=== PATIENT | male | born 1940 | race Caucasian/White ===

== ENCOUNTER 2021-02-06 22:02 | Inpatient (IN) | payer MEDICARE ==
[2021-02-06 23:27] LABS: ABG Base Excess -5.3 mmol/L; ABG HCO3 21 mmol/L (21-25); ABG Oxygen Saturation 99.9 % (94-97); ABG PCO2 42 mmHg (35-45); ABG PO2 240 mmHg (83-108); ABG TCO2 22 mmol/L (19-24); Allen Test Performed? Yes
[2021-02-06 23:38] LABS: Anisocytosis Moderate; HCT 35.2 % (39.0-53.0); HGB 10.3 gm/dL (13.0-17.5); Hypochromasia Marked; MCH 25.1 pg (25.0-35.0); MCHC 29.4 g/dL (31.0-37.0); MCV 85.5 fL (80.0-100.0); Mean Platelet Volume 11.7; Microcytosis Slight; Platelet Count 363 k/uL (150-450); Poikilocytosis Slight; RBC 4.12 m/uL (4.30-5.90); RDW 22.3 % (11.5-15.5); WBC 8.8 k/uL (3.8-10.6)
[2021-02-06 23:39] LABS: Calcium 8.2 mg/dL (8.4-10.2); Potassium 4.1 mmol/L (3.5-5.1); Total Bilirubin 1.5 mg/dL (0.2-1.3); Total Protein 6.3 g/dL (6.3-8.2)
--- NOTE | 2021-02-07 00:41 | ED ---
SOB HPI - General Chief Complaint: Shortness of Breath Stated Complaint: Shortness of breath Time Seen by Provider: 02/06/21 22:05 Source: EMS Mode of arrival: EMS - History of Present Illness Initial Comments: Patient is an 80-year-old male with past medical history of bowel obstruction and ileostomy placement in 2012 who presented to [facility] with nausea, vomiting and abdominal pain. He had not had any output from his ostomy in 24 hours. He was evaluated at [facility] and found to have a bowel obstruction. He subsequently additionally had respiratory failure which was attributed to either aspiration versus congestive heart failure. The patient was on the BiPAP candidate due to his persistent nausea and vomiting and therefore he was intubated at their facility. He was given 80 mg of Lasix and transferred to our facility for higher level of care. Patient arrives on the vent with stable vital signs. No family is at bedside. - Related Data Home Medications Medication Instructions Recorded Confirmed Apixaban [Eliquis] 5 mg PO BID 02/06/21 02/06/21 Atorvastatin Calcium [Lipitor] 40 mg PO DAILY 02/06/21 02/06/21 Carvedilol [Coreg] 12.5 mg PO BID 02/06/21 02/06/21 Ferrous Sulfate [Feosol] 325 mg PO MOWEFR 02/06/21 02/06/21 Lansoprazole [Prevacid] 30 mg PO DAILY 02/06/21 02/06/21 Loratadine [Claritin] 10 mg PO DAILY PRN 02/06/21 02/06/21 Multivitamins, Thera [Multivitamin 1 tab PO DAILY 02/06/21 02/06/21 (formulary)] Sodium Bicarbonate Tab 650 mg PO QID@05,11,17,23 02/06/21 02/06/21 Tamsulosin HCl [Flomax] 0.4 mg PO DAILY 02/06/21 02/06/21 amLODIPine [Norvasc] 10 mg PO DAILY 02/06/21 02/06/21 hydroCHLOROthiazide [Hydrodiuril] 25 mg PO DAILY 02/06/21 02/06/21 Allergies Allergy/AdvReac Type Severity Reaction Status Date / Time lisinopril AdvReac Unknown Verified 02/06/21 22:41 Review of Systems ROS Statement: Those systems with pertinent positive or pertinent negative responses have been documented in the HPI. ROS Other: All systems not noted in ROS Statement are negative. Past Medical History Past Medical History: No Reported History Additional Past Medical History / Comment(s): hiatal hernia. hyperkalemia. hypertension. maculuar degernation. TIA. Past Surgical History: Appendectomy, Tonsillectomy Additional Past Surgical History / Comment(s): iliostomy Smoking Status: Never smoker Past Alcohol Use History: Daily Past Drug Use History: None Reported Course Vital Signs 02/06/21 02/06/21 02/06/21 22:23 22:30 23:08 Temperature 97.8 F Pulse Rate 63 63 63 Respiratory 18 18 18 Rate Blood Pressure 134/79 111/68 122/73 O2 Sat by Pulse 98 98 99 Oximetry - Reevaluation(s) Reevaluation #1: 02/07/21 00:[address] Diaz - add antibiotics Medical Decision Making - Medical Decision Making Upon arrival patient is placed in a trauma 1. I did review the patient's transfer packet. Blood gas showed a pH of 7.25, CO2 44, O2 77. White blood cell count was 11. Hemoglobin 10. Platelets 423. Lactic acid 0.8. Troponin was negative. UA was positive for greater than 100 white blood cells. Sodium 141, potassium 4.7, chloride 112, creatinine 2 which is near the patient's baseline. Chest x-ray demonstrated enteric tube with tip projecting in the left upper quadrant of the abdomen, presumably the stomach. Left-sided single lead cardiac pacemaker. Endotracheal tube terminates 7 cm above the annalisa. Bilateral pleural effusions and atelectasis. No pneumonia or pneumothorax. Aspiration not excluded. CT the abdomen and pelvis demonstrates dilated small and large bowel loops, concerning for bowel obstruction. Right lower quadrant ostomy with parastomal hernia which may be the site of transition point. Bilateral pleural effusions and anasarca, suggestive of fluid overload. Air within the urinary bladder. She did call and speak with Dr. Diaz. Requesting the patient be placed on antibiotics. Patient will be admitted to the ICU. Currently awaiting a callback from Dr. Montoya. Spoke with Claudia from [facility] who will admit the patient. - Lab Data Result diagrams: 02/06/21 23:04 02/06/21 23:04 Lab Results 02/06/21 02/06/21 02/06/21 Range/Units 23:04 23:04 23:04 WBC 8.8 (3.8-10.6) k/uL RBC 4.12 L (4.30-5.90) m/uL Hgb 10.3 L (13.0-17.5) gm/dL Hct 35.2 L (39.0-53.0) % MCV 85.5 (80.0-100.0) fL MCH 25.1 (25.0-35.0) pg MCHC 29.4 L (31.0-37.0) g/dL RDW 22.3 H (11.5-15.5) % Plt Count 363 (150-450) k/uL MPV 11.7 Hypochromasia Marked Poikilocytosis Slight Anisocytosis Moderate Microcytosis Slight Sample Site ABG pH (7.35-7.45) ABG pCO2 (35-45) mmHg ABG pO2 (83-108) mmHg ABG HCO3 (21-25) mmol/L ABG Total CO2 (19-24) mmol/L ABG O2 Saturation (94-97) % ABG Base Excess mmol/L Jin Test FiO2 % Sodium 140 (137-145) mmol/L Potassium 4.1 (3.5-5.1) mmol/L Chloride 111 H (98-107) mmol/L Carbon Dioxide 19 L (22-30) mmol/L Anion Gap 10 mmol/L BUN 58 H (9-20) mg/dL Creatinine 1.94 H (0.66-1.25) mg/dL Est GFR (CKD-EPI)AfAm 36 (>60 ml/min/1.73 sqM) Est GFR (CKD-EPI)NonAf 31 (>60 ml/min/1.73 sqM) Glucose 124 H (74-99) mg/dL Plasma Lactic Acid Saji 0.7 (0.7-2.0) mmol/L Calcium 8.2 L (8.4-10.2) mg/dL Total Bilirubin 1.5 H (0.2-1.3) mg/dL AST 45 (17-59) U/L ALT 13 (4-49) U/L Alkaline Phosphatase 353 H (38-126) U/L Total Protein 6.3 (6.3-8.2) g/dL Albumin 3.0 L (3.5-5.0) g/dL 02/06/21 Range/Units 23:25 WBC (3.8-10.6) k/uL RBC (4.30-5.90) m/uL Hgb (13.0-17.5) gm/dL Hct (39.0-53.0) % MCV (80.0-100.0) fL MCH (25.0-35.0) pg MCHC (31.0-37.0) g/dL RDW (11.5-15.5) % Plt Count (150-450) k/uL MPV Hypochromasia Poikilocytosis Anisocytosis Microcytosis Sample Site Right Radial ABG pH 7.30 L (7.35-7.45) ABG pCO2 42 (35-45) mmHg ABG pO2 240 H (83-108) mmHg ABG HCO3 21 (21-25) mmol/L ABG Total CO2 22 (19-24) mmol/L ABG O2 Saturation 99.9 H (94-97) % ABG Base Excess -5.3 mmol/L Jin Test Yes FiO2 100 % Sodium (137-145) mmol/L Potassium (3.5-5.1) mmol/L Chloride (98-107) mmol/L Carbon Dioxide (22-30) mmol/L Anion Gap mmol/L BUN (9-20) mg/dL Creatinine (0.66-1.25) mg/dL Est GFR (CKD-EPI)AfAm (>60 ml/min/1.73 sqM) Est GFR (CKD-EPI)NonAf (>60 ml/min/1.73 sqM) Glucose (74-99) mg/dL Plasma Lactic Acid Saji (0.7-2.0) mmol/L Calcium (8.4-10.2) mg/dL Total Bilirubin (0.2-1.3) mg/dL AST (17-59) U/L ALT (4-49) U/L Alkaline Phosphatase (38-126) U/L Total Protein (6.3-8.2) g/dL Albumin (3.5-5.0) g/dL Disposition Clinical Impression: Ventilator dependence, Hypoxia, Congestive heart failure, Bowel obstruction Disposition: ADMITTED IP TO THIS HOSP Condition: Serious Is patient prescribed a controlled substance at d/c from ED?: No Referrals: Bubba Tejada MD [Primary Care Provider] - 1-2 days Decision to Admit Reason: Admit from EC Decision Date: 02/07/21 Decision Time: 01:20
[2021-02-07 01:04] LABS: Band Neutrophils % 14 %; Eosinophils # (M) 0.18 k/uL (0-0.7); Monocytes # (M) 0.44 k/uL (0-1.0); Neutrophils % (M) 79 %; Nucleated Red Blood Cells 0 /100 WBC (0-0); Total Cells Counted 100
[2021-02-07 01:05] LABS: Anisocytosis (M) Present; Ovalocytes Present; Poikilocytosis (M) Present; Polychromasia Present; RBC Fragments Present
[2021-02-07] MEDS ORDERED: NALOXONE 0.4 MG/ML 1 ML VIAL IV PRN (01:21)
[2021-02-07] MEDS: SODIUM CHLORIDE 0.9% 1,000 ML IV SCH ×2 (01:40→14:30)
[2021-02-07] MEDS ORDERED: MIDAZOLAM 1 MG/ML 5 ML VIAL IV STA (01:46)
--- NOTE | 2021-02-07 02:20 | XR ---
EXAMINATION TYPE: XR chest 1V confirm line [facility] DATE OF EXAM: 02/07/2021 COMPARISON: Yesterday HISTORY: Short of breath TECHNIQUE: Single view FINDINGS: Endotracheal tube is 5 cm from the annalisa. There is nasogastric tube has the tip over the l ateral aspect of the gastric fundus. No change. There is bilateral lower lobe pulmonary airspace infiltrates and worse on the right side. There is mi ld pulmonary congestion. There is left axillary pacemaker. IMPRESSION: Tubing in good position. Pulmonary infiltrates unchanged and there is probably also conge stive heart failure.
[2021-02-07 02:44] LABS: Glucose,Whole Blood 106 mg/dL (75-99)
[2021-02-07 05:10] LABS: Anisocytosis Moderate; HCT 33.5 % (39.0-53.0); HGB 9.9 gm/dL (13.0-17.5); Hypochromasia Marked; MCH 25.3 pg (25.0-35.0); MCHC 29.7 g/dL (31.0-37.0); MCV 85.2 fL (80.0-100.0); Mean Platelet Volume 11.4; Microcytosis Slight; Platelet Count 371 k/uL (150-450); Poikilocytosis Slight; RBC 3.93 m/uL (4.30-5.90); RDW 22.4 % (11.5-15.5); WBC 6.1 k/uL (3.8-10.6)
[2021-02-07 05:19] LABS: Calcium 8.1 mg/dL (8.4-10.2); Magnesium 1.4 mg/dL (1.6-2.3)
[2021-02-07 05:36] LABS: Band Neutrophils % 24 %; Eosinophils # (M) 0.06 k/uL (0-0.7); Lymphocytes # (M) 0.12 k/uL (1.0-4.8); Monocytes # (M) 0.55 k/uL (0-1.0); Neutrophils % (M) 64 %; Nucleated Red Blood Cells 0 /100 WBC (0-0); Total Cells Counted 200
[2021-02-07 05:37] LABS: Anisocytosis (M) Present; Poikilocytosis (M) Present; Polychromasia Present
[2021-02-07 05:38] LABS: Ovalocytes Present
[2021-02-07 05:52] LABS: ABG Base Excess -4.2 mmol/L; ABG HCO3 22 mmol/L (21-25); ABG Oxygen Saturation 96.7 % (94-97); ABG PCO2 42 mmHg (35-45); ABG PH 7.32 (7.35-7.45); ABG PO2 86 mmHg (83-108); ABG TCO2 23 mmol/L (19-24); Allen Test Performed? Yes
[2021-02-07] MEDS ORDERED: Magnesium Replacement Protocol 1 EACH MISC MISCELLANE PRN (06:09)
[2021-02-07] MEDS: MAGNESIUM SULFATE-D5W PMX 1 GM in DEXTROSE/WATER 1 100ML.BAG IVPB SCH ×3 (06:30→13:37)
[2021-02-07] MEDS ORDERED: IPRATROPIUM-ALBUTEROL 3 ML NEB INHALATION PRN (08:46)
[2021-02-07] MEDS ORDERED: SODIUM CHLORIDE 0.9% 1,000 ML IV ONE (08:49)
[2021-02-07] MEDS ORDERED: CISATRACURIUM 2 MG/ML 5 ML VIAL IV ONE (09:01)
[2021-02-07] MEDS ORDERED: PIPERACILLIN-TAZOBACTAM 3.375 GM in SODIUM CHLORIDE 0.9% 100 ML IVPB ONE (09:15)
--- NOTE | 2021-02-07 09:47 | XR ---
EXAMINATION TYPE: XR chest 1V portable DATE OF EXAM: 02/07/2021 COMPARISON: Chest x-ray 02/07/2021 and earlier time HISTORY: Intubated, abnormal chest x-ray, status post central venous catheter placement TECHNIQUE: Single frontal view of the chest is obtained. FINDINGS: There is been interval placement of a left jugular central venous catheter, distal tip is in the right atrium. There is no evident pneumothorax or other significant interval change. Endotrach eal tube and NG tube are in proper positions. Bibasilar density, prominent central vascularity is aga in noted. Pacemaker is present and is unchanged. Cardiac mediastinal silhouette is unchanged. IMPRESSION: No evident complication status post central venous catheter placement.
--- NOTE | 2021-02-07 09:50 | PCN ---
PROCEDURE NOTE PULMONARY/CRITICAL CARE PROCEDURE NOTE: LEFT INTERNAL JUGULAR TRIPLE-LUMEN CATHETER PLACEMENT: OPERATORS: 1. Dr. Montoya. 2. Dr. Velazquez. PREOPERATIVE DIAGNOSIS: Administration of fluids and pressors. POSTOPERATIVE DIAGNOSIS: Administration of fluids and pressors. PROCEDURE DESCRIPTION: A time-out was completed verifying correct patient, procedure, site, positioning, and implant(s) or special equipment if applicable. There was informed consent. The patient was placed in a dependent position appropriate for triple-lumen catheter placement based on the vein to be cannulated. The patient's left neck was prepped and draped in sterile fashion. 1% Lidocaine was used to anesthetize the surrounding skin area. A triple-lumen 9F Cordis catheter was introduced into the left internal jugular vein using Seldinger technique. The catheter was threaded smoothly over the guidewire and good blood return from all three ports was obtained. Each lumen of the catheter was evacuated of air and flushed with sterile saline. The catheter was then sutured in place to the skin and a sterile dressing applied. Perfusion to the extremity distal to the point of catheter insertion was checked and found to be adequate. There was no immediate complication. The chest x-ray was done and showed the catheter in the junction of the right atrium superior vena cava. The patient tolerated the procedure well. The procedures administration of fluids and pressors. MMODL / IJN: [id number] /
--- NOTE | 2021-02-07 09:56 | PCN ---
PROCEDURE NOTE PULMONARY/CRITICAL CARE PROCEDURE NOTE: RIGHT RADIAL ARTERIAL LINE PLACEMENT: PREOPERATIVE DIAGNOSIS: Frequent blood draws and blood gas monitoring. POSTOPERATIVE DIAGNOSIS: Frequent blood draws and blood gas monitoring. OPERATORS: 1. Dr. Montoya. 2. Dr. Velazquez. PROCEDURE DESCRIPTION: A time-out was completed verifying correct patient, procedure, site, positioning, and implant(s) or special equipment if applicable. Jin's test was performed to ensure adequate perfusion. The patient's right wrist was prepped and draped in sterile fashion. 1% Lidocaine was used to anesthetize the area. An 18G Arrow arterial line was introduced into the right radial artery. The catheter was threaded over the guidewire and the needle was removed with appropriate pulsatile blood return. Blood loss was minimal. The catheter was then sutured in place to the skin and a sterile dressing applied by the nurse. Perfusion to the extremity distal to the point of catheter insertion was checked and found to be adequate. There was good blood return and waveform. The patient tolerated the procedure well and there were no immediate complications. MMODL / IJN: [id number] /
[2021-02-07] MEDS: PANTOPRAZOLE 40 MG/10 ML VIAL IV SCH (10:02)
[2021-02-07] MEDS: HEPARIN SODIUM,PORCINE/PF 5,000 UNIT/0.5 ML SYRINGE SQ SCH ×3 (10:02→23:38)
[2021-02-07] MEDS: CHLORHEXIDINE GLUCONATE 15 ML CUP MUCOUS MEM SCH ×2 (10:03→20:13)
[2021-02-07] MEDS: NOREPINEPHRINE 8 MG in SODIUM CHLORIDE 0.9% 250 ML IV SCH (10:15)
--- NOTE | 2021-02-07 10:27 | P.CNPUL ---
History of Present Illness Consult date: 02/07/21 Requesting physician: Alyse Sosa Reason for consult: hypoxemia, abnormal CXR/CT (Ventilator, critical care management) Chief complaint: Nausea, vomiting, abdominal pain History of present illness: This is an 80-year-old gentleman with a history of hypertension, BPH, gastroesophageal reflux disease, macular degeneration, sick sinus syndrome status post permanent pacemaker implantation, anticoagulated with Eliquis, hyperlipidemia. He also has a history of previous bowel obstruction and subs equent ileostomy placed in 2012. He presented to [facility] yesterday with complaints of nausea vomiting abdominal pain and no output from his ileostomy for 24 hours. He was thought to have a bowel obstruction. The patient additionally had some respiratory failure suspect secondary to aspi ration while vomiting. He was unable to tolerate BiPAP and subsequently intubated at [facility] and transferred here early this morning for further evaluation and treatment. Chest x-ray revealed pulmonary infiltrates and possible pulmonary vascular congestion. Endotracheal tube in good position. White count 6.1. Hemoglobin 9.9. Platelets 371. Sodium 140. Potassium 4.0. Creatinine 1.94. BUN 57. The patient is seen in consultation in the ICU. Currently sedated on propofol at 45 mcg/kg/m. 0.9 normal saline at 75 ML's per hour. He is on assist control mode at a rate of 18, tidal volume 450, FiO2 50% and a PEEP of 5. Morning blood gases reveal a P O2 of 86, pCO2 42, pH 7.32 on 60% FiO2. Sputum culture pending. The patient's ostomy appears to be functioning. There is significant amount of loose stool. Review of Systems ROS unobtainable: due to endotracheal tube Past Medical History Past Medical History: No Reported History, Hypertension Additional Past Medical History / Comment(s): hiatal hernia. hyperkalemia. maculuar degernation. TIA. 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 Pacemaker placed 08/15/2020 by Eleuterio Babcock ([phone]) Past Anesthesia/Blood Transfusion Reactions: No Reported Reaction Type of Cardiac Device: Permanent Pacemaker Device Placement Date:: 08/15/20 Past Psychological History: No Psychological Hx Reported Smoking Status: Former smoker Past Alcohol Use History: Rare Past Drug Use History: None Reported - Past Family History Daughter(s) Family Medical History: Diabetes Mellitus, Hypertension Additional Family Medical History / Comment(s): macular degeneration Medications and Allergies Home Medications Medication Instructions Recorded Confirmed Type Apixaban [Eliquis] 5 mg PO BID 02/06/21 02/06/21 History Atorvastatin Calcium [Lipitor] 40 mg PO DAILY 02/06/21 02/06/21 History Carvedilol [Coreg] 12.5 mg PO BID 02/06/21 02/06/21 History Ferrous Sulfate [Feosol] 325 mg PO MOWEFR 02/06/21 02/06/21 History Lansoprazole [Prevacid] 30 mg PO DAILY 02/06/21 02/06/21 History Loratadine [Claritin] 10 mg PO DAILY PRN 02/06/21 02/06/21 History Multivitamins, Thera [Multivitamin 1 tab PO DAILY 02/06/21 02/06/21 History (formulary)] Sodium Bicarbonate Tab 650 mg PO QID@05,11,17,23 02/06/21 02/06/21 History Tamsulosin HCl [Flomax] 0.4 mg PO DAILY 02/06/21 02/06/21 History amLODIPine [Norvasc] 10 mg PO DAILY 02/06/21 02/06/21 History hydroCHLOROthiazide [Hydrodiuril] 25 mg PO DAILY 02/06/21 02/06/21 History Allergies Allergy/AdvReac Type Severity Reaction Status Date / Time lisinopril AdvReac Unknown Verified 02/06/21 22:41 Physical Exam Vitals: Vital Signs Temp Pulse Resp BP Pulse Ox 02/07/21 07:00 66 19 93/55 95 02/07/21 06:00 65 18 100/66 95 02/07/21 05:00 94.2 F L 60 18 100/64 97 02/07/21 04:00 60 18 99/65 96 02/07/21 03:00 62 18 106/65 96 02/07/21 02:38 63 15 02/07/21 02:00 64 16 106/64 96 02/07/21 00:30 97.8 F 63 18 114/68 96 02/07/21 00:00 63 18 121/74 96 02/06/21 23:30 72 18 123/74 96 02/06/21 23:08 63 18 122/73 99 02/06/21 22:30 63 18 111/68 98 02/06/21 22:23 97.8 F 63 18 134/79 98 02/06/21 22:20 14 Intake and Output 02/06/21 02/07/21 02/07/21 22:59 06:59 14:59 Intake Total 400.000 99.767 Output Total 1460 60 Balance -1060.000 39.767 Intake: IV 300 75 Sodium Chloride 0.9% 1, 300 75 000 ml @ 75 mls/hr IV . [id number] ADRIA Rx#:[id number] Intake, IV Titration 100.000 24.767 Amount propofoL 1,000 mg In 100.000 24.767 Empty Bag 1 bag @ Titrate IV .Q0M [facility]RIA Rx#: [id number] Output: Urine 1310 60 Stool 150 Other: Voiding Method Indwelling Catheter Weight 85.457 kg 86.9 kg GENERAL EXAM: Intubated, sedated, frail 80-year-old gentleman, appears comfortable in no apparent distress. HEAD: Normocephalic. EYES: Sluggish reaction of pupils, equal size. NOSE: Clear with pink turbinates. THROAT: Oral endotracheal and gastric tube secured in place. No erythema or exudates. NECK: No masses, no JVD. CHEST: No chest wall deformity. LUNGS: Equal air entry with few scattered rhonchi bilaterally. CVS: S1 and S2 normal with no audible murmur, regular rhythm. ABDOMEN: Ostomy in place. Functioning. Loose stool. No hepatosplenomegaly, normal bowel sounds, no guarding or rigidity. SPINE: No scoliosis or deformity SKIN: No rashes CENTRAL NERVOUS SYSTEM: Sedated. Tone is normal in all 4 extremities. EXTREMITIES: There is no peripheral edema. No clubbing, no cyanosis. Redness of the bilateral lower extremities. Dry skin. Peripheral pulses are intact. Results - Laboratory Findings CBC and BMP: 02/07/21 04:24 02/07/21 04:24 ABG ABG pH 7.32 (7.35-7.45) L 02/07/21 05:48 ABG pCO2 42 mmHg (35-45) 02/07/21 05:48 ABG pO2 86 mmHg (83-108) 02/07/21 05:48 ABG O2 Saturation 96.7 % (94-97) 02/07/21 05:48 Abnormal lab findings: Abnormal Labs 02/06/21 02/06/21 02/06/21 23:04 23:04 23:25 RBC 4.12 L Hgb 10.3 L Hct 35.2 L MCHC 29.4 L RDW 22.3 H Neutrophils # (Manual) 8.10 H Lymphocytes # (Manual) ABG pH 7.30 L ABG pO2 240 H ABG O2 Saturation 99.9 H Chloride 111 H Carbon Dioxide 19 L BUN 58 H Creatinine 1.94 H Glucose 124 H POC Glucose (mg/dL) Calcium 8.2 L Magnesium Total Bilirubin 1.5 H Alkaline Phosphatase 353 H Albumin 3.0 L 02/07/21 02/07/21 02/07/21 02:42 04:24 04:24 RBC 3.93 L Hgb 9.9 L Hct 33.5 L MCHC 29.7 L RDW 22.4 H Neutrophils # (Manual) Lymphocytes # (Manual) 0.12 L ABG pH ABG pO2 ABG O2 Saturation Chloride 111 H Carbon Dioxide 20 L BUN 57 H Creatinine 1.94 H Glucose POC Glucose (mg/dL) 106 H Calcium 8.1 L Magnesium 1.4 L Total Bilirubin Alkaline Phosphatase Albumin 02/07/21 05:48 RBC Hgb Hct MCHC RDW Neutrophils # (Manual) Lymphocytes # (Manual) ABG pH 7.32 L ABG pO2 ABG O2 Saturation Chloride Carbon Dioxide BUN Creatinine Glucose POC Glucose (mg/dL) Calcium Magnesium Total Bilirubin Alkaline Phosphatase Albumin - Diagnostic Findings Chest x-ray: image reviewed Assessment and Plan Assessment: 1 Acute hypoxemic respiratory failure secondary to suspected aspiration and/or fluid volume overload 2 Nausea, vomiting, secondary to no output in the ostomy 24 hours. 3 History of bowel obstruction status post ostomy placement in 2012 4 Acute renal failure possibly related to dehydration, nausea and vomiting 5 Anemia 6 History of suspected atrial fibrillation. Status post permanent pacemaker implantation. Anticoagulated with Eliquis. 7 Hypertension history of. Currently hypotensive 8 Hyperlipidemia 9 BPH 10 Gastroesophageal Reflux Disease Plan: The patient was seen and evaluated by Dr. Montoya Chest x-ray, ABGs and labs reviewed Add Zosyn, DuoNeb inhalations ProBNP, pro-calcitonin pending Echocardiogram pending Additional 1 L of fluid given May require norepinephrine Left IJ catheter placed Right radial arterial line placed Dietary consult for tube feeding recommendations Daily interruption of sedation Follow-up chest x-ray, ABGs and labs in the a.m. We will continue to follow and make further recommendations based on his clinical status I, the cosigning physician, performed a history & physical examination of the patient. Lungs sounds bilateral scattered rhonchi. Maintaining good O2 saturations in the 90s on 50% FiO2 via the mechanical ventilator. I discussed the assessment and plan of care with my nurse practitioner, Amber Velazquez. I attest to the above consultation as dictated by her. Time with Patient: Greater than 30
--- NOTE | 2021-02-07 10:33 | P.HPIM ---
History of Present Illness Patient is 80-year-old male admitted after intubation and transfer from [facility] further treatment of acute respiratory failure which was believed to be secondary to either aspiration pneumonia congestive heart failure. Patient doesn't have any JVD doesn't have any crackles on exam, chest x-ray showed bibasal infiltrates. Patient actually presented to [facility] as he was not having any stool in his colostomy bag and patient was noted to have bowel obstruction, subsequently went into respiratory failure. Patient was only has a central line in the arterial line. Patient is on assist-control ventilation with the set up respiratory rate of 18, PEEP of 5 FiO2 50% patient is breathing over the ventilator. Patient's colostomy bag is not in the right pushing leading to no output once his corrected patient was having good output from there. Patient is presently hypotensive receiving 2 L of bolus of IV fluid and patient is also on Zosyn. Patient is presently not on any pressor support. I do not have any previous labs are echocardiogram available at this time. Patient does appear to have history of atrial fibrillation presently sinus rhythm was on Eliquis at home. REVIEW OF SYSTEMS: patient is intubated PHYSICAL EXAMINATION: GENERAL: Patient is presently intubated sedated on propofol, patient has an orogastric tube HEENT: Pupils are round and equally reacting to light. EOMI. No scleral icterus. No conjunctival pallor. Normocephalic, atraumatic. No pharyngeal erythema. No thyromegaly. CARDIOVASCULAR: S1 and S2 present. No murmurs, rubs, or gallops. PULMONARY: Chest is clear to auscultation, no wheezing or crackles. ABDOMEN: Soft, nontender, nondistended, normoactive bowel sounds. No palpable organomegaly. MUSCULOSKELETAL: No joint swelling or deformity. EXTREMITIES: No cyanosis, clubbing, or pedal edema. NEUROLOGICAL: Limited due to sedation. SKIN: No rashes. Assessment and plan acute hypoxic respiratory failure: 2 possible etiologies being aspiration for which patient is on Zosyn, patient doesn't have a jury possibly of heart failure exacerbation is low echocardiogram and we obtain BMP will be obtained. Patient will be continued on ventilatory support wean off as tolerated -Hypotension: I cannot rule out sepsis and septic shock can be hypovolemic too. Patient will be continued with IV boluses for normal saline if patient doesn't respond after 2 L patient probably will be started on norepinephrine at that time -Atrial fibrillation presently rate controlled sinus rhythm decision regarding resuming his anti-coagulation depending on his course -Elevated creatinine renal failure unsure whether it's acute or chronic possible difficulty with renal failure secondary to acute tubular necrosis from hypotension -Bowel obstruction resolved at this time -Hypertension: Presently hypotensive -benign prostatic hypertrophy -Gastroesophageal reflux disease -Hyperlipidemia DVT prophylaxis: On subcutaneous heparin probably will be resumed on Eliquis Past Medical History Past Medical History: No Reported History, Hypertension Additional Past Medical History / Comment(s): hiatal hernia. hyperkalemia. maculuar degernation. TIA. 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 Pacemaker placed 08/15/2020 by Eleuterio Babcock ([phone]) Past Anesthesia/Blood Transfusion Reactions: No Reported Reaction Type of Cardiac Device: Permanent Pacemaker Device Placement Date:: 08/15/20 Past Psychological History: No Psychological Hx Reported Smoking Status: Former smoker Past Alcohol Use History: Rare Past Drug Use History: None Reported - Past Family History Daughter(s) Family Medical History: Diabetes Mellitus, Hypertension Additional Family Medical History / Comment(s): macular degeneration Medications and Allergies Home Medications Medication Instructions Recorded Confirmed Type Apixaban [Eliquis] 5 mg PO BID 02/06/21 02/06/21 History Atorvastatin Calcium [Lipitor] 40 mg PO DAILY 02/06/21 02/06/21 History Carvedilol [Coreg] 12.5 mg PO BID 02/06/21 02/06/21 History Ferrous Sulfate [Feosol] 325 mg PO MOWEFR 02/06/21 02/06/21 History Lansoprazole [Prevacid] 30 mg PO DAILY 02/06/21 02/06/21 History Loratadine [Claritin] 10 mg PO DAILY PRN 02/06/21 02/06/21 History Multivitamins, Thera [Multivitamin 1 tab PO DAILY 02/06/21 02/06/21 History (formulary)] Sodium Bicarbonate Tab 650 mg PO QID@05,11,17,23 02/06/21 02/06/21 History Tamsulosin HCl [Flomax] 0.4 mg PO DAILY 02/06/21 02/06/21 History amLODIPine [Norvasc] 10 mg PO DAILY 02/06/21 02/06/21 History hydroCHLOROthiazide [Hydrodiuril] 25 mg PO DAILY 02/06/21 02/06/21 History Allergies Allergy/AdvReac Type Severity Reaction Status Date / Time lisinopril AdvReac Unknown Verified 02/06/21 22:41 Physical Exam Vitals: Vital Signs Temp Pulse Resp BP Pulse Ox 02/07/21 07:00 66 19 93/55 95 02/07/21 06:00 65 18 100/66 95 02/07/21 05:00 94.2 F L 60 18 100/64 97 02/07/21 04:00 60 18 99/65 96 02/07/21 03:00 62 18 106/65 96 02/07/21 02:38 63 15 02/07/21 02:00 64 16 106/64 96 02/07/21 00:30 97.8 F 63 18 114/68 96 02/07/21 00:00 63 18 121/74 96 02/06/21 23:30 72 18 123/74 96 02/06/21 23:08 63 18 122/73 99 02/06/21 22:30 63 18 111/68 98 02/06/21 22:23 97.8 F 63 18 134/79 98 02/06/21 22:20 14 Intake and Output 02/06/21 02/07/21 02/07/21 22:59 06:59 14:59 Intake Total 400.000 99.767 Output Total 1460 60 Balance -1060.000 39.767 Intake: IV 300 75 Sodium Chloride 0.9% 1, 300 75 000 ml @ 75 mls/hr IV . [id number] ADRIA Rx#:[id number] Intake, IV Titration 100.000 24.767 Amount propofoL 1,000 mg In 100.000 24.767 Empty Bag 1 bag @ Titrate IV .Q0M ADRIA Rx#: [id number] Output: Urine 1310 60 Stool 150 Other: Voiding Method Indwelling Catheter Weight 85.457 kg 86.9 kg Results CBC & Chem 7: 02/07/21 04:24 02/07/21 04:24 Labs: Abnormal Lab Results - Last 24 Hours (Table) 02/06/21 02/06/21 02/06/21 Range/Units 23:04 23:04 23:25 RBC 4.12 L (4.30-5.90) m/uL Hgb 10.3 L (13.0-17.5) gm/dL Hct 35.2 L (39.0-53.0) % MCHC 29.4 L (31.0-37.0) g/dL RDW 22.3 H (11.5-15.5) % Neutrophils # (Manual) 8.10 H (1.3-7.7) k/uL Lymphocytes # (Manual) (1.0-4.8) k/uL ABG pH 7.30 L (7.35-7.45) ABG pO2 240 H (83-108) mmHg ABG O2 Saturation 99.9 H (94-97) % Chloride 111 H (98-107) mmol/L Carbon Dioxide 19 L (22-30) mmol/L BUN 58 H (9-20) mg/dL Creatinine 1.94 H (0.66-1.25) mg/dL Glucose 124 H (74-99) mg/dL POC Glucose (mg/dL) (75-99) mg/dL Calcium 8.2 L (8.4-10.2) mg/dL Magnesium (1.6-2.3) mg/dL Total Bilirubin 1.5 H (0.2-1.3) mg/dL Alkaline Phosphatase 353 H (38-126) U/L Albumin 3.0 L (3.5-5.0) g/dL 02/07/21 02/07/21 02/07/21 Range/Units 02:42 04:24 04:24 RBC 3.93 L (4.30-5.90) m/uL Hgb 9.9 L (13.0-17.5) gm/dL Hct 33.5 L (39.0-53.0) % MCHC 29.7 L (31.0-37.0) g/dL RDW 22.4 H (11.5-15.5) % Neutrophils # (Manual) (1.3-7.7) k/uL Lymphocytes # (Manual) 0.12 L (1.0-4.8) k/uL ABG pH (7.35-7.45) ABG pO2 (83-108) mmHg ABG O2 Saturation (94-97) % Chloride 111 H (98-107) mmol/L Carbon Dioxide 20 L (22-30) mmol/L BUN 57 H (9-20) mg/dL Creatinine 1.94 H (0.66-1.25) mg/dL Glucose (74-99) mg/dL POC Glucose (mg/dL) 106 H (75-99) mg/dL Calcium 8.1 L (8.4-10.2) mg/dL Magnesium 1.4 L (1.6-2.3) mg/dL Total Bilirubin (0.2-1.3) mg/dL Alkaline Phosphatase (38-126) U/L Albumin (3.5-5.0) g/dL 02/07/21 Range/Units 05:48 RBC (4.30-5.90) m/uL Hgb (13.0-17.5) gm/dL Hct (39.0-53.0) % MCHC (31.0-37.0) g/dL RDW (11.5-15.5) % Neutrophils # (Manual) (1.3-7.7) k/uL Lymphocytes # (Manual) (1.0-4.8) k/uL ABG pH 7.32 L (7.35-7.45) ABG pO2 (83-108) mmHg ABG O2 Saturation (94-97) % Chloride (98-107) mmol/L Carbon Dioxide (22-30) mmol/L BUN (9-20) mg/dL Creatinine (0.66-1.25) mg/dL Glucose (74-99) mg/dL POC Glucose (mg/dL) (75-99) mg/dL Calcium (8.4-10.2) mg/dL Magnesium (1.6-2.3) mg/dL Total Bilirubin (0.2-1.3) mg/dL Alkaline Phosphatase (38-126) U/L Albumin (3.5-5.0) g/dL Microbiology - Last 24 Hours (Table) 02/06/21 23:04 Sputum Culture - Preliminary Sputum Thrombosis Risk Factor Assmnt - Choose All That Apply Each Factor Represents 1 point: Heart failure (<1month), Medical pt on bed rest, Swollen legs (current) Each Risk Factor Represents 3 Points: Age 75 years or older Thrombosis Risk Factor Assessment Total Risk Factor Score: 6 Thrombosis Risk Factor Assessment Level: High Risk
[2021-02-07] MEDS: IPRATROPIUM-ALBUTEROL 3 ML NEB INHALATION SCH ×3 (11:34→20:23)
[2021-02-07 11:40] LABS: Glucose,Whole Blood 83 mg/dL (75-99)
[2021-02-07 14:09] LABS: Appearance,Urine Turbid (Clear); Bacteria,Urine Many /hpf; Bilirubin,Urine Negative (Negative); Blood,Urine Small (Negative); Color,Urine Yellow; Glucose,Urine (UA) Negative (Negative); Ketones,Urine Negative (Negative); Leukocyte Esterase,Urine Large (Negative); Nitrite,Urine Negative (Negative); PH, Urine 5.5 (5.0-8.0); Protein,Urine 2+ (Negative); RBC,Urine 26 /hpf (0-5); Specific Gravity,Urine 1.019 (1.001-1.035); Urobilinogen,Urine <2.0 mg/dL (<2.0); WBC,Urine >182 /hpf (0-5)
--- NOTE | 2021-02-07 15:31 | P.GSCN ---
History of Present Illness Consult date: 02/07/21 History of present illness: CHIEF COMPLAINT: Abdominal pain HISTORY OF PRESENT ILLNESS: This is a 80-year-old male with a past medical history of bowel obstruction and ileostomy placement in 2012. He presented to our last hospital with abdominal pain and nausea and vomiting. Also his ostomy had no output for 24 hours. Patient also had respiratory failure which was thought to be a possible aspiration versus CHF. Initially was placed on BiPAP and then required to be intubated. Patient was transferred to [facility] for higher level of care. Patient remains on mechanical ventilation. He is hypotensive and required to be started on Levophed. His ileostomy is now functioning. Abdomen is soft. He does have OG tube in place. He had 650 ML output through his ostomy bag and 300 ML output through the NG tube. He is on antibiotics for possible aspiration pneumonia. Surgical consult was placed for bowel obstruction. Patient had a computed tomography scan of the abdomen and pelvis at [place] that showed dilated small and large bowel loops concerning for bowel obstruction. Right lower quadrant ostomy with parastomal hernia which may be the site of transition point. Bilateral pleural effusions and anasarca suggestive of fluid overload. Patient seen and examined with Dr. azar PAST MEDICAL HISTORY: Bowel obstruction with ileostomy, hypertension, hiatal hernia, TIA, toxic megacolon, C. diff, atrial fibrillation anticoagulated with Eliquis, GERD PAST SURGICAL HISTORY: Appendectomy, pacemaker MEDICATIONS: See list. ALLERGIES: See list. SOCIAL HISTORY: No illicit drug use. REVIEW OF SYSTEMS: Patient is intubated and sedated and unable to obtain review of systems PHYSICAL EXAM: VITAL SIGNS: Reviewed GENERAL: Well-developed in no acute distress. HEENT: No sclera icterus. Extraocular movements grossly intact. Moist buccal mucosa. Head is atraumatic, normocephalic. No nasal drainage. ABDOMEN: Soft. Distended. Liquidy stool in ostomy bag with evidence of parastomal hernia located in right lower quadrant. OG tube in place NEUROLOGIC: Intubated and sedated LABORATORY DATA: WBC 6.1 hemoglobin 9.9 platelets 371 Sodium 140 potassium 4.0 BUN 57 creatinine 1.94 Magnesium 1.4 Elevated BNP albumin 3.0 Urine culture Positive UTI IMAGING: ASSESSMENT: 1. Abdominal pain with nausea and vomiting 2. 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 Bowel obstruction now resolved. 3. Acute hypoxic respiratory failure and suspected aspiration pneumonia and fluid overload PLAN: -No surgical intervention planned -Patient would be high risk candidate for any surgical intervention -Continue to monitor output from OG tube and ileostomy -Recommend to hold off on tube feedings for now -Magnesium being replaced -Continue ICU management -Continue supportive care Thank you for this consultation Physician [employer]or Services Team Leader note has been reviewed by physician. Signing provider agrees with the documented findings, assessment, and plan of care. Past Medical History Past Medical History: No Reported History, Hypertension Additional Past Medical History / Comment(s): hiatal hernia. hyperkalemia. maculuar degernation. TIA. 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 Pacemaker placed 08/15/2020 by Eleuterio Babcock ([phone]) Past Anesthesia/Blood Transfusion Reactions: No Reported Reaction Type of Cardiac Device: Permanent Pacemaker Device Placement Date:: 08/15/20 Past Psychological History: No Psychological Hx Reported Smoking Status: Former smoker Past Alcohol Use History: Rare Past Drug Use History: None Reported - Past Family History Daughter(s) Family Medical History: Diabetes Mellitus, Hypertension Additional Family Medical History / Comment(s): macular degeneration Medications and Allergies Home Medications Medication Instructions Recorded Confirmed Type Apixaban [Eliquis] 5 mg PO BID 02/06/21 02/06/21 History Atorvastatin Calcium [Lipitor] 40 mg PO DAILY 02/06/21 02/06/21 History Carvedilol [Coreg] 12.5 mg PO BID 02/06/21 02/06/21 History Ferrous Sulfate [Feosol] 325 mg PO MOWEFR 02/06/21 02/06/21 History Lansoprazole [Prevacid] 30 mg PO DAILY 02/06/21 02/06/21 History Loratadine [Claritin] 10 mg PO DAILY PRN 02/06/21 02/06/21 History Multivitamins, Thera [Multivitamin 1 tab PO DAILY 02/06/21 02/06/21 History (formulary)] Sodium Bicarbonate Tab 650 mg PO QID@05,11,17,23 02/06/21 02/06/21 History Tamsulosin HCl [Flomax] 0.4 mg PO DAILY 02/06/21 02/06/21 History amLODIPine [Norvasc] 10 mg PO DAILY 02/06/21 02/06/21 History hydroCHLOROthiazide [Hydrodiuril] 25 mg PO DAILY 02/06/21 02/06/21 History Allergies Allergy/AdvReac Type Severity Reaction Status Date / Time lisinopril AdvReac Unknown Verified 02/06/21 22:41 Surgical - Exam Vital Signs Resp 14 02/06/21 22:20 Results - Labs 02/07/21 04:24 02/07/21 04:24 Abnormal Lab Results - Last 24 Hours (Table) 02/06/21 02/06/21 02/06/21 Range/Units 23:04 23:04 23:25 RBC 4.12 L (4.30-5.90) m/uL Hgb 10.3 L (13.0-17.5) gm/dL Hct 35.2 L (39.0-53.0) % MCHC 29.4 L (31.0-37.0) g/dL RDW 22.3 H (11.5-15.5) % Neutrophils # (Manual) 8.10 H (1.3-7.7) k/uL Lymphocytes # (Manual) (1.0-4.8) k/uL ABG pH 7.30 L (7.35-7.45) ABG pO2 240 H (83-108) mmHg ABG O2 Saturation 99.9 H (94-97) % Chloride 111 H (98-107) mmol/L Carbon Dioxide 19 L (22-30) mmol/L BUN 58 H (9-20) mg/dL Creatinine 1.94 H (0.66-1.25) mg/dL Glucose 124 H (74-99) mg/dL POC Glucose (mg/dL) (75-99) mg/dL Calcium 8.2 L (8.4-10.2) mg/dL Magnesium (1.6-2.3) mg/dL Total Bilirubin 1.5 H (0.2-1.3) mg/dL Alkaline Phosphatase 353 H (38-126) U/L Albumin 3.0 L (3.5-5.0) g/dL Urine Protein (Negative) Urine Blood (Negative) Ur Leukocyte Esterase (Negative) Urine RBC (0-5) /hpf Urine WBC (0-5) /hpf Urine WBC Clumps (None) /hpf Urine Bacteria (None) /hpf 02/07/21 02/07/21 02/07/21 Range/Units 02:42 04:24 04:24 RBC 3.93 L (4.30-5.90) m/uL Hgb 9.9 L (13.0-17.5) gm/dL Hct 33.5 L (39.0-53.0) % MCHC 29.7 L (31.0-37.0) g/dL RDW 22.4 H (11.5-15.5) % Neutrophils # (Manual) (1.3-7.7) k/uL Lymphocytes # (Manual) 0.12 L (1.0-4.8) k/uL ABG pH (7.35-7.45) ABG pO2 (83-108) mmHg ABG O2 Saturation (94-97) % Chloride 111 H (98-107) mmol/L Carbon Dioxide 20 L (22-30) mmol/L BUN 57 H (9-20) mg/dL Creatinine 1.94 H (0.66-1.25) mg/dL Glucose (74-99) mg/dL POC Glucose (mg/dL) 106 H (75-99) mg/dL Calcium 8.1 L (8.4-10.2) mg/dL Magnesium 1.4 L (1.6-2.3) mg/dL Total Bilirubin (0.2-1.3) mg/dL Alkaline Phosphatase (38-126) U/L Albumin (3.5-5.0) g/dL Urine Protein (Negative) Urine Blood (Negative) Ur Leukocyte Esterase (Negative) Urine RBC (0-5) /hpf Urine WBC (0-5) /hpf Urine WBC Clumps (None) /hpf Urine Bacteria (None) /hpf 02/07/21 02/07/21 Range/Units 05:48 13:22 RBC (4.30-5.90) m/uL Hgb (13.0-17.5) gm/dL Hct (39.0-53.0) % MCHC (31.0-37.0) g/dL RDW (11.5-15.5) % Neutrophils # (Manual) (1.3-7.7) k/uL Lymphocytes # (Manual) (1.0-4.8) k/uL ABG pH 7.32 L (7.35-7.45) ABG pO2 (83-108) mmHg ABG O2 Saturation (94-97) % Chloride (98-107) mmol/L Carbon Dioxide (22-30) mmol/L BUN (9-20) mg/dL Creatinine (0.66-1.25) mg/dL Glucose (74-99) mg/dL POC Glucose (mg/dL) (75-99) mg/dL Calcium (8.4-10.2) mg/dL Magnesium (1.6-2.3) mg/dL Total Bilirubin (0.2-1.3) mg/dL Alkaline Phosphatase (38-126) U/L Albumin (3.5-5.0) g/dL Urine Protein 2+ H (Negative) Urine Blood Small H (Negative) Ur Leukocyte Esterase Large H (Negative) Urine RBC 26 H (0-5) /hpf Urine WBC >182 H (0-5) /hpf Urine WBC Clumps Many H (None) /hpf Urine Bacteria Many H (None) /hpf Microbiology - Last 24 Hours (Table) 02/06/21 23:04 Sputum Culture - Preliminary Sputum Diabetes panel 02/06/21 02/07/21 Range/Units 23:04 04:24 Sodium 140 140 (137-145) mmol/L Potassium 4.1 4.0 (3.5-5.1) mmol/L Chloride 111 H 111 H (98-107) mmol/L Carbon Dioxide 19 L 20 L (22-30) mmol/L BUN 58 H 57 H (9-20) mg/dL Creatinine 1.94 H 1.94 H (0.66-1.25) mg/dL Glucose 124 H 98 (74-99) mg/dL Calcium 8.2 L 8.1 L (8.4-10.2) mg/dL AST 45 (17-59) U/L ALT 13 (4-49) U/L Alkaline Phosphatase 353 H (38-126) U/L Total Protein 6.3 (6.3-8.2) g/dL Albumin 3.0 L (3.5-5.0) g/dL Calcium panel 02/06/21 02/07/21 Range/Units 23:04 04:24 Calcium 8.2 L 8.1 L (8.4-10.2) mg/dL Albumin 3.0 L (3.5-5.0) g/dL Pituitary panel 02/06/21 02/07/21 Range/Units 23:04 04:24 Sodium 140 140 (137-145) mmol/L Potassium 4.1 4.0 (3.5-5.1) mmol/L Chloride 111 H 111 H (98-107) mmol/L Carbon Dioxide 19 L 20 L (22-30) mmol/L BUN 58 H 57 H (9-20) mg/dL Creatinine 1.94 H 1.94 H (0.66-1.25) mg/dL Glucose 124 H 98 (74-99) mg/dL Calcium 8.2 L 8.1 L (8.4-10.2) mg/dL Adrenal panel 02/06/21 02/07/21 Range/Units 23:04 04:24 Sodium 140 140 (137-145) mmol/L Potassium 4.1 4.0 (3.5-5.1) mmol/L Chloride 111 H 111 H (98-107) mmol/L Carbon Dioxide 19 L 20 L (22-30) mmol/L BUN 58 H 57 H (9-20) mg/dL Creatinine 1.94 H 1.94 H (0.66-1.25) mg/dL Glucose 124 H 98 (74-99) mg/dL Calcium 8.2 L 8.1 L (8.4-10.2) mg/dL Total Bilirubin 1.5 H (0.2-1.3) mg/dL AST 45 (17-59) U/L ALT 13 (4-49) U/L Alkaline Phosphatase 353 H (38-126) U/L Total Protein 6.3 (6.3-8.2) g/dL Albumin 3.0 L (3.5-5.0) g/dL
[2021-02-07] MEDS: PIPERACILLIN-TAZOBACTAM 3.375 GM in SODIUM CHLORIDE 0.9% 100 ML IVPB SCH ×2 (16:55→23:38)
[2021-02-07 18:12] LABS: Glucose,Whole Blood 88 mg/dL (75-99)
[2021-02-08 00:08] LABS: Glucose,Whole Blood 85 mg/dL (75-99)
[2021-02-08] MEDS: IPRATROPIUM-ALBUTEROL 3 ML NEB INHALATION SCH ×6 (00:24→19:25)
[2021-02-08] MEDS: NOREPINEPHRINE 8 MG in SODIUM CHLORIDE 0.9% 250 ML IV SCH (03:39)
[2021-02-08] MEDS: SODIUM CHLORIDE 0.9% 1,000 ML IV SCH ×3 (04:19→23:35)
[2021-02-08 04:55] LABS: Anisocytosis Moderate; HCT 35.2 % (39.0-53.0); HGB 10.2 gm/dL (13.0-17.5); Hypochromasia Marked; MCHC 28.8 g/dL (31.0-37.0); MCV 86.7 fL (80.0-100.0); Mean Platelet Volume 10.9; Microcytosis Slight; Platelet Count 520 k/uL (150-450); Poikilocytosis Slight; RBC 4.06 m/uL (4.30-5.90); WBC 8.7 k/uL (3.8-10.6)
[2021-02-08 05:03] LABS: Potassium 4.8 mmol/L (3.5-5.1)
[2021-02-08 05:25] LABS: Band Neutrophils % 29 %; Eosinophils # (M) 0.26 k/uL (0-0.7); Lymphocytes # (M) 0.44 k/uL (1.0-4.8); Monocytes # (M) 0.61 k/uL (0-1.0); Myelocytes # (M) 0.09 k/uL (0); Myelocytes % 1 %; Neutrophils % (M) 55 %; Nucleated Red Blood Cells 0 /100 WBC (0-0); Total Cells Counted 200
[2021-02-08 05:26] LABS: Anisocytosis (M) Present; Ovalocytes Present; Poikilocytosis (M) Present; Polychromasia Present
[2021-02-08 05:27] LABS: Spherocytes Present
--- NOTE | 2021-02-08 08:26 | XR ---
EXAMINATION TYPE: XR chest 1V portable DATE OF EXAM: 02/08/2021 COMPARISON: Chest x-ray 02/07/2021 HISTORY: Intubated TECHNIQUE: Single frontal view of the chest is obtained. FINDINGS: Endotracheal tube, NG tube, left central venous catheter are overlying stable positions. G enerator is present in the left pectoral region, there is a lead in the right ventricle. There are ov erlying leads, artifacts. No evident pneumothorax. Patient is rotated. Bibasilar density persists, th ere is interval improved visualization of the right hemidiaphragm. Cardiac mediastinal silhouette is likely stable accounting for differences in technique, the aorta is dense. IMPRESSION: There may be some slight interval improvement in aeration. Correlate for congestive hear t failure and associated effusions, pneumonia not excluded.
[2021-02-08 08:46] LABS: ABG Base Excess -8.8 mmol/L; ABG HCO3 18 mmol/L (21-25); ABG Oxygen Saturation 97.1 % (94-97); ABG PCO2 36 mmHg (35-45); ABG PO2 88 mmHg (83-108); ABG TCO2 19 mmol/L (19-24)
[2021-02-08 08:47] LABS: Allen Test Performed? no
[2021-02-08] MEDS: PANTOPRAZOLE 40 MG/10 ML VIAL IV SCH (08:57)
[2021-02-08] MEDS: HEPARIN SODIUM,PORCINE/PF 5,000 UNIT/0.5 ML SYRINGE SQ SCH (08:57)
[2021-02-08] MEDS: CHLORHEXIDINE GLUCONATE 15 ML CUP MUCOUS MEM SCH ×2 (08:57→21:13)
[2021-02-08] MEDS: PIPERACILLIN-TAZOBACTAM 3.375 GM in SODIUM CHLORIDE 0.9% 100 ML IVPB SCH ×3 (08:57→23:31)
--- NOTE | 2021-02-08 10:05 | ECHOF ---
Referral Reason:CHF MEASUREMENTS -------- HEIGHT: 180.3 cm WEIGHT: 86.6 kg BP: 93/55 RVIDd: 4.8 cm (< 3.3) IVSd: 1.5 cm (0.6 - 1.1) LVIDd: 3.9 cm (3.9 - 5.3) LVPWd: 1.5 cm (0.6 - 1.1) IVSs: 2.0 cm LVIDs: 2.8 cm LVPWs: 1.7 cm LA Diam: 4.2 cm (2.7 - 3.8) Ao Diam: 3.8 cm (2.0 - 3.7) AV Cusp: 2.5 cm (1.5 - 2.6) MV EXCURSION: 18.807 mm (> 18.000) MV EF SLOPE: 78 mm/s (70 - 150) EPSS: 0.6 cm RAP: 15.00 mmHg RVSP: 45.26 mmHg FINDINGS -------- Paced rhythm. This was a technically adequate study. The left ventricular size is normal. There is moderate concentric left ventricular hypertrophy. O verall left ventricular systolic function is normal with, an EF between 55 - 60 %. The right ventricle is severely enlarged. The left atrium is mildly dilated. The right atrium is normal in size. Interatrial and interventricular septum intact. There is mild aortic valve sclerosis. Mild mitral annular calcification present. Moderate tricuspid regurgitation present. There is mild to moderate pulmonary hypertension. The r ight ventricular systolic pressure, as measured by Doppler, is 45.26mmHg. The pulmonic valve was not well visualized. The aortic root is dilated measuring 3.8cm. The inferior vena cava is dilated with no significant inspiratory collapse which is consistent estima kay right atrial pressure of >15 mmHg. There is no pericardial effusion. CONCLUSIONS -------- 1. The left ventricular size is normal. 2. There is moderate concentric left ventricular hypertrophy. 3. Overall left ventricular systolic function is normal with, an EF between 55 - 60 %. 4. The right ventricle is severely enlarged. 5. The left atrium is mildly dilated. 6. There is mild aortic valve sclerosis. 7. Mild mitral annular calcification present. 8. Moderate tricuspid regurgitation present. 9. There is mild to moderate pulmonary hypertension. 10. The right ventricular systolic pressure, as measured by Doppler, is 45.26mmHg. 11. The aortic root is dilated measuring 3.8cm. 12. The inferior vena cava is dilated with no significant inspiratory collapse which is consistent es timated right atrial pressure of >15 mmHg. 13. There is no pericardial effusion. PLASTIC MAKER: Angy Rowley RDCS
--- NOTE | 2021-02-08 10:47 | P.PN ---
Subjective Progress Note Date: 02/08/21 Principal diagnosis: Acute respiratory failure, nausea vomiting, aspiration This is an 80-year-old gentleman with a history of hypertension, BPH, gastroesophageal reflux disease, macular degeneration, sick sinus syndrome status post permanent pacemaker implantation, anticoagulated with Eliquis, hyperlipidemia. He also has a history of previous bowel obstruction and subsequent ileostomy placed in 2012. He presented to [facility] yesterday with complaints of nausea vomiting abdominal pain and no output from his ileostomy for 24 hours. He was thought to have a bowel obstruction. The patient additionally had some respiratory failure suspect secondary to aspiration while vomiting. He was unable to tolerate BiPAP and subsequently intubated at [facility] and transferred here early this morning for further evaluation and treatment. Chest x-ray revealed pulmonary infiltrates and possible pulmonary vascular congestion. Endotracheal tube in good position. White count 6.1. Hemoglobin 9.9. Platelets 371. Sodium 140. Potassium 4.0. Creatinine 1.94. BUN 57. The patient is seen in consultation in the ICU. Currently sedated on propofol at 45 mcg/kg/m. 0.9 normal saline at 75 ML's per hour. He is on assist control mode at a rate of 18, tidal volume 450, FiO2 50% and a PEEP of 5. Morning blood gases reveal a P O2 of 86, pCO2 42, pH 7.32 on 60% FiO2. Sputum culture pending. The patient's ostomy appears to be functioning. There is significant amount of loose stool. The patient is seen today 02/08/2021 in follow-up in the intensive care unit. He remains intubated and on mechanical ventilator currently says control mode with respiratory rate of 18, tidal volume 450, FiO2 50% and a PEEP of 5. Morning blood gases revealed a pO2 of 88, pCO2 36, pH 7.3. He is currently receiving a sedation holiday to prevent is on hold. He is requiring norepinephrine at 3 mcg/kg/m. He has 0.9 normal saline at 75 ML's per hour. He remains on Zosyn. His x-ray shows slight improvement in the aeration of the bibasilar densities. Sputum culture pending. Urine culture pending. White count 8.7. Hemoglobin 10.2. Sodium 141. Potassium 4.8. Creatinine 2.39. Ostomy is functioning. No evidence of bowel obstruction. No surgical interventions planned. Echocardiogram reveals preserved left ventricle systolic function with ejection fraction 55-60%. Some mild to moderate pulmonary hypertension. RVSP 45 mmHg. ProBNP 16,300. Pro-calcitonin 0.45. Objective - Vital Signs Vital signs: Vital Signs Temp 97 F L 02/08/21 08:15 Pulse 66 02/08/21 10:00 Resp 12 02/08/21 10:00 BP 103/58 02/08/21 09:15 Pulse Ox 93 L 02/08/21 10:00 Intake & Output 02/07/21 02/08/21 02/08/21 18:59 06:59 18:59 Intake Total 3284.080 1469.700 544.107 Output Total 1438 584 630 Balance 1846.080 885.700 -85.893 Weight 86.9 kg 90 kg Intake: IV 3000 1025 410 Magnesium Sulfate-D5w Pmx 300 1 gm In Dextrose/Water 1 100ml.bag @ 100 mls/hr IVPB Q1H [facility] Rx#: [id number] Piperacillin-Tazobactam 3 175 125 100 .375 gm In Sodium Chloride 0.9% 100 ml @ 25 mls/hr IVPB Q8HR [facility] Rx# :[id number] Sodium Chloride 0.9% 1, 525 900 310 000 ml @ 75 mls/hr IV . [id number] [facility] Rx#:[id number] Sodium Chloride 0.9% 1, 2000 000 ml @ 999 mls/hr IV . Q1H1M [facility] Rx#:[id number] Intake, IV Titration 284.080 444.700 134.107 Amount Norepinephrine 8 mg In 84.080 173.920 86.317 Sodium Chloride 0.9% 250 ml @ 0.05 MCG/KG/MIN 8. 408 mls/hr IV .Q24H [facility] Rx#:[id number] propofoL 1,000 mg In 200.000 270.78 47.79 Empty Bag 1 bag @ Titrate IV .Q0M [facility] Rx#: [id number] Output: Gastric Drainage 300 200 Urine 388 384 230 Stool 750 200 200 Other: Voiding Method Indwelling Catheter Indwelling Catheter Indwelling Catheter # Bowel Movements 1 ABP, PAP, CO, CI - Last Documented Arterial Blood Pressure 105/39 - Exam GENERAL EXAM: Intubated, sedated, frail 80-year-old gentleman, appears comfortable in no apparent distress. HEAD: Normocephalic. EYES: Sluggish reaction of pupils, equal size. NOSE: Clear with pink turbinates. THROAT: Oral endotracheal and gastric tube secured in place. No erythema or exudates. NECK: No masses, no JVD. CHEST: No chest wall deformity. LUNGS: Equal air entry with few scattered rhonchi bilaterally. CVS: S1 and S2 normal with no audible murmur, regular rhythm. ABDOMEN: Ostomy in place. Functioning. Loose stool. No hepatosplenomegaly, normal bowel sounds, no guarding or rigidity. SPINE: No scoliosis or deformity SKIN: No rashes CENTRAL NERVOUS SYSTEM: Sedated. Tone is normal in all 4 extremities. EXTREMITIES: There is no peripheral edema. No clubbing, no cyanosis. Redness of the bilateral lower extremities. Dry skin. Peripheral pulses are intact. - Labs CBC & Chem 7: 02/08/21 04:09 02/08/21 04:09 Labs: Abnormal Lab Results - Last 24 Hours (Table) 02/07/21 02/07/21 02/08/21 Range/Units 10:28 13:22 04:09 RBC 4.06 L (4.30-5.90) m/uL Hgb 10.2 L (13.0-17.5) gm/dL Hct 35.2 L (39.0-53.0) % MCHC 28.8 L (31.0-37.0) g/dL RDW 22.0 H (11.5-15.5) % Plt Count 520 H (150-450) k/uL Lymphocytes # (Manual) 0.44 L (1.0-4.8) k/uL Myelocytes # (Manual) 0.09 H (0) k/uL ABG pH (7.35-7.45) ABG HCO3 (21-25) mmol/L ABG O2 Saturation (94-97) % Chloride (98-107) mmol/L Carbon Dioxide (22-30) mmol/L BUN (9-20) mg/dL Creatinine (0.66-1.25) mg/dL Calcium (8.4-10.2) mg/dL Procalcitonin 0.45 H (0.02-0.09) ng/mL Urine Protein 2+ H (Negative) Urine Blood Small H (Negative) Ur Leukocyte Esterase Large H (Negative) Urine RBC 26 H (0-5) /hpf Urine WBC >182 H (0-5) /hpf Urine WBC Clumps Many H (None) /hpf Urine Bacteria Many H (None) /hpf 02/08/21 02/08/21 Range/Units 04:09 08:44 RBC (4.30-5.90) m/uL Hgb (13.0-17.5) gm/dL Hct (39.0-53.0) % MCHC (31.0-37.0) g/dL RDW (11.5-15.5) % Plt Count (150-450) k/uL Lymphocytes # (Manual) (1.0-4.8) k/uL Myelocytes # (Manual) (0) k/uL ABG pH 7.30 L (7.35-7.45) ABG HCO3 18 L (21-25) mmol/L ABG O2 Saturation 97.1 H (94-97) % Chloride 113 H (98-107) mmol/L Carbon Dioxide 18 L (22-30) mmol/L BUN 57 H (9-20) mg/dL Creatinine 2.39 H (0.66-1.25) mg/dL Calcium 8.0 L (8.4-10.2) mg/dL Procalcitonin (0.02-0.09) ng/mL Urine Protein (Negative) Urine Blood (Negative) Ur Leukocyte Esterase (Negative) Urine RBC (0-5) /hpf Urine WBC (0-5) /hpf Urine WBC Clumps (None) /hpf Urine Bacteria (None) /hpf Microbiology - Last 24 Hours (Table) 02/06/21 23:04 Gram Stain - Preliminary Sputum Sputum Culture - Preliminary 02/07/21 13:22 Urine Culture - Preliminary Urine,Clean Catch Assessment and Plan Assessment: 1 Acute hypoxemic respiratory failure secondary to suspected aspiration and/or fluid volume overload, possible diastolic congestive heart failure. Preserved left ventricular systolic function. Intubated at [facility] 02/06/2021 prior to transfer here on 02/08/2020. Extubated 10/08/2020. Currently on 5 L nasal cannula. Remains on Zosyn. Pro calcitonin 0.45. ProBNP 16,300. 2 Nausea, vomiting, secondary to no output in the ostomy 24 hours. No plans for surgical intervention. Ostomy functioning. 3 History of bowel obstruction status post ostomy placement in 2013 4 Acute renal failure possibly related to dehydration, nausea and vomiting. Creatinine 2.39. 5 Anemia 6 History of suspected atrial fibrillation. Status post permanent pacemaker implantation. Anticoagulated with Eliquis. 7 Hypertension history of. Currently hypotensive 8 Hyperlipidemia 9 BPH 10 Gastroesophageal Reflux Disease Plan: The patient was seen and evaluated by Dr. Montoya Chest x-ray, ABGs and labs reviewed Continue Zosyn, DuoNeb inhalations Titrate down the norepinephrine Daily interruption of sedation and weaning parameters today The patient was successfully extubated O2 saturation 93% on 5 L nasal cannula We will continue to follow and make further recommendations based on his clinical status Critical care time 36 minutes. I, the cosigning physician, performed a history & physical examination of the patient. Lungs sounds bilateral scattered rhonchi. Maintaining good O2 saturations in the 90s on 5 L nasal cannula. I discussed the assessment and judy n of care with my nurse practitioner, Amber Velazquez. I attest to the above note as dictated by her.
--- NOTE | 2021-02-08 11:39 | CDI ---
Documentation Clarification Form Date: 02/08/2021 11:24:19 AM From: Annabella Fowler RN, CCDS Admit Date: 02/07/2021 01:21:00 AM Patient Name: Samson De Jesus Visit Number: [id number] ATTENTION: The Clinical Documentation Specialists (CDI) and [facility] Coding Staff appreciate your assistance in clarifying documentation. Please respond to the clarification below the line at the bottom and electronically sign. The CDI & [facility] Coding staff will review the response and follow-up if needed. Please note: Queries are made part of the Legal Health Record. If you have any questions, please contact the author of this message via ITS. Dr. Angelina Schmitz Your patient has the documented diagnosis of unspecified Diastolic CHF 02/08 Pulmonary Progress Note Additional information regarding the acuity of Diastolic CHF is requested. History/Risk Factors: HTN, hyperkalemia Clinical Indicators: 02/07 H&P: "acute hypoxic respiratory failure: 2 possible etiologies being aspiration for which patient is on Zosyn, patient doesn't have a jury possibly of heart failure exacerbation is low echocardiogram and we obtain BMP will be obtained." 02/08 Cardiology Progress Note: "Acute hypoxemic respiratory failure secondary to suspected aspiration and/or fluid volume overload, possible diastolic congestive heart failure. Preserved left ventricular systolic function." 02/060 Admission VS/Pulse OX: Temp 97.8, HR 63, RR18, B/P 134/79, Spo2 98% MV 02/07 BNP: 16,300 02/07 Echocardiogram Results: EF 55-60%, moderate concentric LVH, moderate pulmonary HTN. 02/08 Chest X Ray: "There may be some slight interval improvement in aeration. Correlate for congestive heart failure and associated effusions, pneumonia not excluded." Treatment: Levophed Gtt titrate for B/P 0.9% NS @ 75 cc/hr. 02/07 0849 1L 0.9% NS IVF Bolus Hydrodiuril 25 mg Po QD, Coreg 12.5 mg Po BID, Norvasc 10 mg Po QD @ home In your professional opinion, can you please clarify the [acuity and type] of CHF if known? [ ] Acute Diastolic Heart Failure (preserved EF) [ ] Chronic Diastolic Heart Failure (preserved EF) [ ] Acute on Chronic Diastolic Heart Failure (preserved EF) [ ] Other, please specify [ ] Unable to determine (Template Last Revised: May 2020) No heart failure MTDD
--- NOTE | 2021-02-08 11:49 | CDI ---
Documentation Clarification Form Date: 02/08/2021 11:40:32 AM From: Annabella Fowler RN, CCDS Admit Date: 02/07/2021 01:21:00 AM Patient Name: Samson De Jesus Visit Number: [id number] ATTENTION: The Clinical Documentation Specialists (CDI) and [facility] Coding Staff appreciate your assistance in clarifying documentation. Please respond to the clarification below the line at the bottom and electronically sign. The CDI & [facility] Coding staff will review the response and follow-up if needed. Please note: Queries are made part of the Legal Health Record. If you have any questions, please contact the author of this message via ITS. Dr. Angelina Schmitz Atrial Fibrillation is [id number] H&P and Consultation Notes. Additional clarification regarding the type of atrial fibrillation is requested. History/Risk Factors: HTN, Hyperkalemia Clinical Indicators: 02/07 H&P: "Patient does appear to have history of atrial fibrillation presently sinus rhythm was on Eliquis at home. Assessment and plan : -Atrial fibrillation presently rate controlled sinus rhythm decision regarding resuming his anti-coagulation depending on his course -Elevated creatinine renal failure unsure whether it's acute or chronic possible difficulty with renal failure secondary to acute tubular necrosis from hypotension." 02/08 Pulmonary progress Note: "History of suspected atrial fibrillation." Telemetry: SR, occasionally Paced Treatment: No current rate control meds ordered Home Meds: Eliquis 5 mg Po BID, Coreg 12.5 mg Po BID, Consults: No Cardiology consult ordered Please clarify the type of atrial fibrillation, if known: [ ] Chronic [ ] Permanent [ ] Paroxysmal [ ] Persistent [ ] Other, please specify [ x ] Unable to determine (Template Last Revised: August 2020) MTDD
--- NOTE | 2021-02-08 12:03 | CDI ---
Documentation Clarification Form Date: 02/08/2021 11:50:10 AM From: Annabella Fowler RN, CCDS Admit Date: 02/07/2021 01:21:00 AM Patient Name: Samson De Jesus Visit Number: [id number] ATTENTION: The Clinical Documentation Specialists (CDI) and [facility] Coding Staff appreciate your assistance in clarifying documentation. Please respond to the clarification below the line at the bottom and electronically sign. The CDI & [facility] Coding staff will review the response and follow-up if needed. Please note: Queries are made part of the Legal Health Record. If you have any questions, please contact the author of this message via ITS. Dr. Angelina Schmitz "Suspected aspiration" is documented 01/07 H&P, Consultations, and Subsequent Progress Notes. Additional clarification regarding the clinical significance of this s/sx currently being treated with IV Zosyn, in a previously ventilated patient, is requested. History/Risk Factors: HTN, Colostomy in place s/p bowel resection, atrial fib, present as a [facility] from [facility] intubated on Mechanical ventilation, sepsis with septic shock this admission Clinical Indicators: 02/08 Pulmonary progress Note: "Acute hypoxemic respiratory failure secondary to suspected aspiration and/or fluid volume overload, possible diastolic congestive heart failure. Preserved left ventricular systolic function. I intubated at [facility] 02/06/2021 prior to transfer here on 02/08/2020.Extubated 10/08/2020.Currently on 5 L nasal cannula. Remains on Zosyn. Pro calcitonin 0.45.ProBNP 16,300. WBC/Left shift: 02/08 CXR:"There may be some slight interval improvement in aeration. Correlate for congestive heart failure and associated effusions, pneumonia not excluded." 02/08 Pulmonary Lung/Breathing assessment: "LUNGS: Equal air entry with few scattered rhonchi bilaterally." Treatment: Antibiotics: 02/07 Zosyn 3.375GM IVPB Q 8hrs O2 Breathing Tx: DuoNeb Q 4hrs OTC and q 2 hrs. PRN SOB 02/07 1L 0.9% NS IVF Bolus followed by 75 cc/hr. Please clarify the clinical significance of the aspiration in a pt that is mechanically ventilated and receiving IV ABx, if known: [ x ] Aspiration Pneumonia, Due to food or vomitus [ ] Bacterial Pneumonia, specify causal organism (if known) [ ] Gram Negative Bacterial Pneumonia [ ] Ventilator Associated Pneumonia [ ] Other, please specify [ ] Unable to determine (Template Last Revised: June 2020) MTDD
[2021-02-08 12:04] LABS: Glucose,Whole Blood 76 mg/dL (75-99)
--- NOTE | 2021-02-08 14:36 | P.PN ---
Subjective Progress Note Date: 02/08/21 CHIEF COMPLAINT: Abdominal pain HISTORY OF PRESENT ILLNESS: Patient is currently in the ICU. He was extubated this morning. Surgical service is following in regards to his small bowel obstruction and reduced parastomal hernia. Patient's ostomy is functioning. He denies any abdominal pain. He is afebrile. Blood pressure has improved. They're weaning down the norepinephrine. WBC is 8.2 creatinine 2.39 Chest x-ray there may be some interval improvement in aeration. Correlate for congestive heart failure and associated fusions, pneumonia not excluded. Patient seen and examined with Dr. azar PHYSICAL EXAM: VITAL SIGNS: Reviewed. GENERAL: Well-developed in no acute distress. HEENT: No sclera icterus. Extraocular movements grossly intact. Moist buccal mucosa. Head is atraumatic, normocephalic. ABDOMEN: Soft. Nondistended. Nontender. Ileostomy functioning NEUROLOGIC: Patient is awake. ASSESSMENT: 1. Abdominal pain with nausea and vomiting 2. 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 Bowel obstruction now resolved. 3. Acute hypoxic respiratory failure and suspected aspiration pneumonia and fluid overload PLAN: -Continue ICU management -Continue supportive care -No surgical intervention planned -Patient would be a high risk candidate for any surgical intervention -Start patient on clear liquid diet Physician Crystal Syrup Maker note has been reviewed by physician. Signing provider agrees with the documented findings, assessment, and plan of care. Objective - Vital Signs Vital signs: Vital Signs Temp 97.1 F L 02/08/21 12:00 Pulse 64 02/08/21 14:00 Resp 12 02/08/21 14:00 BP 105/60 02/08/21 14:00 Pulse Ox 95 02/08/21 14:00 Intake & Output 02/07/21 02/08/21 02/08/21 18:59 06:59 18:59 Intake Total 3284.080 1469.700 845.369 Output Total 1438 584 657 Balance 1846.080 885.700 188.369 Weight 86.9 kg 90 kg Intake: IV 3000 1025 710 Magnesium Sulfate-D5w Pmx 300 1 gm In Dextrose/Water 1 100ml.bag @ 100 mls/hr IVPB Q1H [facility] Rx#: [id number] Piperacillin-Tazobactam 3 175 125 100 .375 gm In Sodium Chloride 0.9% 100 ml @ 25 mls/hr IVPB Q8HR [facility] Rx# :[id number] Sodium Chloride 0.9% 1, 525 900 610 000 ml @ 75 mls/hr IV . [id number] [facility] Rx#:[id number] Sodium Chloride 0.9% 1, 2000 000 ml @ 999 mls/hr IV . Q1H1M [facility] Rx#:[id number] Intake, IV Titration 284.080 444.700 135.369 Amount Norepinephrine 8 mg In 84.080 173.920 87.579 Sodium Chloride 0.9% 250 ml @ 0.05 MCG/KG/MIN 8. 408 mls/hr IV .Q24H [facility] Rx#:[id number] propofoL 1,000 mg In 200.000 270.78 47.79 Empty Bag 1 bag @ Titrate IV .Q0M [facility] Rx#: [id number] Output: Gastric Drainage 300 200 Urine 388 384 457 Stool 750 200 Other: Voiding Method Indwelling Catheter Indwelling Catheter Indwelling Catheter # Bowel Movements 1 ABP, PAP, CO, CI - Last Documented Arterial Blood Pressure 113/43 - Labs CBC & Chem 7: 02/08/21 04:09 02/08/21 04:09 Labs: Abnormal Lab Results - Last 24 Hours (Table) 02/07/21 02/08/21 02/08/21 Range/Units 10:28 04:09 04:09 RBC 4.06 L (4.30-5.90) m/uL Hgb 10.2 L (13.0-17.5) gm/dL Hct 35.2 L (39.0-53.0) % MCHC 28.8 L (31.0-37.0) g/dL RDW 22.0 H (11.5-15.5) % Plt Count 520 H (150-450) k/uL Lymphocytes # (Manual) 0.44 L (1.0-4.8) k/uL Myelocytes # (Manual) 0.09 H (0) k/uL ABG pH (7.35-7.45) ABG HCO3 (21-25) mmol/L ABG O2 Saturation (94-97) % Chloride 113 H (98-107) mmol/L Carbon Dioxide 18 L (22-30) mmol/L BUN 57 H (9-20) mg/dL Creatinine 2.39 H (0.66-1.25) mg/dL Calcium 8.0 L (8.4-10.2) mg/dL Procalcitonin 0.45 H (0.02-0.09) ng/mL 02/08/21 Range/Units 08:44 RBC (4.30-5.90) m/uL Hgb (13.0-17.5) gm/dL Hct (39.0-53.0) % MCHC (31.0-37.0) g/dL RDW (11.5-15.5) % Plt Count (150-450) k/uL Lymphocytes # (Manual) (1.0-4.8) k/uL Myelocytes # (Manual) (0) k/uL ABG pH 7.30 L (7.35-7.45) ABG HCO3 18 L (21-25) mmol/L ABG O2 Saturation 97.1 H (94-97) % Chloride (98-107) mmol/L Carbon Dioxide (22-30) mmol/L BUN (9-20) mg/dL Creatinine (0.66-1.25) mg/dL Calcium (8.4-10.2) mg/dL Procalcitonin (0.02-0.09) ng/mL Microbiology - Last 24 Hours (Table) 02/07/21 10:28 Blood Culture - Preliminary Blood No Growth after 24 hours 02/06/21 23:04 Gram Stain - Preliminary Sputum Sputum Culture - Preliminary 02/07/21 13:22 Urine Culture - Preliminary Urine,Clean Catch
[2021-02-08] MEDS ORDERED: LORATADINE 10 MG TAB PO PRN (15:46)
--- NOTE | 2021-02-08 16:44 | P.PN ---
Subjective Patient is 80-year-old male admitted after intubation and transfer from [facility] further treatment of acute respiratory failure which was believed to be secondary to either aspiration pneumonia congestive heart failure. Patient doesn't have any JVD doesn't have any crackles on exam, chest x-ray showed bibasal infiltrates. Patient actually presented to [facility] as he was not having any stool in his colostomy bag and patient was noted to have bowel obstruction, subsequently went into respiratory failure. Patient was only has a central line in the arterial line. Patient is on assist-control ventilation with the set up respiratory rate of 18, PEEP of 5 FiO2 50% patient is breathing over the ventilator. Patient's colostomy bag is not in the right pushing leading to no output once his corrected patient was having good output from there. Patient is presently hypotensive receiving 2 L of bolus of IV fluid and patient is also on Zosyn. Patient is presently not on any pressor support. I do not have any previous labs are echocardiogram available at this time. Patient does appear to have history of atrial fibrillation presently sinus rhythm was on Eliquis at home. 02/08/2021 Patient is exquisitely today patient is having a lot of thick secretions this is secondary to aspiration pneumonia possibly of CHF is low, patient's proBNP is highly elevated because of which I cannot completely rule out diastolic dysfunc tion patient does have bilateral pedal edema. Patient was on levo fed until clear morning patient was in hypovolemic shock. Patient will continue to IV fluids eventually we probably will need to give him Lasix. PHYSICAL EXAMINATION: GENERAL: Extubated HEENT: Pupils are round and equally reacting to light. EOMI. No scleral icterus. No conjunctival pallor. Normocephalic, atraumatic. No pharyngeal erythema. No thyromegaly. CARDIOVASCULAR: S1 and S2 present. No murmurs, rubs, or gallops. PULMONARY: Rhonchi predominantly in the left lower lung oswald. ABDOMEN: Soft, nontender, nondistended, normoactive bowel sounds. No palpable organomegaly. MUSCULOSKELETAL: No joint swelling or deformity. EXTREMITIES: No cyanosis, clubbing, extensive bilateral pitting pedal edema NEUROLOGICAL: Limited due to sedation. SKIN: No rashes. Assessment and plan acute hypoxic respiratory failure: Secondary to aspiration pneumonia from vomiting patient does have competent of chronic diastolic dysfunction with acute exacerbation patient does have extensive bilateral pedal edema which can be secondary to some right-sided heart failure -Septic shock: Improving at this time -Possible congestive heart failure chronic diastolic dysfunction with acute exacerbation, patient is still on IV fluids these will be discontinued once his blood pressure stabilizes patient is off levo for today -Atrial fibrillation presently rate controlled sinus rhythm patient was resumed on anticoagulation -Elevated creatinine renal failure unsure whether it's acute or chronic possible difficulty with renal failure secondary to acute tubular necrosis from hypotension, his serum creatinine is bit worse compared to yesterday patient does have metabolic acidosis from renal dysfunction -Bowel obstruction resolved at this time -Hypertension: Presently hypotensive -benign prostatic hypertrophy -Gastroesophageal reflux disease -Hyperlipidemia DVT prophylaxis: On Eliquis because of renal dysfunctional cut down the dose Objective - Vital Signs Vital signs: Vital Signs Temp 97.1 F L 02/08/21 16:00 Pulse 64 02/08/21 16:00 Resp 10 L 02/08/21 16:00 BP 110/61 02/08/21 15:00 Pulse Ox 95 02/08/21 16:00 Intake & Output 02/07/21 02/08/21 02/08/21 18:59 06:59 18:59 Intake Total 3284.080 1469.700 995.369 Output Total 1438 584 747 Balance 1846.080 885.700 248.369 Weight 86.9 kg 90 kg Intake: IV 3000 1025 860 Magnesium Sulfate-D5w Pmx 300 1 gm In Dextrose/Water 1 100ml.bag @ 100 mls/hr IVPB Q1H [facility] Rx#: [id number] Piperacillin-Tazobactam 3 175 125 100 .375 gm In Sodium Chloride 0.9% 100 ml @ 25 mls/hr IVPB Q8HR [facility] Rx# :[id number] Sodium Chloride 0.9% 1, 525 900 760 000 ml @ 75 mls/hr IV . [id number] [facility] Rx#:[id number] Sodium Chloride 0.9% 1, 2000 000 ml @ 999 mls/hr IV . Q1H1M [facility] Rx#:[id number] Intake, IV Titration 284.080 444.700 135.369 Amount Norepinephrine 8 mg In 84.080 173.920 87.579 Sodium Chloride 0.9% 250 ml @ 0.05 MCG/KG/MIN 8. 408 mls/hr IV .Q24H [facility] Rx#:[id number] propofoL 1,000 mg In 200.000 270.78 47.79 Empty Bag 1 bag @ Titrate IV .Q0M [facility] Rx#: [id number] Output: Gastric Drainage 300 200 Urine 388 384 547 Stool 750 200 Other: Voiding Method Indwelling Catheter Indwelling Catheter Indwelling Catheter # Bowel Movements 1 ABP, PAP, CO, CI - Last Documented Arterial Blood Pressure 105/35 - Labs CBC & Chem 7: 02/08/21 04:09 02/08/21 04:09 Labs: Abnormal Lab Results - Last 24 Hours (Table) 02/08/21 02/08/21 02/08/21 Range/Units 04:09 04:09 08:44 RBC 4.06 L (4.30-5.90) m/uL Hgb 10.2 L (13.0-17.5) gm/dL Hct 35.2 L (39.0-53.0) % MCHC 28.8 L (31.0-37.0) g/dL RDW 22.0 H (11.5-15.5) % Plt Count 520 H (150-450) k/uL Lymphocytes # (Manual) 0.44 L (1.0-4.8) k/uL Myelocytes # (Manual) 0.09 H (0) k/uL ABG pH 7.30 L (7.35-7.45) ABG HCO3 18 L (21-25) mmol/L ABG O2 Saturation 97.1 H (94-97) % Chloride 113 H (98-107) mmol/L Carbon Dioxide 18 L (22-30) mmol/L BUN 57 H (9-20) mg/dL Creatinine 2.39 H (0.66-1.25) mg/dL Calcium 8.0 L (8.4-10.2) mg/dL Microbiology - Last 24 Hours (Table) 02/07/21 10:28 Blood Culture - Preliminary Blood No Growth after 24 hours 02/06/21 23:04 Gram Stain - Preliminary Sputum Sputum Culture - Preliminary 02/07/21 13:22 Urine Culture - Preliminary Urine,Clean Catch
[2021-02-08] MEDS: carvediloL 12.5 MG TAB PO SCH (17:03)
[2021-02-08 18:11] LABS: Glucose,Whole Blood 71 mg/dL (75-99)
[2021-02-08] MEDS ORDERED: APIXABAN 5 MG TAB PO SCH (21:00)
[2021-02-08] MEDS: APIXABAN 2.5 MG TABLET PO SCH (21:13)
[2021-02-08 21:21] LABS: Glucose,Whole Blood 70 mg/dL (75-99)
[2021-02-09] MEDS: IPRATROPIUM-ALBUTEROL 3 ML NEB INHALATION SCH ×6 (00:56→21:18)
[2021-02-09 04:33] LABS: Anisocytosis Moderate; HCT 33.1 % (39.0-53.0); HGB 9.6 gm/dL (13.0-17.5); Hypochromasia Marked; MCHC 28.8 g/dL (31.0-37.0); MCV 86.7 fL (80.0-100.0); Mean Platelet Volume 11.2; Microcytosis Slight; Platelet Count 466 k/uL (150-450); Poikilocytosis Slight; RBC 3.82 m/uL (4.30-5.90); RDW 22.1 % (11.5-15.5); WBC 7.5 k/uL (3.8-10.6)
[2021-02-09 04:44] LABS: Calcium 8.3 mg/dL (8.4-10.2); Potassium 4.4 mmol/L (3.5-5.1)
[2021-02-09 05:07] LABS: Band Neutrophils % 7 %; Eosinophils # (M) 0.08 k/uL (0-0.7); Monocytes # (M) 0.23 k/uL (0-1.0); Neutrophils % (M) 81 %; Nucleated Red Blood Cells 0 /100 WBC (0-0); Polychromasia Present; Total Cells Counted 100
[2021-02-09 05:53] LABS: Glucose,Whole Blood 89 mg/dL (75-99)
--- NOTE | 2021-02-09 07:59 | XR ---
EXAMINATION TYPE: XR chest 1V portable DATE OF EXAM: 02/09/2021 COMPARISON: 02/08/2021 HISTORY: Shortness of breath FINDINGS: There are bilateral pleural effusions with cardiomegaly and bibasilar infiltrate. There is a diffuse interstitial pattern. Cardiac device noted. No sizable pneumothorax. Atherosclerotic change aorta. E T and NG tube have been removed. Central line stable. IMPRESSION: 1. Stable pleural-parenchymal changes correlate for CHF versus diffuse pneumonia.
[2021-02-09] MEDS: SODIUM CHLORIDE 0.9% 1,000 ML IV SCH (08:01)
[2021-02-09] MEDS: PIPERACILLIN-TAZOBACTAM 3.375 GM in SODIUM CHLORIDE 0.9% 100 ML IVPB SCH ×2 (08:01→17:36)
[2021-02-09] MEDS: PANTOPRAZOLE 40 MG/10 ML VIAL IV SCH (08:01)
[2021-02-09] MEDS: carvediloL 12.5 MG TAB PO SCH ×2 (08:02→17:36)
[2021-02-09] MEDS: MULTIVITAMINS, THERA 1 EACH TAB PO SCH (08:02)
[2021-02-09] MEDS: APIXABAN 2.5 MG TABLET PO SCH ×2 (08:02→19:42)
[2021-02-09] MEDS: TAMSULOSIN 0.4 MG CAP.ER.24H PO SCH (08:02)
[2021-02-09] MEDS: ATORVASTATIN 40 MG TAB PO SCH (08:02)
[2021-02-09] MEDS: CHLORHEXIDINE GLUCONATE 15 ML CUP MUCOUS MEM SCH (08:15)
[2021-02-09] MEDS ORDERED: FUROSEMIDE 10 MG/ML 4 ML VIAL IV STA (09:39)
[2021-02-09] MEDS: amLODIPine 10 MG TAB PO SCH (09:43)
--- NOTE | 2021-02-09 10:42 | P.PN ---
Subjective Progress Note Date: 02/09/21 Principal diagnosis: Acute respiratory failure, nausea vomiting, aspiration This is an 80-year-old gentleman with a history of hypertension, BPH, gastroesophageal reflux disease, macular degeneration, sick sinus syndrome status post permanent pacemaker implantation, anticoagulated with Eliquis, hyperlipidemia. He also has a history of previous bowel obstruction and subsequent ileostomy placed in 2012. He presented to [facility] yesterday with complaints of nausea vomiting abdominal pain and no output from his ileostomy for 24 hours. He was thought to have a bowel obstruction. The patient additionally had some respiratory failure suspect secondary to aspiration while vomiting. He was unable to tolerate BiPAP and subsequently intubated at [facility] and transferred here early this morning for further evaluation and treatment. Chest x-ray revealed pulmonary infiltrates and possible pulmonary vascular congestion. Endotracheal tube in good position. White count 6.1. Hemoglobin 9.9. Platelets 371. Sodium 140. Potassium 4.0. Creatinine 1.94. BUN 57. The patient is seen in consultation in the ICU. Currently sedated on propofol at 45 mcg/kg/m. 0.9 normal saline at 75 ML's per hour. He is on assist control mode at a rate of 18, tidal volume 450, FiO2 50% and a PEEP of 5. Morning blood gases reveal a P O2 of 86, pCO2 42, pH 7.32 on 60% FiO2. Sputum culture pending. The patient's ostomy appears to be functioning. There is significant amount of loose stool. The patient is seen today 02/08/2021 in follow-up in the intensive care unit. He remains intubated and on mechanical ventilator currently says control mode with respiratory rate of 18, tidal volume 450, FiO2 50% and a PEEP of 5. Morning blood gases revealed a pO2 of 88, pCO2 36, pH 7.3. He is currently receiving a sedation holiday to prevent is on hold. He is requiring norepinephrine at 3 mcg/kg/m. He has 0.9 normal saline at 75 ML's per hour. He remains on Zosyn. His x-ray shows slight improvement in the aeration of the bibasilar densities. Sputum culture pending. Urine culture pending. White count 8.7. Hemoglobin 10.2. Sodium 141. Potassium 4.8. Creatinine 2.39. Ostomy is functioning. No evidence of bowel obstruction. No surgical interventions planned. Echocardiogram reveals preserved left ventricle systolic function with ejection fraction 55-60%. Some mild to moderate pulmonary hypertension. RVSP 45 mmHg. ProBNP 16,300. Pro-calcitonin 0.45. Patient is seen today 02/09/2021 in follow-up in the intensive care unit. He was successfully extubated yesterday 02/08/2021. He is currently on 4 L high flow nasal cannula to maintain O2 saturations in the 90s. He is still having some loose nonproductive cough. He has a weak cough. Unable to produce any sputum. His voice is hoarse. His x-ray shows stable pleural parenchymal changes and some fluid volume overload. Urine culture positive for gram- negative bacilli. Blood culture revealing no growth. Sputum culture pending. White count 7.5. Hemoglobin 9.6. Sodium 134. Potassium 4.4. Creatinine 2.62. He remains on DuoNeb inhalations, antibiotics in the form of Zosyn, anti coagulated with Eliquis. Objective - Vital Signs Vital signs: Vital Signs Temp 97.8 F 02/09/21 08:00 Pulse 64 02/09/21 09:00 Resp 10 L 02/09/21 09:00 BP 114/60 02/09/21 09:00 Pulse Ox 93 L 02/09/21 09:00 Intake & Output 02/08/21 02/09/21 02/09/21 18:59 06:59 18:59 Intake Total 6939.457 5770 225 Output Total 1062 880 480 Balance 183.369 230 -255 Weight 92.5 kg Intake: IV 1110 1000 225 Piperacillin-Tazobactam 3 200 100 75 .375 gm In Sodium Chloride 0.9% 100 ml @ 25 mls/hr IVPB Q8HR [facility] Rx# :[id number] Sodium Chloride 0.9% 1, 910 900 150 000 ml @ 75 mls/hr IV . [id number] [facility] Rx#:[id number] Intake, IV Titration 135.369 Amount Norepinephrine 8 mg In 87.579 Sodium Chloride 0.9% 250 ml @ 0.05 MCG/KG/MIN 8. 408 mls/hr IV .Q24H [facility] Rx#:[id number] propofoL 1,000 mg In 47.79 Empty Bag 1 bag @ Titrate IV .Q0M [facility] Rx#: [id number] Oral 110 Output: Gastric Drainage 200 Urine 637 580 180 Stool 225 300 300 Other: Voiding Method Indwelling Catheter Indwelling Catheter Indwelling Catheter ABP, PAP, CO, CI - Last Documented Arterial Blood Pressure 120/49 - Exam GENERAL EXAM: Awake, alert frail 80-year-old gentleman, on 4 L nasal cannula, appears comfortable in no apparent distress. HEAD: Normocephalic. EYES: Normal reaction of pupils, equal size. NOSE: Clear with pink turbinates. THROAT: No erythema or exudates. NECK: No masses, no JVD. CHEST: No chest wall deformity. LUNGS: Equal air entry with few scattered rhonchi bilaterally. CVS: S1 and S2 normal with no audible murmur, regular rhythm. ABDOMEN: Ostomy in place. Functioning. No hepatosplenomegaly, normal bowel sounds, no guarding or rigidity. SPINE: No scoliosis or deformity SKIN: No rashes CENTRAL NERVOUS SYSTEM: No noted focal deficits. Tone is normal in all 4 extremities. EXTREMITIES: There is no peripheral edema. No clubbing, no cyanosis. Redness of the bilateral lower extremities. Dry skin. Peripheral pulses are intact. - Labs CBC & Chem 7: 02/09/21 04:20 02/09/21 04:20 Labs: Abnormal Lab Results - Last 24 Hours (Table) 02/08/21 02/08/21 02/09/21 Range/Units 18:10 21:20 04:20 RBC 3.82 L (4.30-5.90) m/uL Hgb 9.6 L (13.0-17.5) gm/dL Hct 33.1 L (39.0-53.0) % MCHC 28.8 L (31.0-37.0) g/dL RDW 22.1 H (11.5-15.5) % Plt Count 466 H (150-450) k/uL Lymphocytes # (Manual) 0.60 L (1.0-4.8) k/uL Chloride (98-107) mmol/L Carbon Dioxide (22-30) mmol/L BUN (9-20) mg/dL Creatinine (0.66-1.25) mg/dL POC Glucose (mg/dL) 71 L 70 L (75-99) mg/dL Calcium (8.4-10.2) mg/dL 02/09/21 Range/Units 04:20 RBC (4.30-5.90) m/uL Hgb (13.0-17.5) gm/dL Hct (39.0-53.0) % MCHC (31.0-37.0) g/dL RDW (11.5-15.5) % Plt Count (150-450) k/uL Lymphocytes # (Manual) (1.0-4.8) k/uL Chloride 116 H (98-107) mmol/L Carbon Dioxide 16 L (22-30) mmol/L BUN 58 H (9-20) mg/dL Creatinine 2.62 H (0.66-1.25) mg/dL POC Glucose (mg/dL) (75-99) mg/dL Calcium 8.3 L (8.4-10.2) mg/dL Microbiology - Last 24 Hours (Table) 02/07/21 13:22 Urine Culture - Preliminary Urine,Clean Catch Gram Neg Bacilli 02/07/21 10:28 Blood Culture - Preliminary Blood No Growth after 24 hours 02/06/21 23:04 Gram Stain - Preliminary Sputum Sputum Culture - Preliminary Assessment and Plan Assessment: 1 Acute hypoxemic respiratory failure secondary to suspected aspiration and/or fluid volume overload, possible diastolic congestive heart failure. Preserved left ventricular systolic function. Intubated at [facility] 02/06/2021 prior to transfer here on 02/08/2020. Extubated 02/08/2021. Currently on 4 L nasal cannula. Remains on Zosyn. Pro calcitonin 0.45. ProBNP 16,300. Chest x-ray continues to show evidence of fluid volume overload. Given IV diuretics today. 2 Nausea, vomiting, secondary to no output in the ostomy 24 hours. No plans for surgical intervention. Ostomy functioning. 3 History of bowel obstruction status post ostomy placement in 2012 4 Acute renal failure possibly related to dehydration, nausea and vomiting. Creatinine 2.62. 5 Anemia, current hemoglobin 9.6 6 History of suspected atrial fibrillation. Status post permanent pacemaker implantation. Anticoagulated with Eliquis. 7 Hypertension history of. Currently hypotensive 8 Hyperlipidemia 9 BPH 10 Gastroesophageal Reflux Disease Plan: The patient was seen and evaluated by Dr. Montoya Chest x-ray and labs reviewed Give Lasix 40 mg IVP 1 Continue Zosyn, DuoNeb inhalations Off the norepinephrine We'll obtain a swallow evaluation per speech therapy Aspiration precautions Follow-up chest x-ray and labs in a.m. We will continue to follow and make further recommendations based on his clinical status I, the cosigning physician, performed a history & physical examination of the patient. Lungs sounds bilateral scattered rhonchi. Maintaining good O2 saturations in the 90s on 4 L nasal cannula. I discussed the assessment and plan of care with my nurse practitioner, Amber Velazquez. I attest to the above note as dictated by her.
--- NOTE | 2021-02-09 10:53 | P.PN ---
<Marybel Webber - Last Filed: 02/09/21 10:48> Subjective Progress Note Date: 02/09/21 CHIEF COMPLAINT: Abdominal pain HISTORY OF PRESENT ILLNESS: Patient is currently in the ICU. He was extubated yesterday. He is currently on 4 L satting at 94%. He is sitting up in bed and able to answer questions appropriately. He denies any abdominal pain. His ostomy is functioning. Denies any nausea or vomiting. Vitals are stable. Afebrile. There are concerns that he is aspirating. He will be evaluated by speech therapy today. WBC 7.5 hemoglobin 9.6 platelets [address] Gramajo is covering for Dr. azar PHYSICAL EXAM: VITAL SIGNS: Reviewed. GENERAL: Well-developed in no acute distress. HEENT: No sclera icterus. Extraocular movements grossly intact. Moist buccal mucosa. Head is atraumatic, normocephalic. ABDOMEN: Soft. Nondistended. Nontender. Ileostomy functioning NEUROLOGIC: Patient is awake. ASSESSMENT: 1. Abdominal pain with nausea and vomiting 2. 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 Bowel obstruction now resolved. 3. Acute hypoxic respiratory failure and suspected aspiration pneumonia and fluid overload PLAN: -Continue ICU management -Continue supportive care -No surgical intervention planned -Patient would be a high risk candidate for any surgical intervention -Diet per speech therapy recommendations Physician Tech Brazer Tester note has been reviewed by physician. Signing provider agrees with the documented findings, assessment, and plan of care. Objective - Vital Signs Vital signs: Vital Signs Temp 97.8 F 02/09/21 08:00 Pulse 64 02/09/21 10:00 Resp 8 L 02/09/21 10:00 BP 116/62 02/09/21 10:00 Pulse Ox 93 L 02/09/21 10:00 Intake & Output 02/08/21 02/09/21 02/09/21 18:59 06:59 18:59 Intake Total 8824.070 8715 375 Output Total 1062 880 680 Balance 183.369 230 -305 Weight 92.5 kg Intake: IV 1110 1000 375 Piperacillin-Tazobactam 3 200 100 75 .375 gm In Sodium Chloride 0.9% 100 ml @ 25 mls/hr IVPB Q8HR [facility] Rx# :[id number] Sodium Chloride 0.9% 1, 910 900 300 000 ml @ 75 mls/hr IV . [id number] [facility] Rx#:[id number] Intake, IV Titration 135.369 Amount Norepinephrine 8 mg In 87.579 Sodium Chloride 0.9% 250 ml @ 0.05 MCG/KG/MIN 8. 408 mls/hr IV .Q24H [facility] Rx#:[id number] propofoL 1,000 mg In 47.79 Empty Bag 1 bag @ Titrate IV .Q0M [facility] Rx#: [id number] Oral 110 Output: Gastric Drainage 200 Urine 637 580 380 Stool 225 300 300 Other: Voiding Method Indwelling Catheter Indwelling Catheter Indwelling Catheter ABP, PAP, CO, CI - Last Documented Arterial Blood Pressure 131/59 - Labs CBC & Chem 7: 02/09/21 04:20 02/09/21 04:20 Labs: Abnormal Lab Results - Last 24 Hours (Table) 02/08/21 02/08/21 02/09/21 Range/Units 18:10 21:20 04:20 RBC 3.82 L (4.30-5.90) m/uL Hgb 9.6 L (13.0-17.5) gm/dL Hct 33.1 L (39.0-53.0) % MCHC 28.8 L (31.0-37.0) g/dL RDW 22.1 H (11.5-15.5) % Plt Count 466 H (150-450) k/uL Lymphocytes # (Manual) 0.60 L (1.0-4.8) k/uL Chloride (98-107) mmol/L Carbon Dioxide (22-30) mmol/L BUN (9-20) mg/dL Creatinine (0.66-1.25) mg/dL POC Glucose (mg/dL) 71 L 70 L (75-99) mg/dL Calcium (8.4-10.2) mg/dL 02/09/21 Range/Units 04:20 RBC (4.30-5.90) m/uL Hgb (13.0-17.5) gm/dL Hct (39.0-53.0) % MCHC (31.0-37.0) g/dL RDW (11.5-15.5) % Plt Count (150-450) k/uL Lymphocytes # (Manual) (1.0-4.8) k/uL Chloride 116 H (98-107) mmol/L Carbon Dioxide 16 L (22-30) mmol/L BUN 58 H (9-20) mg/dL Creatinine 2.62 H (0.66-1.25) mg/dL POC Glucose (mg/dL) (75-99) mg/dL Calcium 8.3 L (8.4-10.2) mg/dL Microbiology - Last 24 Hours (Table) 02/07/21 13:22 Urine Culture - Preliminary Urine,Clean Catch Gram Neg Bacilli 02/07/21 10:28 Blood Culture - Preliminary Blood No Growth after 24 hours 02/06/21 23:04 Gram Stain - Preliminary Sputum Sputum Culture - Preliminary <Marcial Gramajo - Last Filed: 02/09/21 17:43> Subjective As above. Patient doing well. Denies abdominal pain. Patient is nothing by mouth because of difficulty swallowing. Unclear if patient and family are interested in PEG tube placement if aspiration issues persist. We will sign off at this point. Please reconsult if abdominal complaints recur or PEG tube is requested. Objective - Vital Signs Vital signs: Vital Signs Temp 97.8 F 02/09/21 08:00 Pulse 64 02/09/21 17:00 Resp 17 02/09/21 17:00 BP 111/60 02/09/21 17:00 Pulse Ox 93 L 02/09/21 17:00 Intake & Output 02/08/21 02/09/21 02/09/21 18:59 06:59 18:59 Intake Total 3847.073 5457 455 Output Total 7883 155 2959 Balance 183.369 230 -1450 Weight 92.5 kg 92.5 kg Intake: IV 1110 1000 455 Piperacillin-Tazobactam 3 200 100 75 .375 gm In Sodium Chloride 0.9% 100 ml @ 25 mls/hr IVPB Q8HR [facility] Rx# :[id number] Sodium Chloride 0.9% 1, 910 900 380 000 ml @ 75 mls/hr IV . [id number] [facility] Rx#:[id number] Intake, IV Titration 135.369 Amount Norepinephrine 8 mg In 87.579 Sodium Chloride 0.9% 250 ml @ 0.05 MCG/KG/MIN 8. 408 mls/hr IV .Q24H [facility] Rx#:[id number] propofoL 1,000 mg In 47.79 Empty Bag 1 bag @ Titrate IV .Q0M [facility] Rx#: [id number] Oral 110 Output: Gastric Drainage 200 Urine 751 657 9823 Stool 225 300 600 Other: Voiding Method Indwelling Catheter Indwelling Catheter Indwelling Catheter ABP, PAP, CO, CI - Last Documented Arterial Blood Pressure 122/46 - Labs CBC & Chem 7: 02/09/21 04:20 02/09/21 04:20 Labs: Abnormal Lab Results - Last 24 Hours (Table) 02/08/21 02/08/21 02/09/21 Range/Units 18:10 21:20 04:20 RBC 3.82 L (4.30-5.90) m/uL Hgb 9.6 L (13.0-17.5) gm/dL Hct 33.1 L (39.0-53.0) % MCHC 28.8 L (31.0-37.0) g/dL RDW 22.1 H (11.5-15.5) % Plt Count 466 H (150-450) k/uL Lymphocytes # (Manual) 0.60 L (1.0-4.8) k/uL Chloride (98-107) mmol/L Carbon Dioxide (22-30) mmol/L BUN (9-20) mg/dL Creatinine (0.66-1.25) mg/dL POC Glucose (mg/dL) 71 L 70 L (75-99) mg/dL Calcium (8.4-10.2) mg/dL 02/09/21 Range/Units 04:20 RBC (4.30-5.90) m/uL Hgb (13.0-17.5) gm/dL Hct (39.0-53.0) % MCHC (31.0-37.0) g/dL RDW (11.5-15.5) % Plt Count (150-450) k/uL Lymphocytes # (Manual) (1.0-4.8) k/uL Chloride 116 H (98-107) mmol/L Carbon Dioxide 16 L (22-30) mmol/L BUN 58 H (9-20) mg/dL Creatinine 2.62 H (0.66-1.25) mg/dL POC Glucose (mg/dL) (75-99) mg/dL Calcium 8.3 L (8.4-10.2) mg/dL Microbiology - Last 24 Hours (Table) 02/06/21 23:04 Gram Stain - Final Sputum Sputum Culture - Final 02/07/21 10:28 Blood Culture - Preliminary Blood No Growth after 48 hours 02/07/21 13:22 Urine Culture - Preliminary Urine,Clean Catch Gram Neg Bacilli
[2021-02-09 12:09] LABS: Glucose,Whole Blood 78 mg/dL (75-99)
--- NOTE | 2021-02-09 14:31 | P.PN ---
Subjective Patient is 80-year-old male admitted after intubation and transfer from [facility] further treatment of acute respiratory failure which was believed to be secondary to either aspiration pneumonia congestive heart failure. Patient doesn't have any JVD doesn't have any crackles on exam, chest x-ray showed bibasal infiltrates. Patient actually presented to [facility] as he was not having any stool in his colostomy bag and patient was noted to have bowel obstruction, subsequently went into respiratory failure. Patient was only has a central line in the arterial line. Patient is on assist-control ventilation with the set up respiratory rate of 18, PEEP of 5 FiO2 50% patient is breathing over the ventilator. Patient's colostomy bag is not in the right pushing leading to no output once his corrected patient was having good output from there. Patient is presently hypotensive receiving 2 L of bolus of IV fluid and patient is also on Zosyn. Patient is presently not on any pressor support. I do not have any previous labs are echocardiogram available at this time. Patient does appear to have history of atrial fibrillation presently sinus rhythm was on Eliquis at home. 02/08/2021 Patient is exquisitely today patient is having a lot of thick secretions this is secondary to aspiration pneumonia possibly of CHF is low, patient's proBNP is highly elevated because of which I cannot completely rule out diastolic dysfunc tion patient does have bilateral pedal edema. Patient was on levo fed until clear morning patient was in hypovolemic shock. Patient will continue to IV fluids eventually we probably will need to give him Lasix. 02/09/2029 Patient is has extensive bilateral diffuse rhonchi. The patient does have extensive bilateral pedal edema which improved now after patient received Lasix IV fluids were discontinued. Patient blood pressure is better today patient is able to tolerate Coreg and heart rate is better controlled now. Although patient looks really sick and his overall prognosis is guarded PHYSICAL EXAMINATION: GENERAL: Extubated HEENT: Pupils are round and equally reacting to light. EOMI. No scleral icterus. No conjunctival pallor. Normocephalic, atraumatic. No pharyngeal erythema. No thyromegaly. CARDIOVASCULAR: S1 and S2 present. No murmurs, rubs, or gallops. PULMONARY: Rhonchi predominantly in the left lower lung oswald. ABDOMEN: Soft, nontender, nondistended, normoactive bowel sounds. No palpable organomegaly. MUSCULOSKELETAL: No joint swelling or deformity. EXTREMITIES: No cyanosis, clubbing, extensive bilateral pitting pedal edema NEUROLOGICAL: Limited due to sedation. SKIN: No rashes. Assessment and plan acute hypoxic respiratory failure: Secondary to aspiration pneumonia from vomiting patient does have competent of chronic diastolic dysfunction with acute exacerbation patient does have extensive bilateral pedal edema which can be secondary to some right-sided heart failure. Patient received 1 dose of Lasix with improvement in bilateral pedal edema may need more Lasix for now will start IV fluids -Septic shock: Approved now -Possible congestive heart failure chronic diastolic dysfunction with acute exacerbation, a fluids were discontinued if patient can tolerate 1 more dose of Lasix patient will be given Lasix tomorrow. -Atrial fibrillation presently rate controlled sinus rhythm patient was resumed on anticoagulation. Presently rate controlled and able to tolerate beta abdi at this time -Elevated creatinine renal failure unsure whether it's acute or chronic possible difficulty with renal failure secondary to acute tubular necrosis from hypotension, his serum creatinine is bit worse compared to yesterday patient does have metabolic acidosis from renal dysfunction -Bowel obstruction resolved at this time -Hypertension: Presently hypotensive -benign prostatic hypertrophy -Gastroesophageal reflux disease -Hyperlipidemia DVT prophylaxis: On Eliquis because of renal dysfunctional cut down the dose Objective - Vital Signs Vital signs: Vital Signs Temp 97.8 F 02/09/21 08:00 Pulse 63 02/09/21 14:00 Resp 10 L 02/09/21 14:00 BP 115/63 02/09/21 14:00 Pulse Ox 92 L 02/09/21 14:00 Intake & Output 02/08/21 02/09/21 02/09/21 18:59 06:59 18:59 Intake Total 8499.164 1029 395 Output Total 8210 465 4805 Balance 183.369 230 -910 Weight 92.5 kg 92.5 kg Intake: IV 1110 1000 395 Piperacillin-Tazobactam 3 200 100 75 .375 gm In Sodium Chloride 0.9% 100 ml @ 25 mls/hr IVPB Q8HR [facility] Rx# :[id number] Sodium Chloride 0.9% 1, 910 900 320 000 ml @ 75 mls/hr IV . [id number] [facility] Rx#:[id number] Intake, IV Titration 135.369 Amount Norepinephrine 8 mg In 87.579 Sodium Chloride 0.9% 250 ml @ 0.05 MCG/KG/MIN 8. 408 mls/hr IV .Q24H [facility] Rx#:[id number] propofoL 1,000 mg In 47.79 Empty Bag 1 bag @ Titrate IV .Q0M [facility] Rx#: [id number] Oral 110 Output: Gastric Drainage 200 Urine 637 580 855 Stool 225 300 450 Other: Voiding Method Indwelling Catheter Indwelling Catheter Indwelling Catheter ABP, PAP, CO, CI - Last Documented Arterial Blood Pressure 111/45 - Labs CBC & Chem 7: 02/09/21 04:20 02/09/21 04:20 Labs: Abnormal Lab Results - Last 24 Hours (Table) 02/08/21 02/08/21 02/09/21 Range/Units 18:10 21:20 04:20 RBC 3.82 L (4.30-5.90) m/uL Hgb 9.6 L (13.0-17.5) gm/dL Hct 33.1 L (39.0-53.0) % MCHC 28.8 L (31.0-37.0) g/dL RDW 22.1 H (11.5-15.5) % Plt Count 466 H (150-450) k/uL Lymphocytes # (Manual) 0.60 L (1.0-4.8) k/uL Chloride (98-107) mmol/L Carbon Dioxide (22-30) mmol/L BUN (9-20) mg/dL Creatinine (0.66-1.25) mg/dL POC Glucose (mg/dL) 71 L 70 L (75-99) mg/dL Calcium (8.4-10.2) mg/dL 02/09/21 Range/Units 04:20 RBC (4.30-5.90) m/uL Hgb (13.0-17.5) gm/dL Hct (39.0-53.0) % MCHC (31.0-37.0) g/dL RDW (11.5-15.5) % Plt Count (150-450) k/uL Lymphocytes # (Manual) (1.0-4.8) k/uL Chloride 116 H (98-107) mmol/L Carbon Dioxide 16 L (22-30) mmol/L BUN 58 H (9-20) mg/dL Creatinine 2.62 H (0.66-1.25) mg/dL POC Glucose (mg/dL) (75-99) mg/dL Calcium 8.3 L (8.4-10.2) mg/dL Microbiology - Last 24 Hours (Table) 02/06/21 23:04 Gram Stain - Final Sputum Sputum Culture - Final 02/07/21 10:28 Blood Culture - Preliminary Blood No Growth after 48 hours 02/07/21 13:22 Urine Culture - Preliminary Urine,Clean Catch Gram Neg Bacilli
[2021-02-09] MEDS: SODIUM CHLORIDE 0.9% 500 ML 500 ML IV SCH (17:45)
[2021-02-09 17:49] LABS: Glucose,Whole Blood 80 mg/dL (75-99)
[2021-02-10] MEDS: PIPERACILLIN-TAZOBACTAM 3.375 GM in SODIUM CHLORIDE 0.9% 100 ML IVPB SCH ×2 (00:08→08:50)
[2021-02-10 00:12] LABS: Glucose,Whole Blood 78 mg/dL (75-99)
[2021-02-10] MEDS: IPRATROPIUM-ALBUTEROL 3 ML NEB INHALATION SCH ×6 (00:52→19:53)
[2021-02-10 04:46] LABS: Anisocytosis Moderate; HCT 34.8 % (39.0-53.0); Hypochromasia Marked; MCHC 28.7 g/dL (31.0-37.0); Mean Platelet Volume 10.8; Microcytosis Slight; Platelet Count 535 k/uL (150-450); Poikilocytosis Slight; RDW 22.2 % (11.5-15.5); WBC 11.5 k/uL (3.8-10.6)
[2021-02-10 05:08] LABS: Calcium 8.8 mg/dL (8.4-10.2); Potassium 4.3 mmol/L (3.5-5.1)
[2021-02-10 06:02] LABS: Band Neutrophils % 6 %; Eosinophils # (M) 0.35 k/uL (0-0.7); Lymphocytes # (M) 0.81 k/uL (1.0-4.8); Neutrophils % (M) 84 %; Nucleated Red Blood Cells 0 /100 WBC (0-0); Polychromasia Present; Total Cells Counted 100
[2021-02-10] MEDS: carvediloL 12.5 MG TAB PO SCH ×2 (07:02→17:48)
--- NOTE | 2021-02-10 08:18 | XR ---
EXAMINATION TYPE: XR chest 1V portable DATE OF EXAM: 02/10/2021 COMPARISON: Chest x-ray 02/09/2021 HISTORY: Abnormal chest x-ray TECHNIQUE: Single frontal view of the chest is obtained. FINDINGS: Bilateral airspace disease persists. Heart size is stable. No evident pneumothorax. Hemidi aphragms are obscured. Aorta is dense. Generator is present in the left pectoral region, lead in the right ventricle. There is a left jugular central venous catheter with the distal tip in the right atr ium. IMPRESSION: Correlate for congestive heart failure, pneumonia not excluded. There may be associated effusions.
[2021-02-10] MEDS: PANTOPRAZOLE 40 MG/10 ML VIAL IV SCH (08:50)
[2021-02-10] MEDS: MULTIVITAMINS, THERA 1 EACH TAB PO SCH (09:38)
[2021-02-10] MEDS: APIXABAN 2.5 MG TABLET PO SCH ×2 (09:38→20:15)
[2021-02-10] MEDS: amLODIPine 10 MG TAB PO SCH (09:38)
[2021-02-10] MEDS: ATORVASTATIN 40 MG TAB PO SCH (09:38)
[2021-02-10] MEDS: TAMSULOSIN 0.4 MG CAP.ER.24H PO SCH (09:38)
[2021-02-10] MEDS ORDERED: DEXTROSE 5% IN WATER 1,000 ML IV ONE (10:05)
--- NOTE | 2021-02-10 10:15 | P.PN ---
Subjective Patient is 80-year-old male admitted after intubation and transfer from [facility] further treatment of acute respiratory failure which was believed to be secondary to either aspiration pneumonia congestive heart failure. Patient doesn't have any JVD doesn't have any crackles on exam, chest x-ray showed bibasal infiltrates. Patient actually presented to [facility] as he was not having any stool in his colostomy bag and patient was noted to have bowel obstruction, subsequently went into respiratory failure. Patient was only has a central line in the arterial line. Patient is on assist-control ventilation with the set up respiratory rate of 18, PEEP of 5 FiO2 50% patient is breathing over the ventilator. Patient's colostomy bag is not in the right pushing leading to no output once his corrected patient was having good output from there. Patient is presently hypotensive receiving 2 L of bolus of IV fluid and patient is also on Zosyn. Patient is presently not on any pressor support. I do not have any previous labs are echocardiogram available at this time. Patient does appear to have history of atrial fibrillation presently sinus rhythm was on Eliquis at home. 02/08/2021 Patient is exquisitely today patient is having a lot of thick secretions this is secondary to aspiration pneumonia possibly of CHF is low, patient's proBNP is highly elevated because of which I cannot completely rule out diastolic dysfunc tion patient does have bilateral pedal edema. Patient was on levo fed until clear morning patient was in hypovolemic shock. Patient will continue to IV fluids eventually we probably will need to give him Lasix. 02/09/2029 Patient is has extensive bilateral diffuse rhonchi. The patient does have extensive bilateral pedal edema which improved now after patient received Lasix IV fluids were discontinued. Patient blood pressure is better today patient is able to tolerate Coreg and heart rate is better controlled now. Although patient looks really sick and his overall prognosis is guarded 02/10/2021 Patient the is alert and arousable dry mucous membranes patient was started on D 5 water patient is hyponatremic at this time. Patient has ESBL in the urine patient has Klebsiella which has extended spectrum beta-lactamase, infectious disease will be consulted. Considering his worsening leukocytosis patient probably has UTI because of which patient will be started on ertapenem. She and is nothing by mouth as he is aspirating. Constitutional: Denied any fatigue denied any fever. Cardio vascular: denied any chest pain, palpitations Gastrointestinal denied any nausea vomiting Pulmonary: Denied any shortness of breath cough Neurologic denied any new focal deficits All inpatient medications were reviewed and appropriate changes in these medications as dictated in the interval history and assessment and plan. PHYSICAL EXAMINATION: GENERAL: Extubated HEENT: Pupils are round and equally reacting to light. EOMI. No scleral icterus. No conjunctival pallor. Normocephalic, atraumatic. No pharyngeal erythema. No thyromegaly. CARDIOVASCULAR: S1 and S2 present. No murmurs, rubs, or gallops. PULMONARY: Rhonchi predominantly in the left lower lung oswald. ABDOMEN: Soft, nontender, nondistended, normoactive bowel sounds. No palpable organomegaly. MUSCULOSKELETAL: No joint swelling or deformity. EXTREMITIES: No cyanosis, clubbing, extensive bilateral pitting pedal edema NEUROLOGICAL: Limited due to sedation. SKIN: No rashes. Assessment and plan acute hypoxic respiratory failure: Secondary to aspiration pneumonia from vomiting patient does have competent of chronic diastolic dysfunction with acute exacerbation patient does have extensive bilateral pedal edema which can be secondary to some right-sided heart failure. -Hypovolemic hyponatremia patient will be started on D5. Patient was receiving NG tube feedings and a couple days ago because of which are not started on TPN yet -Dysphagia: Speech therapy evaluation pending -Septic shock: Approved now -Possible congestive heart failure chronic diastolic dysfunction which improved and patient is presently 1 depleted -Atrial fibrillation presently rate controlled sinus rhythm patient was resumed on anticoagulation. Presently rate controlled and able to tolerate beta abdi at this time -Elevated creatinine renal failure unsure whether it's acute or chronic possible difficulty with renal failure secondary to acute tubular necrosis from hypotension, his serum creatinine is bit worse compared to yesterday patient does have metabolic acidosis from renal dysfunction -Bowel obstruction resolved at this time -Hypertension: -benign prostatic hypertrophy -Gastroesophageal reflux disease -Hyperlipidemia Overall prognosis is extremely poor DVT prophylaxis: On Eliquis because of renal dysfunctional cut down the dose Objective - Vital Signs Vital signs: Vital Signs Temp 97.5 F L 02/10/21 08:00 Pulse 65 02/10/21 09:00 Resp 16 02/10/21 09:00 BP 119/78 02/10/21 09:00 Pulse Ox 92 L 02/10/21 09:00 Intake & Output 02/09/21 02/10/21 02/10/21 18:59 06:59 18:59 Intake Total 675 240 160 Output Total 2004 1230 370 Balance -6330 -990 -210 Weight 92.5 kg 92.2 kg Intake: IV 675 240 160 Piperacillin-Tazobactam 3 275 100 .375 gm In Sodium Chloride 0.9% 100 ml @ 25 mls/hr IVPB Q8HR [facility] Rx# :[id number] Sodium Chloride 0.9% 1, 380 000 ml @ 75 mls/hr IV . [id number] [facility] Rx#:[id number] Sodium Chloride 0.9% 500 20 240 60 ml 500 ml @ 20 mls/hr IV .Q24H [facility] Rx#:[id number] Output: Urine 1405 1230 220 Stool 600 150 Other: Voiding Method Indwelling Catheter Indwelling Catheter Indwelling Catheter ABP, PAP, CO, CI - Last Documented Arterial Blood Pressure 126/52 - Labs CBC & Chem 7: 02/10/21 04:39 02/10/21 04:37 Labs: Abnormal Lab Results - Last 24 Hours (Table) 02/10/21 02/10/21 Range/Units 04:37 04:39 WBC 11.5 H (3.8-10.6) k/uL RBC 4.00 L (4.30-5.90) m/uL Hgb 10.0 L (13.0-17.5) gm/dL Hct 34.8 L (39.0-53.0) % MCHC 28.7 L (31.0-37.0) g/dL RDW 22.2 H (11.5-15.5) % Plt Count 535 H (150-450) k/uL Neutrophils # (Manual) 10.30 H (1.3-7.7) k/uL Lymphocytes # (Manual) 0.81 L (1.0-4.8) k/uL Sodium 147 H (137-145) mmol/L Chloride 118 H (98-107) mmol/L Carbon Dioxide 16 L (22-30) mmol/L BUN 60 H (9-20) mg/dL Creatinine 2.74 H (0.66-1.25) mg/dL Microbiology - Last 24 Hours (Table) 02/07/21 13:22 Urine Culture - Final Urine,Clean Catch Klebsiella pneumoniae Klebsiella pneumoniae#2 02/06/21 23:04 Gram Stain - Final Sputum Sputum Culture - Final 02/07/21 10:28 Blood Culture - Preliminary Blood No Growth after 48 hours
[2021-02-10] MEDS: ERTAPENEM 0.5 GM in SODIUM CHLORIDE 0.9% 50 ML IVPB SCH (10:39)
--- NOTE | 2021-02-10 10:58 | P.PN ---
Subjective Progress Note Date: 02/10/21 Principal diagnosis: Acute respiratory failure, nausea vomiting, aspiration This is an 80-year-old gentleman with a history of hypertension, BPH, gastroesophageal reflux disease, macular degeneration, sick sinus syndrome status post permanent pacemaker implantation, anticoagulated with Eliquis, hyperlipidemia. He also has a history of previous bowel obstruction and subsequent ileostomy placed in 2012. He presented to [facility] yesterday with complaints of nausea vomiting abdominal pain and no output from his ileostomy for 24 hours. He was thought to have a bowel obstruction. The patient additionally had some respiratory failure suspect secondary to aspiration while vomiting. He was unable to tolerate BiPAP and subsequently intubated at [facility] and transferred here early this morning for further evaluation and treatment. Chest x-ray revealed pulmonary infiltrates and possible pulmonary vascular congestion. Endotracheal tube in good position. White count 6.1. Hemoglobin 9.9. Platelets 371. Sodium 140. Potassium 4.0. Creatinine 1.94. BUN 57. The patient is seen in consultation in the ICU. Currently sedated on propofol at 45 mcg/kg/m. 0.9 normal saline at 75 ML's per hour. He is on assist control mode at a rate of 18, tidal volume 450, FiO2 50% and a PEEP of 5. Morning blood gases reveal a P O2 of 86, pCO2 42, pH 7.32 on 60% FiO2. Sputum culture pending. The patient's ostomy appears to be functioning. There is significant amount of loose stool. The patient is seen today 02/08/2021 in follow-up in the intensive care unit. He remains intubated and on mechanical ventilator currently says control mode with respiratory rate of 18, tidal volume 450, FiO2 50% and a PEEP of 5. Morning blood gases revealed a pO2 of 88, pCO2 36, pH 7.3. He is currently receiving a sedation holiday to prevent is on hold. He is requiring norepinephrine at 3 mcg/kg/m. He has 0.9 normal saline at 75 ML's per hour. He remains on Zosyn. His x-ray shows slight improvement in the aeration of the bibasilar densities. Sputum culture pending. Urine culture pending. White count 8.7. Hemoglobin 10.2. Sodium 141. Potassium 4.8. Creatinine 2.39. Ostomy is functioning. No evidence of bowel obstruction. No surgical interventions planned. Echocardiogram reveals preserved left ventricle systolic function with ejection fraction 55-60%. Some mild to moderate pulmonary hypertension. RVSP 45 mmHg. ProBNP 16,300. Pro-calcitonin 0.45. Patient is seen today 02/09/2021 in follow-up in the intensive care unit. He was successfully extubated yesterday 02/08/2021. He is currently on 4 L high flow nasal cannula to maintain O2 saturations in the 90s. He is still having some loose nonproductive cough. He has a weak cough. Unable to produce any sputum. His voice is hoarse. His x-ray shows stable pleural parenchymal changes and some fluid volume overload. Urine culture positive for gram- negative bacilli. Blood culture revealing no growth. Sputum culture pending. White count 7.5. Hemoglobin 9.6. Sodium 134. Potassium 4.4. Creatinine 2.62. He remains on DuoNeb inhalations, antibiotics in the form of Zosyn, anti coagulated with Eliquis. The patient is seen today 02/10/2021 in follow-up in the intensive care unit. He is currently sitting up in bed. More awake and alert. Continues with a loose nonproductive cough. Better cough effort. He is on 4 L/m per nasal cannula. Chest x-ray revealing bilateral airspace disease. Correlate for CHF versus pneumonia. Urine culture positive for Klebsiella pneumoniae. Blood culture revealed no growth. Sputum cultures revealed no growth. White count 11.5. Hemoglobin 10.0. Sodium 147. Potassium 4.3. Creatinine 2.74. 0.9 normal saline at 20 mL's per hour. He's been initiated on ertapenem, remains on bronchodilators. Anticoagulated with Eliquis. Follow-up swallow evaluation pending. Objective - Vital Signs Vital signs: Vital Signs Temp 97.5 F L 02/10/21 08:00 Pulse 65 02/10/21 10:00 Resp 16 02/10/21 10:00 BP 119/66 02/10/21 10:00 Pulse Ox 89 L 02/10/21 10:00 Intake & Output 02/09/21 02/10/21 02/10/21 18:59 06:59 18:59 Intake Total 675 240 160 Output Total 2004 3280 370 Balance -1330 -990 -210 Weight 92.5 kg 92.2 kg Intake: IV 675 240 160 Piperacillin-Tazobactam 3 275 100 .375 gm In Sodium Chloride 0.9% 100 ml @ 25 mls/hr IVPB Q8HR [facility] Rx# :[id number] Sodium Chloride 0.9% 1, 380 000 ml @ 75 mls/hr IV . [id number] [facility] Rx#:[id number] Sodium Chloride 0.9% 500 20 240 60 ml 500 ml @ 20 mls/hr IV .Q24H [facility] Rx#:[id number] Output: Urine 1405 1230 220 Stool 600 150 Other: Voiding Method Indwelling Catheter Indwelling Catheter Indwelling Catheter ABP, PAP, CO, CI - Last Documented Arterial Blood Pressure 129/44 - Exam GENERAL EXAM: Awake, alert frail 80-year-old gentleman, on 4 L nasal cannula, appears comfortable in no apparent distress. HEAD: Normocephalic. EYES: Normal reaction of pupils, equal size. NOSE: Clear with pink turbinates. THROAT: No erythema or exudates. NECK: No masses, no JVD. CHEST: No chest wall deformity. LUNGS: Equal air entry with few scattered rhonchi bilaterally. CVS: S1 and S2 normal with no audible murmur, regular rhythm. ABDOMEN: Ostomy in place. Functioning. No hepatosplenomegaly, normal bowel sounds, no guarding or rigidity. SPINE: No scoliosis or deformity SKIN: No rashes CENTRAL NERVOUS SYSTEM: No noted focal deficits. Tone is normal in all 4 extremities. EXTREMITIES: There is no peripheral edema. No clubbing, no cyanosis. Redness of the bilateral lower extremities. Dry skin. Peripheral pulses are intact. - Labs CBC & Chem 7: 02/10/21 04:39 02/10/21 04:37 Labs: Abnormal Lab Results - Last 24 Hours (Table) 02/10/21 02/10/21 Range/Units 04:37 04:39 WBC 11.5 H (3.8-10.6) k/uL RBC 4.00 L (4.30-5.90) m/uL Hgb 10.0 L (13.0-17.5) gm/dL Hct 34.8 L (39.0-53.0) % MCHC 28.7 L (31.0-37.0) g/dL RDW 22.2 H (11.5-15.5) % Plt Count 535 H (150-450) k/uL Neutrophils # (Manual) 10.30 H (1.3-7.7) k/uL Lymphocytes # (Manual) 0.81 L (1.0-4.8) k/uL Sodium 147 H (137-145) mmol/L Chloride 118 H (98-107) mmol/L Carbon Dioxide 16 L (22-30) mmol/L BUN 60 H (9-20) mg/dL Creatinine 2.74 H (0.66-1.25) mg/dL Microbiology - Last 24 Hours (Table) 02/07/21 13:22 Urine Culture - Final Urine,Clean Catch Klebsiella pneumoniae Klebsiella pneumoniae#2 02/06/21 23:04 Gram Stain - Final Sputum Sputum Culture - Final 02/07/21 10:28 Blood Culture - Preliminary Blood No Growth after 48 hours Assessment and Plan Assessment: 1 Acute hypoxemic respiratory failure secondary to suspected aspiration and/or fluid volume overload, possible diastolic congestive heart failure. Preserved left ventricular systolic function. Intubated at [facility] 02/06/2021 prior to transfer here on 02/08/2020. Extubated 02/08/2021. Currently on 4 L nasal cannula. Pro calcitonin 0.45. ProBNP 16,300. Chest x-ray continues to show evidence of fluid volume overload. 2 Nausea, vomiting, secondary to no output in the ostomy 24 hours. No plans for surgical intervention. Ostomy functioning. 3 History of bowel obstruction status post ostomy placement in 2012 4 Acute renal failure possibly related to dehydration, nausea and vomiting. Creatinine 2.74. 5 Anemia, current hemoglobin 10.0 6 History of suspected atrial fibrillation. Status post permanent pacemaker implantation. Anticoagulated with Eliquis. 7 Hypertension history of. Currently hypotensive 8 Hyperlipidemia 9 BPH 10 Gastroesophageal Reflux Disease 11 Urinary tract infection secondary to Klebsiella pneumoniae Plan: The patient was seen and evaluated by Dr. Montoya Chest x-ray and labs reviewed Antibiotics changed from Zosyn to ertapenem We'll obtain a follow-up swallow evaluation per speech therapy Aspiration precautions Discontinue arterial line Stable for transfer out of the ICU today We will continue to follow and make further recommendations based on his clinical status I, the cosigning physician, performed a history & physical examination of the patient. Lungs sounds bilateral scattered rhonchi. Maintaining good O2 saturations in the 90s on 4 L nasal cannula. I discussed the assessment and plan of care with my nurse practitioner, Amber Velazquez. I attest to the above note as dictated by her.
[2021-02-10 11:59] LABS: Glucose,Whole Blood 75 mg/dL (75-99)
[2021-02-10] MEDS: SODIUM CHLORIDE 0.9% 500 ML 500 ML IV SCH (15:01)
--- NOTE | 2021-02-10 15:24 | FL ---
EXAMINATION TYPE: FL barium swallow w video DATE OF EXAM: 02/10/2021 COMPARISON: NONE HISTORY: Dysphagia abnormal bedside exam TECHNIQUE: Fluoroscopy. FINDINGS: Fluoroscopic guidance was provided for the procedure performed in conjunction with the [facility] pathology department. Please see complete report forthcoming from the Speech Pathology departmen t. Various consistencies from thin liquid to solids were administered. Fluoroscopy time 2 minutes 26 seconds. Number of images: 0. No aspiration or penetration was evident. There is free spill from the oropharynx into the hypopharyn x. Small amount of pooling was observed in the vallecula. Is made of a small Zenker's diverticulum evident during swallowing. IMPRESSION: 1. Free spill from the oropharynx and hypopharynx without aspiration or penetration. 2. Zenker's diverticulum. 3. Small residuals within the vallecula
[2021-02-10 17:31] LABS: Glucose,Whole Blood 93 mg/dL (75-99)
[2021-02-10 23:50] LABS: Glucose,Whole Blood 137 mg/dL (75-99)
[2021-02-11] MEDS ORDERED: diphenhydrAMINE 50 MG/ML 1 ML VIAL IVP STA (00:20)
[2021-02-11 00:23] LABS: Glucose,Whole Blood 141 mg/dL (75-99)
[2021-02-11 05:55] LABS: Glucose,Whole Blood 131 mg/dL (75-99)
[2021-02-11] MEDS: IPRATROPIUM-ALBUTEROL 3 ML NEB INHALATION SCH ×4 (07:22→20:36)
[2021-02-11] MEDS: MULTIVITAMINS, THERA 1 EACH TAB PO SCH (08:24)
[2021-02-11] MEDS: amLODIPine 10 MG TAB PO SCH (08:24)
[2021-02-11] MEDS: carvediloL 12.5 MG TAB PO SCH ×2 (08:24→17:32)
[2021-02-11] MEDS: APIXABAN 2.5 MG TABLET PO SCH ×2 (08:24→20:55)
[2021-02-11] MEDS: PANTOPRAZOLE 40 MG/10 ML VIAL IV SCH (08:24)
[2021-02-11] MEDS: TAMSULOSIN 0.4 MG CAP.ER.24H PO SCH (08:24)
[2021-02-11] MEDS: ATORVASTATIN 40 MG TAB PO SCH (08:24)
[2021-02-11] MEDS: ERTAPENEM 0.5 GM in SODIUM CHLORIDE 0.9% 50 ML IVPB SCH (08:24)
[2021-02-11 09:17] LABS: HCT 34.4 % (39.6-50.0); HGB 9.6 g/dL (13.0-17.0); MCH 23.5 pg (27.0-32.0); MCHC 27.9 g/dL (32.0-37.0); MCV 84.3 fL (80.0-97.0); Mean Platelet Volume 11.1 fL (9.5-12.2); Platelet Count 660 X 10*3/uL (140-440); RBC 4.08 X 10*6/uL (4.40-5.60); RDW 25.8 % (11.5-14.5); WBC 13.12 X 10*3/uL (4.50-10.00)
[2021-02-11 10:10] LABS: African American GFR (CKD) 23.3 (60.0-200.0); Anion Gap 16.1 mmol/L (4.00-12.00); BUN/Creat Ratio 21.36 Ratio (12.00-20.00); Blood Urea Nitrogen 59.8 mg/dL (9.0-27.0); Calcium 8.6 mg/dL (8.7-10.3); Carbon Dioxide 15.9 mmol/L (21.6-31.8); Non-African American GFR(CKD) 20.1 (60.0-200.0); Potassium 4.5 mmol/L (3.5-5.5)
--- NOTE | 2021-02-11 11:58 | P.CONS ---
History of Present Illness - Reason for Consult Consult date: 02/10/21 ESBL UTI Requesting physician: Angelina Schmitz - Chief Complaint abd distension x few days - History of Present Illness History of present illness : Patient is 80-year-old male presented to hospital 3 days ago for evaluation of nausea vomiting and abdominal pain the patient initially presented to the hospital was a small light this patient did have medical history bowel obstruction recovery in ostomy patient did have a work-up done at [facility], [place] was noticed to have a bowel obstruction and respiratory failure with concern for possible aspiration patient was subsequently transferred to this facility for further work-up on presentation to this facility patient was afebrile and no fever has been recorded subsequently patient did have a normal white count however white count is slightly up today at 11.5 patient did have elevated BUN and creatinine he did have positive UA with urine culture been finalized with ESBL patient was started on Invanz inf ectious was consulted for further management patient did have history of urinary outflow obstruction anasarca present self only at night urinary the patient did okay per family has been sick and has been abdominal distention which apparently has improved since admission to the hospital had no further vomiting and did have a output in his ileostomy bag, denies having any chest pain or shortness of the have occasional cough Review of system: CONSTITUTIONAL: Positive for weakness denies fever. EYES: No complaint. ENT: No complaint. RESPIRATORY: No complaint. CARDIOVASCULAR: No complaint. GENITOURINARY as per history of present illness. GASTROINTESTINAL: As per history of present illness MUSCULOSKELETAL: No complaint. INTEGUMENTARY: No complaint. PSYCHOLOGIC: No complaint. ENDOCRINE: No complaint. NEUROLOGIC: No complaint. Past medical history : Reviewed, documented below Past surgical history : Reviewed, documented below Social history: Reviewed, documented below Medications: Reviewed, as documented below EXAMINATION: Vital sigans= Reviewed and documented below GENERAL DESCRIPTION: Elderly male lying in bed, no distress. No tachypnea or accessory muscle of respiration use. HEENT: Shows Pallor , no scleral icterus. Oral mucous membrane is dry. NECK: Trachea central, no thyromegaly. LUNGS: Unlabored breathing. Decreased breath sound at the base. No wheeze or crackle. HEART: S1, S2, regular rate and rhythm. ABDOMEN: Soft, no tenderness , guarding or rigidity EXTREMITIES: No edema of feet. SKIN: No rash, no masses palpable. NEUROLOGICAL: The patient is awake, alert, oriented x3, mood and affect normal. LABS AND RADIOLOGY: Reviewed results see below Assessment : Patient is 80-year-old male presented to hospital with abdominal distention diagnosed with a possible ileus this patient who do have a positive UA did have a history of urinary outflow obstruction requiring self- catheterization likely symptomatic urinary tract infection with urine has been colonized with ESBL Klebsiella Plan: 1-repeat urine culture 2-continue with the Invanz 500 mg daily while waiting for repeat urine to be finalized 3-gentle IV fluid We will follow on clinical condition and cultures to further adjust medication if needed Thank you for this consultation we will follow the patient along with you Past Medical History Past Medical History: No Reported History, Hypertension Additional Past Medical History / Comment(s): hiatal hernia. hyperkalemia. maculuar degernation. TIA. 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 Pacemaker placed 08/15/2020 by Eleuterio Babcock ([phone]) Past Anesthesia/Blood Transfusion Reactions: No Reported Reaction Type of Cardiac Device: Permanent Pacemaker Device Placement Date:: 08/15/20 Past Psychological History: No Psychological Hx Reported Smoking Status: Former smoker Past Alcohol Use History: Rare Past Drug Use History: None Reported - Past Family History Daughter(s) Family Medical History: Diabetes Mellitus, Hypertension Additional Family Medical History / Comment(s): macular degeneration Medications and Allergies Home Medications Medication Instructions Recorded Confirmed Type Apixaban [Eliquis] 5 mg PO BID 02/06/21 02/06/21 History Atorvastatin Calcium [Lipitor] 40 mg PO DAILY 02/06/21 02/06/21 History Carvedilol [Coreg] 12.5 mg PO BID 02/06/21 02/06/21 History Ferrous Sulfate [Feosol] 325 mg PO MOWEFR 02/06/21 02/06/21 History Lansoprazole [Prevacid] 30 mg PO DAILY 02/06/21 02/06/21 History Loratadine [Claritin] 10 mg PO DAILY PRN 02/06/21 02/06/21 History Multivitamins, Thera [Multivitamin 1 tab PO DAILY 02/06/21 02/06/21 History (formulary)] Sodium Bicarbonate Tab 650 mg PO QID@05,11,,02/06/21 02/06/21 History Tamsulosin HCl [Flomax] 0.4 mg PO DAILY 02/06/21 02/06/21 History amLODIPine [Norvasc] 10 mg PO DAILY 02/06/21 02/06/21 History hydroCHLOROthiazide [Hydrodiuril] 25 mg PO DAILY 02/06/21 02/06/21 History Allergies Allergy/AdvReac Type Severity Reaction Status Date / Time lisinopril AdvReac Unknown Verified 02/06/21 22:41 Physical Exam Vitals: Vital Signs Temp Pulse Resp BP Pulse Ox 02/10/21 14:00 64 9 L 02/10/21 12:00 66 120/66 02/10/21 11:34 65 16 02/10/21 11:00 65 18 115/65 93 L 02/10/21 10:00 65 16 119/66 89 L 02/10/21 09:00 65 16 119/78 92 L 02/10/21 08:00 97.5 F L 65 20 117/64 97 02/10/21 07:52 68 10 L 02/10/21 07:42 65 10 L 94 L 02/10/21 07:00 65 16 114/74 95 02/10/21 06:00 66 14 118/68 94 L 02/10/21 05:00 63 7 L 123/62 92 L 02/10/21 04:00 97.7 F 65 8 L 102/62 92 L 02/10/21 03:00 65 11 L 113/57 91 L 02/10/21 02:00 65 10 L 127/67 91 L 02/10/21 01:03 65 02/10/21 01:00 65 9 L 114/62 97 02/10/21 00:53 65 02/10/21 00:00 98.4 F 65 18 116/60 93 L 02/09/21 23:01 65 7 L 93 L 02/09/21 23:00 65 9 L 116/61 93 L 02/09/21 22:00 65 12 112/63 92 L 02/09/21 21:31 65 02/09/21 21:20 65 02/09/21 21:00 65 8 L 116/60 93 L 02/09/21 20:00 98.1 F 65 13 112/58 93 L 02/09/21 19:00 64 12 108/66 92 L 02/09/21 18:00 65 14 116/57 92 L 02/09/21 17:00 64 17 111/60 93 L 02/09/21 16:45 68 02/09/21 16:34 64 02/09/21 16:00 64 16 109/61 94 L 02/09/21 15:00 64 12 109/62 Intake and Output 02/09/21 02/10/21 02/10/21 22:59 06:59 14:59 Intake Total 260 160 360 Output Total 1050 880 870 Balance -790 720 -510 Intake: IV 260 160 160 Piperacillin-Tazobactam 3 100 100 .375 gm In Sodium Chloride 0.9% 100 ml @ 25 mls/hr IVPB Q8HR [facility] Rx# :[id number] Sodium Chloride 0.9% 1, 60 000 ml @ 75 mls/hr IV . [id number] [facility] Rx#:[id number] Sodium Chloride 0.9% 500 100 160 60 ml 500 ml @ 20 mls/hr IV .Q24H [facility] Rx#:[id number] Intake, IV Titration 200 Amount Dextrose 5% in Water 1, 200 000 ml @ 50 mls/hr IV . Q20H [facility] Rx#:[id number] Output: Urine 900 880 720 Stool 150 150 Other: Voiding Method Indwelling Catheter Indwelling Catheter Indwelling Catheter Weight 92.2 kg ABP, PAP, CO, CI - Last 8 Hours Arterial Blood Pressure 129/44 Arterial Blood Pressure 126/52 Arterial Blood Pressure 131/45 Arterial Blood Pressure 130/46 Results CBC & Chem 7: 02/11/21 03:25 02/11/21 03:25 Labs: Abnormal Lab Results - Last 24 Hours (Table) 02/10/21 02/10/21 Range/Units 04:37 04:39 WBC 11.5 H (3.8-10.6) k/uL RBC 4.00 L (4.30-5.90) m/uL Hgb 10.0 L (13.0-17.5) gm/dL Hct 34.8 L (39.0-53.0) % MCHC 28.7 L (31.0-37.0) g/dL RDW 22.2 H (11.5-15.5) % Plt Count 535 H (150-450) k/uL Neutrophils # (Manual) 10.30 H (1.3-7.7) k/uL Lymphocytes # (Manual) 0.81 L (1.0-4.8) k/uL Sodium 147 H (137-145) mmol/L Chloride 118 H (98-107) mmol/L Carbon Dioxide 16 L (22-30) mmol/L BUN 60 H (9-20) mg/dL Creatinine 2.74 H (0.66-1.25) mg/dL Microbiology - Last 24 Hours (Table) 02/07/21 10:28 Blood Culture - Preliminary Blood No Growth after 72 hours 02/07/21 13:22 Urine Culture - Final Urine,Clean Catch Klebsiella pneumoniae Klebsiella pneumoniae#2 02/06/21 23:04 Gram Stain - Final Sputum Sputum Culture - Final
[2021-02-11 12:00] LABS: Glucose,Whole Blood 123 mg/dL (75-99)
--- NOTE | 2021-02-11 13:51 | P.PN ---
Subjective Progress Note Date: 02/11/21 Principal diagnosis: Acute respiratory failure, nausea vomiting, aspiration This is an 80-year-old gentleman with a history of hypertension, BPH, gastroesophageal reflux disease, macular degeneration, sick sinus syndrome status post permanent pacemaker implantation, anticoagulated with Eliquis, hyperlipidemia. He also has a history of previous bowel obstruction and subsequent ileostomy placed in 2012. He presented to [facility] yesterday with complaints of nausea vomiting abdominal pain and no output from his ileostomy for 24 hours. He was thought to have a bowel obstruction. The patient additionally had some respiratory failure suspect secondary to aspiration while vomiting. He was unable to tolerate BiPAP and subsequently intubated at [facility] and transferred here early this morning for further evaluation and treatment. Chest x-ray revealed pulmonary infiltrates and possible pulmonary vascular congestion. Endotracheal tube in good position. White count 6.1. Hemoglobin 9.9. Platelets 371. Sodium 140. Potassium 4.0. Creatinine 1.94. BUN 57. The patient is seen in consultation in the ICU. Currently sedated on propofol at 45 mcg/kg/m. 0.9 normal saline at 75 ML's per hour. He is on assist control mode at a rate of 18, tidal volume 450, FiO2 50% and a PEEP of 5. Morning blood gases reveal a P O2 of 86, pCO2 42, pH 7.32 on 60% FiO2. Sputum culture pending. The patient's ostomy appears to be functioning. There is significant amount of loose stool. The patient is seen today 02/08/2021 in follow-up in the intensive care unit. He remains intubated and on mechanical ventilator currently says control mode with respiratory rate of 18, tidal volume 450, FiO2 50% and a PEEP of 5. Morning blood gases revealed a pO2 of 88, pCO2 36, pH 7.3. He is currently receiving a sedation holiday to prevent is on hold. He is requiring norepinephrine at 3 mcg/kg/m. He has 0.9 normal saline at 75 ML's per hour. He remains on Zosyn. His x-ray shows slight improvement in the aeration of the bibasilar densities. Sputum culture pending. Urine culture pending. White count 8.7. Hemoglobin 10.2. Sodium 141. Potassium 4.8. Creatinine 2.39. Ostomy is functioning. No evidence of bowel obstruction. No surgical interventions planned. Echocardiogram reveals preserved left ventricle systolic function with ejection fraction 55-60%. Some mild to moderate pulmonary hypertension. RVSP 45 mmHg. ProBNP 16,300. Pro-calcitonin 0.45. Patient is seen today 02/09/2021 in follow-up in the intensive care unit. He was successfully extubated yesterday 02/08/2021. He is currently on 4 L high flow nasal cannula to maintain O2 saturations in the 90s. He is still having some loose nonproductive cough. He has a weak cough. Unable to produce any sputum. His voice is hoarse. His x-ray shows stable pleural parenchymal changes and some fluid volume overload. Urine culture positive for gram- negative bacilli. Blood culture revealing no growth. Sputum culture pending. White count 7.5. Hemoglobin 9.6. Sodium 134. Potassium 4.4. Creatinine 2.62. He remains on DuoNeb inhalations, antibiotics in the form of Zosyn, anti coagulated with Eliquis. The patient is seen today 02/10/2021 in follow-up in the intensive care unit. He is currently sitting up in bed. More awake and alert. Continues with a loose nonproductive cough. Better cough effort. He is on 4 L/m per nasal cannula. Chest x-ray revealing bilateral airspace disease. Correlate for CHF versus pneumonia. Urine culture positive for Klebsiella pneumoniae. Blood culture revealed no growth. Sputum cultures revealed no growth. White count 11.5. Hemoglobin 10.0. Sodium 147. Potassium 4.3. Creatinine 2.74. 0.9 normal saline at 20 mL's per hour. He's been initiated on ertapenem, remains on bronchodilators. Anticoagulated with Eliquis. Follow-up swallow evaluation pending. The patient is seen today 02/11/2021 in follow-up on the regular medical floor. He is currently sitting up in bed. Awake and alert in no acute distress. He has a loose nonproductive cough. He did undergo swallow evaluation yesterday. He was recommended pured diet with nectar liquids. No overt signs or symptoms of aspiration/penetration. Barium swallow revealed free spill from the oropharynx and hypopharynx without aspiration or penetration. 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 Small residuals within the vallecula. He is maintaining O2 saturations in the 90s on 4 L/m per nasal cannula. Afebrile. Hemodynamically stable. Urine culture was positive for Klebsiella pneumoniae. White count 13.1. Hemoglobin 9.6. Sodium 150. Potassium 4.5. Creatinine 2.8. Glucose 164. He does have 0.9 normal sign KVO. P remains on ertapenem, bronchodilators, anticoagulated with Eliquis. Objective - Vital Signs Vital signs: Vital Signs Temp 98.1 F 02/11/21 09:41 Pulse 64 02/11/21 10:54 Resp 17 02/11/21 09:41 BP 130/70 02/11/21 09:41 Pulse Ox 94 L 02/11/21 09:41 Intake & Output 02/10/21 02/11/21 02/11/21 18:59 06:59 18:59 Intake Total 600 Output Total 970 750 Balance -370 -750 Weight 92.2 kg 83.5 kg Intake: IV 160 Piperacillin-Tazobactam 3 100 .375 gm In Sodium Chloride 0.9% 100 ml @ 25 mls/hr IVPB Q8HR [facility] Rx# :[id number] Sodium Chloride 0.9% 500 60 ml 500 ml @ 20 mls/hr IV .Q24H [facility] Rx#:[id number] Intake, IV Titration 200 Amount Dextrose 5% in Water 1, 200 000 ml @ 50 mls/hr IV . Q20H [facility] Rx#:[id number] Oral 240 Output: Urine 820 750 Stool 150 Other: Voiding Method Indwelling Catheter Indwelling Catheter Indwelling Catheter ABP, PAP, CO, CI - Last Documented Arterial Blood Pressure 129/44 - Exam GENERAL EXAM: Awake, alert frail 80-year-old gentleman, on 4 L nasal cannula, appears comfortable in no apparent distress. HEAD: Normocephalic. EYES: Normal reaction of pupils, equal size. NOSE: Clear with pink turbinates. THROAT: No erythema or exudates. NECK: No masses, no JVD. CHEST: No chest wall deformity. LUNGS: Equal air entry with few scattered rhonchi bilaterally. CVS: S1 and S2 normal with no audible murmur, regular rhythm. ABDOMEN: Ostomy in place. Functioning. No hepatosplenomegaly, normal bowel sounds, no guarding or rigidity. SPINE: No scoliosis or deformity SKIN: No rashes CENTRAL NERVOUS SYSTEM: No noted focal deficits. Tone is normal in all 4 extremities. EXTREMITIES: There is no peripheral edema. No clubbing, no cyanosis. Redness of the bilateral lower extremities. Dry skin. Peripheral pulses are intact. - Labs CBC & Chem 7: 02/11/21 03:25 02/11/21 03:25 Labs: Abnormal Lab Results - Last 24 Hours (Table) 02/10/21 02/11/21 02/11/21 Range/Units 23:47 00:18 03:25 WBC 13.12 H (4.50-10.00) X 10*3/uL RBC 4.08 L (4.40-5.60) X 10*6/uL Hgb 9.6 L (13.0-17.0) g/dL Hct 34.4 L (39.6-50.0) % MCH 23.5 L (27.0-32.0) pg MCHC 27.9 L (32.0-37.0) g/dL RDW 25.8 H (11.5-14.5) % Plt Count 660 H (140-440) X 10*3/uL Absolute Nucleated RBC 0.11 H (0.00-0.00) X 10*3/uL NRBC/100 WBC Diff 0.8 H (0.0-0.0) /100 WBCS Sodium (135-145) mmol/L Chloride (96-109) mmol/L Carbon Dioxide (21.6-31.8) mmol/L Anion Gap (4.00-12.00) mmol/L BUN (9.0-27.0) mg/dL Creatinine (0.6-1.5) mg/dL Est GFR (CKD-EPI)AfAm (60.0-200.0) Est GFR (CKD-EPI)NonAf (60.0-200.0) BUN/Creatinine Ratio (12.00-20.00) Ratio Glucose (70-110) mg/dL POC Glucose (mg/dL) 137 H 141 H (75-99) mg/dL Calcium (8.7-10.3) mg/dL 02/11/21 02/11/21 02/11/21 Range/Units 03:25 05:54 11:58 WBC (4.50-10.00) X 10*3/uL RBC (4.40-5.60) X 10*6/uL Hgb (13.0-17.0) g/dL Hct (39.6-50.0) % MCH (27.0-32.0) pg MCHC (32.0-37.0) g/dL RDW (11.5-14.5) % Plt Count (140-440) X 10*3/uL Absolute Nucleated RBC (0.00-0.00) X 10*3/uL NRBC/100 WBC Diff (0.0-0.0) /100 WBCS Sodium 150 H (135-145) mmol/L Chloride 118 H (96-109) mmol/L Carbon Dioxide 15.9 L (21.6-31.8) mmol/L Anion Gap 16.10 H (4.00-12.00) mmol/L BUN 59.8 H (9.0-27.0) mg/dL Creatinine 2.8 H (0.6-1.5) mg/dL Est GFR (CKD-EPI)AfAm 23.3 L (60.0-200.0) Est GFR (CKD-EPI)NonAf 20.1 L (60.0-200.0) BUN/Creatinine Ratio 21.36 H (12.00-20.00) Ratio Glucose 164 H (70-110) mg/dL POC Glucose (mg/dL) 131 H 123 H (75-99) mg/dL Calcium 8.6 L (8.7-10.3) mg/dL Microbiology - Last 24 Hours (Table) 02/07/21 10:28 Blood Culture - Preliminary Blood No Growth after 96 hours Assessment and Plan Assessment: 1 Acute hypoxemic respiratory failure secondary to suspected aspiration and/or fluid volume overload, possible diastolic congestive heart failure. Preserved left ventricular systolic function. Intubated at [facility] 02/06/2021 prior to transfer here on 02/08/2020. Extubated 02/08/2021. Currently on 4 L nasal cannula. 2 Nausea, vomiting, secondary to no output in the ostomy 24 hours. No plans for surgical intervention. Ostomy functioning. 3 History of bowel obstruction status post ostomy placement in 2012 4 Acute renal failure possibly related to dehydration, nausea and vomiting. Creatinine 2.8. 5 Anemia, current hemoglobin 9.6 6 History of suspected atrial fibrillation. Status post permanent pacemaker implantation. Anticoagulated with Eliquis. 7 Hypertension, history of. 8 Hyperlipidemia 9 BPH 10 Gastroesophageal Reflux Disease 11 Urinary tract infection secondary to Klebsiella pneumoniae 12 Hypernatremia currently 150 Plan: The patient was seen and evaluated by Dr. Montoya Labs reviewed DC 0.9 normal saline, add D5W at 75 ML's per hour Remains on ertapenem No aspiration noted on swallow evaluation/barium swallow We will add flutter valve Titrate the FiO2 as tolerated Increase his activity as tolerated Anticoagulated with Eliquis We will continue to follow I, the cosigning physician, performed a history & physical examination of the patient. Lungs sounds bilateral scattered rhonchi. Maintaining good O2 saturations in the 90s on 4 L nasal cannula. I discussed the assessment and plan of care with my nurse practitioner, Amber Velazquez. I attest to the above note as dictated by her.
[2021-02-11] MEDS: DEXTROSE 5% IN WATER 1,000 ML IV SCH (16:19)
--- NOTE | 2021-02-11 16:41 | PN ---
PROGRESS NOTE DATE OF SERVICE: 02/11/2021 REASON FOR FOLLOWUP: ESBL E coli urinary tract infection. INTERVAL HISTORY: Patient is afebrile. The patient is breathing comfortably. He did have a cough, not bringing up any sputum. No abdominal pain. No vomiting or diarrhea has been reported. PHYSICAL EXAMINATION: Blood pressure 112/67, pulse 69, temperature 98.2. He is 94% on 3 L nasal cannula. General description is an elderly male lying in bed in no distress. Respiratory system: Unlabored breathing. Occasional wheeze. Heart S1, S2. Regular rate and rhythm. Abdomen soft, no tenderness. LABS: Hemoglobin 9.2, white count 13.12, creatinine is 2.8. DIAGNOSTIC IMPRESSION AND PLAN: Patient with ESBL Klebsiella urinary tract infection, covered with Invanz to continue along with supportive care and monitor clinical course closely. Family at the bedside. Questions were answered. MMODL / IJN: [id number] /
--- NOTE | 2021-02-11 18:45 | P.PN ---
Subjective Progress Note Date: 02/11/21 Principal diagnosis: Acute hypoxic respiratory failure secondary to aspiration pneumonia, diastolic congestive heart failure Mr. De Jesus is an 80-year-old male with a significant past medical history of hypertension, TIA, macular degeneration, toxic megacolon, status post ileostomy in place, pacemaker in place [facility] of acute respiratory failure secondary to aspiration pneumonia and diastolic congestive heart failure exacerbation. On 02/11/2021 - patient is seen and examined at the bedside. Patient's and daughter at the bedside. Patient is a very poor historian so most of the information is gathered and daughter. Patient still continues to have coarse cough, unable to cough up his secretions. Patient appears alert, following simple commands and his urine culture is positive for Klebsiella. On reviewing the patient's vitals T-max of 98.2, heart rate 69, respiratory 20, blood pressure 112/67 saturating at 94% on 3 L of oxygen. In reviewing patient's labs hemoglobin of 9.6, white count 13.1, platelets 660. Sodium 150, potassium 4.5, chloride 118, BUN 59, creatinine 2.8. Patient's medications have been reviewed Patient's medications have been reviewed Active Medications Albuterol/Ipratropium (Ipratropium-Albuterol 3 Ml Neb) 3 ml INHALATION RT-Q2H PRN PRN Reason: Shortness Of Breath Or Wheezing Albuterol/Ipratropium (Ipratropium-Albuterol 3 Ml Neb) 3 ml INHALATION RT-QID [facility] Last Admin: 02/11/21 16:00 Dose: 3 ml Documented by: Amlodipine Besylate (Amlodipine 10 Mg Tab) 10 mg PO DAILY [facility] Last Admin: 02/11/21 08:24 Dose: 10 mg Documented by: Apixaban (Apixaban 2.5 Mg Tablet) 2.5 mg PO BID [facility]; Protocol Last Admin: 02/11/21 08:24 Dose: 2.5 mg Documented by: Atorvastatin Calcium (Atorvastatin 40 Mg Tab) 40 mg PO DAILY [facility] Last Admin: 02/11/21 08:24 Dose: 40 mg Documented by: Carvedilol (Carvedilol 12.5 Mg Tab) 12.5 mg PO BID-W/MEALS [facility] Last Admin: 02/11/21 17:32 Dose: 12.5 mg Documented by: Ertapenem 0.5 gm/ Sodium (Chloride) 50 mls @ 100 mls/hr IVPB DAILY [facility]; Protocol Last Admin: 02/11/21 08:24 Dose: 100 mls/hr Documented by: Dextrose/Water (Dextrose 5%-Water Iv Soln) 1,000 mls @ 75 mls/hr IV .[id number] [facility] Last Admin: 02/11/21 16:19 Dose: 75 mls/hr Documented by: Loratadine (Loratadine 10 Mg Tab) 10 mg PO DAILY PRN PRN Reason: Allergy Symptoms Miscellaneous Information (Magnesium Replacement Protocol 1 Each Misc) 1 each MISCELLANE DAILY PRN; Protocol PRN Reason: Per Protocol Multivitamins (Multivitamins, Thera 1 Each Tab) 1 each PO DAILY [facility] Last Admin: 02/11/21 08:24 Dose: 1 each Documented by: Naloxone HCl (Naloxone 0.4 Mg/Ml 1 Ml Vial) 0.2 mg IV Q2M PRN PRN Reason: Opioid Reversal Pantoprazole Sodium (Pantoprazole 40 Mg/10 Ml Vial) 40 mg IV DAILY [facility] Last Admin: 02/11/21 08:24 Dose: 40 mg Documented by: Tamsulosin HCl (Tamsulosin 0.4 Mg Cap.Er.24h) 0.4 mg PO DAILY [facility] Last Admin: 02/11/21 08:24 Dose: 0.4 mg Documented by: Objective - Vital Signs Vital signs: Vital Signs Temp 98.2 F 02/11/21 14:30 Pulse 69 02/11/21 14:30 Resp 17 02/11/21 14:30 BP 112/67 02/11/21 14:30 Pulse Ox 94 L 02/11/21 14:30 Intake & Output 02/10/21 02/11/21 02/11/21 18:59 06:59 18:59 Intake Total 600 Output Total 970 750 Balance -370 -750 Weight 92.2 kg 83.5 kg Intake: IV 160 Piperacillin-Tazobactam 3 100 .375 gm In Sodium Chloride 0.9% 100 ml @ 25 mls/hr IVPB Q8HR [facility] Rx# :[id number] Sodium Chloride 0.9% 500 60 ml 500 ml @ 20 mls/hr IV .Q24H [facility] Rx#:[id number] Intake, IV Titration 200 Amount Dextrose 5% in Water 1, 200 000 ml @ 50 mls/hr IV . Q20H [facility] Rx#:[id number] Oral 240 Output: Urine 820 750 Stool 150 Other: Voiding Method Indwelling Catheter Indwelling Catheter Indwelling Catheter ABP, PAP, CO, CI - Last Documented Arterial Blood Pressure 129/44 - Exam PHYSICAL EXAMINATION: GENERAL: Chronically ill-appearing HEENT: Pupils are round and equally reacting to light. EOMI. No scleral icterus. Mild pallor pallor. Mucous membranes look dry. CARDIOVASCULAR: S1 and S2 present. No murmurs, rubs, or gallops. PULMONARY: Rhonchi predominantly in the left lower lung oswald. ABDOMEN: Soft, nontender, nondistended, normoactive bowel sounds. No palpable organomegaly. MUSCULOSKELETAL: No joint swelling or deformity. EXTREMITIES: No cyanosis, clubbing, no edema. NEUROLOGICAL: Awake, alert, follows simple commands SKIN: No rashes. - Labs CBC & Chem 7: 02/11/21 03:25 02/11/21 03:25 Labs: Abnormal Lab Results - Last 24 Hours (Table) 02/10/21 02/11/21 02/11/21 Range/Units 23:47 00:18 03:25 WBC 13.12 H (4.50-10.00) X 10*3/uL RBC 4.08 L (4.40-5.60) X 10*6/uL Hgb 9.6 L (13.0-17.0) g/dL Hct 34.4 L (39.6-50.0) % MCH 23.5 L (27.0-32.0) pg MCHC 27.9 L (32.0-37.0) g/dL RDW 25.8 H (11.5-14.5) % Plt Count 660 H (140-440) X 10*3/uL Absolute Nucleated RBC 0.11 H (0.00-0.00) X 10*3/uL NRBC/100 WBC Diff 0.8 H (0.0-0.0) /100 WBCS Sodium (135-145) mmol/L Chloride (96-109) mmol/L Carbon Dioxide (21.6-31.8) mmol/L Anion Gap (4.00-12.00) mmol/L BUN (9.0-27.0) mg/dL Creatinine (0.6-1.5) mg/dL Est GFR (CKD-EPI)AfAm (60.0-200.0) Est GFR (CKD-EPI)NonAf (60.0-200.0) BUN/Creatinine Ratio (12.00-20.00) Ratio Glucose (70-110) mg/dL POC Glucose (mg/dL) 137 H 141 H (75-99) mg/dL Calcium (8.7-10.3) mg/dL 02/11/21 02/11/21 02/11/21 Range/Units 03:25 05:54 11:58 WBC (4.50-10.00) X 10*3/uL RBC (4.40-5.60) X 10*6/uL Hgb (13.0-17.0) g/dL Hct (39.6-50.0) % MCH (27.0-32.0) pg MCHC (32.0-37.0) g/dL RDW (11.5-14.5) % Plt Count (140-440) X 10*3/uL Absolute Nucleated RBC (0.00-0.00) X 10*3/uL NRBC/100 WBC Diff (0.0-0.0) /100 WBCS Sodium 150 H (135-145) mmol/L Chloride 118 H (96-109) mmol/L Carbon Dioxide 15.9 L (21.6-31.8) mmol/L Anion Gap 16.10 H (4.00-12.00) mmol/L BUN 59.8 H (9.0-27.0) mg/dL Creatinine 2.8 H (0.6-1.5) mg/dL Est GFR (CKD-EPI)AfAm 23.3 L (60.0-200.0) Est GFR (CKD-EPI)NonAf 20.1 L (60.0-200.0) BUN/Creatinine Ratio 21.36 H (12.00-20.00) Ratio Glucose 164 H (70-110) mg/dL POC Glucose (mg/dL) 131 H 123 H (75-99) mg/dL Calcium 8.6 L (8.7-10.3) mg/dL Microbiology - Last 24 Hours (Table) 02/07/21 10:28 Blood Culture - Preliminary Blood No Growth after 96 hours Assessment and Plan Assessment: ASSESSMENT Acute hypoxic respiratory failure: Secondary to aspiration pneumonia from vomiting and chronic diastolic dysfunction with acute exacerbation -Hypovolemic hyponatremia - Patient was receiving NG tube feedings and a couple days ago because of which are not started on TPN yet -Dysphagia: Speech therapy evaluation pending -Septic shock-secondary to Klebsiella UTI - ESBL- currently on Invanz, ID on board -Possible congestive heart failure chronic diastolic dysfunction which improved and patient is presently volume depleted -Atrial fibrillation presently rate controlled sinus rhythm patient was resumed on anticoagulation. Presently rate controlled and able to tolerate beta abdi at this time -Elevated creatinine renal failure unsure whether it's acute or chronic possible difficulty with renal failure secondary to acute tubular necrosis from hypotension, his serum creatinine is bit worse compared to yesterday patient does have metabolic acidosis from renal dysfunction -Bowel obstruction resolved at this time -Hypertension: -benign prostatic hypertrophy -Gastroesophageal reflux disease -Hyperlipidemia DVT prophylaxis: On Eliquis because of renal dysfunctional cut down the dose PLAN: Patient has hypernatremia, and worsening kidney injury probably secondary to Lasix. We will hold off on diuretics, change IV fluids to D5 at 75 mL per hour. Nephrology will be consulted. Multiple consultants on board and following the patient closely including pulmonary, cardiology, surgery, ID. Patient's condition and his treatment was discussed in detail with the patient's and daughter at bedside. Discussed the CODE STATUS, patient wishes were to be a DO NOT RESUSCITATE.
[2021-02-12 00:44] LABS: Glucose,Whole Blood 126 mg/dL (75-99)
[2021-02-12] MEDS: DEXTROSE 5% IN WATER 1,000 ML IV SCH ×2 (05:08→15:08)
[2021-02-12 06:37] LABS: Glucose,Whole Blood 104 mg/dL (75-99)
[2021-02-12] MEDS: TAMSULOSIN 0.4 MG CAP.ER.24H PO SCH (07:52)
[2021-02-12] MEDS: ERTAPENEM 0.5 GM in SODIUM CHLORIDE 0.9% 50 ML IVPB SCH (07:52)
[2021-02-12] MEDS: APIXABAN 2.5 MG TABLET PO SCH ×2 (07:52→21:28)
[2021-02-12] MEDS: carvediloL 12.5 MG TAB PO SCH ×2 (07:53→17:49)
[2021-02-12] MEDS: PANTOPRAZOLE 40 MG/10 ML VIAL IV SCH (07:53)
[2021-02-12] MEDS: ATORVASTATIN 40 MG TAB PO SCH (07:53)
[2021-02-12] MEDS: amLODIPine 10 MG TAB PO SCH (07:53)
[2021-02-12] MEDS: MULTIVITAMINS, THERA 1 EACH TAB PO SCH (07:53)
[2021-02-12] MEDS: IPRATROPIUM-ALBUTEROL 3 ML NEB INHALATION SCH ×4 (08:07→20:23)
--- NOTE | 2021-02-12 10:55 | US ---
EXAMINATION TYPE: US kidneys/renal and bladder DATE OF EXAM: 02/12/2021 COMPARISON: NONE CLINICAL HISTORY: RF. Exam done portable EXAM MEASUREMENTS: Right Kidney: 10.9 x 5.2 x 5.1 cm Left Kidney: 10.7 x 5.2 x 4.5 cm Extremely difficult and limited study due to exam done with patient sitting up in chair Right Kidney: No hydronephrosis or masses seen Left Kidney: No hydronephrosis or masses seen Bladder: not distended, lee catheter Fluid seen in RUQ IMPRESSION: Limited exam demonstrates no obvious hydronephrosis or nephrolithiasis. Small amount of fluid is seen in the right upper quadrant incidentally.
[2021-02-12 11:39] LABS: Glucose,Whole Blood 102 mg/dL (75-99)
--- NOTE | 2021-02-12 11:58 | CONS ---
CONSULTATION REASON FOR CONSULTATION: Renal failure. HISTORY OF PRESENT ILLNESS: Patient is an 80-year-old male who was initially admitted to the hospital on 02/07/2021 with respiratory distress. He was actually transferred from [facility], where he was intubated. There was concern for aspiration pneumonia and CHF. Patient has an ileostomy which was done for bowel obstruction and bowel resection in 2012. Patient's serum creatinine was 1.9 on 02/06 and it has progressively increased to 2.8 today. We do not have any prior labs available for comparison. Currently patient has an indwelling Simpson catheter. Blood pressure has not been significantly low. Systolic blood pressure has been 130 to 140 mmHg. Sodium is noted to be increasing from 144 to 150. Lasix is now on hold. I do not see a recent chest x-ray, but chest x-ray on 02/10/2021 showed evidence of CHF. Serum sodium was 140 on initial admission. Now it is 150, based on labs from 02/11/2021. Overall, patient denies any significant chest pains. He is currently trying to stand up with physical therapy. Oral intake is fair. PAST MEDICAL HISTORY: Significant for history of bowel obstruction with bowel resection and ileostomy, toxic megacolon, macular degeneration, hypertension, hiatal hernia, history of TIA, history of C difficile colitis. PAST SURGICAL HISTORY: Appendectomy, pacemaker placement, tonsillectomy, ileostomy. SOCIAL HISTORY: Negative for drug abuse or alcohol abuse. Patient is a former smoker. MEDICATIONS: Medications at home prior to admission included Eliquis, Lipitor, Coreg, iron, Prevacid, Claritin, Flomax, Norvasc, hydrochlorothiazide. ALLERGIES: ALLERGIES include LISINOPRIL, reaction not known. REVIEW OF SYSTEMS: As per HPI. Other systems negative. PHYSICAL EXAMINATION: Patient is currently awake comfortable. He is not in any acute distress. Blood pressure 149/73, heart rate 72 per minute. He is afebrile. EXAMINATION OF THE HEART: S1 and S2. EXAMINATION OF LUNGS: Decreased breath sounds at the bases. Abdomen is soft, non-tender. Ileostomy intact. Examination of lower extremities shows no evidence of edema. COLD ROLL OPERATOR EXAM: Grossly intact. LABS: Sodium 150 from 02/11/2021, potassium 4.5. CO2 is 15.9, BUN 59.8, serum creatinine 2.8, calcium 8.6, hemoglobin 9.6. UA shows 2+ protein on 02/07 with significant WBCs, more than 182. Urine culture has Klebsiella pneumoniae. ASSESSMENT: 1. Acute kidney injury associated with recent diuresis, currently nonoliguric and with indwelling Simpson catheter; 24-hour output about 1.3 L. Continue with the Simpson catheter. Patient is currently off of Lasix and maintained on D5W, which we can continue for now. Check labs today and then again in a.m. No significant findings of CHF noted at this point. 2. Congestive heart failure on initial admission, status post diuresis. Volume status has improved. 3. Hypernatremia associated with free water deficit, currently maintained on D5W. Patient is encouraged to increase oral free water intake as well. 4. Metabolic acidosis associated with gastrointestinal fluid loss. If patient remains acidotic, I will add bicarb in the D5W. If the sodium is improved, we can add oral sodium bicarb as well. 5. Acute hypoxic respiratory failure secondary to congestive heart failure on initial admission, currently extubated and doing well. 6. Moderate pulmonary hypertension with elevated right heart pressures and dilated right ventricle. PLAN: Check labs today and add bicarb in D5W or orally, depending on his repeat sodium from today. MMODL / IJN: [id number] /
--- NOTE | 2021-02-12 12:09 | P.GSCN ---
History of Present Illness Consult date: 02/12/21 Reason for Consult: Acute kidney injury, BPH History of present illness: Mr De Jesus is an 80-year-old male presented to hospital with abdominal pain, associated with nausea and vomiting, on presentation he's been having low operative from his ostomy. Since admission his creatinine has been worsening, presentation was 1.9 was recently to 2.8. He does complain of some obstructive symptoms at baseline. Lee catheter was placed on presentation, his postvoid residual upon catheterization is unknown. Does have history of kidney stones, but underwent renal bladder ultrasound that showed no evidence of nephrolithiasis or hydronephrosis. Denies any flank pain or gross hematuria Review of Systems - Constitutional Denies fever, Denies weight loss - Cardiovascular Denies chest pain, Denies shortness of breath - Respiratory Denies cough, Denies 7 - Gastrointestinal Reports abdominal pain - Genitourinary Reports kidney stones, Denies dysuria, Denies flank pain - Integumentary Denies rash, Denies unusual bruising - Neurological Denies headaches, Denies syncope Past Medical History Past Medical History: No Reported History, Hypertension Additional Past Medical History / Comment(s): hiatal hernia. hyperkalemia. maculuar degernation. TIA. 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 Pacemaker placed 08/15/2020 by Eleuterio Babcock ([phone]) Past Anesthesia/Blood Transfusion Reactions: No Reported Reaction Type of Cardiac Device: Permanent Pacemaker Device Placement Date:: 08/15/20 Past Psychological History: No Psychological Hx Reported Smoking Status: Former smoker Past Alcohol Use History: Rare Past Drug Use History: None Reported - Past Family History Daughter(s) Family Medical History: Diabetes Mellitus, Hypertension Additional Family Medical History / Comment(s): macular degeneration Medications and Allergies Home Medications Medication Instructions Recorded Confirmed Type Apixaban [Eliquis] 5 mg PO BID 02/06/21 02/06/21 History Atorvastatin Calcium [Lipitor] 40 mg PO DAILY 02/06/21 02/06/21 History Carvedilol [Coreg] 12.5 mg PO BID 02/06/21 02/06/21 History Ferrous Sulfate [Feosol] 325 mg PO MOWEFR 02/06/21 02/06/21 History Lansoprazole [Prevacid] 30 mg PO DAILY 02/06/21 02/06/21 History Loratadine [Claritin] 10 mg PO DAILY PRN 02/06/21 02/06/21 History Multivitamins, Thera [Multivitamin 1 tab PO DAILY 02/06/21 02/06/21 History (formulary)] Sodium Bicarbonate Tab 650 mg PO QID@05,11,17,23 02/06/21 02/06/21 History Tamsulosin HCl [Flomax] 0.4 mg PO DAILY 02/06/21 02/06/21 History amLODIPine [Norvasc] 10 mg PO DAILY 02/06/21 02/06/21 History hydroCHLOROthiazide [Hydrodiuril] 25 mg PO DAILY 02/06/21 02/06/21 History Allergies Allergy/AdvReac Type Severity Reaction Status Date / Time lisinopril AdvReac Unknown Verified 02/06/21 22:41 Surgical - Exam Vital Signs Resp 14 02/06/21 22:20 - General well developed, well nourished - Eyes PERRL, normal ocular movement - ENT normal nares, normal mucosa - Respiratory normal expansion, normal respiratory effort - Abdomen Abdomen: soft, non tender - Psychiatric oriented to time, oriented to person, oriented to place Results - Labs 02/11/21 03:25 02/11/21 03:25 Abnormal Lab Results - Last 24 Hours (Table) 02/12/21 02/12/21 02/12/21 Range/Units 00:42 06:35 11:38 POC Glucose (mg/dL) 126 H 104 H 102 H (75-99) mg/dL Microbiology - Last 24 Hours (Table) 02/07/21 10:28 Blood Culture - Preliminary Blood No Growth after 96 hours - Imaging US - abdomen: image reviewed (No hydronephrosis) Assessment and Plan Assessment: 80-year-old male with acute kidney injury, has been having worsening creatinine since admission. Ultrasound showed no hydronephrosis, catheter is in place draining clear urine. No signs of obstructive uropathy as the cause of his acu te kidney injury, given the lack of hydronephrosis on imaging, and the bladder decompression with lee catheter -Recommend continuing the Flomax, can perform a trial of void once acute kidney injury resolves -Consider nephrology consult for his acute kidney injury
[2021-02-12 12:48] LABS: African American GFR (CKD) 25.5 (60.0-200.0); Anion Gap 16.3 mmol/L (4.00-12.00); BUN/Creat Ratio 20.42 Ratio (12.00-20.00); Blood Urea Nitrogen 53.1 mg/dL (9.0-27.0); Calcium 8.8 mg/dL (8.7-10.3); Carbon Dioxide 15.7 mmol/L (21.6-31.8); Potassium 4.8 mmol/L (3.5-5.5)
[2021-02-12 13:25] LABS: Anisocytosis (M) 2+; Eosinophils # (M) 0.53 X 10*3/uL (0.04-0.35); HCT 36.4 % (39.6-50.0); HGB 10.3 g/dL (13.0-17.0); Lymphocytes # (M) 1.19 X 10*3/uL (0.90-5.00); MCH 24.2 pg (27.0-32.0); MCHC 28.3 g/dL (32.0-37.0); MCV 85.4 fL (80.0-97.0); Metamyelocytes % 2 % (0-0); Monocytes # (M) 0.27 X 10*3/uL (0.20-1.00); Myelocytes % 2 % (0-0); Neutrophils # (M) 10.34 X 10*3/uL (2.00-8.90); Neutrophils % (M) 78 %; Platelet Count 544 X 10*3/uL (140-440); RBC 4.26 X 10*6/uL (4.40-5.60); RDW 25.9 % (11.5-14.5); WBC 13.25 X 10*3/uL (4.50-10.00)
--- NOTE | 2021-02-12 15:26 | P.PN ---
Subjective Progress Note Date: 02/12/21 Principal diagnosis: Acute hypoxic respiratory, nausea, vomiting, aspiration pneumonia. On 02/12/2021 patient seen in follow-up on medical surgical floor, he is up in a chair, breathing comfortably, he is currently on 3 L of oxygen. His pulse ox is 94%, his been afebrile, hemodynamically has been stable. Got a nice strong cough, denies worsening dyspnea, he states his breathing is improving, still has some mild wheezes scattered, not bringing up any phlegm. He is tolerating oral intake, he is on dysphagia 1. Diet with nectar thick liquids and he is on aspiration precautions with meals. No acute events overnight, she remains on ertapenem for evidence of ESBL Klebsiella pneumonia in the urine cultures, his sputum and blood cultures have been negative. Urology services have been consulted please refer to the consultation note. [place] the kidneys showed no obvious hydronephrosis or nephrolithiasis, there was a small amount of fluid seen in the right upper quadrant. Patient absolutely reviewed his white blood cell count is stable at 13.25, hemoglobin is 10.3, his sodium remains elevated at 151, patient continues on D5W at a rate of 50 ML per hour, nephrology is following, calcium is 4.8, chloride is 119, CO2 is 15, anion gap is 16, BUN is 53, creatinine is 2.6. he has indwelling catheter in place, he produced 1.3 L in urine output in the last 24 hours. His last chest x-ray was on 02/10/2021 showing bilateral airspace disease, hemidiaphragms were obscured, pneumonia was not completely excluded, and they were associated bilateral pleural effusions. Patient remains on breathing treatments with DuoNeb. Objective - Vital Signs Vital signs: Vital Signs Temp 97.7 F 02/12/21 08:06 Pulse 68 02/12/21 11:53 Resp 18 02/12/21 08:17 BP 149/73 02/12/21 08:06 Pulse Ox 94 L 02/12/21 08:07 Intake & Output 02/11/21 02/12/21 02/12/21 19:59 06:59 18:59 Intake Total Output Total Balance Weight Intake: Oral Output: Urine Stool Other: Voiding Method Indwelling Catheter # Bowel Movements ABP, PAP, CO, CI - Last Documented Arterial Blood Pressure 129/44 - Exam GENERAL EXAM: Alert, very pleasant, 80-year-old white male, sitting up in a recliner on 3 L of oxygen pulse ox of 94%, comfortable in no apparent distress. HEAD: Normocephalic/atraumatic. EYES: Normal reaction of pupils, equal size. Conjunctiva pink, sclera white. NOSE: Clear with pink turbinates. THROAT: No erythema or exudates. NECK: No masses, no JVD, no thyroid enlargement, no adenopathy. CHEST: No chest wall deformity. Symmetrical expansion. Left upper chest subclavian triple lumen central line catheter in place LUNGS: Equal air entry with mild wheezing, diffuse rhonchi, patient does have a strong effective cough, however is a high risk for aspiration based on his speech therapy evaluation CVS: Regular rate and rhythm, normal S1 and S2, no gallops, no murmurs, no rubs ABDOMEN: Soft, nontender. No hepatosplenomegaly, normal bowel sounds, no guarding or rigidity. EXTREMITIES: No clubbing, no edema, no cyanosis, 2+ pulses and upper and lower extremities. MUSCULOSKELETAL: Muscle strength and tone normal. SPINE: No scoliosis or deformity SKIN: No rashes CENTRAL NERVOUS SYSTEM: Alert and oriented -3. No focal deficits, tone is normal in all 4 extremities. PSYCHIATRIC: Alert and oriented -3. Appropriate affect. Intact judgment and insight. - Labs CBC & Chem 7: 02/12/21 07:48 02/12/21 07:48 Labs: Abnormal Lab Results - Last 24 Hours (Table) 02/12/21 02/12/21 02/12/21 Range/Units 00:42 06:35 07:48 WBC (4.50-10.00) X 10*3/uL RBC (4.40-5.60) X 10*6/uL Hgb (13.0-17.0) g/dL Hct (39.6-50.0) % MCH (27.0-32.0) pg MCHC (32.0-37.0) g/dL RDW (11.5-14.5) % Plt Count (140-440) X 10*3/uL Plt Count Comment Absolute Nucleated RBC (0.00-0.00) X 10*3/uL Metamyelocytes % (0-0) % Myelocytes % (0-0) % Neutrophils # (Manual) (2.00-8.90) X 10*3/uL Eosinophils # (Manual) (0.04-0.35) X 10*3/uL Basophils # (Manual) (0.00-0.10) X 10*3/uL NRBC/100 WBC Diff (0.0-0.0) /100 WBCS Sodium 151 H (135-145) mmol/L Chloride 119 H (96-109) mmol/L Carbon Dioxide 15.7 L (21.6-31.8) mmol/L Anion Gap 16.30 H (4.00-12.00) mmol/L BUN 53.1 H (9.0-27.0) mg/dL Creatinine 2.6 H (0.6-1.5) mg/dL Est GFR (CKD-EPI)AfAm 25.5 L (60.0-200.0) Est GFR (CKD-EPI)NonAf 22.0 L (60.0-200.0) BUN/Creatinine Ratio 20.42 H (12.00-20.00) Ratio POC Glucose (mg/dL) 126 H 104 H (75-99) mg/dL 02/12/21 02/12/21 Range/Units 07:48 11:38 WBC 13.25 H (4.50-10.00) X 10*3/uL RBC 4.26 L (4.40-5.60) X 10*6/uL Hgb 10.3 L (13.0-17.0) g/dL Hct 36.4 L (39.6-50.0) % MCH 24.2 L (27.0-32.0) pg MCHC 28.3 L (32.0-37.0) g/dL RDW 25.9 H (11.5-14.5) % Plt Count 544 H (140-440) X 10*3/uL Plt Count Comment INCREASED A Absolute Nucleated RBC 0.08 H (0.00-0.00) X 10*3/uL Metamyelocytes % 2 H (0-0) % Myelocytes % 2 H (0-0) % Neutrophils # (Manual) 10.34 H (2.00-8.90) X 10*3/uL Eosinophils # (Manual) 0.53 H (0.04-0.35) X 10*3/uL Basophils # (Manual) 0.40 H (0.00-0.10) X 10*3/uL NRBC/100 WBC Diff 0.6 H (0.0-0.0) /100 WBCS Sodium (135-145) mmol/L Chloride (96-109) mmol/L Carbon Dioxide (21.6-31.8) mmol/L Anion Gap (4.00-12.00) mmol/L BUN (9.0-27.0) mg/dL Creatinine (0.6-1.5) mg/dL Est GFR (CKD-EPI)AfAm (60.0-200.0) Est GFR (CKD-EPI)NonAf (60.0-200.0) BUN/Creatinine Ratio (12.00-20.00) Ratio POC Glucose (mg/dL) 102 H (75-99) mg/dL Microbiology - Last 24 Hours (Table) 02/07/21 10:28 Blood Culture - Preliminary Blood No Growth after 120 hours Assessment and Plan Plan: Assessment: #1. Acute hypoxic respiratory failure secondary to suspected aspiration pneumonia, and acute exacerbation of diastolic CHF. Patient required intubation and placement on mechanical ventilator at [facility] on 02/06/2021, was successfully weaned and extubated on 02/08/2021. #2. Nausea, vomiting, the possibility of ileus or bowel obstruction, surgery is on the case, currently ostomy is functioning, no surgical intervention was recommended #3. ESBL Klebsiella pneumonia urinary tract infection, currently on ertapenem #4. Hypernatremia, related to free water deficit, dehydration, patient is currently on D5W at a rate of 75 ML per hour #5. History of bowel obstruction status post ostomy in 2012 #6. Acute kidney injury related to ATN, severe dehydration #7. Anion gap metabolic acidosis related to sepsis, pneumonia #8. Anemia possibly chronic #9. Permanent pacemaker implantation, likely for history of atrial fibrillatio n, patient is on Eliquis #10. History of hypertension #11. Hyperlipidemia #12. BPH #13. GERD/reflux Plan: Continue D5W at a rate of 75 ML per hour Encouraged oral intake of free water Continue antibiotics Continue breathing treatments Maintain aspiration precautions Nephrology has been consulted for worsening renal failure Follow-up labs tomorrow We'll continue to follow I performed a history & physical examination of the patient and discussed their management with my nurse practitioner, Nevin Ruth. I reviewed the nurse practitioner's note and agree with the documented findings and plan of care. Lung sounds are positive for diffuse wheezes throughout the lung oswald. The findings and the impression was discussed with the patient. I attest to the documentation by the nurse practitioner. Time with Patient: Less than 30
--- NOTE | 2021-02-12 16:33 | P.PN ---
Subjective Progress Note Date: 02/12/21 Principal diagnosis: Acute hypoxic respiratory failure secondary to aspiration pneumonia, diastolic congestive heart failure Mr. De Jesus is an 80-year-old male with a significant past medical history of hypertension, TIA, macular degeneration, toxic megacolon, status post ileostomy in place, pacemaker in place transferred from [facility] for treatment of acute respiratory failure secondary to aspiration pneumonia and diastolic congestive heart failure exacerbation. On 02/11/2021 - patient is seen and examined at the bedside. Patient's and daughter at the bedside. Patient is a very poor historian so most of the information is gathered and daughter. Patient still continues to have coarse cough, unable to cough up his secretions. Patient appears alert, following simple commands and his urine culture is positive for Klebsiella. On reviewing the patient's vitals T-max of 98.2, heart rate 69, respiratory 20, blood pressure 112/67 saturating at 94% on 3 L of oxygen. In reviewing patient's labs hemoglobin of 9.6, white count 13.1, platelets 660. Sodium 150, potassium 4.5, chloride 118, BUN 59, creatinine 2.8. Patient's medications have been reviewed On 02/12/2021 - patient is seen and examined at the bedside. He is sitting up in a chair by the bedside with his family members in the room. Patient is much more alert and awake than yesterday. Patient denies having any difficulty in breathing. She denies having any chest pain or palpitations. No abdominal pain nausea vomiting or diarrhea. Reviewing the patient's vitals temperature 97.7, heart rate 69, respiratory rate 16, blood pressure 149 seconds and the surgery 95% on 3 L of oxygen. On reviewing the patient's labs white count of 13.2, hemoglobin 10.3, platelets 544. Sodium 131 combination 4.8, chloride 119, bicarb 15, BUN 53, creatinine 2.6. Patient's medications have been reviewed Active Medications Albuterol/Ipratropium (Ipratropium-Albuterol 3 Ml Neb) 3 ml INHALATION RT-Q2H PRN PRN Reason: Shortness Of Breath Or Wheezing Albuterol/Ipratropium (Ipratropium-Albuterol 3 Ml Neb) 3 ml INHALATION RT-QID [facility] Last Admin: 02/12/21 14:45 Dose: Not Given Documented by: Amlodipine Besylate (Amlodipine 10 Mg Tab) 10 mg PO DAILY [facility] Last Admin: 02/12/21 07:53 Dose: 10 mg Documented by: Apixaban (Apixaban 2.5 Mg Tablet) 2.5 mg PO BID [facility]; Protocol Last Admin: 02/12/21 07:52 Dose: 2.5 mg Documented by: Atorvastatin Calcium (Atorvastatin 40 Mg Tab) 40 mg PO DAILY [facility] Last Admin: 02/12/21 07:53 Dose: 40 mg Documented by: Carvedilol (Carvedilol 12.5 Mg Tab) 12.5 mg PO BID-W/MEALS [facility] Last Admin: 02/12/21 07:53 Dose: 12.5 mg Documented by: Ertapenem 0.5 gm/ Sodium (Chloride) 50 mls @ 100 mls/hr IVPB DAILY [facility]; Protoco l Last Admin: 02/12/21 07:52 Dose: 100 mls/hr Documented by: Dextrose/Water (Dextrose 5%-Water Iv Soln) 1,000 mls @ 75 mls/hr IV .[id number] [facility] Last Admin: 02/12/21 15:08 Dose: Not Given Documented by: Loratadine (Loratadine 10 Mg Tab) 10 mg PO DAILY PRN PRN Reason: Allergy Symptoms Miscellaneous Information (Magnesium Replacement Protocol 1 Each Misc) 1 each MISCELLANE DAILY PRN; Protocol PRN Reason: Per Protocol Multivitamins (Multivitamins, Thera 1 Each Tab) 1 each PO DAILY [facility] Last Admin: 02/12/21 07:53 Dose: 1 each Documented by: Naloxone HCl (Naloxone 0.4 Mg/Ml 1 Ml Vial) 0.2 mg IV Q2M PRN PRN Reason: Opioid Reversal Pantoprazole Sodium (Pantoprazole 40 Mg/10 Ml Vial) 40 mg IV DAILY [facility] Last Admin: 02/12/21 07:53 Dose: 40 mg Documented by: Tamsulosin HCl (Tamsulosin 0.4 Mg Cap.Er.24h) 0.4 mg PO DAILY [facility] Last Admin: 02/12/21 07:52 Dose: 0.4 mg Documented by: Objective - Vital Signs Vital signs: Vital Signs Temp 97.7 F 02/12/21 08:06 Pulse 68 02/12/21 11:53 Resp 18 02/12/21 08:17 BP 149/73 02/12/21 08:06 Pulse Ox 94 L 02/12/21 08:07 Intake & Output 02/11/21 02/12/21 02/12/21 19:59 06:59 18:59 Intake Total Output Total Balance Weight Intake: Oral Output: Urine Stool Other: Voiding Method Indwelling Catheter # Bowel Movements ABP, PAP, CO, CI - Last Documented Arterial Blood Pressure 129/44 - Exam PHYSICAL EXAMINATION: GENERAL: Chronically ill-appearing with temporal wasting HEENT: Pupils are round and equally reacting to light. EOMI. No scleral icterus. Mild pallor pallor. Mucous membranes look dry. CARDIOVASCULAR: S1 and S2 present. No murmurs, rubs, or gallops. PULMONARY: Rhonchi predominantly in the left lower lung oswald. ABDOMEN: Soft, nontender, nondistended, normoactive bowel sounds. No palpable organomegaly. MUSCULOSKELETAL: No joint swelling or deformity. EXTREMITIES: No cyanosis, clubbing, no edema. Right upper extremity positive for pitting edema, swollen and larger than left upper extremity NEUROLOGICAL: Awake, alert, follows simple commands SKIN: No rashes. - Labs CBC & Chem 7: 02/12/21 07:48 02/12/21 07:48 Labs: Abnormal Lab Results - Last 24 Hours (Table) 02/12/21 02/12/21 02/12/21 Range/Units 00:42 06:35 07:48 WBC (4.50-10.00) X 10*3/uL RBC (4.40-5.60) X 10*6/uL Hgb (13.0-17.0) g/dL Hct (39.6-50.0) % MCH (27.0-32.0) pg MCHC (32.0-37.0) g/dL RDW (11.5-14.5) % Plt Count (140-440) X 10*3/uL Plt Count Comment Absolute Nucleated RBC (0.00-0.00) X 10*3/uL Metamyelocytes % (0-0) % Myelocytes % (0-0) % Neutrophils # (Manual) (2.00-8.90) X 10*3/uL Eosinophils # (Manual) (0.04-0.35) X 10*3/uL Basophils # (Manual) (0.00-0.10) X 10*3/uL NRBC/100 WBC Diff (0.0-0.0) /100 WBCS Sodium 151 H (135-145) mmol/L Chloride 119 H (96-109) mmol/L Carbon Dioxide 15.7 L (21.6-31.8) mmol/L Anion Gap 16.30 H (4.00-12.00) mmol/L BUN 53.1 H (9.0-27.0) mg/dL Creatinine 2.6 H (0.6-1.5) mg/dL Est GFR (CKD-EPI)AfAm 25.5 L (60.0-200.0) Est GFR (CKD-EPI)NonAf 22.0 L (60.0-200.0) BUN/Creatinine Ratio 20.42 H (12.00-20.00) Ratio POC Glucose (mg/dL) 126 H 104 H (75-99) mg/dL 02/12/21 02/12/21 Range/Units 07:48 11:38 WBC 13.25 H (4.50-10.00) X 10*3/uL RBC 4.26 L (4.40-5.60) X 10*6/uL Hgb 10.3 L (13.0-17.0) g/dL Hct 36.4 L (39.6-50.0) % MCH 24.2 L (27.0-32.0) pg MCHC 28.3 L (32.0-37.0) g/dL RDW 25.9 H (11.5-14.5) % Plt Count 544 H (140-440) X 10*3/uL Plt Count Comment INCREASED A Absolute Nucleated RBC 0.08 H (0.00-0.00) X 10*3/uL Metamyelocytes % 2 H (0-0) % Myelocytes % 2 H (0-0) % Neutrophils # (Manual) 10.34 H (2.00-8.90) X 10*3/uL Eosinophils # (Manual) 0.53 H (0.04-0.35) X 10*3/uL Basophils # (Manual) 0.40 H (0.00-0.10) X 10*3/uL NRBC/100 WBC Diff 0.6 H (0.0-0.0) /100 WBCS Sodium (135-145) mmol/L Chloride (96-109) mmol/L Carbon Dioxide (21.6-31.8) mmol/L Anion Gap (4.00-12.00) mmol/L BUN (9.0-27.0) mg/dL Creatinine (0.6-1.5) mg/dL Est GFR (CKD-EPI)AfAm (60.0-200.0) Est GFR (CKD-EPI)NonAf (60.0-200.0) BUN/Creatinine Ratio (12.00-20.00) Ratio POC Glucose (mg/dL) 102 H (75-99) mg/dL Microbiology - Last 24 Hours (Table) 02/07/21 10:28 Blood Culture - Preliminary Blood No Growth after 120 hours Assessment and Plan Assessment: ASSESSMENT -Acute hypoxic respiratory failure: Secondary to aspiration pneumonia from vomiting and chronic diastolic dysfunction with acute exacerbation - Hypovolemic hyponatremia -Septic shock-secondary to Klebsiella UTI - ESBL- currently on Invanz, ID on board -Possible congestive heart failure chronic diastolic dysfunction which improved and patient is presently volume depleted -Atrial fibrillation presently rate controlled sinus rhythm patient was resumed on anticoagulation. Presently rate controlled and able to tolerate beta abdi at this time -DEWAYNE due to acute tubular necrosis from hypotension -Bowel obstruction resolved -Hypertension -benign prostatic hypertrophy -Gastroesophageal reflux disease -Hyperlipidemia -Dysphagia: Speech therapy evaluation pending -Severe protein calorie malnutrition DVT prophylaxis: On Eliquis because of renal dysfunctional cut down the dose PLAN: Patient has hypernatremia, and worsening kidney injury probably secondary to Lasix. We will hold off on diuretics, change IV fluids to D5 at 75 mL per hour. Nephrology has been consulted. Patient's left upper extremity more swollen than the right, we'll get a Doppler of the left upper extremity. Patient is already on anticoagulation with Eliquis for A. fib. Multiple consultants on board and following the patient closely including pulmonary, cardiology, surgery, ID. Patient's condition and his treatment was discussed in detail with the patient's and daughter at bedside. Discussed the CODE STATUS, patient wishes were to be a DO NOT RESUSCITATE.
--- NOTE | 2021-02-12 17:55 | US ---
EXAMINATION TYPE: US venous doppler duplex UE LT DATE OF EXAM: 02/12/2021 COMPARISON: NONE CLINICAL HISTORY: swelling. SIDE PERFORMED: Left Line seen in medial subclavian near IJV. Left Arm: Negative for DVT IMPRESSION: No evidence of deep vein thrombosis in the left arm.
[2021-02-12 18:48] LABS: Glucose,Whole Blood 136 mg/dL (75-99)
--- NOTE | 2021-02-12 22:25 | PN ---
PROGRESS NOTE DATE OF SERVICE: 02/12/2021 REASON FOR FOLLOWUP: ESBL Klebsiella urinary tract infection. INTERVAL HISTORY: The patient is afebrile. The patient is currently breathing comfortably. The patient denies having any chest pain. Did have a cough, not bringing up any sputum. No abdominal pain or diarrhea. PHYSICAL EXAMINATION: Blood pressure 142/94 with a pulse of 64, temperature 97.4. He is 95% on 3 L nasal cannula. General description is an elderly male lying in bed in no distress. Respiratory system: Unlabored breathing, coarse breath sounds bilaterally. No wheeze. Heart S1, S2. Regular rate and rhythm. Abdomen soft, no tenderness. Extremities no edema of the feet. LABS: Hemoglobin is 10.3, white count 13.25. Creatinine is 2.6. DIAGNOSTIC IMPRESSION AND PLAN: Patient with ESBL Klebsiella urinary tract infection. Ultrasound negative for any hydronephrosis, nephrolithiasis. Patient is covered with Invanz; to continue for about a week to finish course of therapy. Continue with supportive care. MMODL / IJN: [id number] /
[2021-02-13 01:38] LABS: Glucose,Whole Blood 144 mg/dL (75-99)
[2021-02-13] MEDS: DEXTROSE 5% IN WATER 1,000 ML IV SCH ×2 (06:24→19:54)
[2021-02-13 07:38] LABS: Glucose,Whole Blood 128 mg/dL (75-99)
[2021-02-13] MEDS: PANTOPRAZOLE 40 MG/10 ML VIAL IV SCH (08:02)
[2021-02-13] MEDS: MULTIVITAMINS, THERA 1 EACH TAB PO SCH (08:02)
[2021-02-13] MEDS: ERTAPENEM 0.5 GM in SODIUM CHLORIDE 0.9% 50 ML IVPB SCH (08:02)
[2021-02-13] MEDS: amLODIPine 10 MG TAB PO SCH (08:03)
[2021-02-13] MEDS: carvediloL 12.5 MG TAB PO SCH ×2 (08:03→19:54)
[2021-02-13] MEDS: ATORVASTATIN 40 MG TAB PO SCH (08:03)
[2021-02-13] MEDS: TAMSULOSIN 0.4 MG CAP.ER.24H PO SCH (08:03)
[2021-02-13] MEDS: APIXABAN 2.5 MG TABLET PO SCH ×2 (08:03→19:54)
[2021-02-13] MEDS: IPRATROPIUM-ALBUTEROL 3 ML NEB INHALATION SCH ×4 (09:43→19:31)
[2021-02-13 10:03] LABS: African American GFR (CKD) 29.5 (60.0-200.0); Anion Gap 11.9 mmol/L (4.00-12.00); BUN/Creat Ratio 21.04 Ratio (12.00-20.00); Blood Urea Nitrogen 48.4 mg/dL (9.0-27.0); Calcium 8.8 mg/dL (8.7-10.3); Carbon Dioxide 18.1 mmol/L (21.6-31.8); Non-African American GFR(CKD) 25.5 (60.0-200.0); Potassium 4.5 mmol/L (3.5-5.5)
--- NOTE | 2021-02-13 10:49 | P.PN ---
Subjective Patient is seen in follow-up for acute kidney injury. Renal function is improving. Sodium level is trending down. He is on dysphagia 1 diet. No vomiting or diarrhea. Vital signs are stable. General: The patient appeared well nourished and normally developed. HEENT: Head exam is unremarkable. LUNGS: Breath sounds decreased. HEART: Rate and Rhythm are regular. ABDOMEN: Soft, no distention. EXTREMITITES: No edema. Objective - Vital Signs Vital signs: Vital Signs Temp 97.5 F L 02/13/21 09:45 Pulse 61 02/13/21 09:45 Resp 19 02/13/21 09:45 BP 127/69 02/13/21 09:45 Pulse Ox 94 L 02/13/21 09:45 Intake & Output 02/12/21 02/13/21 02/13/21 18:59 06:59 18:59 Output Total 150 1400 Balance -150 -1400 Weight 87 kg Output: Urine 1200 Stool 150 200 Other: Voiding Method Indwelling Catheter Indwelling Catheter # Bowel Movements 325 ABP, PAP, CO, CI - Last Documented Arterial Blood Pressure 129/44 - Labs CBC & Chem 7: 02/12/21 07:48 02/13/21 05:44 Labs: Abnormal Lab Results - Last 24 Hours (Table) 02/12/21 02/12/21 02/12/21 Range/Units 07:48 07:48 11:38 WBC 13.25 H (4.50-10.00) X 10*3/uL RBC 4.26 L (4.40-5.60) X 10*6/uL Hgb 10.3 L (13.0-17.0) g/dL Hct 36.4 L (39.6-50.0) % MCH 24.2 L (27.0-32.0) pg MCHC 28.3 L (32.0-37.0) g/dL RDW 25.9 H (11.5-14.5) % Plt Count 544 H (140-440) X 10*3/uL Plt Count Comment INCREASED A Absolute Nucleated RBC 0.08 H (0.00-0.00) X 10*3/uL Metamyelocytes % 2 H (0-0) % Myelocytes % 2 H (0-0) % Neutrophils # (Manual) 10.34 H (2.00-8.90) X 10*3/uL Eosinophils # (Manual) 0.53 H (0.04-0.35) X 10*3/uL Basophils # (Manual) 0.40 H (0.00-0.10) X 10*3/uL NRBC/100 WBC Diff 0.6 H (0.0-0.0) /100 WBCS Sodium 151 H (135-145) mmol/L Chloride 119 H (96-109) mmol/L Carbon Dioxide 15.7 L (21.6-31.8) mmol/L Anion Gap 16.30 H (4.00-12.00) mmol/L BUN 53.1 H (9.0-27.0) mg/dL Creatinine 2.6 H (0.6-1.5) mg/dL Est GFR (CKD-EPI)AfAm 25.5 L (60.0-200.0) Est GFR (CKD-EPI)NonAf 22.0 L (60.0-200.0) BUN/Creatinine Ratio 20.42 H (12.00-20.00) Ratio Glucose (70-110) mg/dL POC Glucose (mg/dL) 102 H (75-99) mg/dL 02/12/21 02/13/21 02/13/21 Range/Units 18:46 01:36 05:44 WBC (4.50-10.00) X 10*3/uL RBC (4.40-5.60) X 10*6/uL Hgb (13.0-17.0) g/dL Hct (39.6-50.0) % MCH (27.0-32.0) pg MCHC (32.0-37.0) g/dL RDW (11.5-14.5) % Plt Count (140-440) X 10*3/uL Plt Count Comment Absolute Nucleated RBC (0.00-0.00) X 10*3/uL Metamyelocytes % (0-0) % Myelocytes % (0-0) % Neutrophils # (Manual) (2.00-8.90) X 10*3/uL Eosinophils # (Manual) (0.04-0.35) X 10*3/uL Basophils # (Manual) (0.00-0.10) X 10*3/uL NRBC/100 WBC Diff (0.0-0.0) /100 WBCS Sodium 148 H (135-145) mmol/L Chloride 118 H (96-109) mmol/L Carbon Dioxide 18.1 L (21.6-31.8) mmol/L Anion Gap (4.00-12.00) mmol/L BUN 48.4 H (9.0-27.0) mg/dL Creatinine 2.3 H (0.6-1.5) mg/dL Est GFR (CKD-EPI)AfAm 29.5 L (60.0-200.0) Est GFR (CKD-EPI)NonAf 25.5 L (60.0-200.0) BUN/Creatinine Ratio 21.04 H (12.00-20.00) Ratio Glucose 115 H (70-110) mg/dL POC Glucose (mg/dL) 136 H 144 H (75-99) mg/dL 02/13/21 Range/Units 07:37 WBC (4.50-10.00) X 10*3/uL RBC (4.40-5.60) X 10*6/uL Hgb (13.0-17.0) g/dL Hct (39.6-50.0) % MCH (27.0-32.0) pg MCHC (32.0-37.0) g/dL RDW (11.5-14.5) % Plt Count (140-440) X 10*3/uL Plt Count Comment Absolute Nucleated RBC (0.00-0.00) X 10*3/uL Metamyelocytes % (0-0) % Myelocytes % (0-0) % Neutrophils # (Manual) (2.00-8.90) X 10*3/uL Eosinophils # (Manual) (0.04-0.35) X 10*3/uL Basophils # (Manual) (0.00-0.10) X 10*3/uL NRBC/100 WBC Diff (0.0-0.0) /100 WBCS Sodium (135-145) mmol/L Chloride (96-109) mmol/L Carbon Dioxide (21.6-31.8) mmol/L Anion Gap (4.00-12.00) mmol/L BUN (9.0-27.0) mg/dL Creatinine (0.6-1.5) mg/dL Est GFR (CKD-EPI)AfAm (60.0-200.0) Est GFR (CKD-EPI)NonAf (60.0-200.0) BUN/Creatinine Ratio (12.00-20.00) Ratio Glucose (70-110) mg/dL POC Glucose (mg/dL) 128 H (75-99) mg/dL Microbiology - Last 24 Hours (Table) 02/07/21 10:28 Blood Culture - Preliminary Blood No Growth after 120 hours Assessment and Plan Plan: Assessment: 1. Acute kidney injury mostly prerenal secondary to hypovolemia. Creatinine peaked at 2.8 this admission and is 2.3 today. Unknown baseline renal function. 2. Hypernatremia from lack of oral water intake. Improving with D5W. 3. Klebsiella UTI on antibiotics. 4. At about acidosis secondary to acute kidney injury. Improving. Plan: Maintain D5W. Encouraged oral intake, including free water. Add oral sodium bicarb. Continue to monitor renal function and urine output
[2021-02-13] MEDS: SODIUM BICARBONATE TAB 650 MG TAB PO SCH ×2 (11:30→19:54)
--- NOTE | 2021-02-13 11:58 | P.PN ---
Subjective Progress Note Date: 02/13/21 On 02/13/2021, seeing the patient for a follow-up. The patient is still recove ring from his pneumonia. He also had a component of diastolic heart failure in addition to a UTI with ESBL producing capsula pneumoniae and the patient is currently on IV Invanz. In terms of oxygen status, the patient is on 3 L of oxygen by nasal cannula with a pulse ox of 93-94%. His cough is adequate for now. He is bringing some mucus out. He is on nectar thick liquid diet with aspiration precautions. He is afebrile. He is hemodynamically stable. He is of some swelling in left upper extremity and Doppler came back also negative. His blood work from today shows white cell count of 15.2 with a hemoglobin of 10.3 and a platelet count of 554, sodium level is down to 148 from 151 and serum bicarb is at 18 with a potassium level of 4.5, BUN is down to 48 and the creatinine is down to 2.3. The patient is still receiving IV fluids and currently is on D5 W at the rate of 75 mL an hour. His last chest x-ray showed airspace disease bilaterally with some fasciculation of the hemidiaphragms related to small bilateral pleural effusions. Cannot correlate or exclude the possibility of underlying CHF Objective - Vital Signs Vital signs: Vital Signs Temp 97.5 F L 02/13/21 09:45 Pulse 61 02/13/21 09:45 Resp 19 02/13/21 09:45 BP 127/69 02/13/21 09:45 Pulse Ox 94 L 02/13/21 09:45 Intake & Output 02/12/21 02/13/21 02/13/21 18:59 06:59 18:59 Output Total 150 1400 Balance -150 -1400 Weight 87 kg Output: Urine 1200 Stool 150 200 Other: Voiding Method Indwelling Catheter Indwelling Catheter Indwelling Catheter # Bowel Movements 325 ABP, PAP, CO, CI - Last Documented Arterial Blood Pressure 129/44 - Exam GENERAL EXAM: Alert, very pleasant, 80-year-old white male, sitting up in a recliner on 3 L of oxygen pulse ox of 94%, comfortable in no apparent distress. HEAD: Normocephalic/atraumatic. EYES: Normal reaction of pupils, equal size. Conjunctiva pink, sclera white. NOSE: Clear with pink turbinates. THROAT: No erythema or exudates. NECK: No masses, no JVD, no thyroid enlargement, no adenopathy. CHEST: No chest wall deformity. Symmetrical expansion. Left upper chest subclavian triple lumen central line catheter in place LUNGS: Equal air entry with mild wheezing, diffuse rhonchi, patient does have a strong effective cough, however is a high risk for aspiration based on his speech therapy evaluation CVS: Regular rate and rhythm, normal S1 and S2, no gallops, no murmurs, no rubs ABDOMEN: Soft, nontender. No hepatosplenomegaly, normal bowel sounds, no guarding or rigidity. EXTREMITIES: No clubbing, no edema, no cyanosis, 2+ pulses and upper and lower extremities. MUSCULOSKELETAL: Muscle strength and tone normal. SPINE: No scoliosis or deformity SKIN: No rashes CENTRAL NERVOUS SYSTEM: Alert and oriented -3. No focal deficits, tone is normal in all 4 extremities. PSYCHIATRIC: Alert and oriented -3. Appropriate affect. Intact judgment and insight. - Labs CBC & Chem 7: 02/12/21 07:48 02/13/21 05:44 Labs: Abnormal Lab Results - Last 24 Hours (Table) 02/12/21 02/12/21 02/12/21 Range/Units 07:48 07:48 18:46 WBC 13.25 H (4.50-10.00) X 10*3/uL RBC 4.26 L (4.40-5.60) X 10*6/uL Hgb 10.3 L (13.0-17.0) g/dL Hct 36.4 L (39.6-50.0) % MCH 24.2 L (27.0-32.0) pg MCHC 28.3 L (32.0-37.0) g/dL RDW 25.9 H (11.5-14.5) % Plt Count 544 H (140-440) X 10*3/uL Plt Count Comment INCREASED A Absolute Nucleated RBC 0.08 H (0.00-0.00) X 10*3/uL Metamyelocytes % 2 H (0-0) % Myelocytes % 2 H (0-0) % Neutrophils # (Manual) 10.34 H (2.00-8.90) X 10*3/uL Eosinophils # (Manual) 0.53 H (0.04-0.35) X 10*3/uL Basophils # (Manual) 0.40 H (0.00-0.10) X 10*3/uL NRBC/100 WBC Diff 0.6 H (0.0-0.0) /100 WBCS Sodium 151 H (135-145) mmol/L Chloride 119 H (96-109) mmol/L Carbon Dioxide 15.7 L (21.6-31.8) mmol/L Anion Gap 16.30 H (4.00-12.00) mmol/L BUN 53.1 H (9.0-27.0) mg/dL Creatinine 2.6 H (0.6-1.5) mg/dL Est GFR (CKD-EPI)AfAm 25.5 L (60.0-200.0) Est GFR (CKD-EPI)NonAf 22.0 L (60.0-200.0) BUN/Creatinine Ratio 20.42 H (12.00-20.00) Ratio Glucose (70-110) mg/dL POC Glucose (mg/dL) 136 H (75-99) mg/dL 02/13/21 02/13/21 02/13/21 Range/Units 01:36 05:44 07:37 WBC (4.50-10.00) X 10*3/uL RBC (4.40-5.60) X 10*6/uL Hgb (13.0-17.0) g/dL Hct (39.6-50.0) % MCH (27.0-32.0) pg MCHC (32.0-37.0) g/dL RDW (11.5-14.5) % Plt Count (140-440) X 10*3/uL Plt Count Comment Absolute Nucleated RBC (0.00-0.00) X 10*3/uL Metamyelocytes % (0-0) % Myelocytes % (0-0) % Neutrophils # (Manual) (2.00-8.90) X 10*3/uL Eosinophils # (Manual) (0.04-0.35) X 10*3/uL Basophils # (Manual) (0.00-0.10) X 10*3/uL NRBC/100 WBC Diff (0.0-0.0) /100 WBCS Sodium 148 H (135-145) mmol/L Chloride 118 H (96-109) mmol/L Carbon Dioxide 18.1 L (21.6-31.8) mmol/L Anion Gap (4.00-12.00) mmol/L BUN 48.4 H (9.0-27.0) mg/dL Creatinine 2.3 H (0.6-1.5) mg/dL Est GFR (CKD-EPI)AfAm 29.5 L (60.0-200.0) Est GFR (CKD-EPI)NonAf 25.5 L (60.0-200.0) BUN/Creatinine Ratio 21.04 H (12.00-20.00) Ratio Glucose 115 H (70-110) mg/dL POC Glucose (mg/dL) 144 H 128 H (75-99) mg/dL Microbiology - Last 24 Hours (Table) 02/07/21 10:28 Blood Culture - Preliminary Blood No Growth after 120 hours Assessment and Plan Plan: #1. Acute hypoxic respiratory failure secondary to suspected aspiration pneumonia, and acute exacerbation of diastolic CHF. Patient required intubation and placement on mechanical ventilator at [facility] on 02/06/2021, was successfully weaned and extubated on 02/08/2021. Pulmonary status is stable and the patient remains on 3 L of oxygen by nasal cannula and the patient has been extubated successfully. #2. Nausea, vomiting, the possibility of ileus or bowel obstruction, surgery is on the case, currently ostomy is functioning, no surgical intervention was recommended #3. ESBL Klebsiella pneumonia urinary tract infection, currently on ertapenem #4. Hypernatremia, related to free water deficit, dehydration, patient is currently on D5W at a rate of 75 ML per hour, the sodium level is improving, renal function is also improving #5. History of bowel obstruction status post ostomy in 2012 #6. Acute kidney injury related to ATN, severe dehydration, improving on D5 water #7. Anion gap metabolic acidosis related to sepsis, pneumonia #8. Anemia possibly chronic #9. Permanent pacemaker implantation, likely for history of atrial fibrillation, patient is on Eliquis #10. History of hypertension #11. Hyperlipidemia #12. BPH #13. GERD/reflux Plan: Continue D5W at a rate of 75 cc per hour Encouraged oral intake of free water, aspiration precautions Continue antibiotics Continue breathing treatments Maintain aspiration precautions Nephrology has been consulted for worsening renal failure Follow-up labs tomorrow, repeat chest x-ray in the morning We'll continue to follow
--- NOTE | 2021-02-13 14:08 | PN ---
PROGRESS NOTE DATE OF SERVICE: 02/13/2021 REASON FOR FOLLOWUP: ESBL Klebsiella urinary tract infection. INTERVAL HISTORY: The patient is afebrile. The patient is breathing comfortably. Denies any chest pain or cough. No abdominal pain or diarrhea. PHYSICAL EXAMINATION: Blood pressure 127/69, pulse of 61, temperature 97.5. He is 94% on 3 L nasal cannula. General description is an elderly male up in the bed in no distress. Respiratory system: Unlabored breathing, decreased intensity of breath sounds. No wheeze. Heart S1, S2. Regular rate and rhythm. Abdomen soft, no tenderness. LABS: Creatinine is 2.3. DIAGNOSTIC IMPRESSION AND PLAN: Patient with ESBL Klebsiella urinary tract infection. Patient is covered with Invanz; to continue for about 7 days to finish a course of therapy and close outpatient followup. MMODL / IJN: [id number] /
--- NOTE | 2021-02-14 00:20 | P.PN ---
Subjective Progress Note Date: 02/13/21 Principal diagnosis: Acute hypoxic respiratory failure secondary to aspiration pneumonia, diastolic congestive heart failure Mr. De Jesus is an 80-year-old male with a significant past medical history of hypertension, TIA, macular degeneration, toxic megacolon, status post ileostomy in place, pacemaker in place transferred from [facility] for treatment of acute respiratory failure secondary to aspiration pneumonia and diastolic congestive heart failure exacerbation. On 02/11/2021 - patient is seen and examined at the bedside. Patient's and daughter at the bedside. Patient is a very poor historian so most of the information is gathered and daughter. Patient still continues to have coarse cough, unable to cough up his secretions. Patient appears alert, following simple commands and his urine culture is positive for Klebsiella. On reviewing the patient's vitals T-max of 98.2, heart rate 69, respiratory 20, blood pressure 112/67 saturating at 94% on 3 L of oxygen. In reviewing patient's labs hemoglobin of 9.6, white count 13.1, platelets 660. Sodium 150, potassium 4.5, chloride 118, BUN 59, creatinine 2.8. Patient's medications have been reviewed On 02/12/2021 - patient is seen and examined at the bedside. He is sitting up in a chair by the bedside with his family members in the room. Patient is much more alert and awake than yesterday. Patient denies having any difficulty in breathing. She denies having any chest pain or palpitations. No abdominal pain nausea vomiting or diarrhea. Reviewing the patient's vitals temperature 97.7, heart rate 69, respiratory rate 16, blood pressure 149 seconds and the surgery 95% on 3 L of oxygen. On reviewing the patient's labs white count of 13.2, hemoglobin 10.3, platelets 544. Sodium 131 combination 4.8, chloride 119, bicarb 15, BUN 53, creatinine 2.6. 02/13/2021 -patient is seen and examined at bedside. He is comfortably sitting in a chair by the bedside appears to be no acute distress. Patient states that his difficulty in breathing is improved and lower extremity swelling is getting better. He denies having any chest pain or difficulty in breathing. No abdominal pain nausea vomiting or diarrhea. On reviewing the patient's vitals temperature of 97.9, heart rate 65, respiratory rate 22, blood pressure 124/71 saturating at 91% on 3 L of oxygen. On reviewing the patient's labs sodium 148, potassium 4.5, chloride 118, bicarb 18, BUN 48, creatinine 2.3. Patient's medications have been reviewed Active Medications Albuterol/Ipratropium (Ipratropium-Albuterol 3 Ml Neb) 3 ml INHALATION RT-Q2H PRN PRN Reason: Shortness Of Breath Or Wheezing Albuterol/Ipratropium (Ipratropium-Albuterol 3 Ml Neb) 3 ml INHALATION RT-QID [facility] Last Admin: 02/13/21 19:31 Dose: Not Given Documented by: Amlodipine Besylate (Amlodipine 10 Mg Tab) 10 mg PO DAILY [facility] Last Admin: 02/13/21 08:03 Dose: 10 mg Documented by: Apixaban (Apixaban 2.5 Mg Tablet) 2.5 mg PO BID [facility]; Protocol Last Admin: 02/13/21 19:54 Dose: 2.5 mg Documented by: Atorvastatin Calcium (Atorvastatin 40 Mg Tab) 40 mg PO DAILY [facility] Last Admin: 02/13/21 08:03 Dose: 40 mg Documented by: Carvedilol (Carvedilol 12.5 Mg Tab) 12.5 mg PO BID-W/MEALS [facility] Last Admin: 02/13/21 19:54 Dose: 12.5 mg Documented by: Ertapenem 0.5 gm/ Sodium (Chloride) 50 mls @ 100 mls/hr IVPB DAILY [facility]; Protocol Last Admin: 02/13/21 08:02 Dose: 100 mls/hr Documented by: Dextrose/Water (Dextrose 5%-Water Iv Soln) 1,000 mls @ 75 mls/hr IV .[id number] [facility] Last Admin: 02/13/21 19:54 Dose: 75 mls/hr Documented by: Loratadine (Loratadine 10 Mg Tab) 10 mg PO DAILY PRN PRN Reason: Allergy Symptoms Miscellaneous Information (Magnesium Replacement Protocol 1 Each Misc) 1 each MISCELLANE DAILY PRN; Protocol PRN Reason: Per Protocol Multivitamins (Multivitamins, Thera 1 Each Tab) 1 each PO DAILY [facility] Last Admin: 02/13/21 08:02 Dose: 1 each Documented by: Naloxone HCl (Naloxone 0.4 Mg/Ml 1 Ml Vial) 0.2 mg IV Q2M PRN PRN Reason: Opioid Reversal Pantoprazole Sodium (Pantoprazole 40 Mg/10 Ml Vial) 40 mg IV DAILY [facility] Last Admin: 02/13/21 08:02 Dose: 40 mg Documented by: Sodium Bicarbonate (Sodium Bicarbonate Tab 650 Mg Tab) 650 mg PO BID [facility] Last Admin: 02/13/21 19:54 Dose: 650 mg Documented by: Tamsulosin HCl (Tamsulosin 0.4 Mg Cap.Er.24h) 0.4 mg PO DAILY [facility] Last Admin: 02/13/21 08:03 Dose: 0.4 mg Documented by: Objective - Vital Signs Vital signs: Vital Signs Temp 97.5 F L 02/13/21 09:45 Pulse 74 02/13/21 12:16 Resp 19 02/13/21 09:45 BP 127/69 02/13/21 09:45 Pulse Ox 94 L 02/13/21 09:45 Intake & Output 02/12/21 02/13/21 02/13/21 18:59 06:59 18:59 Output Total 150 1400 Balance -150 -1400 Weight 87 kg 87 kg Output: Urine 1200 Stool 150 200 Other: Voiding Method Indwelling Catheter Indwelling Catheter Indwelling Catheter # Bowel Movements 325 ABP, PAP, CO, CI - Last Documented Arterial Blood Pressure 129/44 - Exam PHYSICAL EXAMINATION: GENERAL: Chronically ill-appearing with temporal wasting HEENT: Pupils are round and equally reacting to light. EOMI. No scleral icterus. Mild pallor pallor. Mucous membranes look dry. CARDIOVASCULAR: S1 and S2 present. No murmurs, rubs, or gallops. PULMONARY: Rhonchi predominantly in the left lower lung oswald. ABDOMEN: Soft, nontender, nondistended, normoactive bowel sounds. No palpable organomegaly. MUSCULOSKELETAL: No joint swelling or deformity. EXTREMITIES: No cyanosis, clubbing, no edema. Right upper extremity positive for pitting edema, swollen and larger than left upper extremity NEUROLOGICAL: Awake, alert, follows simple commands SKIN: No rashes. - Labs CBC & Chem 7: 02/12/21 07:48 02/13/21 05:44 Labs: Abnormal Lab Results - Last 24 Hours (Table) 02/12/21 02/12/21 02/13/21 Range/Units 07:48 18:46 01:36 WBC 13.25 H (4.50-10.00) X 10*3/uL RBC 4.26 L (4.40-5.60) X 10*6/uL Hgb 10.3 L (13.0-17.0) g/dL Hct 36.4 L (39.6-50.0) % MCH 24.2 L (27.0-32.0) pg MCHC 28.3 L (32.0-37.0) g/dL RDW 25.9 H (11.5-14.5) % Plt Count 544 H (140-440) X 10*3/uL Plt Count Comment INCREASED A Absolute Nucleated RBC 0.08 H (0.00-0.00) X 10*3/uL Metamyelocytes % 2 H (0-0) % Myelocytes % 2 H (0-0) % Neutrophils # (Manual) 10.34 H (2.00-8.90) X 10*3/uL Eosinophils # (Manual) 0.53 H (0.04-0.35) X 10*3/uL Basophils # (Manual) 0.40 H (0.00-0.10) X 10*3/uL NRBC/100 WBC Diff 0.6 H (0.0-0.0) /100 WBCS Sodium (135-145) mmol/L Chloride (96-109) mmol/L Carbon Dioxide (21.6-31.8) mmol/L BUN (9.0-27.0) mg/dL Creatinine (0.6-1.5) mg/dL Est GFR (CKD-EPI)AfAm (60.0-200.0) Est GFR (CKD-EPI)NonAf (60.0-200.0) BUN/Creatinine Ratio (12.00-20.00) Ratio Glucose (70-110) mg/dL POC Glucose (mg/dL) 136 H 144 H (75-99) mg/dL 02/13/21 02/13/21 Range/Units 05:44 07:37 WBC (4.50-10.00) X 10*3/uL RBC (4.40-5.60) X 10*6/uL Hgb (13.0-17.0) g/dL Hct (39.6-50.0) % MCH (27.0-32.0) pg MCHC (32.0-37.0) g/dL RDW (11.5-14.5) % Plt Count (140-440) X 10*3/uL Plt Count Comment Absolute Nucleated RBC (0.00-0.00) X 10*3/uL Metamyelocytes % (0-0) % Myelocytes % (0-0) % Neutrophils # (Manual) (2.00-8.90) X 10*3/uL Eosinophils # (Manual) (0.04-0.35) X 10*3/uL Basophils # (Manual) (0.00-0.10) X 10*3/uL NRBC/100 WBC Diff (0.0-0.0) /100 WBCS Sodium 148 H (135-145) mmol/L Chloride 118 H (96-109) mmol/L Carbon Dioxide 18.1 L (21.6-31.8) mmol/L BUN 48.4 H (9.0-27.0) mg/dL Creatinine 2.3 H (0.6-1.5) mg/dL Est GFR (CKD-EPI)AfAm 29.5 L (60.0-200.0) Est GFR (CKD-EPI)NonAf 25.5 L (60.0-200.0) BUN/Creatinine Ratio 21.04 H (12.00-20.00) Ratio Glucose 115 H (70-110) mg/dL POC Glucose (mg/dL) 128 H (75-99) mg/dL Microbiology - Last 24 Hours (Table) 02/07/21 10:28 Blood Culture - Final Blood No Growth after 144 hours Assessment and Plan Assessment: ASSESSMENT -Acute hypoxic respiratory failure: Secondary to aspiration pneumonia from vomiting and chronic diastolic dysfunction with acute exacerbation - Hypovolemic hyponatremia -Septic shock-secondary to Klebsiella UTI - ESBL- currently on Invanz, ID on board -Possible congestive heart failure chronic diastolic dysfunction which improved and patient is presently volume depleted -Atrial fibrillation presently rate controlled sinus rhythm patient was resumed on anticoagulation. Presently rate controlled and able to tolerate beta abdi at this time -DEWAYNE due to acute tubular necrosis from hypotension -Bowel obstruction resolved -Hypertension -benign prostatic hypertrophy -Gastroesophageal reflux disease -Hyperlipidemia -Dysphagia: Speech therapy evaluation pending -Severe protein calorie malnutrition DVT prophylaxis: On Eliquis because of renal dysfunctional cut down the dose PLAN: Patient has hypernatremia, and worsening kidney injury probably secondary to Lasix. We will hold off on diuretics, change IV fluids to D5 at 75 mL per hour. Nephrology on board and added sodium bicarbonate . . Patient's left upper extremity more swollen than the right, Doppler of the left upper extremity- negative for DVT . Patient is already on anticoagulation with Eliqu is for A. fib. Multiple consultants on board and following the patient closely including pulmonary, cardiology, surgery, ID. Patient's condition and his treatment was discussed in detail with the patient's and daughter at bedside. Discussed the CODE STATUS, patient wishes were to be a DO NOT RESUSCITATE.
[2021-02-14] MEDS: MULTIVITAMINS, THERA 1 EACH TAB PO SCH (07:22)
[2021-02-14] MEDS: SODIUM BICARBONATE TAB 650 MG TAB PO SCH ×2 (07:22→20:57)
[2021-02-14] MEDS: TAMSULOSIN 0.4 MG CAP.ER.24H PO SCH (07:22)
[2021-02-14] MEDS: APIXABAN 2.5 MG TABLET PO SCH ×2 (07:22→20:57)
[2021-02-14] MEDS: ATORVASTATIN 40 MG TAB PO SCH (07:22)
[2021-02-14] MEDS: amLODIPine 10 MG TAB PO SCH (07:22)
[2021-02-14] MEDS: carvediloL 12.5 MG TAB PO SCH ×2 (07:22→17:14)
[2021-02-14] MEDS: ERTAPENEM 0.5 GM in SODIUM CHLORIDE 0.9% 50 ML IVPB SCH (07:23)
[2021-02-14] MEDS: PANTOPRAZOLE 40 MG/10 ML VIAL IV SCH (07:24)
[2021-02-14] MEDS ORDERED: FUROSEMIDE 10 MG/ML 4 ML VIAL IV STA (07:38)
[2021-02-14] MEDS: IPRATROPIUM-ALBUTEROL 3 ML NEB INHALATION SCH ×4 (08:07→20:46)
--- NOTE | 2021-02-14 09:12 | XR ---
EXAMINATION TYPE: XR chest 1V portable DATE OF EXAM: 02/14/2021 COMPARISON: Chest x-ray 02/10/2021 HISTORY: Pneumonia, abnormal chest x-ray TECHNIQUE: Single frontal view of the chest is obtained. FINDINGS: Cardiac mediastinal silhouette is stable, there is a generator in left pectoral region, le ads in right ventricle. There is a left jugular central venous catheter, distal tip is at the level o f the cavoatrial junction. Lucency beneath the right hemidiaphragm thought related to bowel. Intersti tial prominence, perihilar vascular indistinctness is noted. There is no evident pneumothorax. Retroc ardiac density is present, the left hemidiaphragm is obscured. There is some improvement in aeration in the upper lobes. IMPRESSION: Improvement in patient's findings status, aeration within the lungs.
--- NOTE | 2021-02-14 09:28 | P.PN ---
Subjective Patient is seen in follow-up for acute kidney injury. Renal function is improving. Sodium level is trending down. Morning labs pending. No vomiting or diarrhea. Vital signs are stable. General: The patient appeared well nourished and normally developed. HEENT: Head exam is unremarkable. LUNGS: Breath sounds decreased. Scattered rhonchi. HEART: Rate and Rhythm are regular. ABDOMEN: Soft, no distention. EXTREMITITES: No edema. Objective - Vital Signs Vital signs: Vital Signs Temp 98.3 F 02/14/21 08:00 Pulse 80 02/14/21 08:19 Resp 22 02/14/21 08:00 BP 110/56 02/14/21 08:00 Pulse Ox 90 L 02/14/21 08:00 Intake & Output 02/13/21 02/14/21 02/14/21 18:59 06:59 18:59 Intake Total 350 Output Total 1800 1025 Balance -1800 -675 Weight 87 kg 85 kg Intake: Oral 350 Output: Urine 1800 1025 Other: Voiding Method Indwelling Catheter Indwelling Catheter # Bowel Movements 0 ABP, PAP, CO, CI - Last Documented Arterial Blood Pressure 129/44 - Labs CBC & Chem 7: 02/12/21 07:48 02/13/21 05:44 Labs: Abnormal Lab Results - Last 24 Hours (Table) 02/13/21 Range/Units 05:44 Sodium 148 H (135-145) mmol/L Chloride 118 H (96-109) mmol/L Carbon Dioxide 18.1 L (21.6-31.8) mmol/L BUN 48.4 H (9.0-27.0) mg/dL Creatinine 2.3 H (0.6-1.5) mg/dL Est GFR (CKD-EPI)AfAm 29.5 L (60.0-200.0) Est GFR (CKD-EPI)NonAf 25.5 L (60.0-200.0) BUN/Creatinine Ratio 21.04 H (12.00-20.00) Ratio Glucose 115 H (70-110) mg/dL Microbiology - Last 24 Hours (Table) 02/07/21 10:28 Blood Culture - Final Blood No Growth after 144 hours Assessment and Plan Plan: Assessment: 1. Acute kidney injury mostly prerenal secondary to hypovolemia. Creatinine peaked at 2.8 this admission and is 2.3 yesterday. Unknown baseline renal funct ion. 2. Hypernatremia from lack of oral water intake. Improving with D5W. 3. Klebsiella UTI on antibiotics. 4. Metabolic acidosis secondary to acute kidney injury. Improving. Maintained on oral bicarb. Plan: Maintain D5W - currently running at 85 mL an hour. Encouraged oral intake, including free water. Continue to monitor renal function and urine output. Follow-up morning labs. Rate of D5W the increased if still hypernatremic. Status post IV Lasix this morning.
[2021-02-14 10:57] LABS: Anion Gap 13.1 mmol/L (4.00-12.00); BUN/Creat Ratio 21.43 Ratio (12.00-20.00); Calcium 8.4 mg/dL (8.7-10.3); Carbon Dioxide 17.9 mmol/L (21.6-31.8); Magnesium 1.9 mg/dL (1.5-2.4); Non-African American GFR(CKD) 28.5 (60.0-200.0); Potassium 4.5 mmol/L (3.5-5.5)
--- NOTE | 2021-02-14 12:13 | P.PN ---
Subjective Progress Note Date: 02/14/21 On 02/13/2021, seeing the patient for a follow-up. The patient is still recover ing from his pneumonia. He also had a component of diastolic heart failure in addition to a UTI with ESBL producing capsula pneumoniae and the patient is currently on IV Invanz. In terms of oxygen status, the patient is on 3 L of oxygen by nasal cannula with a pulse ox of 93-94%. His cough is adequate for now. He is bringing some mucus out. He is on nectar thick liquid diet with aspiration precautions. He is afebrile. He is hemodynamically stable. He is of some swelling in left upper extremity and Doppler came back also negative. His blood work from today shows white cell count of 15.2 with a hemoglobin of 10.3 and a platelet count of 554, sodium level is down to 148 from 151 and serum bicarb is at 18 with a potassium level of 4.5, BUN is down to 48 and the creatinine is down to 2.3. The patient is still receiving IV fluids and currently is on D5 W at the rate of 75 mL an hour. His last chest x-ray showed airspace disease bilaterally with some fasciculation of the hemidiaphragms related to small bilateral pleural effusions. Cannot correlate or exclude the possibility of underlying CHF On 02/14/2021, seeing the patient for a follow-up. The patient is 80. The patient diastolic heart failure, recovering from a pneumonia and has an underlying UTI with Klebsiella pneumoniae and this is a ESBL producing microorganism and the patient is on IV Invanz. The patient was also on D5 water for an underlying hypernatremia and the sodium level today is improved and is down to 147, his serum bicarbonate 18, BUN is at 45.1. the patient remains on D5 water and it is running at 75 mL an hour. The patient otherwise has no specific complaints. The patient is on IV Invanz. The patient is also on long-term and to coagulation with Eliquis. Blood work from today was noted. Chest x-ray showed some limited airspace disease and small effusion the lung bases bilaterally. The patient is noted to have a bowel loop overlapping the right hemidiaphragm. No free with under the diaphragm. There is improvement in aeration of both lungs compared to the earlier chest x-ray. No other significant events overnight. Objective - Vital Signs Vital signs: Vital Signs Temp 98.3 F 11/09/21 08:00 Pulse 70 02/14/21 11:55 Resp 22 02/14/21 08:00 BP 110/56 02/14/21 08:00 Pulse Ox 90 L 02/14/21 08:00 Intake & Output 02/13/21 02/14/21 02/14/21 18:59 06:59 18:59 Intake Total 350 Output Total 1800 1025 Balance -1800 -675 Weight 87 kg 85 kg Intake: Oral 350 Output: Urine 1800 1025 Other: Voiding Method Indwelling Catheter Indwelling Catheter Indwelling Catheter # Bowel Movements 0 ABP, PAP, CO, CI - Last Documented Arterial Blood Pressure 129/44 - Exam GENERAL EXAM: Alert, very pleasant, 80-year-old white male, sitting up in a recliner on 4 L of oxygen pulse ox of 94%, comfortable in no apparent distress. HEAD: Normocephalic/atraumatic. EYES: Normal reaction of pupils, equal size. Conjunctiva pink, sclera white. NOSE: Clear with pink turbinates. THROAT: No erythema or exudates. NECK: No masses, no JVD, no thyroid enlargement, no adenopathy. CHEST: No chest wall deformity. Symmetrical expansion. Left upper chest subclavian triple lumen central line catheter in place LUNGS: Equal air entry with mild wheezing, diffuse rhonchi, patient does have a strong effective cough, however is a high risk for aspiration based on his speech therapy evaluation CVS: Regular rate and rhythm, normal S1 and S2, no gallops, no murmurs, no rubs ABDOMEN: Soft, nontender. No hepatosplenomegaly, normal bowel sounds, no guarding or rigidity. EXTREMITIES: No clubbing, no edema, no cyanosis, 2+ pulses and upper and lower extremities. MUSCULOSKELETAL: Muscle strength and tone normal. SPINE: No scoliosis or deformity SKIN: No rashes CENTRAL NERVOUS SYSTEM: Alert and oriented -3. No focal deficits, tone is normal in all 4 extremities. PSYCHIATRIC: Alert and oriented -3. Appropriate affect. Intact judgment and insight. - Labs CBC & Chem 7: 02/12/21 07:48 02/14/21 05:37 Labs: Abnormal Lab Results - Last 24 Hours (Table) 02/14/21 Range/Units 05:37 Sodium 147 H (135-145) mmol/L Chloride 116 H (96-109) mmol/L Carbon Dioxide 17.9 L (21.6-31.8) mmol/L Anion Gap 13.10 H (4.00-12.00) mmol/L BUN 45.0 H (9.0-27.0) mg/dL Creatinine 2.1 H (0.6-1.5) mg/dL Est GFR (CKD-EPI)AfAm 33.0 L (60.0-200.0) Est GFR (CKD-EPI)NonAf 28.5 L (60.0-200.0) BUN/Creatinine Ratio 21.43 H (12.00-20.00) Ratio Calcium 8.4 L (8.7-10.3) mg/dL Microbiology - Last 24 Hours (Table) 02/07/21 10:28 Blood Culture - Final Blood No Growth after 144 hours Assessment and Plan Plan: #1. Acute hypoxic respiratory failure secondary to suspected aspiration pneumonia, and acute exacerbation of diastolic CHF. Patient required intubation and placement on mechanical ventilator at [facility] on 02/06/2021, was successfully weaned and extubated on 02/08/2021. Pulmonary status is stable and the patient remains on 4 L of oxygen by nasal cannula and the patient has been extubated successfully. #2. Nausea, vomiting, the possibility of ileus or bowel obstruction, surgery is on the case, currently ostomy is functioning, no surgical intervention was recommended #3. ESBL Klebsiella pneumonia urinary tract infection, currently on ertapenem #4. Hypernatremia, related to free water deficit, dehydration, patient is currently on D5W at a rate of 75 ML per hour, the sodium level is improving, renal function is also improving sodium level is down to 147 and the patient continues to be on D5W at the rate of 75 mL an hour #5. History of bowel obstruction status post ostomy in 2012 #6. Acute kidney injury related to ATN, severe dehydration, improving on D5 water at 75 mL an hour and the creatinine continues to improve is down to 2.1 #7. Anion gap metabolic acidosis related to sepsis, pneumonia, serum bicarbonate stable at 18 #8. Anemia possibly chronic #9. Permanent pacemaker implantation, likely for history of atrial fibrillation, patient is on Eliquis #10. History of hypertension #11. Hyperlipidemia #12. BPH #13. GERD/reflux Plan: Continue D5W at a rate of 75 cc per hour Oral bicarbonate replacement Encouraged oral intake of free water, aspiration precautions Chest x-ray was noted Deep breathing and pulmonary toileting Continue antibiotics Continue breathing treatments Maintain aspiration precautions Nephrology has been consulted for worsening renal failure Follow-up labs tomorrow, repeat chest x-ray was noted and is showing improvement in aeration Recommend incentive spirometer
[2021-02-14] MEDS ORDERED: SODIUM BICARB 8.4% 50 ML SYR (1 MEQ/ML) IV STA (13:04)
--- NOTE | 2021-02-14 17:23 | PN ---
PROGRESS NOTE DATE OF SERVICE: 02/14/2021 This 80-year-old gentleman admitted with aspiration pneumonia, CHF and acute hypoxic respiratory failure is being closely monitored at this time. The patient is mildly confused. No chest pain. No palpitations. No fever. The patient had significant crackles, also. Patient has received some Lasix. PHYSICAL EXAMINATION: Pulse is 75, blood pressure is 116/65, respiration 22, temperature 97.4, pulse ox 98% on 4 L. HEENT: Conjunctivae normal. NECK: No jugular venous distention. CARDIOVASCULAR: S1, S2 muffled. RESPIRATION: Breath sounds diminished at the bases. A few scattered rhonchi and crackles. ABDOMEN: Soft. NERVOUS SYSTEM: Diffusely weak. LABS: Sodium 147. The creatinine is 2.1. CURRENT MEDICATIONS: Reviewed. They include DuoNeb, Eliquis, Coreg, ertapenem, multivitamins, Narcan, Protonix. Doses are reviewed. ASSESSMENT: 1. Acute aspiration pneumonia with acute hypoxic respiratory failure, status post mechanical ventilation. 2. Congestive heart failure with acute on chronic diastolic dysfunction. 3. Hypovolemic hyponatremia. 4. Septic shock secondary to Klebsiella urinary tract infection, ESBL. 5. Change in mental status, acute metabolic encephalopathy. 6. Gait dysfunction. 7. Atrial fibrillation, rate controlled. 8. Acute kidney injury secondary to acute tubular necrosis from hypotension. 9. Bowel obstruction, resolved. 10.Hypertension. 11.Benign prostatic hypertrophy. 12.Gastroesophageal reflux disease. 13.Hyperlipidemia. 14.Dysphagia. 15.Severe protein-calorie malnutrition. 16.Hypernatremia. 17.Hypocalcemia, mild. 18.Increased white count. 19.Anemia of chronic disease. 20.Elevated platelets. RECOMMENDATIONS AND DISCUSSION: In this 80-year-old gentleman who presented with multiple complex medical issues, we will monitor the patient closely, continue the current medications, continue with symptomatic treatment. Most recent chest x-ray which was reviewed personally by me showed bilateral lesions suggestive of possible CHF and fluid overload which is slightly better than the previous one. White count remains elevated. Urine culture showed Klebsiella pneumoniae. I would also recommend a chest x-ray to rule out any other acute abnormality as well. Prognosis guarded. Further recommendations to follow. MMODL / IJN: [id number] /
--- NOTE | 2021-02-14 19:10 | CT ---
EXAMINATION TYPE: CT chest wo con DATE OF EXAM: 02/14/2021 COMPARISON: None HISTORY: SOB CT DLP: 405.9 mGycm Automated exposure control for dose reduction was used. Images obtained from the thoracic inlet to the diaphragm without contrast. There is mild to moderate bilateral pleural effusions. There is extensive airspace consolidation and atelectasis at the posterior lung bases. Heart appears enlarged. Thoracic aorta is atheromatous. Ther e are a few bronchial and mediastinal lymph nodes that measure up to 1 cm. There is coronary artery c alcification. The thoracic vertebra appear intact. There is no compression fracture. Sternum is intact. Upper abdom inal soft tissues are intact. IMPRESSION: Pleural effusions with bilateral lower lobe pneumonia and atelectasis. Congestive heart failure also possible.
[2021-02-14] MEDS: DEXTROSE 5% IN WATER 1,000 ML IV SCH (19:30)
--- NOTE | 2021-02-14 23:24 | PN ---
PROGRESS NOTE DATE OF SERVICE: 02/14/2021 REASON FOR FOLLOWUP: ESBL E coli urinary tract infection. INTERVAL HISTORY: The patient is afebrile. The patient is breathing comfortably. The patient denies having any chest pain. He did have a cough, not bringing up any sputum. No abdominal pain or diarrhea. PHYSICAL EXAMINATION: Blood pressure 122/78 with a pulse of 73, temperature 97.6. He is 97% on 4 L nasal cannula. General description is an elderly male lying in bed in no distress. Respiratory system: Unlabored breathing, decreased intensity of breath sounds. No wheeze. Heart S1, S2. Regular rate and rhythm. Abdomen soft, no tenderness. LABS: BUN of 45. Creatinine is 2.1. DIAGNOSTIC IMPRESSION AND PLAN: Patient with ESBL Klebsiella urinary tract infection, currently on Invanz, planning for another week of antibiotic therapy on discharge and close outpatient followup. Continue with supportive care. MMODL / IJN: [id number] /
[2021-02-15 09:17] LABS: African American GFR (CKD) 32.6 (60.0-200.0); Anion Gap 10.9 mmol/L (4.00-12.00); BUN/Creat Ratio 22.17 Ratio (12.00-20.00); Calcium 8.4 mg/dL (8.7-10.3); Magnesium 1.8 mg/dL (1.5-2.4); Non-African American GFR(CKD) 28.1 (60.0-200.0); Potassium 4.7 mmol/L (3.5-5.5)
[2021-02-15] MEDS: IPRATROPIUM-ALBUTEROL 3 ML NEB INHALATION SCH ×4 (09:35→19:20)
[2021-02-15] MEDS: SODIUM BICARBONATE TAB 650 MG TAB PO SCH ×2 (09:38→20:32)
[2021-02-15] MEDS: APIXABAN 2.5 MG TABLET PO SCH ×2 (09:39→20:32)
[2021-02-15] MEDS: MULTIVITAMINS, THERA 1 EACH TAB PO SCH (09:39)
[2021-02-15] MEDS: TAMSULOSIN 0.4 MG CAP.ER.24H PO SCH (09:40)
[2021-02-15] MEDS: ATORVASTATIN 40 MG TAB PO SCH (09:40)
[2021-02-15] MEDS: amLODIPine 10 MG TAB PO SCH (09:41)
[2021-02-15] MEDS: carvediloL 12.5 MG TAB PO SCH ×2 (09:42→16:58)
[2021-02-15] MEDS: PANTOPRAZOLE 40 MG/10 ML VIAL IV SCH (09:42)
[2021-02-15] MEDS ORDERED: DEXTROSE 5% IN WATER 1,000 ML IV ONE (09:50)
[2021-02-15] MEDS ORDERED: FUROSEMIDE 10 MG/ML 4 ML VIAL IV STA (10:02)
--- NOTE | 2021-02-15 10:02 | P.PN ---
Subjective Patient is seen in follow-up for acute kidney injury. Renal function is stable. Sodium level is trending down. No vomiting or diarrhea. On 4 L nasal cannula. Vital signs are stable. General: The patient appeared well nourished and normally developed. HEENT: Head exam is unremarkable. LUNGS: Breath sounds decreased. HEART: Rate and Rhythm are regular. ABDOMEN: Soft, no distention. EXTREMITITES: No edema. Objective - Vital Signs Vital signs: Vital Signs Temp 97.6 F 02/15/21 07:54 Pulse 79 02/15/21 09:43 Resp 17 02/15/21 07:54 BP 121/77 02/15/21 07:54 Pulse Ox 97 02/15/21 09:35 Intake & Output 02/14/21 02/15/21 02/15/21 18:59 06:59 18:59 Output Total 1000 600 Balance -1000 -600 Weight 83 kg Output: Urine 550 450 Stool 450 150 Other: Voiding Method Indwelling Catheter Indwelling Catheter Indwelling Catheter ABP, PAP, CO, CI - Last Documented Arterial Blood Pressure 129/44 - Labs CBC & Chem 7: 02/12/21 07:48 02/15/21 05:42 Labs: Abnormal Lab Results - Last 24 Hours (Table) 02/14/21 02/15/21 Range/Units 05:37 05:42 Sodium 147 H (135-145) mmol/L Chloride 116 H 114 H (96-109) mmol/L Carbon Dioxide 17.9 L 20.0 L (21.6-31.8) mmol/L Anion Gap 13.10 H (4.00-12.00) mmol/L BUN 45.0 H 47.0 H (9.0-27.0) mg/dL Creatinine 2.1 H 2.1 H (0.6-1.5) mg/dL Est GFR (CKD-EPI)AfAm 33.0 L 32.6 L (60.0-200.0) Est GFR (CKD-EPI)NonAf 28.5 L 28.1 L (60.0-200.0) BUN/Creatinine Ratio 21.43 H 22.17 H (12.00-20.00) Ratio Calcium 8.4 L 8.4 L (8.7-10.3) mg/dL Assessment and Plan Plan: Assessment: 1. Acute kidney injury mostly prerenal secondary to hypovolemia. Creatinine peaked at 2.8 this admission and is 2.1 today. Unknown baseline renal function. 2. Hypernatremia from lack of oral water intake. Improving with D5W. 3. Klebsiella UTI on antibiotics. 4. Metabolic acidosis secondary to acute kidney injury. Improving. Maintained on oral bicarb. If. Bilateral pleural effusions. Plan: Maintain D5W - decreased rate to 50 mL an hour. Encouraged oral intake, including free water. Continue to monitor renal function and urine output. Peaked Lasix 40 mg IV once today.
[2021-02-15] MEDS: ERTAPENEM 0.5 GM in SODIUM CHLORIDE 0.9% 50 ML IVPB SCH (10:05)
--- NOTE | 2021-02-15 13:01 | P.PN ---
Subjective Progress Note Date: 02/15/21 On 02/13/2021, seeing the patient for a follow-up. The patient is still recover ing from his pneumonia. He also had a component of diastolic heart failure in addition to a UTI with ESBL producing capsula pneumoniae and the patient is currently on IV Invanz. In terms of oxygen status, the patient is on 3 L of oxygen by nasal cannula with a pulse ox of 93-94%. His cough is adequate for now. He is bringing some mucus out. He is on nectar thick liquid diet with aspiration precautions. He is afebrile. He is hemodynamically stable. He is of some swelling in left upper extremity and Doppler came back also negative. His blood work from today shows white cell count of 15.2 with a hemoglobin of 10.3 and a platelet count of 554, sodium level is down to 148 from 151 and serum bicarb is at 18 with a potassium level of 4.5, BUN is down to 48 and the creatinine is down to 2.3. The patient is still receiving IV fluids and currently is on D5 W at the rate of 75 mL an hour. His last chest x-ray showed airspace disease bilaterally with some fasciculation of the hemidiaphragms related to small bilateral pleural effusions. Cannot correlate or exclude the possibility of underlying CHF On 02/14/2021, seeing the patient for a follow-up. The patient is 80. The patient diastolic heart failure, recovering from a pneumonia and has an underlying UTI with Klebsiella pneumoniae and this is a ESBL producing microorganism and the patient is on IV Invanz. The patient was also on D5 water for an underlying hypernatremia and the sodium level today is improved and is down to 147, his serum bicarbonate 18, BUN is at 45.1. the patient remains on D5 water and it is running at 75 mL an hour. The patient otherwise has no specific complaints. The patient is on IV Invanz. The patient is also on long-term and to coagulation with Eliquis. Blood work from today was noted. Chest x-ray showed some limited airspace disease and small effusion the lung bases bilaterally. The patient is noted to have a bowel loop overlapping the right hemidiaphragm. No free with under the diaphragm. There is improvement in aeration of both lungs compared to the earlier chest x-ray. No other significant events overnight. On 02/15/2021, the patient is being seen for a follow-up. We have been involved in the patient's care because of hypoxic respiratory failure secondary to pneumonia and diastolic failure. The patient meanwhile was also diagnosed having a UTI with Klebsiella pneumoniae, ESBL producing microorganism and the patient remains on IV Invanz. He is currently on D5 water as the patient was having his free water deficit being replaced. His sodium level from yesterday was at 147. BUN was still elevated although it was improving. The patient was on D5 W at the rate of 75 mL an hour. On today's blood work, patient demonstrated improvement in his sodium level which is currently at BUN is at 47 and the sodium level a creatinine level is 2.1 the patient remains on 4 L of oxygen by nasal cannula and his current pulse ox is in order of 97%. No fever. No chills. Hemodynamically stable. The. No symptoms in effusions noted. Repeat. chest was ordered yesterday and this was completed and the patient continues to have some consolidation of the lung bases bilaterally .The patient remains on 40s about 2 by nasal cannula. A repeat swallow evaluation is also in progress. According to my discussion with the pathologist, he does have a lot of molecular residuals. No reported aspiration. Objective - Vital Signs Vital signs: Vital Signs Temp 97.6 F 02/15/21 07:54 Pulse 73 02/15/21 12:02 Resp 17 02/15/21 07:54 BP 121/77 02/15/21 07:54 Pulse Ox 97 02/15/21 09:35 Intake & Output 02/14/21 02/15/21 02/15/21 18:59 06:59 18:59 Output Total 1000 600 Balance -1000 -600 Weight 83 kg Output: Urine 550 450 Stool 450 150 Other: Voiding Method Indwelling Catheter Indwelling Catheter Indwelling Catheter ABP, PAP, CO, CI - Last Documented Arterial Blood Pressure 129/44 - Exam GENERAL EXAM: Alert, very pleasant, 80-year-old white male, sitting up in a recliner on 4 L of oxygen pulse ox of 94%, comfortable in no apparent distress. HEAD: Normocephalic/atraumatic. EYES: Normal reaction of pupils, equal size. Conjunctiva pink, sclera white. NOSE: Clear with pink turbinates. THROAT: No erythema or exudates. NECK: No masses, no JVD, no thyroid enlargement, no adenopathy. CHEST: No chest wall deformity. Symmetrical expansion. Left upper chest subclavian triple lumen central line catheter in place LUNGS: Equal air entry with mild wheezing, diffuse rhonchi, patient does have a strong effective cough, however is a high risk for aspiration based on his speech therapy evaluation CVS: Regular rate and rhythm, normal S1 and S2, no gallops, no murmurs, no rubs ABDOMEN: Soft, nontender. No hepatosplenomegaly, normal bowel sounds, no guarding or rigidity. EXTREMITIES: No clubbing, no edema, no cyanosis, 2+ pulses and upper and lower extremities. MUSCULOSKELETAL: Muscle strength and tone normal. SPINE: No scoliosis or deformity SKIN: No rashes CENTRAL NERVOUS SYSTEM: Alert and oriented -3. No focal deficits, tone is normal in all 4 extremities. PSYCHIATRIC: Alert and oriented -3. Appropriate affect. Intact judgment and insight. - Labs CBC & Chem 7: 02/12/21 07:48 02/15/21 05:42 Labs: Abnormal Lab Results - Last 24 Hours (Table) 02/15/21 Range/Units 05:42 Chloride 114 H (96-109) mmol/L Carbon Dioxide 20.0 L (21.6-31.8) mmol/L BUN 47.0 H (9.0-27.0) mg/dL Creatinine 2.1 H (0.6-1.5) mg/dL Est GFR (CKD-EPI)AfAm 32.6 L (60.0-200.0) Est GFR (CKD-EPI)NonAf 28.1 L (60.0-200.0) BUN/Creatinine Ratio 22.17 H (12.00-20.00) Ratio Calcium 8.4 L (8.7-10.3) mg/dL Assessment and Plan Plan: #1. Acute hypoxic respiratory failure secondary to suspected aspiration pneumonia, and acute exacerbation of diastolic CHF. Patient required intubation and placement on mechanical ventilator at [facility] on 02/06/2021, was successfully weaned and extubated on 02/08/2021. Pulmonary status is stable and the patient remains on 4 L of oxygen by nasal cannula and the patient has been extubated successfully. His evaluation of 02/15/2021, the patient remains on 4 L of oxygen by nasal cannula. No signs of any significant respiratory distress. #2. Nausea, vomiting, the possibility of ileus or bowel obstruction, surgery is on the case, currently ostomy is functioning, no surgical intervention was recommended #3. ESBL Klebsiella pneumonia urinary tract infection, currently on ertapenem #4. Hypernatremia, related to free water deficit, improving and the patient's sodium level is down to 145 as the patient is receiving D5W #5. History of bowel obstruction status post ostomy in 2013 #6. Acute kidney injury related to ATN, severe dehydration, improving on D5 water at 75 mL an hour and the creatinine is 2.1 #7. Anion gap metabolic acidosis related to sepsis, pneumonia, serum bicarbonate stable at 18 my the patient is currently on oral bicarbonate for now. #8. Anemia possibly chronic #9. Permanent pacemaker implantation, likely for history of atrial fibrillation, patient is on Eliquis #10. History of hypertension #11. Hyperlipidemia #12. BPH #13. GERD/reflux Plan: Continue D5W at a rate of 50cc per hour sodium level is improving. Oral bicarbonate replacement either the bicarb levels, monitor the bicarb levels I reviewed the CAT scan of the chest and it shows extensive consolidation of the lung bases more than effusions. As such there is no role for thoracentesis. D eep breathing. Aspiration precautions. Continued IV Invanz for now. Deep breathing and pulmonary toileting Continue antibiotics Continue breathing treatments Maintain aspiration precautions Consider ECF transfer within next few days
--- NOTE | 2021-02-15 14:34 | PN ---
PROGRESS NOTE DATE OF SERVICE: 02/15/2021 REASON FOR FOLLOWUP: ESBL E coli urinary tract infection. INTERVAL HISTORY: The patient is afebrile. The patient is currently breathing comfortably. Did have minimal cough, not bringing up any sputum. No abdominal pain or diarrhea. PHYSICAL EXAMINATION: Blood pressure 118/66 with a pulse of 50, temperature 97.5. He is 94% on 4 L nasal cannula. General description is an elderly male up in the chair in no distress. Respiratory system: Unlabored breathing, decreased intensity of breath sounds. No wheeze. Heart S1, S2. Regular rate and rhythm. Abdomen soft, no tenderness. LABS: Creatinine is 2.1. DIAGNOSTIC IMPRESSION AND PLAN: Patient with ESBL Klebsiella urinary tract infection, for which the patient is currently covered with Invanz. That will be continued for another discharge and continue with supportive care. MMODL / IJN: [id number] /
--- NOTE | 2021-02-15 20:52 | PN ---
PROGRESS NOTE DATE OF SERVICE: 02/15/2021 This 80-year-old gentleman who was admitted with aspiration pneumonia, CHF, acute hypoxic respiratory failure is being closely monitored at this time. The patient also had ESBL Klebsiella. The patient is on broad-spectrum IV antibiotics. The patient also is being followed by multiple consultants. Patient also had renal failure. The patient also had bilateral pneumonia. Chest CT showed pneumonia, and the possibility of fluid overload is also considered. The patient was given Lasix today. Past medical history reviewed. Review of systems could not be taken; the patient is mildly confused. CURRENT MEDICATIONS: Reviewed. They include one-time dose of Lasix, DuoNeb, Eliquis, Lipitor, Coreg, ertapenem, Claritin. Doses and other medications are reviewed. PHYSICAL EXAMINATION: Patient is alert, oriented x2. Pulse 60, blood pressure 118/66, respiration 12, temperature 97.4, pulse ox 94% on room air. HEENT: Conjunctivae normal. NECK: No jugular venous distention. CARDIOVASCULAR: S1, S2 muffled. RESPIRATION: Breath sounds diminished at the bases. A few scattered rhonchi and crackles. ABDOMEN: Soft, nontender. LEGS: No edema. No swelling. NERVOUS SYSTEM: No focal deficit. LABS: WBC 8.4, hemoglobin is 10. Sodium 147, potassium 4.3. ASSESSMENT: 1. Acute bilateral aspiration pneumonia with acute hypoxic respiratory failure, status post mechanical ventilation. 2. Congestive heart failure, acute exacerbation, with acute on chronic diastolic dysfunction. 3. Acute renal failure with acute tubular necrosis and prerenal renal failure. 4. Hypovolemic hyponatremia. 5. Septic shock secondary to Klebsiella urinary tract infection, ESBL. 6. Change in mental status, acute metabolic encephalopathy. 7. Gait dysfunction. 8. Atrial fibrillation, rate controlled. 9. Acute kidney injury secondary to acute tubular necrosis and from hypotension. 10.Bowel obstruction, resolved. 11.Hypertension. 12.Benign prostatic hypertrophy. 13.Gastroesophageal reflux disease. 14.Hyperlipidemia. 15.Dysphagia. 16.Severe protein-calorie malnutrition. 17.Hyponatremia. 18.Hypocalcemia, mild. 19.Increased white count. 20.Anemia of chronic disease. 21.Elevated platelets. 22.NO CODE, NO CPR, NO VENT. RECOMMENDATIONS AND DISCUSSION: I recommend to continue current medications, continue with symptomatic treatment. The patient has significant renal problems and lung issues also. Overall prognosis remains extremely guarded. Patient has slightly increased sodium today. Will repeat the labs tomorrow and continue to monitor. Once again, the prognosis guarded. Further recommendations to follow. MMODL / IJN: [id number] /
[2021-02-16 07:20] LABS: African American GFR (CKD) 35 (>60 ml/min/1.73 sqM); Anion Gap 9 mmol/L; Blood Urea Nitrogen 48 mg/dL (9-20); Calcium 8.5 mg/dL (8.4-10.2); Carbon Dioxide 21 mmol/L (22-30); Chloride 112 mmol/L (98-107); Glucose 89 mg/dL (74-99); Magnesium 1.8 mg/dL (1.6-2.3); Non-African American GFR(CKD) 30 (>60 ml/min/1.73 sqM); Potassium 4.7 mmol/L (3.5-5.1); Sodium 142 mmol/L (137-145)
[2021-02-16] MEDS: ATORVASTATIN 40 MG TAB PO SCH (07:51)
[2021-02-16] MEDS: TAMSULOSIN 0.4 MG CAP.ER.24H PO SCH (07:52)
[2021-02-16] MEDS: carvediloL 12.5 MG TAB PO SCH ×2 (07:52→17:10)
[2021-02-16] MEDS: amLODIPine 10 MG TAB PO SCH (07:52)
[2021-02-16] MEDS: SODIUM BICARBONATE TAB 650 MG TAB PO SCH ×2 (07:52→21:46)
[2021-02-16] MEDS: APIXABAN 2.5 MG TABLET PO SCH ×2 (07:52→21:45)
[2021-02-16] MEDS: MULTIVITAMINS, THERA 1 EACH TAB PO SCH (07:52)
[2021-02-16] MEDS: PANTOPRAZOLE 40 MG/10 ML VIAL IV SCH (07:53)
[2021-02-16] MEDS: ERTAPENEM 0.5 GM in SODIUM CHLORIDE 0.9% 50 ML IVPB SCH (07:53)
[2021-02-16] MEDS: IPRATROPIUM-ALBUTEROL 3 ML NEB INHALATION SCH ×4 (08:03→21:16)
[2021-02-16] MEDS ORDERED: FUROSEMIDE 10 MG/ML 4 ML VIAL IV STA (09:35)
--- NOTE | 2021-02-16 09:36 | P.PN ---
Subjective Patient is seen in follow-up for acute kidney injury. Renal function is stable. Sodium level now normal. No vomiting or diarrhea. On 4 L nasal cannula. No active complaints. Vital signs are stable. General: The patient appeared well nourished and normally developed. HEENT: Head exam is unremarkable. LUNGS: Breath sounds decreased. HEART: Rate and Rhythm are regular. ABDOMEN: Soft, no distention. EXTREMITITES: No edema. Objective - Vital Signs Vital signs: Vital Signs Temp 97.7 F 02/16/21 08:00 Pulse 72 02/16/21 08:13 Resp 18 02/16/21 08:13 BP 146/60 02/16/21 08:00 Pulse Ox 94 L 02/16/21 08:03 Intake & Output 02/15/21 02/16/21 02/16/21 18:59 06:59 18:59 Intake Total 600 Output Total 1000 1500 Balance -1000 -900 Weight 83.5 kg Intake: Intake, IV Titration 600 Amount Dextrose 5% in Water 1, 600 000 ml @ 50 mls/hr IV . Q20H ONE Rx#:[id number] Output: Urine 1000 1100 Stool 400 Other: Voiding Method Indwelling Catheter Indwelling Catheter Indwelling Catheter # Bowel Movements 1 ABP, PAP, CO, CI - Last Documented Arterial Blood Pressure 129/44 - Labs CBC & Chem 7: 02/12/21 07:48 02/16/21 05:51 Labs: Abnormal Lab Results - Last 24 Hours (Table) 02/16/21 Range/Units 05:51 Chloride 112 H (98-107) mmol/L Carbon Dioxide 21 L (22-30) mmol/L BUN 48 H (9-20) mg/dL Creatinine 2.02 H (0.66-1.25) mg/dL Assessment and Plan Plan: Assessment: 1. Acute kidney injury mostly prerenal secondary to hypovolemia. Creatinine peaked at 2.8 this admission and is 2.02 today. Unknown baseline renal function. 2. Hypernatremia from lack of oral water intake. Improving with D5W. 3. Klebsiella UTI on antibiotics. 4. Metabolic acidosis secondary to acute kidney injury. Improving. Maintained on oral bicarb. 5. Bilateral pleural effusions. Plan: Hep-Lock IV fluids. Encouraged oral intake, including free water. Continue to monitor renal function and urine output. Repeat Lasix 40 mg IV once today.
[2021-02-16 11:43] VITALS: BMI 25.7
[2021-02-16 13:22] LABS: Anisocytosis (M) 2+; Basophils # (A) 0.16 X 10*3/uL (0.00-0.10); Basophils % (A) 1.3 %; Eosinophils # (A) 0.47 X 10*3/uL (0.04-0.35); Eosinophils % (A) 3.9 %; HCT 35.1 % (39.6-50.0); Lymphocytes # (A) 1.36 X 10*3/uL (0.90-5.00); Lymphocytes % (A) 11.3 %; MCH 23.9 pg (27.0-32.0); MCHC 28.5 g/dL (32.0-37.0); Monocytes # (A) 0.57 X 10*3/uL (0.20-1.00); Monocytes % (A) 4.7 %; Neutrophils # (A) 9.21 X 10*3/uL (1.80-7.70); Neutrophils % (A) 76.4 %; Platelet Count 448 X 10*3/uL (140-440); RBC 4.18 X 10*6/uL (4.40-5.60); RDW 25.3 % (11.5-14.5); Schistocytes 1+; WBC 12.06 X 10*3/uL (4.50-10.00)
--- NOTE | 2021-02-16 15:03 | P.PN ---
Subjective Progress Note Date: 02/16/21 On 02/13/2021, seeing the patient for a follow-up. The patient is still recover ing from his pneumonia. He also had a component of diastolic heart failure in addition to a UTI with ESBL producing capsula pneumoniae and the patient is currently on IV Invanz. In terms of oxygen status, the patient is on 3 L of oxygen by nasal cannula with a pulse ox of 93-94%. His cough is adequate for now. He is bringing some mucus out. He is on nectar thick liquid diet with aspiration precautions. He is afebrile. He is hemodynamically stable. He is of some swelling in left upper extremity and Doppler came back also negative. His blood work from today shows white cell count of 15.2 with a hemoglobin of 10.3 and a platelet count of 554, sodium level is down to 148 from 151 and serum bicarb is at 18 with a potassium level of 4.5, BUN is down to 48 and the creatinine is down to 2.3. The patient is still receiving IV fluids and currently is on D5 W at the rate of 75 mL an hour. His last chest x-ray showed airspace disease bilaterally with some fasciculation of the hemidiaphragms related to small bilateral pleural effusions. Cannot correlate or exclude the possibility of underlying CHF On 02/14/2021, seeing the patient for a follow-up. The patient is 80. The patient diastolic heart failure, recovering from a pneumonia and has an underlying UTI with Klebsiella pneumoniae and this is a ESBL producing microorganism and the patient is on IV Invanz. The patient was also on D5 water for an underlying hypernatremia and the sodium level today is improved and is down to 147, his serum bicarbonate 18, BUN is at 45.1. the patient remains on D5 water and it is running at 75 mL an hour. The patient otherwise has no specific complaints. The patient is on IV Invanz. The patient is also on long-term and to coagulation with Eliquis. Blood work from today was noted. Chest x-ray showed some limited airspace disease and small effusion the lung bases bilaterally. The patient is noted to have a bowel loop overlapping the right hemidiaphragm. No free with under the diaphragm. There is improvement in aeration of both lungs compared to the earlier chest x-ray. No other significant events overnight. On 02/15/2021, the patient is being seen for a follow-up. We have been involved in the patient's care because of hypoxic respiratory failure secondary to pneumonia and diastolic failure. The patient meanwhile was also diagnosed having a UTI with Klebsiella pneumoniae, ESBL producing microorganism and the patient remains on IV Invanz. He is currently on D5 water as the patient was having his free water deficit being replaced. His sodium level from yesterday was at 147. BUN was still elevated although it was improving. The patient was on D5 W at the rate of 75 mL an hour. On today's blood work, patient demonstrated improvement in his sodium level which is currently at BUN is at 47 and the sodium level a creatinine level is 2.1 the patient remains on 4 L of oxygen by nasal cannula and his current pulse ox is in order of 97%. No fever. No chills. Hemodynamically stable. The. No symptoms in effusions noted. Repeat. chest was ordered yesterday and this was completed and the patient continues to have some consolidation of the lung bases bilaterally .The patient remains on 40s about 2 by nasal cannula. A repeat swallow evaluation is also in progress. According to my discussion with the pathologist, he does have a lot of molecular residuals. No reported aspiration. 02/16/2021 patient is being seen for a follow-up. today, the patient is on 3 L of oxygen by nasal cannula. Doing well. No specific complaints. He remains on IV Invanz regarding ESBL related gram-negative urine checked infection with Klebsiella pneumoniae. No signs of any significant respiratory distress and the patient is currently on 3 L of oxygen by nasal cannula. His condition is stable. No reported aspiration. Family is at bedside. A swallow evaluation has been on this patient yesterday.Blood work from today shows a white blood count of 12 with a hemoglobin of 10 and a platelet count of 448, sodium is down to 142, creatinine is still stable at 2.0, potassium level is 4.7. No other significant events otherwise for now. Patient is being considered for released from the hospital to [facility]. Objective - Vital Signs Vital signs: Vital Signs Temp 97.5 F L 02/16/21 14:00 Pulse 73 02/16/21 14:00 Resp 18 02/16/21 14:00 BP 129/65 02/16/21 14:00 Pulse Ox 93 L 02/16/21 14:00 Intake & Output 02/15/21 02/16/2102/16/21 18:59 06:59 18:59 Intake Total 600 Output Total 1000 1500 Balance -1000 -900 Weight 83.5 kg 83.5 kg Intake: Intake, IV Titration 600 Amount Dextrose 5% in Water 1, 600 000 ml @ 50 mls/hr IV . Q20H ONE Rx#:[id number] Output: Urine 1000 1100 Stool 400 Other: Voiding Method Indwelling Catheter Indwelling Catheter Indwelling Catheter # Bowel Movements 1 ABP, PAP, CO, CI - Last Documented Arterial Blood Pressure 129/44 - Exam GENERAL EXAM: Alert, very pleasant, 80-year-old white male, sitting up in a recliner on 4 L of oxygen pulse ox of 94%, comfortable in no apparent distress. HEAD: Normocephalic/atraumatic. EYES: Normal reaction of pupils, equal size. Conjunctiva pink, sclera white. NOSE: Clear with pink turbinates. THROAT: No erythema or exudates. NECK: No masses, no JVD, no thyroid enlargement, no adenopathy. CHEST: No chest wall deformity. Symmetrical expansion. Left upper chest subclavian triple lumen central line catheter in place LUNGS: Equal air entry with mild wheezing, diffuse rhonchi, patient does have a strong effective cough, however is a high risk for aspiration based on his speec h therapy evaluation CVS: Regular rate and rhythm, normal S1 and S2, no gallops, no murmurs, no rubs ABDOMEN: Soft, nontender. No hepatosplenomegaly, normal bowel sounds, no guarding or rigidity. EXTREMITIES: No clubbing, no edema, no cyanosis, 2+ pulses and upper and lower extremities. MUSCULOSKELETAL: Muscle strength and tone normal. SPINE: No scoliosis or deformity SKIN: No rashes CENTRAL NERVOUS SYSTEM: Alert and oriented -3. No focal deficits, tone is normal in all 4 extremities. PSYCHIATRIC: Alert and oriented -3. Appropriate affect. Intact judgment and insight. - Labs CBC & Chem 7: 02/16/21 05:51 02/16/21 05:51 Labs: Abnormal Lab Results - Last 24 Hours (Table) 02/16/21 02/16/21 Range/Units 05:51 05:51 WBC 12.06 H (4.50-10.00) X 10*3/uL RBC 4.18 L (4.40-5.60) X 10*6/uL Hgb 10.0 L (13.0-17.0) g/dL Hct 35.1 L (39.6-50.0) % MCH 23.9 L (27.0-32.0) pg MCHC 28.5 L (32.0-37.0) g/dL RDW 25.3 H (11.5-14.5) % Plt Count 448 H (140-440) X 10*3/uL Plt Count Comment INCREASED A Absolute Nucleated RBC 0.06 H (0.00-0.00) X 10*3/uL Immature Gran # 0.29 H (0.00-0.04) X 10*3/uL Neutrophils # 9.21 H (1.80-7.70) X 10*3/uL Eosinophils # 0.47 H (0.04-0.35) X 10*3/uL Basophils # 0.16 H (0.00-0.10) X 10*3/uL NRBC/100 WBC Diff 0.5 H (0.0-0.0) /100 WBCS Chloride 112 H (98-107) mmol/L Carbon Dioxide 21 L (22-30) mmol/L BUN 48 H (9-20) mg/dL Creatinine 2.02 H (0.66-1.25) mg/dL Assessment and Plan Plan: #1. Acute hypoxic respiratory failure secondary to suspected aspiration pneumonia, and acute exacerbation of diastolic CHF. Patient required intubation and placement on mechanical ventilator at [facility] on 02/06/2021, was successfully weaned and extubated on 02/08/2021. Pulmonary status is stable and the patient remains on 3 L of oxygen by nasal cannula and the patient has been extubated successfully. His evaluation of 02/15/2021, the patient remains on 4 L of oxygen by nasal cannula. No signs of any significant respiratory distress. Overall, the patient is improving. Nevertheless, he is still going to need aggressive physical therapy and rehabilitation. Sodium level is improved. #2. Nausea, vomiting, the possibility of ileus or bowel obstruction, surgery is on the case, currently ostomy is functioning, no surgical intervention was recommended #3. ESBL Klebsiella pneumonia urinary tract infection, currently on ertapenem #4. Hypernatremia, improved and the sodium level has also normalized #5. History of bowel obstruction status post ostomy in 2013 #6. Acute kidney injury related to ATN, improved with a creatinine stable at 2.0 #7. Anion gap metabolic acidosis related to sepsis, pneumonia, serum bicar bonate stable at 18 my the patient is currently on oral bicarbonate for now. #8. Anemia possibly chronic #9. Permanent pacemaker implantation, likely for history of atrial fibrillation, patient is on Eliquis #10. History of hypertension #11. Hyperlipidemia #12. BPH #13. GERD/reflux Plan: IVF KVO Restarted on Lasix by nephrology A midline was inserted for outpatient IV antibiotic treatment Oral bicarbonate replacement either the bicarb levels, monitor the bicarb levels I reviewed the CAT scan of the chest and it shows extensive consolidation of the lung bases more than effusions. As such there is no role for thoracentesis. Deep breathing. Aspiration precautions. Continued IV Invanz for now. Deep breathing and pulmonary toileting Continue antibiotics Continue breathing treatments Maintain aspiration precautions Consider ECF transfer probably by tomorrow. Currently on 3 L of Oxymizer nasal cannula
--- NOTE | 2021-02-16 15:03 | P.PN ---
Subjective Progress Note Date: 02/16/21 This is an 80-year-old male who was recently admitted with aspiration pneumonia, CHF acute exacerbation, acute hypoxic respiratory failure and being closely monitored. Multiple medical consultations including nephrology and infectious disease following. Patient was also found to have ESBL Klebsiella in the urine and maintained on IV Invanz with infectious disease following. Plan is for midline and to continue with one week of IV antibiotics upon discharge at the [facility]. Nephrology following closely and patient maintained on oral Lasix 40 mg daily and was given a dose of IV Lasix today and kidney functions stable. Patient will need close outpatient follow-up with nephrology upon discharge. Labs: White blood count is 12.06, hemoglobin is 10, platelets are 448, sodium is 142, potassium is 4.7, creatinine is 2.02, BUN is 48, magnesium is 1.8. Review of systems: Constitutional: No reports of fatigue, fever, or chills Cardiovascular: No reports of chest pain or palpitations Respiratory: No reports of worsening shortness of breath, reports continued cough and phlegm GI: No reports of nausea, vomiting, or diarrhea : No reports of dysuria or retention, currently with indwelling Simpson catheter Neurovascular: Reports generalized weakness All medications have been reviewed Active Medications Albuterol/Ipratropium (Ipratropium-Albuterol 3 Ml Neb) 3 ml INHALATION RT-Q2H PRN PRN Reason: Shortness Of Breath Or Wheezing Albuterol/Ipratropium (Ipratropium-Albuterol 3 Ml Neb) 3 ml INHALATION RT-QID [facility] Last Admin: 02/16/21 11:53 Dose: Not Given Documented by: Amlodipine Besylate (Amlodipine 10 Mg Tab) 10 mg PO DAILY [facility] Last Admin: 02/16/21 07:52 Dose: 10 mg Documented by: Apixaban (Apixaban 2.5 Mg Tablet) 2.5 mg PO BID [facility]; Protocol Last Admin: 02/16/21 07:52 Dose: 2.5 mg Documented by: Atorvastatin Calcium (Atorvastatin 40 Mg Tab) 40 mg PO DAILY [facility] Last Admin: 02/16/21 07:51 Dose: 40 mg Documented by: Carvedilol (Carvedilol 12.5 Mg Tab) 12.5 mg PO BID-W/MEALS [facility] Last Admin: 02/16/21 07:52 Dose: 12.5 mg Documented by: Ertapenem 0.5 gm/ Sodium (Chloride) 50 mls @ 100 mls/hr IVPB DAILY [facility]; Protocol Last Admin: 02/16/21 07:53 Dose: 100 mls/hr Documented by: Loratadine (Loratadine 10 Mg Tab) 10 mg PO DAILY PRN PRN Reason: Allergy Symptoms Last Admin: 02/15/21 20:32 Dose: 10 mg Documented by: Miscellaneous Information (Magnesium Replacement Protocol 1 Each Misc) 1 each MISCELLANE DAILY PRN; Protocol PRN Reason: Per Protocol Multivitamins (Multivitamins, Thera 1 Each Tab) 1 each PO DAILY [facility] Last Admin: 02/16/21 07:52 Dose: 1 each Documented by: Naloxone HCl (Naloxone 0.4 Mg/Ml 1 Ml Vial) 0.2 mg IV Q2M PRN PRN Reason: Opioid Reversal Pantoprazole Sodium (Pantoprazole 40 Mg/10 Ml Vial) 40 mg IV DAILY [facility] Last Admin: 02/16/21 07:53 Dose: 40 mg Documented by: Sodium Bicarbonate (Sodium Bicarbonate Tab 650 Mg Tab) 650 mg PO BID [facility] Last Admin: 02/16/21 07:52 Dose: 650 mg Documented by: Tamsulosin HCl (Tamsulosin 0.4 Mg Cap.Er.24h) 0.4 mg PO DAILY [facility] Last Admin: 02/16/21 07:52 Dose: 0.4 mg Documented by: Physical exam: Gen: This is a 80-year-old male awake, alert and oriented 2, well-developed, well-nourished. Temp is 97.7F, pulse is 70, respirations are 20, blood press ure 146/60, oxygen saturation is 97% on 4 L via nasal cannula HEENT: Head is atraumatic, normocephalic. Pupils equal, round. Sclerae is anicteric. NECK: Supple. No JVD. No lymphadenopathy. No thyromegaly. LUNGS: Breath sounds diminished at the bases with some scattered rhonchi and crackles noted throughout. Weak cough on exam. No intercostal retractions. HEART: S1, S2 are muffled ABDOMEN: Soft. Bowel sounds are present. No masses. No tenderness. EXTREMITIES: No pedal edema. No calf tenderness. NEUROLOGICAL: Patient is awake, alert and oriented x2. Diffusely weak Assessment: Acute bilateral aspiration pneumonia with acute hypoxic respiratory failure, status post mechanical ventilation Congestive heart failure, acute exacerbation with acute on chronic diastolic dysfunction Acute renal failure with acute tubular necrosis and prerenal renal failure Hypovolemic hyponatremia Septic shock secondary to Klebsiella urinary tract infection, ESBL Change in mental status, acute metabolic encephalopathy Gait dysfunction Atrial fibrillation, rate controlled Acute kidney injury secondary to acute tubular necrosis from hypotension Bowel obstruction, resolved Hypertension neck slight benign prostatic hypertrophy Gastroesophageal reflux disease Hyperlipidemia Dysphagia Severe protein calorie malnutrition Hyponatremia Hypocalcemia, mild And increased white count Anemia of chronic disease [place] elevated platelets No code, no CPR, no vent Plan: Recommend to continue with current medications, management, and symptomatic treatment. Nephrology following closely and patient was given a dose of IV Lasix and will continue with 40 mg of oral Lasix daily with close outpatient follow-up. Patient continued on 4 L via nasal cannula and denies any worsening shortness of breath. Patient continues with a weak cough with some phlegm production and encourage the patient to continue coughing and deep breathing. Encourage incentive spirometer. Patient continues with indwelling Simpson dmitry ter and maintained on IV antibiotics in the form of Invanz with infectious disease following closely. Will order midline as patient will require IV antibiotic therapy for 1 week in the outpatient setting ECF upon discharge. Social work following as patient plans to go to [facility] once sta bilized and discharged. Patient will need outpatient nephrology follow-up closely upon discharge. Due to multiple complex medical issues, prognosis is guarded. Patient will possibly be discharged to ECF in 24 hours. Objective - Vital Signs Vital signs: Vital Signs Temp 97.7 F 02/16/21 08:00 Pulse 72 02/16/21 08:13 Resp 18 02/16/21 08:13 BP 146/60 02/16/21 08:00 Pulse Ox 94 L 02/16/21 08:03 Intake & Output 02/15/21 02/16/21 02/16/21 18:59 06:59 18:59 Intake Total 600 Output Total 1000 1500 Balance -1000 -900 Weight 83.5 kg Intake: Intake, IV Titration 600 Amount Dextrose 5% in Water 1, 600 000 ml @ 50 mls/hr IV . Q20H ONE Rx#:[id number] Output: Urine 1000 1100 Stool 400 Other: Voiding Method Indwelling Catheter Indwelling Catheter Indwelling Catheter # Bowel Movements 1 ABP, PAP, CO, CI - Last Documented Arterial Blood Pressure 129/44 - Labs CBC & Chem 7: 02/16/21 05:51 02/16/21 05:51 Labs: Abnormal Lab Results - Last 24 Hours (Table) 02/16/21 Range/Units 05:51 Chloride 112 H (98-107) mmol/L Carbon Dioxide 21 L (22-30) mmol/L BUN 48 H (9-20) mg/dL Creatinine 2.02 H (0.66-1.25) mg/dL
--- NOTE | 2021-02-16 22:55 | PN ---
PROGRESS NOTE DATE OF SERVICE: 02/16/2021 REASON FOR FOLLOWUP: ESBL E coli urinary tract infection. INTERVAL HISTORY: The patient is afebrile. The patient is currently breathing comfortably. The patient denies having any chest pain, shortness of breath. Occasional cough. No abdominal pain or diarrhea. PHYSICAL EXAMINATION: Blood pressure 129/65, pulse of 73, temperature 97.5. He is 93% on 3 L nasal cannula. General description is an elderly male up in the bed in no distress. Respiratory system: Unlabored breathing, decreased intensity of breath sounds. No wheeze. Heart S1, S2. Regular rate and rhythm. Abdomen soft, no tenderness. Extremities no edema of the feet. LABS: Hemoglobin is 10, white count 12.06, creatinine 2.02. DIAGNOSTIC IMPRESSION AND PLAN: Patient with ESBL Escherichia coli urinary tract infection. Patient did have overall improvement of his kidney function. Ertapenem dose will be adjusted up to 1 gram. Will discuss with the pharmacy. Plan for week or antibiotic on discharge. Continue with supportive care. MMODL / IJN: [id number] /
[2021-02-17 07:42] LABS: African American GFR (CKD) 36 (>60 ml/min/1.73 sqM); Anion Gap 9 mmol/L; Blood Urea Nitrogen 47 mg/dL (9-20); Calcium 8.8 mg/dL (8.4-10.2); Carbon Dioxide 23 mmol/L (22-30); Chloride 112 mmol/L (98-107); Glucose 87 mg/dL (74-99); Non-African American GFR(CKD) 31 (>60 ml/min/1.73 sqM); Potassium 4.6 mmol/L (3.5-5.1); Sodium 144 mmol/L (137-145)
[2021-02-17] MEDS: ERTAPENEM 0.5 GM in SODIUM CHLORIDE 0.9% 50 ML IVPB SCH (07:43)
[2021-02-17] MEDS: SODIUM BICARBONATE TAB 650 MG TAB PO SCH (07:44)
[2021-02-17] MEDS: MULTIVITAMINS, THERA 1 EACH TAB PO SCH (07:44)
[2021-02-17] MEDS: ATORVASTATIN 40 MG TAB PO SCH (07:44)
[2021-02-17] MEDS: TAMSULOSIN 0.4 MG CAP.ER.24H PO SCH (07:44)
[2021-02-17] MEDS: carvediloL 12.5 MG TAB PO SCH (07:44)
[2021-02-17] MEDS: amLODIPine 10 MG TAB PO SCH (07:44)
[2021-02-17] MEDS: APIXABAN 2.5 MG TABLET PO SCH (07:44)
[2021-02-17] MEDS: PANTOPRAZOLE 40 MG/10 ML VIAL IV SCH (07:44)
[2021-02-17 08:20] VITALS: BP 148/68; RESP 18; TEMP 97.7
[2021-02-17] MEDS: IPRATROPIUM-ALBUTEROL 3 ML NEB INHALATION SCH ×3 (09:01→15:30)
--- NOTE | 2021-02-17 09:52 | P.PN ---
Subjective Patient is seen in follow-up for acute kidney injury. Renal function is stable. Sodium level also fairly stable. No vomiting or diarrhea. On 3L nasal cannula. No active complaints. Vital signs are stable. General: The patient appeared well nourished and normally developed. HEENT: Head exam is unremarkable. LUNGS: Breath sounds decreased. HEART: Rate and Rhythm are regular. ABDOMEN: Soft, no distention. EXTREMITITES: No edema. Objective - Vital Signs Vital signs: Vital Signs Temp 97.7 F 02/17/21 08:00 Pulse 75 02/17/21 09:15 Resp 18 02/17/21 08:00 BP 148/68 02/17/21 08:00 Pulse Ox 94 L 02/17/21 09:02 Intake & Output 02/16/21 02/17/21 02/17/21 18:59 06:59 18:59 Intake Total 540 Output Total 1200 2450 Balance -1200 -1910 Weight 83.5 kg 74.5 kg Intake: Oral 540 Output: Urine 1200 1750 Stool 700 Other: Voiding Method Indwelling Catheter Indwelling Catheter Indwelling Catheter ABP, PAP, CO, CI - Last Documented Arterial Blood Pressure 129/44 - Labs CBC & Chem 7: 02/16/21 05:51 02/17/21 06:48 Labs: Abnormal Lab Results - Last 24 Hours (Table) 02/16/21 02/17/21 Range/Units 05:51 06:48 WBC 12.06 H (4.50-10.00) X 10*3/uL RBC 4.18 L (4.40-5.60) X 10*6/uL Hgb 10.0 L (13.0-17.0) g/dL Hct 35.1 L (39.6-50.0) % MCH 23.9 L (27.0-32.0) pg MCHC 28.5 L (32.0-37.0) g/dL RDW 25.3 H (11.5-14.5) % Plt Count 448 H (140-440) X 10*3/uL Plt Count Comment INCREASED A Absolute Nucleated RBC 0.06 H (0.00-0.00) X 10*3/uL Immature Gran # 0.29 H (0.00-0.04) X 10*3/uL Neutrophils # 9.21 H (1.80-7.70) X 10*3/uL Eosinophils # 0.47 H (0.04-0.35) X 10*3/uL Basophils # 0.16 H (0.00-0.10) X 10*3/uL NRBC/100 WBC Diff 0.5 H (0.0-0.0) /100 WBCS Chloride 112 H (98-107) mmol/L BUN 47 H (9-20) mg/dL Creatinine 1.96 H (0.66-1.25) mg/dL Assessment and Plan Plan: Assessment: 1. Acute kidney injury mostly prerenal secondary to hypovolemia. Creatinine peaked at 2.8 this admission and 1.96 yesterday. Unknown baseline renal function. 2. Hypernatremia from lack of oral water intake. Improved with D5W. 3. Klebsiella UTI on antibiotics. 4. Metabolic acidosis secondary to acute kidney injury. Improving. Maintained on oral bicarb. 5. Bilateral pleural effusions. Plan: Remains off IV fluids. Encouraged oral intake, including free water. Continue to monitor renal function and urine output. Add Lasix 40 mg orally once daily. Repeat BMP and magnesium level 2-3 days postdischarge. Follow up outpatient in 7-10 days
[2021-02-17] MEDS ORDERED: FUROSEMIDE 40 MG TAB PO SCH (10:00)
--- NOTE | 2021-02-17 13:54 | P.DS ---
Providers Date of admission: 02/07/21 01:21 Expected date of discharge: 02/17/21 Attending physician: Alyse Sosa Consults: 02/07/21 01:22 Consult Physician Urgent Consulting Provider: Suraj Montoya Consult Reason/Comments: acute VDRF, chf exacerbation Do you want consulting provider notified?: Yes 02/10/21 10:04 Consult Physician Routine Consulting Provider: Deb Barrientos Consult Reason/Comments: ESBL UTI Do you want consulting provider notified?: Yes 02/11/21 16:21 Consult Physician Routine Consulting Provider: Negro Newell Consult Reason/Comments: renal failure Do you want consulting provider notified?: Yes 02/11/21 18:19 Consult Physician Routine Consulting Provider: Jake Todd Consult Reason/Comments: renal failure Do you want consulting provider notified?: Yes Primary care physician: Bubba Tejada Hospital Course: Final diagnosis Acute bilateral aspiration pneumonia with acute hypoxic respiratory failure, status post mechanical ventilation Congestive heart failure, acute exacerbation with acute on chronic diastolic dysfunction Acute renal failure with acute tubular necrosis and prerenal renal failure Hypovolemic hyponatremia Septic shock secondary to Klebsiella urinary tract infection, ESBL Change in mental status, acute metabolic encephalopathy Gait dysfunction Atrial fibrillation, rate controlled Acute kidney injury secondary to acute tubular necrosis from hypotension Bowel obstruction, resolved Hypertension benign prostatic hypertrophy Gastroesophageal reflux disease Hyperlipidemia Dysphagia Severe protein calorie malnutrition Hyponatremia Hypocalcemia, mild increased white count Anemia of chronic disease elevated platelets No code, no CPR, no vent Discharge disposition Patient is being discharged in a stable condition with guarded prognosis to [facility] for continued PT/OT therapy. Patient will follow-up with Dr. Tejada in the outpatient setting upon discharge. Patient is also to follow-up with nephrology Dr. Todd in the outpatient setting in 1-2 weeks. Patient will continue on IV Invanz for 1 week secondary to UTI and recommend outpatient follow-up with Dr. Barrientos in 1-2 weeks. Total time taken is greater than 35 minutes. Hospital course This is an 80-year-old male who was recently admitted with aspiration pneumonia, CHF acute exacerbation, acute hypoxic respiratory failure and being closely monitored. Multiple medical consultations including nephrology and infectious disease following. Patient was also found to have ESBL Klebsiella in the urine and maintained on IV Invanz with infectious disease following. Plan is for midline and to continue with one week of IV antibiotics upon discharge at the [facility]. Nephrology following closely and patient maintained on oral Lasix 40 mg daily and was given a dose of IV Lasix today and kidney functions stable. Patient will need close outpatient follow-up with nephrology upon discharge. 02/17/2021 Patient is seen and evaluated and follow-up this morning currently sitting up in the chair and has worked with physical therapy. Patient continues with indwelling Simpson catheter for urinary retention and extensive urinary tract infection and will continue and will also be discharged on one week of IV Invanz with close outpatient follow-up with infectious disease Dr. Barrientos. Patient has received a midline for this. Patient will also need outpatient nephrology follow-up in one week and recommend repeat labs in 2-3 days to monitor CBC, BMP, magnesium level. Patient will continue on Lasix 40 mg daily and also was mainta ined on 3-4 L of oxygen via nasal cannula. Patient is currently on dysphagia 1 pureed Diet and will continue with recommendations of aspiration precautions head of the bed elevated 30-45, nectar thickened liquids, free water with ice chips in between meals, and supervision with meals. Currently no reports of chest pain, worsening shortness of breath, or palpitations. Patient is afebrile. No reports of nausea or vomiting and patient is tolerating diet. Patient will be going to [facility] today. Gen: This is a 80-year-old male awake, alert and oriented 2, well-developed, well-nourished. Temp is 97.7F, pulse is 73, respirations are 18, blood pressure 148/68, oxygen saturation is 96% on 3 L via nasal cannula HEENT: Head is atraumatic, normocephalic. Pupils equal, round. Sclerae is anicteric. NECK: Supple. No JVD. No lymphadenopathy. No thyromegaly. LUNGS: Breath sounds diminished at the bases with some scattered rhonchi and crackles noted throughout. Weak cough on exam. No intercostal retractions. HEART: S1, S2 are muffled ABDOMEN: Soft. Bowel sounds are present. No masses. No tenderness. EXTREMITIES: No pedal edema. No calf tenderness. NEUROLOGICAL: Patient is awake, alert and oriented x2. Diffusely weak Please refer to medication reconciliation sheet for a list of medications. Patient Condition at Discharge: Stable Plan - Discharge Summary Discharge Rx Participant: No New Discharge Prescriptions: New Ipratropium-Albuterol Nebulize [Duoneb 0.5 mg-3 mg/3 ml Soln] 3 ml INHALATION RT-QID ml Apixaban [Eliquis] 2.5 mg PO BID tablet Ertapenem [INVanz] 0.5 gm IVPB DAILY 7 Days #7 each Furosemide [Lasix] 40 mg PO DAILY tab Ipratropium-Albuterol Nebulize [Duoneb 0.5 mg-3 mg/3 ml Soln] 3 ml INHALATION RT-Q2H PRN ml PRN Reason: Shortness Of Breath Or Wheezing Continue Sodium Bicarbonate Tab 650 mg PO QID@,,, Tamsulosin HCl [Flomax] 0.4 mg PO DAILY Carvedilol [Coreg] 12.5 mg PO BID Atorvastatin Calcium [Lipitor] 40 mg PO DAILY amLODIPine [Norvasc] 10 mg PO DAILY Multivitamins, Thera [Multivitamin (formulary)] 1 tab PO DAILY Loratadine [Claritin] 10 mg PO DAILY PRN PRN Reason: Allergy Symptoms Lansoprazole [Prevacid] 30 mg PO DAILY Discontinued Ferrous Sulfate [Feosol] 325 mg PO MOWEFR Apixaban [Eliquis] 5 mg PO BID hydroCHLOROthiazide [Hydrodiuril] 25 mg PO DAILY Discharge Medication List Atorvastatin Calcium [Lipitor] 40 mg PO DAILY 02/06/21 [History] Carvedilol [Coreg] 12.5 mg PO BID 02/06/21 [History] Lansoprazole [Prevacid] 30 mg PO DAILY 02/06/21 [History] Loratadine [Claritin] 10 mg PO DAILY PRN 02/06/21 [History] Multivitamins, Thera [Multivitamin (formulary)] 1 tab PO DAILY 02/06/21 [History] Sodium Bicarbonate Tab 650 mg PO QID@,,,02/06/21 [History] Tamsulosin HCl [Flomax] 0.4 mg PO DAILY 02/06/21 [History] amLODIPine [Norvasc] 10 mg PO DAILY 02/06/21 [History] Apixaban [Eliquis] 2.5 mg PO BID tablet 02/17/21 [Rx] Ertapenem [INVanz] 0.5 gm IVPB DAILY 7 Days #7 each 02/17/21 [Rx] Furosemide [Lasix] 40 mg PO DAILY tab 02/17/21 [Rx] Ipratropium-Albuterol Nebulize [Duoneb 0.5 mg-3 mg/3 ml Soln] 3 ml INHALATION RT-Q2H PRN ml 02/17/21 [Rx] Ipratropium-Albuterol Nebulize [Duoneb 0.5 mg-3 mg/3 ml Soln] 3 ml INHALATION RT-QID ml 02/17/21 [Rx] Follow up Appointment(s)/Referral(s): Bubba Tejada MD [Primary Care Provider] - 1-2 days (F) Jake Todd DO [STAFF PHYSICIAN] - 1 Week Ambulatory/Diagnostic Orders: Complete Blood Count w/diff [LAB.AMB] Time Frame: 3 Days, Location: None Selected Activity/Diet/Wound Care/Special Instructions: [facility] [phone] Patient is going to [facility] Activity as tolerated Continue medications as prescribed Continue with IV antibiotic therapy for 1 week Follow-up with Floyd in the outpatient setting Follow-up with nephrology outpatient Continue indwelling Simpson catheter for retention Repeat labs of CBC, BMP, magnesium in 2-3 days Follow-up with primary care provider on discharge Recommend to continue with dysphasia 1 pured diet and may have free water with ice chips between meals, nectar thickened liquids, strict aspiration precautions, and one-to-one supervision with meals Continue with Magic cups for lunch and dinner Continue with oxygen supplementation of 3 L via nasal cannula Discharge Disposition: TRANSFER TO SNF/F
[2021-02-17 15:44] VITALS: PULSE 78
--- NOTE | 2021-02-17 18:16 | PN ---
PROGRESS NOTE DATE OF SERVICE: 02/17/2021 REASON FOR FOLLOWUP: ESBL Klebsiella urinary tract infection. INTERVAL HISTORY: The patient is afebrile. The patient is currently breathing comfortably. No chest pain, shortness of breath or cough. No abdominal pain or diarrhea. PHYSICAL EXAMINATION: Blood pressure 148/68 with a pulse of 73, temperature 97.7. He is 96% on 3 L nasal cannula. General description is an elderly male up in the chair in no distress. Respiratory system: Unlabored breathing, coarse breath sounds bilaterally. No wheeze. Heart S1, S2. Regular rate and rhythm. Abdomen soft, no tenderness. LABS: Creatinine is 1.96. DIAGNOSTIC IMPRESSION AND PLAN: Patient with ESBL Klebsiella urinary tract infection, on Invanz, which should be adjusted up to 1 gram with improvement in his kidney function. Continue for about a week on discharge and close outpatient followup. MMODL / TERIN: [id number] /
== END 2021-02-17 16:19 | DRG 871 ==
LOC: EC 22:02 → 2SICU 02-07 01:21 → 4SSUR 02-10 14:36
PROVIDERS: ADMIT Hospitalist; ATTEND Hospitalist
PROC: 05HN33Z Insertion of Infusion Device into Left Internal Jugular Vein, Percutaneous Approach (ICD-10-PCS; principal; 2021-02-07)
PROC: B5141ZA Fluoroscopy of Left Jugular Veins using Low Osmolar Contrast, Guidance (ICD-10-PCS; 2021-02-07)
PROC: 03HY32Z Insertion of Monitoring Device into Upper Artery, Percutaneous Approach (ICD-10-PCS; 2021-02-07)
PROC: 4A133B1 Monitoring of Arterial Pressure, Peripheral, Percutaneous Approach (ICD-10-PCS; 2021-02-07)
PROC: 4A133J1 Monitoring of Arterial Pulse, Peripheral, Percutaneous Approach (ICD-10-PCS; 2021-02-07)
PROC: 5A1935Z Respiratory Ventilation, Less than 24 Consecutive Hours (ICD-10-PCS; 2021-02-07)
DX: A41.59 Other Gram-negative sepsis (principal); I50.33 Acute on chronic diastolic (congestive) heart failure; J69.0 Pneumonitis due to inhalation of food and vomit; J96.01 Acute respiratory failure with hypoxia; R65.21 Severe sepsis with septic shock; R57.1 Hypovolemic shock; N17.0 Acute kidney failure with tubular necrosis; G93.41 Metabolic encephalopathy; E43 Unspecified severe protein-calorie malnutrition; Z16.12 Extended spectrum beta lactamase (ESBL) resistance; K56.609 Unspecified intestinal obstruction, unspecified as to partial versus complete obstruction; N39.0 Urinary tract infection, site not specified; E87.0 Hyperosmolality and hypernatremia; E87.1 Hypo-osmolality and hyponatremia; E87.2 Acidosis; Z20.822 Contact with and (suspected) exposure to COVID-19; E78.5 Hyperlipidemia, unspecified; E83.51 Hypocalcemia; E86.0 Dehydration; I11.0 Hypertensive heart disease with heart failure; Z95.0 Presence of cardiac pacemaker; Z93.3 Colostomy status; Z93.2 Ileostomy status; Z90.49 Acquired absence of other specified parts of digestive tract; Z87.891 Personal history of nicotine dependence; Z87.442 Personal history of urinary calculi; Z86.73 Personal history of transient ischemic attack (TIA), and cerebral infarction without residual deficits; Z83.3 Family history of diabetes mellitus; Z82.49 Family history of ischemic heart disease and other diseases of the circulatory system; Z79.899 Other long term (current) drug therapy; Z79.01 Long term (current) use of anticoagulants; N40.0 Benign prostatic hyperplasia without lower urinary tract symptoms; K43.5 Parastomal hernia without obstruction or gangrene; K22.5 Diverticulum of esophagus, acquired; K21.9 Gastro-esophageal reflux disease without esophagitis; I48.91 Unspecified atrial fibrillation; I27.29 Other secondary pulmonary hypertension; B96.1 Klebsiella pneumoniae [K. pneumoniae] as the cause of diseases classified elsewhere; B96.20 Unspecified Escherichia coli [E. coli] as the cause of diseases classified elsewhere; D63.8 Anemia in other chronic diseases classified elsewhere; E86.1 Hypovolemia
CPT/HCPCS: 36410; 36415; 36600; 71045; 71250; 74230; 76770; 76937; 80048; 80053; 81001; 82805; 83605; 83735; 83880; 84145; 85025; 85027; 87040; 87070; 87077; 87086; 87186; 87205; 93306; 94002; 94003; 94640; 94760; 96361; 96374; 99285

== ENCOUNTER 2021-02-23 06:37 | Emergency (ER) | payer MEDICARE ==
[2021-02-23 06:47] VITALS: BP 129/84; PULSE 73; RESP 17; TEMP 97.7
--- NOTE | 2021-02-23 06:59 | ED ---
Fall HPI - General Chief Complaint: Fall Stated Complaint: Fall Time Seen by Provider: 02/23/21 06:39 Source: patient, EMS Mode of arrival: EMS Limitations: no limitations - History of Present Illness Initial Comments: This 80-year-old male presents emergency Department chief complaint of a fall. Patient presents from [facility]. Patient was attempting to transfer slipped striking his head. Patient has no complaints he is on Eliquis was sent for further evaluation. Denies any neck, back pain, extremity injury. Patient is at his normal baseline. Patient offers no other complaints. - Related Data Home Medications Medication Instructions Recorded Confirmed Atorvastatin Calcium [Lipitor] 40 mg PO DAILY 02/06/21 02/06/21 Carvedilol [Coreg] 12.5 mg PO BID 02/06/21 02/06/21 Lansoprazole [Prevacid] 30 mg PO DAILY 02/06/21 02/06/21 Loratadine [Claritin] 10 mg PO DAILY PRN 02/06/21 02/06/21 Multivitamins, Thera [Multivitamin 1 tab PO DAILY 02/06/21 02/06/21 (formulary)] Sodium Bicarbonate Tab 650 mg PO QID@05,11,17,23 02/06/21 02/06/21 Tamsulosin HCl [Flomax] 0.4 mg PO DAILY 02/06/21 02/06/21 amLODIPine [Norvasc] 10 mg PO DAILY 02/06/21 02/06/21 Previous Rx's Medication Instructions Recorded Apixaban [Eliquis] 2.5 mg PO BID tablet 02/17/21 Ertapenem [INVanz] 0.5 gm IVPB DAILY 7 Days #7 each 02/17/21 Furosemide [Lasix] 40 mg PO DAILY tab 02/17/21 Ipratropium-Albuterol Nebulize 3 ml INHALATION RT-Q2H PRN ml 02/17/21 [Duoneb 0.5 mg-3 mg/3 ml Soln] Ipratropium-Albuterol Nebulize 3 ml INHALATION RT-QID ml 02/17/21 [Duoneb 0.5 mg-3 mg/3 ml Soln] Allergies Allergy/AdvReac Type Severity Reaction Status Date / Time lisinopril AdvReac Unknown Verified 02/06/21 22:41 Review of Systems ROS Statement: Those systems with pertinent positive or pertinent negative responses have been documented in the HPI. ROS Other: All systems not noted in ROS Statement are negative. Past Medical History Past Medical History: Heart Failure, Hypertension Additional Past Medical History / Comment(s): hiatal hernia. hyperkalemia. maculuar degernation. TIA. 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 Pacemaker placed 08/15/2020 by Eleuterio Babcock ([phone]) Past Anesthesia/Blood Transfusion Reactions: No Reported Reaction Type of Cardiac Device: Permanent Pacemaker Device Placement Date:: 08/15/20 Past Psychological History: No Psychological Hx Reported Smoking Status: Former smoker Past Alcohol Use History: Rare Past Drug Use History: None Reported - Past Family History Daughter(s) Family Medical History: Diabetes Mellitus, Hypertension Additional Family Medical History / Comment(s): macular degeneration General Exam Limitations: no limitations General appearance: alert, in no apparent distress Head exam: Present: atraumatic, normocephalic. Absent: normal inspection (Frontal hematoma) Eye exam: Present: normal appearance, PERRL, EOMI. Absent: scleral icterus, conjunctival injection, periorbital swelling ENT exam: Present: normal exam, mucous membranes moist Neck exam: Present: normal inspection, full ROM. Absent: tenderness, meningismus, lymphadenopathy Respiratory exam: Present: normal lung sounds bilaterally. Absent: respiratory distress, wheezes, rales, rhonchi, stridor Cardiovascular Exam: Present: regular rate, normal rhythm, normal heart sounds. Absent: systolic murmur, diastolic murmur, rubs, gallop, clicks Neurological exam: Present: alert, oriented X3, CN II-XII intact, reflexes mario l. Absent: motor sensory deficit Skin exam: Present: warm, dry, intact, normal color. Absent: rash Course Vital Signs 02/23/21 06:39 Temperature 97.7 F Pulse Rate 73 Respiratory 17 Rate Blood Pressure 129/84 O2 Sat by Pulse 97 Oximetry Medical Decision Making - Medical Decision Making 80-year-old presented for a fall. CT is unremarkable. Patient has no other complaints patient has normal baseline will be discharged back to [facility] Disposition Clinical Impression: Fall, Traumatic hematoma of head Disposition: HOME SELF-CARE Condition: Stable Instructions (If sedation given, give patient instructions): Head Injury (ED) Additional Instructions: Please return to the Emergency Department if symptoms worsen or any other concerns. Is patient prescribed a controlled substance at d/c from ED?: No Referrals: Bubba Tejada MD [Primary Care Provider] - 1-2 days Time of Disposition: 07:50
--- NOTE | 2021-02-23 07:38 | CT ---
EXAMINATION TYPE: CT brain brendon magaña con DATE OF EXAM: 02/23/2021 COMPARISON: None HISTORY: fall CT DLP: 1364.5 mGycm, Automated exposure control for dose reduction was used. CONTRAST: Patient injected with mL of Isovue 300. CT of the brain is performed utilizing 3 mm thick sections through the posterior fossa and 3 mm thick sections through the remaining calvarium. Study is performed within 24 hours of arrival to the hospital. No abnormal hyperdensity is present to suggest an acute intracranial hemorrhage. No mass lesion is evident. No acute infarcts are evident. Periventricular white matter hypodensity is present, likely on the ba sis of chronic white matter ischemic changes. Ventricles and sulci are prominent for the patient age. Minimal mucosal thickening is in the left maxillary sinus. Remaining paranasal sinuses and mastoid ai r cells are clear. Right septal deviation is noted. IMPRESSIONS: 1. Atrophy with chronic appearing periventricular white matter ischemic changes. CT cervical spine. COMPARISON: None CT of the cervical spine is performed in the axial plane at 2 mm thick sections. Reconstructed image s in the coronal, and sagittal plane are reviewed on the computer. No acute fractures are evident. Minimal spondylolisthesis of C3 on C4 is present. Vacuum disc phenomenon is present at C5-6. Diffuse loss of disc height is present through the cervical spine. Vertebral body heights are preserved. No spinal canal stenosis is evident. There is moderate to severe bilateral foraminal stenosis due to uncovertebral joint hypertrophy and f acet hypertrophy at C3-4. Severe left foraminal stenosis at C4-5 is present with mild to moderate for aminal narrowing is present at C5-6 on the left. Note is made of vascular calcification within the right carotid system. IMPRESSIONS: 1. Degenerative disc changes throughout the cervical spine discussed above. 2. Foraminal stenosis predominantly within the left upper and mid cervical spine due to facet hypertr ophy and uncovertebral joint hypertrophy. 3. No acute fractures evident.
== END 2021-02-23 09:43 | disposition home or self-care (01) ==
LOC: EC 06:37
DX: S00.93XA Contusion of unspecified part of head, initial encounter (principal); I11.0 Hypertensive heart disease with heart failure; I50.9 Heart failure, unspecified; Z87.891 Personal history of nicotine dependence; Z88.8 Allergy status to other drugs, medicaments and biological substances; Z79.899 Other long term (current) drug therapy; Z95.0 Presence of cardiac pacemaker; Z86.73 Personal history of transient ischemic attack (TIA), and cerebral infarction without residual deficits; W01.198A Fall on same level from slipping, tripping and stumbling with subsequent striking against other object, initial encounter
CPT/HCPCS: 70450; 72125; 99284

== ENCOUNTER 2021-02-27 11:04 | Inpatient (IN) | payer MEDICARE ==
[2021-02-27 11:13] LABS: Glucose,Whole Blood 113 mg/dL (75-99)
--- NOTE | 2021-02-27 11:39 | ED ---
General Adult HPI - General Chief complaint: Altered Mental Status Stated complaint: poss CVA Time Seen by Provider: 02/27/21 11:08 Source: patient Mode of arrival: ambulatory Limitations: no limitations - History of Present Illness Initial comments: Dictation was produced using [employer] dictation software. please excuse any grammatical, word or spelling errors. Chief Complaint: 80-year-old male presents to the emergency Department for slurred speech History of Present Illness: Is 80-year-old male using a poor historian. He has past medical history of heart failure and hypertension. Patient was just admitted to our hospital discharge 2 weeks ago. He was seen in the emergency department 4 days ago. Patient is admitted for VDRL, CHF exacerbation infectious issues. Seen here 4 days ago for a fall. Patient allegedly was bro ught here for slurred speech. Patient was rounded on by retirement physician noticed slurred speech. Patient has some slurred speech at baseline. Patient was administered medications at around 7:30 AM. It's unclear that was patient's last normal period patient denies any numbness or paresthesias in the arms or legs. The ROS documented in this emergency department record has been reviewed and confirmed by me. Those systems with pertinent positive or negative responses have been documented in the HPI. All other systems are other negative and/or noncontributory. PHYSICAL EXAM: General Impression: Alert and oriented x3, not in acute distress HEENT: Normocephalic atraumatic, extra-ocular movements intact, pupils equal and reactive to light bilaterally, mucous membranes moist. Cardiovascular: Heart regular rate and rhythm Chest: Able to complete full sentences, no retractions, no tachypnea Abdomen: abdomen soft, non-tender, non-distended, no organomegaly Musculoskeletal: Pulses present and equal in all extremities, no peripheral edema Motor: no focal deficits noted Neurological: CN II-XII grossly intact, no focal motor or sensory deficits noted, generalized weakness, nothing focal, non-aphasic, he does have slurred speech. No other focal neurologic deficits noted. He is generalized weakness with weakness to both legs. Answers questions appropriately.. Non-aphasic Skin: Intact with no visualized rashes Psych: Normal affect and mood ED course: 80-year-old male sent here from [facility] for slurred speech. Patient's neurologic exam is nonfocal. Signs upon arrival shows 90% on 2 L is again, rest of vital signs within acceptable limits. More history was obtained from patient's daughter, Lo. She states that patient has been having signs of weakness slurred speech and altered mental status since yesterday. Daughter was told that today it was worse and yesterday prompting transfer to the emergency department. EKG interpretation: Ventricular rate 60, ventricular paced rhythm, QRS 160, QTC 584. No NM prolongation, no ST or T-wave changes noted. Overall, this EKG is unremarkable Lavatory evaluation obtained. CBC within acceptable limits. Coag panel metabolic panel was within acceptable limits. Rate is slightly higher than his baseline. Computed tomography scan of the brain is unremarkable. Chest x-ray shows COPD. Atelectasis small stable distended bowel loops. Otherwise no acute processes noted. Given history of new onset slurred speech over the last 48 hours and confusion patient be admitted to the hospital consultation to neurology. Patient given aspirin. Reevaluated at bedside at 1:45 PM still having slurred speech. Daughter at the bedside reports that patient has very clear speech even if his dentures aren't in. Said that something serious is occurring. Patient given aspirin. - Related Data Home Medications Medication Instructions Recorded Confirmed Atorvastatin Calcium [Lipitor] 40 mg PO HS@199902/06/21 02/27/21 Carvedilol [Coreg] 12.5 mg PO BID 02/06/21 02/27/21 Multivitamins, Thera [Multivitamin 1 tab PO DAILY 02/06/21 02/27/21 (formulary)] Sodium Bicarbonate Tab 650 mg PO QID@05,11,17,23 02/06/21 02/27/21 Tamsulosin HCl [Flomax] 0.4 mg PO DAILY 02/06/21 02/27/21 amLODIPine [Norvasc] 10 mg PO DAILY 02/06/21 02/27/21 Omeprazole 20 mg PO DAILY 02/27/21 02/27/21 Prostat 30 ml PO HS 02/27/21 02/27/21 Previous Rx's Medication Instructions Recorded Apixaban [Eliquis] 2.5 mg PO BID tablet 02/17/21 Furosemide [Lasix] 40 mg PO DAILY tab 02/17/21 Ipratropium-Albuterol Nebulize 3 ml INHALATION RT-Q2H PRN ml 02/17/21 [Duoneb 0.5 mg-3 mg/3 ml Soln] Ipratropium-Albuterol Nebulize 3 ml INHALATION RT-QID ml 02/17/21 [Duoneb 0.5 mg-3 mg/3 ml Soln] Allergies Allergy/AdvReac Type Severity Reaction Status Date / Time lisinopril AdvReac Unknown Verified 02/27/21 11:51 Review of Systems ROS Statement: Those systems with pertinent positive or pertinent negative responses have been documented in the HPI. ROS Other: All systems not noted in ROS Statement are negative. Past Medical History Past Medical History: Heart Failure, Hypertension Additional Past Medical History / Comment(s): hiatal hernia. hyperkalemia. maculuar degernation. TIA. 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 Pacemaker placed 08/15/2020 by Eleuterio Babcock ([phone]) Past Anesthesia/Blood Transfusion Reactions: No Reported Reaction Type of Cardiac Device: Permanent Pacemaker Device Placement Date:: 08/15/20 Past Psychological History: No Psychological Hx Reported Smoking Status: Former smoker Past Alcohol Use History: Rare Past Drug Use History: None Reported - Past Family History Daughter(s) Family Medical History: Diabetes Mellitus, Hypertension Additional Family Medical History / Comment(s): macular degeneration General Exam Limitations: no limitations Course Vital Signs 02/27/21 11:08 Temperature 98.7 F Pulse Rate 60 Respiratory 22 Rate Blood Pressure 114/97 O2 Sat by Pulse 92 L Oximetry Medical Decision Making - Lab Data Result diagrams: 02/27/21 11:25 02/27/21 11:25 Lab Results 02/27/21 02/27/21 02/27/21 Range/Units 11:11 11:25 11:25 WBC 6.0 (3.8-10.6) k/uL RBC 4.13 L (4.30-5.90) m/uL Hgb 10.2 L (13.0-17.5) gm/dL Hct 34.8 L (39.0-53.0) % MCV 84.3 (80.0-100.0) fL MCH 24.7 L (25.0-35.0) pg MCHC 29.3 L (31.0-37.0) g/dL RDW 22.8 H (11.5-15.5) % Plt Count 479 H (150-450) k/uL MPV 11.1 Neutrophils % 67 % Lymphocytes % 10 % Monocytes % 2 % Eosinophils % 14 % Basophils % 1 % Neutrophils # 4.0 (1.3-7.7) k/uL Lymphocytes # 0.6 L (1.0-4.8) k/uL Monocytes # 0.1 (0-1.0) k/uL Eosinophils # 0.9 H (0-0.7) k/uL Basophils # 0.1 (0-0.2) k/uL Manual Slide Review Performed Large Platelets Present Hypochromasia Marked Poikilocytosis Slight Anisocytosis Moderate Microcytosis Slight PT 15.9 H (9.0-12.0) sec INR 1.6 H (<1.2) APTT 44.5 H (22.0-30.0) sec Sodium (137-145) mmol/L Potassium (3.5-5.1) mmol/L Chloride (98-107) mmol/L Carbon Dioxide (22-30) mmol/L Anion Gap mmol/L BUN (9-20) mg/dL Creatinine (0.66-1.25) mg/dL Est GFR (CKD-EPI)AfAm (>60 ml/min/1.73 sqM) Est GFR (CKD-EPI)NonAf (>60 ml/min/1.73 sqM) Glucose (74-99) mg/dL POC Glucose (mg/dL) 113 H (75-99) mg/dL POC Glu Lime Boiler ID León Rosa Calcium (8.4-10.2) mg/dL Magnesium (1.6-2.3) mg/dL 02/27/21 Range/Units 11:25 WBC (3.8-10.6) k/uL RBC (4.30-5.90) m/uL Hgb (13.0-17.5) gm/dL Hct (39.0-53.0) % MCV (80.0-100.0) fL MCH (25.0-35.0) pg MCHC (31.0-37.0) g/dL RDW (11.5-15.5) % Plt Count (150-450) k/uL MPV Neutrophils % % Lymphocytes % % Monocytes % % Eosinophils % % Basophils % % Neutrophils # (1.3-7.7) k/uL Lymphocytes # (1.0-4.8) k/uL Monocytes # (0-1.0) k/uL Eosinophils # (0-0.7) k/uL Basophils # (0-0.2) k/uL Manual Slide Review Large Platelets Hypochromasia Poikilocytosis Anisocytosis Microcytosis PT (9.0-12.0) sec INR (<1.2) APTT (22.0-30.0) sec Sodium 145 (137-145) mmol/L Potassium 4.8 (3.5-5.1) mmol/L Chloride 112 H (98-107) mmol/L Carbon Dioxide 24 (22-30) mmol/L Anion Gap 9 mmol/L BUN 61 H (9-20) mg/dL Creatinine 2.82 H (0.66-1.25) mg/dL Est GFR (CKD-EPI)AfAm 23 (>60 ml/min/1.73 sqM) Est GFR (CKD-EPI)NonAf 20 (>60 ml/min/1.73 sqM) Glucose 112 H (74-99) mg/dL POC Glucose (mg/dL) (75-99) mg/dL POC Glu Lime Boiler ID Calcium 8.4 (8.4-10.2) mg/dL Magnesium 1.8 (1.6-2.3) mg/dL Disposition Clinical Impression: Slurred speech Disposition: ADMITTED IP TO THIS [facility] Condition: Fair Referrals: Zackary Fisher MD [Primary Care Provider] - 1-2 days
[2021-02-27 11:45] LABS: Anisocytosis Moderate; Basophils # (A) 0.1 k/uL (0-0.2); Basophils % (A) 1 %; Eosinophils # (A) 0.9 k/uL (0-0.7); Eosinophils % (A) 14 %; HCT 34.8 % (39.0-53.0); HGB 10.2 gm/dL (13.0-17.5); Hypochromasia Marked; Lymphocytes # (A) 0.6 k/uL (1.0-4.8); Lymphocytes % (A) 10 %; MCH 24.7 pg (25.0-35.0); MCHC 29.3 g/dL (31.0-37.0); MCV 84.3 fL (80.0-100.0); Mean Platelet Volume 11.1; Microcytosis Slight; Monocytes # (A) 0.1 k/uL (0-1.0); Monocytes % (A) 2 %; Neutrophils % (A) 67 %; Platelet Count 479 k/uL (150-450); Poikilocytosis Slight; RBC 4.13 m/uL (4.30-5.90); RDW 22.8 % (11.5-15.5)
[2021-02-27 12:04] LABS: Calcium 8.4 mg/dL (8.4-10.2); Magnesium 1.8 mg/dL (1.6-2.3); Potassium 4.8 mmol/L (3.5-5.1)
--- NOTE | 2021-02-27 12:09 | CT ---
EXAMINATION TYPE: CT brain wo con DATE OF EXAM: 02/27/2021 HISTORY: Weakness. CT DLP: 1173.5 mGycm. Automated Exposure Control for Dose Reduction was Utilized. TECHNIQUE: CT scan of the head is performed without contrast. COMPARISON: CT brain 4 days ago. FINDINGS: There is no acute intracranial hemorrhage or midline shift identified. There is mild to m oderate diffuse ventricular and sulcal prominence consistent with diffuse age-related cerebral atroph y. There is moderate to severe low-attenuation in the periventricular white matter consistent with c hronic small vessel ischemic change. Mild mucosal thickening in the posterior inferior left maxillary sinus otherwise paranasal sinuses remain clear and globes are intact bilaterally. Interval resolut ion of the small left frontal acute scalp hematoma. IMPRESSION: No acute intracranial hemorrhage or midline shift. There is ekne-io-shesdadz diffuse ag e-related cerebral atrophy and moderate to advanced chronic small vessel ischemic change redemonstrat ed.
[2021-02-27 12:11] LABS: INR 1.6 (<1.2); Partial Thromboplastin Time 44.5 sec (22.0-30.0); Prothrombin Time 15.9 sec (9.0-12.0)
[2021-02-27 12:29] LABS: Large Platelets Present
--- NOTE | 2021-02-27 12:32 | XR ---
From 02/14/2021. CT performed at that time shows EXAMINATION TYPE: XR chest 1V portable DATE OF EXAM: 02/27/2021 Comparison: 02/14/2021 Clinical History: 80-year-old male with slurred speech Findings: Left anterior chest wall pacemaker generator with right ventricular lead. Heart is borderline enlarge d. There seems to be volume loss in the left side of the chest with slight shift of the heart to the left and worsening left lower lung opacity. Mild interstitial prominence persists. Air lucency below the right hemidiaphragm is unchanged and when correlating with CT, to correspond to a distended small bowel loop at the level of prior surgery. Impression: 1. COPD with interstitial changes. Correlate for possible mild pulmonary vascular congestion. COVID p neumonia can be excluded clinically. 2. Developing volume loss in the left hemithorax with a worsening retrocardiac and left lower lung op acity probably a combination of atelectasis and consolidation/pneumonia. Clinically correlate. 3. Stable distended small bowel loops below the right hemidiaphragm, likely chronic postsurgical benito ge.
[2021-02-27] MEDS ORDERED: ACETAMINOPHEN TAB 325 MG TAB PO PRN (13:38)
[2021-02-27] MEDS ORDERED: NALOXONE 0.4 MG/ML 1 ML VIAL IV PRN (13:38)
[2021-02-27] MEDS ORDERED: ASPIRIN 81 MG PO STA (13:39)
[2021-02-27 14:28] LABS: Appearance,Urine Cloudy (Clear); Bilirubin,Urine Negative (Negative); Blood,Urine Moderate (Negative); Budding Yeast,Urine Rare /hpf; Calcium Oxalate Crystals,Urine Few /hpf; Color,Urine Yellow; Glucose,Urine (UA) Negative (Negative); Ketones,Urine Negative (Negative); Leukocyte Esterase,Urine Large (Negative); Nitrite,Urine Negative (Negative); PH, Urine 5.5 (5.0-8.0); Protein,Urine 2+ (Negative); RBC,Urine 40 /hpf (0-5); Specific Gravity,Urine 1.012 (1.001-1.035); Squamous Epithelial Cell,Urine <1 /hpf (0-4); Urobilinogen,Urine <2.0 mg/dL (<2.0); WBC,Urine 165 /hpf (0-5)
[2021-02-27 14:33] LABS: ALT 12 U/L (4-49); AST 37 U/L (17-59); Albumin 2.8 g/dL (3.5-5.0); Alkaline Phosphatase 261 U/L (38-126); Bilirubin, Delta 0.3 mg/dL (0.0-0.2); Bilirubin,Unconjugated 0.9 mg/dL (0.0-1.1); Total Bilirubin 1.2 mg/dL (0.2-1.3)
--- NOTE | 2021-02-27 14:40 | P.HPIM ---
History of Present Illness This is a pleasant 80 years old male with past medical history of hypertension, diastolic heart failure, recently admitted to this facility for CHF and aspiration pneumonia status post intubation. He had ESBL Klebsiella pneumonia a nd urinary tract infection, BPH, GERD, hyperlipidemia, status post permanent pacemaker placement Information were obtained from the patient and daughter at bedside. After recent hospitalization earlier this month [facility], he was started on 4 L/m of oxygen per daughter also left upper extremity PICC line for his ESBL urinary tract infection he finished his antibiotics 3 days ago while they kept line in his left upper extremity to elevate check his urine analysis as he had urinary retention 3 days ago and Simpson catheter placed Yesterday patient was confused and some slurred speech but a daughter and staff, for example he would call his sister and complaining she hurts him although she hasn't seen him for the last 3-4 years feeling at his daughter which is unusual for him and trying to reach for the roof light faring it will fall upon his head This morning he was more copious saline was sent to the hospital. Currently patient looks calm, he knows his daughter, he could tell the year and the name of the president and his answers are appropriate. However he states he feels funny and did not himself. However he denies any specific symptoms he denies headache, no weakness or numbness in extremities. No blurred vision. No slurred speech. No abdominal pain. No nausea vomiting. No diarrhea. No chest pain or dyspnea. Occasional cough He has chronic leg dermatitis Vitas looks stable. Patient is afebrile. He has no leukocytosis and hemoglobin 10.2. Platelets is 479. INR is 1.6. Creatinine is 2.8, recently earlier this month was 1.9 Rest of the BMP is unremarkable. Chest x-ray: No acute process. COPD with interstitial changes. Correlate for p ossible mild pulmonary vascular congestion. Call the pneumonia can't be excluded clinically. Possible atelectasis versus consolidation and pneumonia. Stable distended small bowel loops below the right hemidiaphragm, likely chronic postsurgical changes, radiologist's report CT of the brain: No acute intracranial hemorrhage or midline shift. There is [id number] diffuse age-related cerebral atrophy and moderate to advanced chronic small vessel ischemic changes EKG showed v emergency room he was started on aspirin 324 mg. Rate is paced rhythm at 60 Covid test: Pending Review of Systems CONSTITUTIONAL: No fever, no malaise, no fatigue. HEENT: No recent visual problems or hearing problems. Denied any sore throat. CARDIOVASCULAR: No orthopnea, PND, no palpitations, no syncope. PULMONARY: No shortness of breath, no cough, no hemoptysis. GASTROINTESTINAL: No diarrhea, no nausea, no vomiting, no abdominal pain. Normoactive bowel sounds. NEUROLOGICAL: No headaches, no weakness, no numbness. HEMATOLOGICAL: Denies any bleeding or petechiae. GENITOURINARY: Denies any burning micturition, frequency, or urgency. MUSCULOSKELETAL/RHEUMATOLOGICAL: Denies any joint pain, swelling, or any muscle pain. ENDOCRINE: Denies any polyuria or polydipsia. Past Medical History Past Medical History: Heart Failure, Hypertension Additional Past Medical History / Comment(s): hiatal hernia. hyperkalemia. maculuar degernation. TIA. 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 Pacemaker placed 08/15/2020 by Eleuterio Babcock ([phone]) Past Anesthesia/Blood Transfusion Reactions: No Reported Reaction Type of Cardiac Device: Permanent Pacemaker Device Placement Date:: 08/15/20 Past Psychological History: No Psychological Hx Reported Smoking Status: Former smoker Past Alcohol Use History: Rare Past Drug Use History: None Reported - Past Family History Daughter(s) Family Medical History: Diabetes Mellitus, Hypertension Additional Family Medical History / Comment(s): macular degeneration Medications and Allergies Home Medications Medication Instructions Recorded Confirmed Type Atorvastatin Calcium [Lipitor] 40 mg PO HS@199902/06/21 02/27/21 History Carvedilol [Coreg] 12.5 mg PO BID 02/06/21 02/27/21 History Multivitamins, Thera [Multivitamin 1 tab PO DAILY 02/06/21 02/27/21 History (formulary)] Sodium Bicarbonate Tab 650 mg PO QID@05,11,17,23 02/06/21 02/27/21 History Tamsulosin HCl [Flomax] 0.4 mg PO DAILY 02/06/21 02/27/21 History amLODIPine [Norvasc] 10 mg PO DAILY 02/06/21 02/27/21 History Apixaban [Eliquis] 2.5 mg PO BID tablet 02/17/21 02/27/21 Rx Furosemide [Lasix] 40 mg PO DAILY tab 02/17/21 02/27/21 Rx Ipratropium-Albuterol Nebulize 3 ml INHALATION RT-Q2H PRN ml 02/17/21 02/27/21 Rx [Duoneb 0.5 mg-3 mg/3 ml Soln] Ipratropium-Albuterol Nebulize 3 ml INHALATION RT-QID ml 02/17/21 02/27/21 Rx [Duoneb 0.5 mg-3 mg/3 ml Soln] Omeprazole 20 mg PO DAILY 02/27/21 02/27/21 History Prostat 30 ml PO HS 02/27/21 02/27/21 History Allergies Allergy/AdvReac Type Severity Reaction Status Date / Time lisinopril AdvReac Unknown Verified 02/27/21 11:51 Physical Exam Vitals: Vital Signs Temp Pulse Resp BP Pulse Ox 02/27/21 11:08 98.7 F 60 22 114/97 92 L Intake and Output 02/26/21 02/27/21 02/27/21 22:59 06:59 14:59 Other: Weight 79.968 kg -GENERAL: The patient is alert and oriented x3, not in any acute distress. Well developed, well nourished. He does not have his teeth denture HEENT: Pupils are round and equally reacting to light. EOMI. No scleral icterus. No conjunctival pallor. Normocephalic, atraumatic. No pharyngeal erythema. No thyromegaly. CARDIOVASCULAR: S1 and S2 present. No murmurs, rubs, or gallops. -PULMONARY: Chest is clear to auscultation, no wheezing. Bilateral basal crepitation ABDOMEN: Soft, nontender, nondistended, normoactive bowel sounds. No palpable organomegaly. MUSCULOSKELETAL: No joint swelling or deformity. EXTREMITIES: No cyanosis, clubbing, bilateral pitting leg edema. He has pinkish discoloration of both legs which is chronic -NEUROLOGICAL: Gross neurological examination did not reveal any focal deficits. SKIN: No rashes. No petechiae Results CBC & Chem 7: 02/27/21 11:25 02/27/21 11:25 Labs: Abnormal Lab Results - Last 24 Hours (Table) 02/27/21 02/27/21 02/27/21 Range/Units 11:11 11:25 11:25 RBC 4.13 L (4.30-5.90) m/uL Hgb 10.2 L (13.0-17.5) gm/dL Hct 34.8 L (39.0-53.0) % MCH 24.7 L (25.0-35.0) pg MCHC 29.3 L (31.0-37.0) g/dL RDW 22.8 H (11.5-15.5) % Plt Count 479 H (150-450) k/uL Lymphocytes # 0.6 L (1.0-4.8) k/uL Eosinophils # 0.9 H (0-0.7) k/uL PT 15.9 H (9.0-12.0) sec INR 1.6 H (<1.2) APTT 44.5 H (22.0-30.0) sec Chloride (98-107) mmol/L BUN (9-20) mg/dL Creatinine (0.66-1.25) mg/dL Glucose (74-99) mg/dL POC Glucose (mg/dL) 113 H (75-99) mg/dL 02/27/21 Range/Units 11:25 RBC (4.30-5.90) m/uL Hgb (13.0-17.5) gm/dL Hct (39.0-53.0) % MCH (25.0-35.0) pg MCHC (31.0-37.0) g/dL RDW (11.5-15.5) % Plt Count (150-450) k/uL Lymphocytes # (1.0-4.8) k/uL Eosinophils # (0-0.7) k/uL PT (9.0-12.0) sec INR (<1.2) APTT (22.0-30.0) sec Chloride 112 H (98-107) mmol/L BUN 61 H (9-20) mg/dL Creatinine 2.82 H (0.66-1.25) mg/dL Glucose 112 H (74-99) mg/dL POC Glucose (mg/dL) (75-99) mg/dL Assessment and Plan Assessment: Altered mental status, likely metabolic encephalopathy rule out intracranial lesions Slurred speech suspicious for acute stroke versus TIA, or secondary to above Acute kidney injury, most likely on the top of chronic kidney disease stage III . Most likely cardiorenal syndrome plus hypertensive nephropathy and history of urinary retention recent urinary retention status post Simpson catheter, 3 days prior to admission Acute on chronic diastolic CHF Persistent left upper extremity PICC line, rule out infection Hypertension Hyperlipidemia Chronic hypoxic respiratory failure History of diastolic CHF, no acute exacerbation History of aspiration pneumonia History of ESBL Klebsiella urinary tract infection Chronic bilateral leg dermatitis Plan: This is a pleasant 80 years old male who presents with slurred speech and AMS. Follow-up covid test Continue with aspirin Neurology consult Check A1c, B12/folate and TSH, check liver function test and ammonia. Also check BMP and probecalcitonin. Checked blood culture from Check urine analysis Change oral Lasix to 40 mg twice a day of IV Lasix Labs and medication were reviewed.. Continue same treatment. Continue with symptomatic treatment. Resume home medication. Monitor lytes and vitals. DVT and GI prophylaxis. Further recommendations depends on the clinical course of the patient DVT prophylaxis: Eliquis GI Prophylaxis: Pepcid PT/OT: Pending. Speech evaluation Prognosis is guarded
[2021-02-27] MEDS ORDERED: FUROSEMIDE 10 MG/ML 4 ML VIAL IV SCH ×2 (14:45→20:19)
[2021-02-27] MEDS: SODIUM CHLORIDE 0.9% 1,000 ML IV SCH ×2 (15:50→15:57)
--- NOTE | 2021-02-27 16:47 | P.CNNES ---
History of Present Illness Consult date: 02/27/21 Requesting physician: Renato Burch Reason for Consult: slurred speecha and confusion History of Present Illness: This is an 80-year-old gentleman with medical history of TIA (many years ago per the daughter but unknown symptoms), hypertension, hyperlipidemia, diastolic heart failure s/p permanent pacemaker on eliquis, remote heavy alcohol use who was recently admitted to our facility for congestive heart failure, aspiration pneumonia and UTI who presented to the emergency department on 02/27/2021 for slurred speech and confusion. Some of the history is obtained from patient's daughter who is at bedside. Patient resides in an a rehab nursing facility and his residential physician noticed slurred speech. Per the ED and noted is dated the patient had slurred speech at baseline. It's unclear the patient last normal state. The patient's daughter she stated that yesterday she noticed that the patient was confused throughout the day yesterday as well as was slurring the speech even though he was wearing his dentures. She denied that the patient had any focal weakness but she seems that the patient had generalized weakness. She stated that the patient's speech is back to baseline today and is tainted and talking like himself. He is on Eliquis 2.5 mg 1 tablet twice a day, Lipitor 40 mg at daily at bedtime, amlodipine, carvedilol, Flomax. Per the primary team's note is mentioned that the patient had the recent hospital stay earlier this month. Patient had ESBL Klebsiella pneumonia and urinary tract infection. He was sent [facility] and had left upper extremity at the PICC line. Seems the patient had the urinary retention for 3 days and therefore the catheter was placed. Some of the work-up in hospital consisted of: Is a vital signs his blood pressure of 114/97, heart rate of 60, respiratory of 22, temperature of 98.7 Fahrenheit axillary and pulse ox of 92% on 2 L of nasal cannula. White blood cell is 6.0 thousand. MCV is 84.3. Hemoglobin is 10.2. Sodium is 145, creatinine is 2.82, serum glucose is 112, calcium is 8.4, magnesium is 1.8, AST of 37, ALT of 12. Ammonia is less than 9. Urinalysis seems positive for urinary tract infection. Nitro is negative, leuk trase or is large, urine white blood cell 165, urine white blood cell clumps is moderate. Dupree virus PCR was not detected. INR is 1.6, PT is 15.9 and PTT is 44.5. CT of the head is reported as no acute intracranial hemorrhage or midline shift. There is mild to moderate diffuse age-related cerebral atrophy and moderate to advanced chronic small vessel ischemic changes. Personally reviewed the CT of the head and there is no acute or subacute ischemia and there is no intracranial hemorrhage. Review of Systems Review of system: The 12 point system was reviewed and apparent positive and negative per HPI. Past Medical History Past Medical History: Heart Failure, Hypertension Additional Past Medical History / Comment(s): hiatal hernia. hyperkalemia. maculuar degernation. TIA. 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 Pacemaker placed 08/15/2020 by Eleuterio Babcock ([phone]) Past Anesthesia/Blood Transfusion Reactions: No Reported Reaction Type of Cardiac Device: Permanent Pacemaker Device Placement Date:: 08/15/20 Past Psychological History: No Psychological Hx Reported Smoking Status: Former smoker Past Alcohol Use History: Rare Past Drug Use History: None Reported - Past Family History Daughter(s) Family Medical History: Diabetes Mellitus, Hypertension Additional Family Medical History / Comment(s): macular degeneration Medications and Allergies Home Medications Medication Instructions Recorded Confirmed Type Atorvastatin Calcium [Lipitor] 40 mg PO HS@199902/06/21 02/27/21 History Carvedilol [Coreg] 12.5 mg PO BID 02/06/21 02/27/21 History Multivitamins, Thera [Multivitamin 1 tab PO DAILY 02/06/21 02/27/21 History (formulary)] Sodium Bicarbonate Tab 650 mg PO QID@05,11,17,02/06/21 02/27/21 History Tamsulosin HCl [Flomax] 0.4 mg PO DAILY 02/06/21 02/27/21 History amLODIPine [Norvasc] 10 mg PO DAILY 02/06/21 02/27/21 History Apixaban [Eliquis] 2.5 mg PO BID tablet 02/17/21 02/27/21 Rx Furosemide [Lasix] 40 mg PO DAILY tab 02/17/21 02/27/21 Rx Ipratropium-Albuterol Nebulize 3 ml INHALATION RT-Q2H PRN ml 02/17/21 02/27/21 Rx [Duoneb 0.5 mg-3 mg/3 ml Soln] Ipratropium-Albuterol Nebulize 3 ml INHALATION RT-QID ml 02/17/21 02/27/21 Rx [Duoneb 0.5 mg-3 mg/3 ml Soln] Omeprazole 20 mg PO DAILY 02/27/21 02/27/21 History Prostat 30 ml PO HS 02/27/21 02/27/21 History Allergies Allergy/AdvReac Type Severity Reaction Status Date / Time lisinopril AdvReac Unknown Verified 02/27/21 11:51 Physical Examination - Vital Signs Vital Signs: Vital Signs Temp Pulse Resp BP Pulse Ox 02/27/21 14:19 97.5 F L 60 20 107/69 92 L 02/27/21 11:08 98.7 F 60 22 114/97 92 L Intake and Output 02/26/21 02/27/21 02/27/21 22:59 06:59 14:59 Other: Weight 79.968 kg GENERAL: The patient is lying in bed and is not in acute distress. CHEST: The heart rate is regular rate rhythm. No murmurs to auscultation. LUNG: Seems congested throughout. Not labored breathing. Somewhat short of breath. ABDOMEN/GI: Bowel sounds present in all 4 quadrants. No tenderness to palpation throughout. NEUROLOGICAL: Higher mental function: The patient is awake, alert, oriented to self, place and time. He is able to name objects correctly (watch, pen). Patient is following simple commands. No aphasia and no neglect. Cranial nerves: The pupils are round, equal and reactive to light and acc ommodation. Visual oswald are full to confrontation throughout. Extraocular movement is intact no nystagmus is noted. Facial sensation is normal to touch throughout. The facial strength is normal throughout. Hearing is moderately to severely decreased bilaterally to hand rub. Tongue is midline and moved [id number] without any difficulty. No dysarthria is noted (per daughter sounds clear even tough is not wearing his dentures). Shoulder shrug is normal bilaterally. Motor: Gait is deferred. The strength is 5 of 5 of uppers while lowers are 4+ throughout. Normal tone. Seems catechetic. Cerebellum: Seems some ataxia to finger to nose. Sensation: Sensation is normal to touch throughout. Reflexes (right/left): 1+ throughout uppers, patellar 2+, ankles are 1+. Plantars are mute bilaterally. Results - Laboratory Findings CBC and BMP: 02/27/21 11:25 02/27/21 11:25 Abnormal Lab Findings: Abnormal Labs 02/27/21 02/27/21 02/27/21 11:11 11:25 11:25 RBC 4.13 L Hgb 10.2 L Hct 34.8 L MCH 24.7 L MCHC 29.3 L RDW 22.8 H Plt Count 479 H Lymphocytes # 0.6 L Eosinophils # 0.9 H PT 15.9 H INR 1.6 H APTT 44.5 H Chloride BUN Creatinine Glucose POC Glucose (mg/dL) 113 H Delta Bilirubin Alkaline Phosphatase Total Protein Albumin Urine Protein Urine Blood Ur Leukocyte Esterase Urine RBC Urine WBC Urine WBC Clumps Calcium Oxalate Crystal Urine Yeast (Budding) 02/27/21 02/27/21 02/27/21 11:25 13:51 13:51 RBC Hgb Hct MCH MCHC RDW Plt Count Lymphocytes # Eosinophils # PT INR APTT Chloride 112 H BUN 61 H Creatinine 2.82 H Glucose 112 H POC Glucose (mg/dL) Delta Bilirubin 0.3 H Alkaline Phosphatase 261 H Total Protein 6.0 L Albumin 2.8 L Urine Protein 2+ H Urine Blood Moderate H Ur Leukocyte Esterase Large H Urine RBC 40 H Urine WBC 165 H Urine WBC Clumps Moderate H Calcium Oxalate Crystal Few H Urine Yeast (Budding) Rare H Assessment and Plan Assessment: Transient dysarthria and confusion. Seems due to underlying acute UTI. Cannot rule out TIA. Acute urinary tract infection History of TIA (many years ago per daughter) History of diastolic heart failure status post permanent pacemaker and is on eliquis Hypertension and currently controlled Hyperlipidemia History of recent aspiration pneumonia and UTI on prior admission Remote history of alcohol use Plan: * MRI the brain cannot be done since the patient has a pacemaker. I'll get repeat CT of the head tomorrow to see if there is any change that is not seen on today's CT. * Primary team ordered hemoglobin A1c, TSH, folate and vitamin B12 level * Ordered carotid duplex, lipid panel * 2-D echo on 02/07/2021 is reported as left ventricle size is normal. Moderate concentric left ventricular hypertrophy. Ejection fraction of 55-60%. Left atrium is mildly dilated. I will hold off on repeating 2D echo unless there is evidence of acute to subacute ischemic stroke on repeat CT head. * He is continued on Eliquis 2.5mg 1 tab bid and in ED he was given one time dose of ASA 324mg once. I notified the patient's daughter regarding that T IA/stroke could not be rule out and to consider adding ASA 81mg in addition to Eliqius but daughter wants to hold off for now. He was started on lipitor 40mg qhs by primary team. * Ordered every 4 hours neuro checks * On cardiac monitoring. * PT, OT and INSIDE STEWARD/STEWARDESS are consulted * We'll defer the rest of the medical management to primary team. * For DVT prophylaxis: On Eliquis. The plan is discussed with the patient's daughter who is at bedside and his nurse. Thank you for the consultation. Giovany Montoya MD Neuro-Hospitalist Time with Patient: Greater than 30
[2021-02-27] MEDS: carvediloL 12.5 MG TAB PO SCH (17:20)
--- NOTE | 2021-02-27 18:35 | US ---
EXAMINATION TYPE: US carotid duplex BILAT DATE OF EXAM: 02/27/2021 COMPARISON: NONE CLINICAL HISTORY: tia. TIA, slurred speech, AMS EXAM MEASUREMENTS: RIGHT: Peak Systolic Velocity (PSV) cm/sec ----- Right CCA: 47.1 ----- Right ICA: 61.2 ----- Right ECA: 98.7 ICA/CCA ratio: 1.3 RIGHT: End Diastole cm/sec ----- Right CCA: 7.5 ----- Right ICA: 16.4 ----- Right ECA: 10.3 LEFT: Peak Systolic Velocity (PSV) cm/sec ----- Left CCA: 62.7 ----- Left ICA: 68.9 ----- Left ECA: 74.0 ICA/CCA ratio: 1.1 LEFT: End Diastole cm/sec ----- Left CCA: 12.3 ----- Left ICA: 14.4 ----- Left ECA: 0.0 VERTEBRALS (direction of flow): Right Vertebral: Antegrade Left Vertebral: Antegrade Rhythm: Normal Mild plaque bilateral bifurcations. no evidence of increased velocities IMPRESSION: There is antegrade flow in the vertebral arteries. The images and measurements suggest less than 20% stenosis in both internal carotid arteries. Criteria for Assigning % of Stenosis / Diameter reduction (Estimation based on the indirect measurements of the internal carotid artery velocities (ICA PSV). 1. Normal (no stenosis)=ICA PSV < 125 cm/s: ratio < 2.0: ICA EDV<40 cm/s. 2. Less than 50% stenosis=ICA PSV < 125 cm/s: ratio < 2.0: ICA EDV<40 cm/s. 3. 50 to 69% stenosis=ICA PSV of 125 to 230 cm/s: ration 2.0 ? 4.0: ICA EDV 40-100 cm/s. 4. Greater than 70% stenosis to near occlusion= ICA PSV > 230 cm/s: ratio > 4.0: ICA EDV > 100 cm/s. 5. Near occlusion= ICA PSV velocities may be low or undetectable: variable ratio and ICA EDV. 6. Total occlusion=unable to detect flow.
[2021-02-27] MEDS ORDERED: ATORVASTATIN 40 MG TAB PO SCH (20:00)
[2021-02-27] MEDS: APIXABAN 2.5 MG TABLET PO SCH (20:18)
[2021-02-27] MEDS: FAMOTIDINE 20 MG/2 ML VIAL IV SCH (20:19)
[2021-02-27 20:47] LABS: Vitamin B12 >2000.0 pg/mL (200.0-944.0)
[2021-02-27] MEDS: ERTAPENEM 1 GM in SODIUM CHLORIDE 0.9% 50 ML IVPB SCH (22:18)
[2021-02-28] MEDS ORDERED: FUROSEMIDE 10 MG/ML 4 ML VIAL IV SCH (04:00)
--- NOTE | 2021-02-28 08:23 | CT ---
EXAMINATION TYPE: CT brain wo con DATE OF EXAM: 02/28/2021 HISTORY: Altered mental status and slurred speech. CT DLP: 1239 mGycm. Automated Exposure Control for Dose Reduction was Utilized. TECHNIQUE: CT scan of the head is performed without contrast. COMPARISON: CT brain from yesterday and 5 days ago FINDINGS: There is no acute intracranial hemorrhage or midline shift identified. There is mild to m oderate diffuse ventricular and sulcal prominence consistent with diffuse cerebral atrophy. There is moderate to advanced low-attenuation in the periventricular white matter consistent with chronic sma ll vessel ischemic change. Patchy soft tissue density or cerumen in the bilateral external auditory c anals appear moderate to severe calcified plaque of the distal internal carotid arteries bilaterally. Nasal septum deviated to right of midline. The globes are intact and the visualized sinuses are brad r. IMPRESSION: No acute intracranial hemorrhage or midline shift. There is mild to moderate diffuse ag e-related cerebral atrophy and moderate to advanced chronic small vessel ischemic change redemonstrat ed. No significant change from recent studies
[2021-02-28] MEDS ORDERED: amLODIPine 10 MG TAB PO SCH (09:00)
[2021-02-28] MEDS ORDERED: FUROSEMIDE 40 MG TAB PO SCH (09:00)
[2021-02-28] MEDS: APIXABAN 2.5 MG TABLET PO SCH ×2 (09:10→20:56)
[2021-02-28] MEDS: carvediloL 12.5 MG TAB PO SCH ×2 (09:10→17:50)
[2021-02-28] MEDS: TAMSULOSIN 0.4 MG CAP.ER.24H PO SCH (09:10)
[2021-02-28 10:02] LABS: ALT 11 U/L (10-49); AST 33 U/L (14-35); African American GFR (CKD) 22.3 (60.0-200.0); Albumin 2.9 g/dL (3.8-4.9); Albumin/Globulin Ratio 0.97 (1.60-3.17); Alkaline Phosphatase 279 U/L (41-126); BUN/Creat Ratio 20.38 Ratio (12.00-20.00); Blood Urea Nitrogen 59.1 mg/dL (9.0-27.0); Calcium 8.1 mg/dL (8.7-10.3); Carbon Dioxide 20.9 mmol/L (21.6-31.8); Chloride 112 mmol/L (96-109); Chol/HDL Ratio 2.82 Ratio; Glucose 97 mg/dL (70-110); LDL Cholesterol,Calculated 28.2 mg/dL (0.0-131.0); Magnesium 1.9 mg/dL (1.5-2.4); Non-African American GFR(CKD) 19.3 (60.0-200.0); Potassium 5.2 mmol/L (3.5-5.5); Sodium 149 mmol/L (135-145); Total Protein 5.9 g/dL (6.2-8.2); VLDL Calculation 16.26 mg/dL (5.00-40.00)
--- NOTE | 2021-02-28 11:40 | P.NPCON ---
History of Present Illness - Reason for Consult acute renal failure - History of Present Illness Reason for consultation: Acute kidney injury History of present illness: Patient is a 80-year-old male seen in renal consultation for acute kidney injury. Patient's creatinine this month has been in the range of 1.9-2.8. On admission was 2.82 and is stable at 2.9 today. He is currently maintained on IV Lasix 40 mg twice daily. Sodium level is 149 this morning. Patient was recently admitted with CHF exacerbation. This time he was brought in for slurred speech. From the records it appears the patient has slurred speech even at baseline. He has been more confused recently. Brain CT did not reveal any acute changes. He underwent chest x-ray which showed COPD with possible mild vascular congestion. Blood pressure in the lower side this morning. Patient is not a reliable historian. He is not answering questions at this time. He's being followed by neurology. Ejection fraction normal. Vital signs are stable. Blood pressure on the lower side. General: Resting in bed. HEENT: Head exam is unremarkable. LUNGS: Breath sounds decreased. HEART: Rate and Rhythm are regular. ABDOMEN: Soft, no distention. EXTREMITITES: Trace edema. Past Medical History Past Medical History: Heart Failure, Hypertension Additional Past Medical History / Comment(s): hiatal hernia. hyperkalemia. maculuar degernation. TIA. 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 Pacemaker placed 08/15/2020 by Eleuterio Babcock ([phone]) Past Anesthesia/Blood Transfusion Reactions: No Reported Reaction Type of Cardiac Device: Permanent Pacemaker Device Placement Date:: 08/15/20 Past Psychological History: No Psychological Hx Reported Smoking Status: Former smoker Past Alcohol Use History: Rare Past Drug Use History: None Reported - Past Family History Daughter(s) Family Medical History: Diabetes Mellitus, Hypertension Additional Family Medical History / Comment(s): macular degeneration Medications and Allergies Home Medications Medication Instructions Recorded Confirmed Type Atorvastatin Calcium [Lipitor] 40 mg PO HS@199902/06/21 02/27/21 History Carvedilol [Coreg] 12.5 mg PO BID 02/06/21 02/27/21 History Multivitamins, Thera [Multivitamin 1 tab PO DAILY 02/06/21 02/27/21 History (formulary)] Sodium Bicarbonate Tab 650 mg PO QID@05,,,02/06/21 02/27/21 History Tamsulosin HCl [Flomax] 0.4 mg PO DAILY 02/06/21 02/27/21 History amLODIPine [Norvasc] 10 mg PO DAILY 02/06/21 02/27/21 History Apixaban [Eliquis] 2.5 mg PO BID tablet 02/17/21 02/27/21 Rx Furosemide [Lasix] 40 mg PO DAILY tab 02/17/21 02/27/21 Rx Ipratropium-Albuterol Nebulize 3 ml INHALATION RT-Q2H PRN ml 02/17/21 02/27/21 Rx [Duoneb 0.5 mg-3 mg/3 ml Soln] Ipratropium-Albuterol Nebulize 3 ml INHALATION RT-QID ml 02/17/21 02/27/21 Rx [Duoneb 0.5 mg-3 mg/3 ml Soln] Omeprazole 20 mg PO DAILY 02/27/21 02/27/21 History Prostat 30 ml PO HS 02/27/21 02/27/21 History Allergies Allergy/AdvReac Type Severity Reaction Status Date / Time lisinopril AdvReac Unknown Verified 02/27/21 11:51 Physical Exam Vitals: Vital Signs Temp Pulse Pulse Pulse Resp BP BP 02/28/21 07:00 95 F L 60 16 89/56 02/28/21 02:03 60 16 107/64 02/28/21 02:00 57 L 60 16 02/27/21 20:04 57 L 16 99/58 02/27/21 20:00 60 18 02/27/21 15:00 60 15 100/73 02/27/21 14:19 97.5 F L 60 20 107/69 Pulse Ox 02/28/21 07:00 85 L 02/28/21 02:03 94 L 02/28/21 02:00 02/27/21 20:04 93 L 02/27/21 20:00 02/27/21 15:00 88 L 02/27/21 14:19 92 L Intake and Output 02/27/21 02/28/21 02/28/21 22:59 06:59 14:59 Intake Total 100 100 90 Balance 100 100 90 Intake: Oral 100 90 Blood Product 100 Other: Voiding Method Indwelling Catheter Indwelling Catheter # Voids 0 Results - Lab Results Most recent lab results Calcium 8.1 mg/dL (8.7-10.3) L 02/28/21 05:55 Magnesium 1.9 mg/dL (1.5-2.4) 02/28/21 05:55 02/27/21 11:25 02/28/21 05:55 Assessment and Plan Plan: Assessment: 1. Acute kidney injury secondary to ATN secondary to cardiorenal syndrome. Ultrasound from earlier this month revealed no evidence of hydronephrosis. Creatinine this month has been in the range of 1.9-2.8. It is stable at 2.9 today. Unknown baseline renal function. 2. Altered mental status. Concern for UTI versus TIA. He is on antibiotics. 3. Acute on chronic diastolic CHF with moderate tricuspid regurgitation. 4. Benign hypertension. Blood pressure in the lower side today. 5. Hypernatremia from lack of oral water intake. 6. Metabolic acidosis secondary to acute kidney injury. Plan: Decrease Lasix to 40 mg IV once daily. Add D5W to be run at 75 mL an hour. Repeat sodium level this evening. Follow-up cultures. Avoid nephrotoxins. Continue to monitor renal function and urine output. Add oral bicarb. Stop amlodipine. Thank you for the consultation. I will continue to follow patient with you during his hospital stay.
--- NOTE | 2021-02-28 11:45 | P.CONS ---
History of Present Illness - Reason for Consult Consult date: 02/28/21 wound care - History of Present Illness This is an 80-year-old patient being seen on for nonhealing ulceration to the right lateral ankle and the right and left buttocks. The past medical history significant for hypertension, diastolic heart failure, congestive heart failure, aspiration pneumonia. He was found to have multiple pressure ulcers to the right lateral ankle and the right and left buttocks. The right lateral ankle is a stage II pressure ulcer with fatty layer exposure, minimal granulation seen within the wound bed significant amount of eschar and slough noted. The right buttocks is a stage II pressure ulcer with granulation seen within the wound bed fat layer exposure, maceration noted to the periwound. Left buttocks ulceration is a skin tear with granulation seen throughout the wound bed. Assessment: 1. Pressure ulcer right ankle stage II 2. Pressure ulcer sacrum stage II Plan: 1. Right lateral ankle: Apply honey gel, dry gauze and border foam, rolled gauze and secure with tape. Right/left buttocks: Appy honey gel, dry gauze and sacrum foam dressing. Patient every 2 hours. Utilize foam heel protectors to protect the right ankle. Utilize a cushion while sitting. Thank you for the consultation any questions with contact the wound care center DNP note has been reviewed and discussed with Dr. Womack and the impression and plan of care has been directed as dictated. Past Medical History Past Medical History: Heart Failure, Hypertension Additional Past Medical History / Comment(s): hiatal hernia. hyperkalemia. maculuar degernation. TIA. 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 Pacemaker placed 08/15/2020 by Eleuterio Babcock ([phone]) Past Anesthesia/Blood Transfusion Reactions: No Reported Reaction Type of Cardiac Device: Permanent Pacemaker Device Placement Date:: 08/15/20 Past Psychological History: No Psychological Hx Reported Smoking Status: Former smoker Past Alcohol Use History: Rare Past Drug Use History: None Reported - Past Family History Daughter(s) Family Medical History: Diabetes Mellitus, Hypertension Additional Family Medical History / Comment(s): macular degeneration Medications and Allergies Home Medications Medication Instructions Recorded Confirmed Type Atorvastatin Calcium [Lipitor] 40 mg PO HS@199902/06/21 02/27/21 History Carvedilol [Coreg] 12.5 mg PO BID 02/06/21 02/27/21 History Multivitamins, Thera [Multivitamin 1 tab PO DAILY 02/06/21 02/27/21 History (formulary)] Sodium Bicarbonate Tab 650 mg PO QID@,,,02/06/21 02/27/21 History Tamsulosin HCl [Flomax] 0.4 mg PO DAILY 02/06/21 02/27/21 History amLODIPine [Norvasc] 10 mg PO DAILY 02/06/21 02/27/21 History Apixaban [Eliquis] 2.5 mg PO BID tablet 02/17/21 02/27/21 Rx Furosemide [Lasix] 40 mg PO DAILY tab 02/17/21 02/27/21 Rx Ipratropium-Albuterol Nebulize 3 ml INHALATION RT-Q2H PRN ml 02/17/21 02/27/21 Rx [Duoneb 0.5 mg-3 mg/3 ml Soln] Ipratropium-Albuterol Nebulize 3 ml INHALATION RT-QID ml 02/17/21 02/27/21 Rx [Duoneb 0.5 mg-3 mg/3 ml Soln] Omeprazole 20 mg PO DAILY 02/27/21 02/27/21 History Prostat 30 ml PO HS 02/27/21 02/27/21 History Allergies Allergy/AdvReac Type Severity Reaction Status Date / Time lisinopril AdvReac Unknown Verified 02/27/21 11:51 Physical Exam Vitals: Vital Signs Temp Pulse Pulse Pulse Resp BP BP 02/28/21 07:00 95 F L 60 16 89/56 02/28/21 02:03 60 16 107/64 02/28/21 02:00 57 L 60 16 02/27/21 20:04 57 L 16 99/58 02/27/21 20:00 60 18 02/27/21 15:00 60 15 100/73 02/27/21 14:19 97.5 F L 60 20 107/69 Pulse Ox 02/28/21 07:00 85 L 02/28/21 02:03 94 L 02/28/21 02:00 02/27/21 20:04 93 L 02/27/21 20:00 02/27/21 15:00 88 L 02/27/21 14:19 92 L Intake and Output 02/27/21 02/28/21 02/28/21 22:59 06:59 14:59 Intake Total 100 100 90 Balance 100 100 90 Intake: Oral 100 90 Blood Product 100 Other: Voiding Method Indwelling Catheter Indwelling Catheter # Voids 0 Results CBC & Chem 7: 02/27/21 11:25 02/28/21 05:55 Labs: Abnormal Lab Results - Last 24 Hours (Table) 02/27/21 02/27/21 02/27/21 Range/Units 11:25 11:25 11:25 RBC 4.13 L (4.30-5.90) m/uL Hgb 10.2 L (13.0-17.5) gm/dL Hct 34.8 L (39.0-53.0) % MCH 24.7 L (25.0-35.0) pg MCHC 29.3 L (31.0-37.0) g/dL RDW 22.8 H (11.5-15.5) % Plt Count 479 H (150-450) k/uL Lymphocytes # 0.6 L (1.0-4.8) k/uL Eosinophils # 0.9 H (0-0.7) k/uL PT 15.9 H (9.0-12.0) sec INR 1.6 H (<1.2) APTT 44.5 H (22.0-30.0) sec Sodium (135-145) mmol/L Chloride 112 H (98-107) mmol/L Carbon Dioxide (21.6-31.8) mmol/L Anion Gap (4.00-12.00) mmol/L BUN 61 H (9-20) mg/dL Creatinine 2.82 H (0.66-1.25) mg/dL Est GFR (CKD-EPI)AfAm (60.0-200.0) Est GFR (CKD-EPI)NonAf (60.0-200.0) BUN/Creatinine Ratio (12.00-20.00) Ratio Glucose 112 H (74-99) mg/dL Calcium (8.7-10.3) mg/dL Delta Bilirubin (0.0-0.2) mg/dL Alkaline Phosphatase (38-126) U/L Total Protein (6.3-8.2) g/dL Albumin (3.5-5.0) g/dL Albumin/Globulin Ratio (1.60-3.17) g/dL HDL Cholesterol (40.00-60.00) mg/dL Vitamin B12 (200.0-944.0) pg/mL Procalcitonin (0.02-0.09) ng/mL Urine Protein (Negative) Urine Blood (Negative) Ur Leukocyte Esterase (Negative) Urine RBC (0-5) /hpf Urine WBC (0-5) /hpf Urine WBC Clumps (None) /hpf Calcium Oxalate Crystal (None) /hpf Urine Yeast (Budding) (None) /hpf 02/27/21 02/27/21 02/27/21 Range/Units 13:51 13:51 13:51 RBC (4.30-5.90) m/uL Hgb (13.0-17.5) gm/dL Hct (39.0-53.0) % MCH (25.0-35.0) pg MCHC (31.0-37.0) g/dL RDW (11.5-15.5) % Plt Count (150-450) k/uL Lymphocytes # (1.0-4.8) k/uL Eosinophils # (0-0.7) k/uL PT (9.0-12.0) sec INR (<1.2) APTT (22.0-30.0) sec Sodium (135-145) mmol/L Chloride (98-107) mmol/L Carbon Dioxide (21.6-31.8) mmol/L Anion Gap (4.00-12.00) mmol/L BUN (9-20) mg/dL Creatinine (0.66-1.25) mg/dL Est GFR (CKD-EPI)AfAm (60.0-200.0) Est GFR (CKD-EPI)NonAf (60.0-200.0) BUN/Creatinine Ratio (12.00-20.00) Ratio Glucose (74-99) mg/dL Calcium (8.7-10.3) mg/dL Delta Bilirubin 0.3 H (0.0-0.2) mg/dL Alkaline Phosphatase 261 H (38-126) U/L Total Protein 6.0 L (6.3-8.2) g/dL Albumin 2.8 L (3.5-5.0) g/dL Albumin/Globulin Ratio (1.60-3.17) g/dL HDL Cholesterol (40.00-60.00) mg/dL Vitamin B12 >2000.0 H (200.0-944.0) pg/mL Procalcitonin 0.17 H (0.02-0.09) ng/mL Urine Protein 2+ H (Negative) Urine Blood Moderate H (Negative) Ur Leukocyte Esterase Large H (Negative) Urine RBC 40 H (0-5) /hpf Urine WBC 165 H (0-5) /hpf Urine WBC Clumps Moderate H (None) /hpf Calcium Oxalate Crystal Few H (None) /hpf Urine Yeast (Budding) Rare H (None) /hpf 02/28/21 Range/Units 05:55 RBC (4.30-5.90) m/uL Hgb (13.0-17.5) gm/dL Hct (39.0-53.0) % MCH (25.0-35.0) pg MCHC (31.0-37.0) g/dL RDW (11.5-15.5) % Plt Count (150-450) k/uL Lymphocytes # (1.0-4.8) k/uL Eosinophils # (0-0.7) k/uL PT (9.0-12.0) sec INR (<1.2) APTT (22.0-30.0) sec Sodium 149 H (135-145) mmol/L Chloride 112 H (98-107) mmol/L Carbon Dioxide 20.9 L (21.6-31.8) mmol/L Anion Gap 16.10 H (4.00-12.00) mmol/L BUN 59.1 H (9-20) mg/dL Creatinine 2.9 H (0.66-1.25) mg/dL Est GFR (CKD-EPI)AfAm 22.3 L (60.0-200.0) Est GFR (CKD-EPI)NonAf 19.3 L (60.0-200.0) BUN/Creatinine Ratio 20.38 H (12.00-20.00) Ratio Glucose (74-99) mg/dL Calcium 8.1 L (8.7-10.3) mg/dL Delta Bilirubin (0.0-0.2) mg/dL Alkaline Phosphatase 279 H (38-126) U/L Total Protein 5.9 L (6.3-8.2) g/dL Albumin 2.9 L (3.5-5.0) g/dL Albumin/Globulin Ratio 0.97 L (1.60-3.17) g/dL HDL Cholesterol 24.50 L (40.00-60.00) mg/dL Vitamin B12 (200.0-944.0) pg/mL Procalcitonin (0.02-0.09) ng/mL Urine Protein (Negative) Urine Blood (Negative) Ur Leukocyte Esterase (Negative) Urine RBC (0-5) /hpf Urine WBC (0-5) /hpf Urine WBC Clumps (None) /hpf Calcium Oxalate Crystal (None) /hpf Urine Yeast (Budding) (None) /hpf Microbiology - Last 24 Hours (Table) 02/27/21 13:51 Urine Culture - Preliminary Urine,Voided Assessment and Plan (1) Pressure ulcer of right ankle, stage 2 Current Visit: Yes Status: Acute Code(s): L89.512 - PRESSURE ULCER OF RIGHT ANKLE, STAGE 2 SNOMED Code(s): 781198805 (2) Pressure ulcer of right buttock, stage 2 Current Visit: Yes Status: Acute Code(s): L89.312 - PRESSURE ULCER OF RIGHT BUTTOCK, STAGE 2 SNOMED Code(s): 85610152445019139 (3) Pressure ulcer of left buttock, stage 2 Current Visit: Yes Status: Acute Code(s): L89.322 - PRESSURE ULCER OF LEFT BUTTOCK, STAGE 2 SNOMED Code(s): 93447219309345567
[2021-02-28] MEDS: DEXTROSE 5% IN WATER 1,000 ML IV SCH (12:37)
[2021-02-28] MEDS: SODIUM BICARBONATE TAB 650 MG TAB PO SCH ×2 (12:38→20:56)
--- NOTE | 2021-02-28 14:08 | P.PN ---
Subjective Progress Note Date: 02/28/21 The patient is seen at bedside and denies nay further dyarthria. He feels she is back to baseline. Patient is accompanied by his daughter and states he is doing great and is at baseline. Objective - Vital Signs Vital signs: Vital Signs Temp 95 F L 02/28/21 13:58 Pulse 60 02/28/21 13:58 Resp 16 02/28/21 13:58 BP 83/58 02/28/21 13:58 Pulse Ox 79 L 02/28/21 13:58 Intake & Output 02/27/21 02/28/21 02/28/21 18:59 06:59 18:59 Intake Total 200 90 Output Total 50 Balance -50 200 90 Weight 79.968 kg Intake: Oral 100 90 Blood Product 100 Output: Urine 50 Other: Voiding Method Indwelling Catheter Indwelling Catheter # Voids 0 - Exam GENERAL: The patient is lying in bed and is not in acute distress. NEUROLOGICAL: Higher mental function: The patient is awake, alert, oriented to self, place and time. He is able to name objects correctly (watch, pen). Patient is following simple commands. No aphasia and no neglect. Cranial nerves: The pupils are round, equal and reactive to light and accommodation. Visual oswald are full to confrontation throughout. Extraocular movement is intact no nystagmus is noted. Facial sensation is normal to touch throughout. The facial strength is normal throughout. Hearing is moderately to severely decreased bilaterally to hand rub. Tongue is midline and moved [id number] without any difficulty. No dysarthria is noted (per daughter sounds clear even tough is not wearing his dentures). Shoulder shrug is normal bilaterally. Motor: Gait is deferred. The strength is 5 of 5 of uppers while lowers are 4+ throughout. Normal tone. Seems catechetic. Cerebellum: Seems some ataxia to finger to nose. Sensation: Sensation is normal to touch throughout. Reflexes (right/left): 1+ throughout uppers, patellar 2+, ankles are 1+. Plantars are mute bilaterally. WORK-UP: Vitamin B-12 IS >2000 L is 13.8 TSH is 1.140 Hemoglobin A1c is 5.2. Panel is triglyceride of 81, cholesterol 69, LDLs 28 and HDL is 24.50. CT of the head is reported as no acute intracranial hemorrhage or midline shift. There is mild to moderate diffuse age-related cerebral atrophy and moderate to advanced chronic small vessel ischemic changes. Personally reviewed the CT of the head and there is no acute or subacute ischemia and there is no intracranial hemorrhage. Carotid duplex was reported as there is antegrade flow in the vertebral arteries. Images and measurements suggest less than 20% stenosis in both internal carotid arteries. Repeat CT of the head is reported as no acute intracranial hemorrhage or midline shift. There is mild to moderate diffuse age-related cerebral atrophy and moderate to advanced chronic small vessel ischemic changes redemonstrated. No significant change from recent studies. - Labs CBC & Chem 7: 02/27/21 11:25 02/28/21 05:55 Labs: Abnormal Lab Results - Last 24 Hours (Table) 02/27/21 02/27/21 02/27/21 Range/Units 13:51 13:51 13:51 Sodium (135-145) mmol/L Chloride (96-109) mmol/L Carbon Dioxide (21.6-31.8) mmol/L Anion Gap (4.00-12.00) mmol/L BUN (9.0-27.0) mg/dL Creatinine (0.6-1.5) mg/dL Est GFR (CKD-EPI)AfAm (60.0-200.0) Est GFR (CKD-EPI)NonAf (60.0-200.0) BUN/Creatinine Ratio (12.00-20.00) Ratio Calcium (8.7-10.3) mg/dL Delta Bilirubin 0.3 H (0.0-0.2) mg/dL Alkaline Phosphatase 261 H (38-126) U/L Total Protein 6.0 L (6.3-8.2) g/dL Albumin 2.8 L (3.5-5.0) g/dL Albumin/Globulin Ratio (1.60-3.17) g/dL HDL Cholesterol (40.00-60.00) mg/dL Vitamin B12 >2000.0 H (200.0-944.0) pg/mL Procalcitonin 0.17 H (0.02-0.09) ng/mL Urine Protein 2+ H (Negative) Urine Blood Moderate H (Negative) Ur Leukocyte Esterase Large H (Negative) Urine RBC 40 H (0-5) /hpf Urine WBC 165 H (0-5) /hpf Urine WBC Clumps Moderate H (None) /hpf Calcium Oxalate Crystal Few H (None) /hpf Urine Yeast (Budding) Rare H (None) /hpf 02/28/21 Range/Units 05:55 Sodium 149 H (135-145) mmol/L Chloride 112 H (96-109) mmol/L Carbon Dioxide 20.9 L (21.6-31.8) mmol/L Anion Gap 16.10 H (4.00-12.00) mmol/L BUN 59.1 H (9.0-27.0) mg/dL Creatinine 2.9 H (0.6-1.5) mg/dL Est GFR (CKD-EPI)AfAm 22.3 L (60.0-200.0) Est GFR (CKD-EPI)NonAf 19.3 L (60.0-200.0) BUN/Creatinine Ratio 20.38 H (12.00-20.00) Ratio Calcium 8.1 L (8.7-10.3) mg/dL Delta Bilirubin (0.0-0.2) mg/dL Alkaline Phosphatase 279 H (38-126) U/L Total Protein 5.9 L (6.3-8.2) g/dL Albumin 2.9 L (3.5-5.0) g/dL Albumin/Globulin Ratio 0.97 L (1.60-3.17) g/dL HDL Cholesterol 24.50 L (40.00-60.00) mg/dL Vitamin B12 (200.0-944.0) pg/mL Procalcitonin (0.02-0.09) ng/mL Urine Protein (Negative) Urine Blood (Negative) Ur Leukocyte Esterase (Negative) Urine RBC (0-5) /hpf Urine WBC (0-5) /hpf Urine WBC Clumps (None) /hpf Calcium Oxalate Crystal (None) /hpf Urine Yeast (Budding) (None) /hpf Microbiology - Last 24 Hours (Table) 02/27/21 13:51 Urine Culture - Preliminary Urine,Voided Assessment and Plan Assessment: Transient dysarthria and confusion. Seems due to underlying acute UTI. Cannot rule out TIA. Acute urinary tract infection History of TIA (many years ago per daughter) History of diastolic heart failure status post permanent pacemaker and is on eliquis Hypertension and currently controlled Hyperlipidemia History of recent aspiration pneumonia and UTI on prior admission Remote history of alcohol use Plan: * MRI the brain cannot be done since the patient has a pacemaker. * 2-D echo on 02/07/2021 is reported as left ventricle size is normal. Moderate concentric left ventricular hypertrophy. Ejection fraction of 55-60%. Left atrium is mildly dilated. I will hold off on repeating 2D echo unless there is evidence of acute to subacute ischemic stroke on repeat CT head. * He is continued on Eliquis 2.5mg 1 tab bid and in ED he was given one time dose of ASA 324mg once. I notified the patient's daughter regarding that TIA/stroke could not be rule out and to consider adding ASA 81mg in addition to Eliqius but daughter wants to hold off for now. Decreased lipitor from 40mg to 10mg qhs (but if higher dose is needed will defer it to the primary team). * Continue every 4 hours neuro checks * On cardiac monitoring. * PT, OT and CREATIVE/ART DIRECTOR are consulted * We'll defer the rest of the medical management to primary team. * Recommend patient to follow-up with neurologist with 2-3 weeks. * For DVT prophylaxis: On Eliquis. The plan is discussed with the patient's daughter who is at bedside and his nurse. There is no further work-up. Patient is clear from neurological perspective. Notify neurology if any additional concerns. Giovany Montoya MD Neuro-Hospitalist Time with Patient: Less than 30
[2021-02-28] MEDS: SODIUM CHLORIDE 0.9% 1,000 ML IV SCH (17:36)
--- NOTE | 2021-02-28 20:47 | P.PN ---
Subjective This is a pleasant 80 years old male with past medical history of hypertension, diastolic heart failure, recently admitted to this facility for CHF and aspiration pneumonia status post intubation. He had ESBL Klebsiella pneumonia and urinary tract infection, BPH, GERD, hyperlipidemia, status post permanent pacemaker placement Information were obtained from the patient and daughter at bedside. After recent hospitalization earlier this month patient sent to [facility] for rehab, he was started on 4 L/m of oxygen per daughter also left upper extremity PICC line for his ESBL urinary tract infection he finished his antibiotics 3 days ago while they kept line in his left upper extremity to elevate check his urine analysis as he had urinary retention 3 days ago and Simpson catheter placed Yesterday patient was confused and some slurred speech but a daughter and staff, for example he would call his sister and complaining she hurts him although she hasn't seen him for the last 3-4 years feeling at his daughter which is unusual for him and trying to reach for the roof light faring it will fall upon his head This morning he was more copious saline was sent to the hospital. Currently patient looks calm, he knows his daughter, he could tell the year and the name of the president and his answers are appropriate. However he states he feels funny and did not himself. However he denies any specific symptoms he denies headache, no weakness or numbness in extremities. No blurred vision. No slurred speech. No abdominal pain. No nausea vomiting. No diarrhea. No chest pain or dyspnea. Occasional cough He has chronic leg dermatitis Vitas looks stable. Patient is afebrile. He has no leukocytosis and hemoglobin 10.2. Platelets is 479. INR is 1.6. Creatinine is 2.8, recently earlier this month was 1.9 Rest of the BMP is unremarkable. Chest x-ray: No acute process. COPD with interstitial changes. Correlate for possible mild pulmonary vascular congestion. Call the pneumonia can't be excluded clinically. Possible atelectasis versus consolidation and pneumonia. Stable distended small bowel loops below the right hemidiaphragm, likely chronic postsurgical changes, radiologist's report CT of the brain: No acute intracranial hemorrhage or midline shift. There is [id number] diffuse age-related cerebral atrophy and moderate to advanced chronic small vessel ischemic changes EKG showed v emergency room he was started on aspirin 324 mg. Rate is paced rhythm at 60 Covid test: Pending 02/28/2021 Patient mentation is a stable, no more slurred speech, neurology signed off. Most likely patient has metabolic encephalopathy secondary to infectious process which could be urinary tract infection as well as his kidney disease and cardiac disease. Patient with elevated creatinine 2.8-2.9, baseline 1.9-2.1. Also there is evidence of acute diastolic CHF and he is on IV Lasix 40 mg twice a day, lowered today to 40 mg daily because of hypernatremia. Patient also was started on D5W History of the covered with Eliquis, Ertapanem for history of ESBL Klebsiella. Infectious disease consult. Urine culture is pending Blood pressure was low normal and his norvasc was held Tests including hemoglobin A1c, B12, folate, TSH or unremarkable. Call the test is negative. Throatcalcitonin is mildly elevated at 0.17. BNP is elevated 9180 Objective - Vital Signs Vital signs: Vital Signs Temp 95 F L 02/28/21 07:00 Pulse 60 02/28/21 07:00 Resp 16 02/28/21 07:00 BP 89/56 02/28/21 07:00 Pulse Ox 85 L 02/28/21 07:00 Intake & Output 02/27/21 02/28/21 02/28/21 18:59 06:59 18:59 Intake Total 200 90 Output Total 50 Balance -50 200 90 Weight 79.968 kg Intake: Oral 100 90 Blood Product 100 Output: Urine 50 Other: Voiding Method Indwelling Catheter Indwelling Catheter # Voids 0 - Exam GENERAL: The patient is alert and oriented x3, not in any acute distress. Well developed, well nourished. HEENT: Pupils are round and equally reacting to light. EOMI. No scleral icterus. No conjunctival pallor. Normocephalic, atraumatic. No pharyngeal erythema. No thyromegaly. CARDIOVASCULAR: S1 and S2 present. No murmurs, rubs, or gallops. PULMONARY: Chest is clear to auscultation, no wheezing or crackles. ABDOMEN: Soft, nontender, nondistended, normoactive bowel sounds. No palpable organomegaly. Simpson catheter is in place MUSCULOSKELETAL: No joint swelling or deformity. EXTREMITIES: No cyanosis, clubbing, or pedal edema. Left upper extremity PICC line NEUROLOGICAL: Gross neurological examination did not reveal any focal deficits. SKIN: No rashes. no petechiae. - Labs CBC & Chem 7: 02/27/21 11:25 02/28/21 17:26 Labs: Abnormal Lab Results - Last 24 Hours (Table) 02/27/21 02/27/21 02/27/21 Range/Units 13:51 13:51 13:51 Sodium (135-145) mmol/L Chloride (96-109) mmol/L Carbon Dioxide (21.6-31.8) mmol/L Anion Gap (4.00-12.00) mmol/L BUN (9.0-27.0) mg/dL Creatinine (0.6-1.5) mg/dL Est GFR (CKD-EPI)AfAm (60.0-200.0) Est GFR (CKD-EPI)NonAf (60.0-200.0) BUN/Creatinine Ratio (12.00-20.00) Ratio Calcium (8.7-10.3) mg/dL Delta Bilirubin 0.3 H (0.0-0.2) mg/dL Alkaline Phosphatase 261 H (38-126) U/L Total Protein 6.0 L (6.3-8.2) g/dL Albumin 2.8 L (3.5-5.0) g/dL Albumin/Globulin Ratio (1.60-3.17) g/dL HDL Cholesterol (40.00-60.00) mg/dL Vitamin B12 >2000.0 H (200.0-944.0) pg/mL Procalcitonin 0.17 H (0.02-0.09) ng/mL Urine Protein 2+ H (Negative) Urine Blood Moderate H (Negative) Ur Leukocyte Esterase Large H (Negative) Urine RBC 40 H (0-5) /hpf Urine WBC 165 H (0-5) /hpf Urine WBC Clumps Moderate H (None) /hpf Calcium Oxalate Crystal Few H (None) /hpf Urine Yeast (Budding) Rare H (None) /hpf 02/28/21 Range/Units 05:55 Sodium 149 H (135-145) mmol/L Chloride 112 H (96-109) mmol/L Carbon Dioxide 20.9 L (21.6-31.8) mmol/L Anion Gap 16.10 H (4.00-12.00) mmol/L BUN 59.1 H (9.0-27.0) mg/dL Creatinine 2.9 H (0.6-1.5) mg/dL Est GFR (CKD-EPI)AfAm 22.3 L (60.0-200.0) Est GFR (CKD-EPI)NonAf 19.3 L (60.0-200.0) BUN/Creatinine Ratio 20.38 H (12.00-20.00) Ratio Calcium 8.1 L (8.7-10.3) mg/dL Delta Bilirubin (0.0-0.2) mg/dL Alkaline Phosphatase 279 H (38-126) U/L Total Protein 5.9 L (6.3-8.2) g/dL Albumin 2.9 L (3.5-5.0) g/dL Albumin/Globulin Ratio 0.97 L (1.60-3.17) g/dL HDL Cholesterol 24.50 L (40.00-60.00) mg/dL Vitamin B12 (200.0-944.0) pg/mL Procalcitonin (0.02-0.09) ng/mL Urine Protein (Negative) Urine Blood (Negative) Ur Leukocyte Esterase (Negative) Urine RBC (0-5) /hpf Urine WBC (0-5) /hpf Urine WBC Clumps (None) /hpf Calcium Oxalate Crystal (None) /hpf Urine Yeast (Budding) (None) /hpf Microbiology - Last 24 Hours (Table) 02/27/21 13:51 Urine Culture - Preliminary Urine,Voided Assessment and Plan Assessment: Altered mental status, likely metabolic encephalopathy rule out intracranial lesions Slurred speech suspicious for acute stroke versus TIA, or secondary to above Acute kidney injury, most likely on the top of chronic kidney disease stage III . Most likely cardiorenal syndrome plus hypertensive nephropathy and history of urinary retention recent urinary retention status post Simpson catheter, 3 days prior to admission Acute on chronic diastolic CHF Persistent left upper extremity PICC line, rule out infection Hypertension Hyperlipidemia Chronic hypoxic respiratory failure History of diastolic CHF, no acute exacerbation History of aspiration pneumonia History of ESBL Klebsiella urinary tract infection Chronic bilateral leg dermatitis Plan: This is a pleasant 80 years old male who presents with slurred speech and AMS. Follow-up urine culture, keep the patient on ertapanem, infectious disease team consulted. Also follow-up blood culture from right PICC line. If no need for PICC line will consider removing it Neurology consult Change oral Lasix to 40 mg daily with D5W Labs and medication were reviewed.. Continue same treatment. Continue with symptomatic treatment. Resume home medication. Monitor lytes and vitals. DVT and GI prophylaxis. Further recommendations depends on the clinical course of the patient DVT prophylaxis: Eliquis GI Prophylaxis: Pepcid PT/OT: Pending. Speech evaluation Prognosis is guarded
[2021-02-28] MEDS: ATORVASTATIN 10 MG TAB PO SCH (20:56)
[2021-02-28] MEDS: FAMOTIDINE 20 MG/2 ML VIAL IV SCH (20:56)
[2021-02-28] MEDS: ERTAPENEM 1 GM in SODIUM CHLORIDE 0.9% 50 ML IVPB SCH (20:56)
[2021-03-01] MEDS: DEXTROSE 5% IN WATER 1,000 ML IV SCH ×2 (03:51→16:00)
[2021-03-01 08:28] VITALS: TEMP 97.6
[2021-03-01] MEDS: FUROSEMIDE 10 MG/ML 4 ML VIAL IV SCH (09:00)
[2021-03-01] MEDS: SODIUM BICARBONATE TAB 650 MG TAB PO SCH ×2 (09:00→19:49)
[2021-03-01] MEDS: APIXABAN 2.5 MG TABLET PO SCH ×2 (09:00→19:49)
[2021-03-01] MEDS: TAMSULOSIN 0.4 MG CAP.ER.24H PO SCH (09:00)
[2021-03-01] MEDS: carvediloL 12.5 MG TAB PO SCH ×2 (09:00→17:40)
--- NOTE | 2021-03-01 11:08 | P.PN ---
Subjective Patient is seen in follow-up for acute kidney injury on chronic kidney disease. Labs from today are pending. Sodium level improved with D5W infusion. Blood pressure stable. Nonoliguric. Vital signs are stable. General: The patient appeared well nourished and normally developed. HEENT: Head exam is unremarkable. LUNGS: Breath sounds decreased. HEART: Rate and Rhythm are regular. ABDOMEN: Soft, no distention. EXTREMITITES: No edema. Objective - Vital Signs Vital signs: Vital Signs Temp 97.6 F 03/01/21 07:00 Pulse 60 03/01/21 07:00 Resp 18 03/01/21 07:00 BP 105/69 03/01/21 07:00 Pulse Ox 90 L 03/01/21 07:00 Intake & Output 02/28/21 03/01/21 03/01/21 18:59 06:59 18:59 Intake Total 210 150 Output Total 500 400 Balance -290 -250 Intake: Oral 210 150 Output: Urine 300 200 Stool 200 200 Other: Voiding Method Indwelling Catheter Indwelling Catheter # Voids 0 0 - Labs CBC & Chem 7: 02/27/21 11:25 02/28/21 17:26 Assessment and Plan Plan: Assessment: 1. Acute kidney injury secondary to ATN secondary to cardiorenal syndrome. Ultrasound from earlier this month revealed no evidence of hydronephrosis. Creatinine this month has been in the range of 1.9-2.8 - stable at 2.9 as of yesterday. Morning labs pending. Unknown baseline renal function. 2. Altered mental status. Concern for UTI versus TIA. He is on antibiotics. 3. Acute on chronic diastolic CHF with moderate tricuspid regurgitation. 4. Benign hypertension. Blood pressure stable. 5. Hypernatremia from lack of oral water intake. Improved with D5W infusion. 6. Metabolic acidosis secondary to acute kidney injury. Maintained on oral bicarb. Plan: Maintain Lasix 40 mg IV once daily. Stop D5W. Follow-up morning labs. Follow-up cultures. Avoid nephrotoxins. Continue to monitor renal function and urine output. Amlodipine stopped due to low blood pressure.
[2021-03-01 11:41] LABS: African American GFR (CKD) 21.6 (60.0-200.0); Anion Gap 15.7 mmol/L (10.00-18.00); BUN/Creat Ratio 19.97 Ratio (12.00-20.00); Blood Urea Nitrogen 59.5 mg/dL (9.0-27.0); Calcium 7.8 mg/dL (8.7-10.3); Carbon Dioxide 21.7 mmol/L (20.0-27.5); Magnesium 1.9 mg/dL (1.5-2.4); Non-African American GFR(CKD) 18.6 (60.0-200.0); Potassium 5.1 mmol/L (3.5-5.5)
--- NOTE | 2021-03-01 12:37 | P.CONS ---
History of Present Illness - Reason for Consult Consult date: 02/28/21 ESBL UTI Requesting physician: Chip E Sheet - Chief Complaint mental status changes x few days - History of Present Illness History of Present Illness : Patient is 80-year-old male who was recently admitted at this facility and treatment for multiple condition i ncluding ESBL Klebsiella ureteric infection patient was advised a 1 week course of IV Invanz on discharge from the hospital that was on 02/17/2021 patient not being brought back to the hospital yesterday for evaluation of mental status changes, apparently patient also have a fall about 4 days ago patient on presentation to the hospital was afebrile no fever has been recorded subsequently patient did have a normal white count. Creatinine has been elevated liver exams are normal did have positive UA delacruz PCR was negative patient did have a CT of the brain that was negative for any bleed chest x-ray COPD with interstitial changes correlate for possible pulmonary vascular congestion infectious he was consulted concerning for symptomatic ureteric infection with recent positive culture with ESBL Klebsiella the patient also have a right ankle and sacral pressure ulcer for the patient being monitored by the wound care team, patient will not be a good historian so most information has been extracted from review the chart Review of system: Positive points mentioned in history of present illness complete review could not be obtained because of his underlying medical condition Past medical history : Reviewed, documented below Past surgical history : Reviewed, documented below Social history: Reviewed, documented below Medications: Reviewed, as documented below EXAMINATION: Vital sigans= Reviewed and documented below GENERAL DESCRIPTION: Elderly male lying in bed, no distress. No tachypnea or accessory muscle of respiration use. HEENT: Shows Pallor , no scleral icterus. Oral mucous membrane is dry. NECK: Trachea central, no thyromegaly. LUNGS: Unlabored breathing. Coarse breath sounds bilaterally. No wheeze or crackle. HEART: S1, S2, regular rate and rhythm. ABDOMEN: Soft, no tenderness , guarding or rigidity EXTREMITIES: No edema feet SKIN: No rash, no masses palpable. NEUROLOGICAL: The patient is awake, alert, oriented x2, mood and affect normal. LABS AND RADIOLOGY: Reviewed results see below Assessment : Patient presented to hospital with weakness and falls in this patient with recent diagnosis of ESBL Klebsiella UTI that has been treated with IV antibiotic therapy now with evidence of significantly positive UA and concern for possible other episode of symptomatic UTI the patient has some mental status changes however it is very hard to get further history from this patient as well his urinary symptoms are concerned Plan: 1-patient to continue with ertapenem 1 g daily while waiting for repeat urine cultures finalized 2-gentle IV fluid We will follow on clinical condition and cultures to further adjust medication if needed Thank you for this consultation we will follow the patient along with you Past Medical History Past Medical History: Heart Failure, Hypertension Additional Past Medical History / Comment(s): hiatal hernia. hyperkalemia. maculuar degernation. TIA. 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 Pacemaker placed 08/15/2020 by Eleuterio Babcock ([phone]) Past Anesthesia/Blood Transfusion Reactions: No Reported Reaction Type of Cardiac Device: Permanent Pacemaker Device Placement Date:: 08/15/20 Past Psychological History: No Psychological Hx Reported Smoking Status: Former smoker Past Alcohol Use History: Rare Past Drug Use History: None Reported - Past Family History Daughter(s) Family Medical History: Diabetes Mellitus, Hypertension Additional Family Medical History / Comment(s): macular degeneration Medications and Allergies Home Medications Medication Instructions Recorded Confirmed Type Atorvastatin Calcium [Lipitor] 40 mg PO HS@199902/06/21 02/27/21 History Carvedilol [Coreg] 12.5 mg PO BID 02/06/21 02/27/21 History Multivitamins, Thera [Multivitamin 1 tab PO DAILY 02/06/21 02/27/21 History (formulary)] Sodium Bicarbonate Tab 650 mg PO QID@05,11,17,02/06/21 02/27/21 History Tamsulosin HCl [Flomax] 0.4 mg PO DAILY 02/06/21 02/27/21 History amLODIPine [Norvasc] 10 mg PO DAILY 02/06/21 02/27/21 History Apixaban [Eliquis] 2.5 mg PO BID tablet 02/17/21 02/27/21 Rx Furosemide [Lasix] 40 mg PO DAILY tab 02/17/21 02/27/21 Rx Ipratropium-Albuterol Nebulize 3 ml INHALATION RT-Q2H PRN ml 02/17/21 02/27/21 Rx [Duoneb 0.5 mg-3 mg/3 ml Soln] Ipratropium-Albuterol Nebulize 3 ml INHALATION RT-QID ml 02/17/21 02/27/21 Rx [Duoneb 0.5 mg-3 mg/3 ml Soln] Omeprazole 20 mg PO DAILY 02/27/21 02/27/21 History Prostat 30 ml PO HS 02/27/21 02/27/21 History Allergies Allergy/AdvReac Type Severity Reaction Status Date / Time lisinopril AdvReac Unknown Verified 02/27/21 11:51 Physical Exam Vitals: Vital Signs Temp Pulse Pulse Pulse Resp BP BP 02/28/21 07:00 95 F L 60 16 89/56 02/28/21 02:03 60 16 107/64 02/28/21 02:00 57 L 60 16 02/27/21 20:04 57 L 16 99/58 02/27/21 20:00 60 18 02/27/21 15:00 60 15 100/73 02/27/21 14:19 97.5 F L 60 20 107/69 02/27/21 11:08 98.7 F 60 22 114/97 Pulse Ox 02/28/21 07:00 85 L 02/28/21 02:03 94 L 02/28/21 02:00 02/27/21 20:04 93 L 02/27/21 20:00 02/27/21 15:00 88 L 02/27/21 14:19 92 L 02/27/21 11:08 92 L Intake and Output 02/27/21 02/28/21 02/28/21 22:59 06:59 14:59 Intake Total 100 100 90 Balance 100 100 90 Intake: Oral 100 90 Blood Product 100 Other: Voiding Method Indwelling Catheter Indwelling Catheter # Voids 0 Results CBC & Chem 7: 02/27/21 11:25 03/01/21 06:51 Labs: Abnormal Lab Results - Last 24 Hours (Table) 02/27/21 02/27/21 02/27/21 Range/Units 11:11 11:25 11:25 RBC 4.13 L (4.30-5.90) m/uL Hgb 10.2 L (13.0-17.5) gm/dL Hct 34.8 L (39.0-53.0) % MCH 24.7 L (25.0-35.0) pg MCHC 29.3 L (31.0-37.0) g/dL RDW 22.8 H (11.5-15.5) % Plt Count 479 H (150-450) k/uL Lymphocytes # 0.6 L (1.0-4.8) k/uL Eosinophils # 0.9 H (0-0.7) k/uL PT 15.9 H (9.0-12.0) sec INR 1.6 H (<1.2) APTT 44.5 H (22.0-30.0) sec Sodium (135-145) mmol/L Chloride (98-107) mmol/L Carbon Dioxide (21.6-31.8) mmol/L Anion Gap (4.00-12.00) mmol/L BUN (9-20) mg/dL Creatinine (0.66-1.25) mg/dL Est GFR (CKD-EPI)AfAm (60.0-200.0) Est GFR (CKD-EPI)NonAf (60.0-200.0) BUN/Creatinine Ratio (12.00-20.00) Ratio Glucose (74-99) mg/dL POC Glucose (mg/dL) 113 H (75-99) mg/dL Calcium (8.7-10.3) mg/dL Delta Bilirubin (0.0-0.2) mg/dL Alkaline Phosphatase (38-126) U/L Total Protein (6.3-8.2) g/dL Albumin (3.5-5.0) g/dL Albumin/Globulin Ratio (1.60-3.17) g/dL HDL Cholesterol (40.00-60.00) mg/dL Vitamin B12 (200.0-944.0) pg/mL Procalcitonin (0.02-0.09) ng/mL Urine Protein (Negative) Urine Blood (Negative) Ur Leukocyte Esterase (Negative) Urine RBC (0-5) /hpf Urine WBC (0-5) /hpf Urine WBC Clumps (None) /hpf Calcium Oxalate Crystal (None) /hpf Urine Yeast (Budding) (None) /hpf 02/27/21 02/27/21 02/27/21 Range/Units 11:25 13:51 13:51 RBC (4.30-5.90) m/uL Hgb (13.0-17.5) gm/dL Hct (39.0-53.0) % MCH (25.0-35.0) pg MCHC (31.0-37.0) g/dL RDW (11.5-15.5) % Plt Count (150-450) k/uL Lymphocytes # (1.0-4.8) k/uL Eosinophils # (0-0.7) k/uL PT (9.0-12.0) sec INR (<1.2) APTT (22.0-30.0) sec Sodium (135-145) mmol/L Chloride 112 H (98-107) mmol/L Carbon Dioxide (21.6-31.8) mmol/L Anion Gap (4.00-12.00) mmol/L BUN 61 H (9-20) mg/dL Creatinine 2.82 H (0.66-1.25) mg/dL Est GFR (CKD-EPI)AfAm (60.0-200.0) Est GFR (CKD-EPI)NonAf (60.0-200.0) BUN/Creatinine Ratio (12.00-20.00) Ratio Glucose 112 H (74-99) mg/dL POC Glucose (mg/dL) (75-99) mg/dL Calcium (8.7-10.3) mg/dL Delta Bilirubin 0.3 H (0.0-0.2) mg/dL Alkaline Phosphatase 261 H (38-126) U/L Total Protein 6.0 L (6.3-8.2) g/dL Albumin 2.8 L (3.5-5.0) g/dL Albumin/Globulin Ratio (1.60-3.17) g/dL HDL Cholesterol (40.00-60.00) mg/dL Vitamin B12 >2000.0 H (200.0-944.0) pg/mL Procalcitonin (0.02-0.09) ng/mL Urine Protein 2+ H (Negative) Urine Blood Moderate H (Negative) Ur Leukocyte Esterase Large H (Negative) Urine RBC 40 H (0-5) /hpf Urine WBC 165 H (0-5) /hpf Urine WBC Clumps Moderate H (None) /hpf Calcium Oxalate Crystal Few H (None) /hpf Urine Yeast (Budding) Rare H (None) /hpf 02/27/21 02/28/21 Range/Units 13:51 05:55 RBC (4.30-5.90) m/uL Hgb (13.0-17.5) gm/dL Hct (39.0-53.0) % MCH (25.0-35.0) pg MCHC (31.0-37.0) g/dL RDW (11.5-15.5) % Plt Count (150-450) k/uL Lymphocytes # (1.0-4.8) k/uL Eosinophils # (0-0.7) k/uL PT (9.0-12.0) sec INR (<1.2) APTT (22.0-30.0) sec Sodium 149 H (135-145) mmol/L Chloride 112 H (98-107) mmol/L Carbon Dioxide 20.9 L (21.6-31.8) mmol/L Anion Gap 16.10 H (4.00-12.00) mmol/L BUN 59.1 H (9-20) mg/dL Creatinine 2.9 H (0.66-1.25) mg/dL Est GFR (CKD-EPI)AfAm 22.3 L (60.0-200.0) Est GFR (CKD-EPI)NonAf 19.3 L (60.0-200.0) BUN/Creatinine Ratio 20.38 H (12.00-20.00) Ratio Glucose (74-99) mg/dL POC Glucose (mg/dL) (75-99) mg/dL Calcium 8.1 L (8.7-10.3) mg/dL Delta Bilirubin (0.0-0.2) mg/dL Alkaline Phosphatase 279 H (38-126) U/L Total Protein 5.9 L (6.3-8.2) g/dL Albumin 2.9 L (3.5-5.0) g/dL Albumin/Globulin Ratio 0.97 L (1.60-3.17) g/dL HDL Cholesterol 24.50 L (40.00-60.00) mg/dL Vitamin B12 (200.0-944.0) pg/mL Procalcitonin 0.17 H (0.02-0.09) ng/mL Urine Protein (Negative) Urine Blood (Negative) Ur Leukocyte Esterase (Negative) Urine RBC (0-5) /hpf Urine WBC (0-5) /hpf Urine WBC Clumps (None) /hpf Calcium Oxalate Crystal (None) /hpf Urine Yeast (Budding) (None) /hpf Microbiology - Last 24 Hours (Table) 02/27/21 13:51 Urine Culture - Preliminary Urine,Voided
[2021-03-01 12:43] LABS: Basophils % (A) 1.6 %; Eosinophils # (A) 0.95 X 10*3/uL (0.04-0.35); Eosinophils % (A) 14.9 %; HCT 32.4 % (39.6-50.0); HGB 9.1 g/dL (13.0-17.0); Lymphocytes # (A) 3.17 X 10*3/uL (0.90-5.00); Lymphocytes % (A) 49.8 %; MCH 23.6 pg (27.0-32.0); MCHC 28.1 g/dL (32.0-37.0); MCV 83.9 fL (80.0-97.0); Mean Platelet Volume 11.3 fL (9.5-12.2); Monocytes % (A) 4.7 %; Neutrophils # (A) 1.81 X 10*3/uL (1.80-7.70); Neutrophils % (A) 28.5 %; Platelet Count 543 X 10*3/uL (140-440); RBC 3.86 X 10*6/uL (4.40-5.60); RDW 26.5 % (11.5-14.5); WBC 6.36 X 10*3/uL (4.50-10.00)
[2021-03-01 12:44] LABS: Anisocytosis (M) 3+; Hypochromasia (M) 2+
[2021-03-01] MEDS: SODIUM CHLORIDE 0.9% 1,000 ML IV SCH (14:56)
--- NOTE | 2021-03-01 19:38 | P.PN ---
Subjective This is a pleasant 80 years old male with past medical history of hypertension, diastolic heart failure, recently admitted to this facility for CHF and aspiration pneumonia status post intubation. He had ESBL Klebsiella pneumonia and urinary tract infection, BPH, GERD, hyperlipidemia, status post permanent pacemaker placement Information were obtained from the patient and daughter at bedside. After recent hospitalization earlier this month patient sent to [facility] for rehab, he was started on 4 L/m of oxygen per daughter also left upper extremity PICC line for his ESBL urinary tract infection he finished his antibiotics 3 days ago while they kept line in his left upper extremity to elevate check his urine analysis as he had urinary retention 3 days ago and Simpson catheter placed Yesterday patient was confused and some slurred speech but a daughter and staff, for example he would call his sister and complaining she hurts him although she hasn't seen him for the last 3-4 years feeling at his daughter which is unusual for him and trying to reach for the roof light faring it will fall upon his head This morning he was more copious saline was sent to the hospital. Currently patient looks calm, he knows his daughter, he could tell the year and the name of the president and his answers are appropriate. However he states he feels funny and did not himself. However he denies any specific symptoms he denies headache, no weakness or numbness in extremities. No blurred vision. No slurred speech. No abdominal pain. No nausea vomiting. No diarrhea. No chest pain or dyspnea. Occasional cough He has chronic leg dermatitis Vitas looks stable. Patient is afebrile. He has no leukocytosis and hemoglobin 10.2. Platelets is 479. INR is 1.6. Creatinine is 2.8, recently earlier this month was 1.9 Rest of the BMP is unremarkable. Chest x-ray: No acute process. COPD with interstitial changes. Correlate for possible mild pulmonary vascular congestion. Call the pneumonia can't be excluded clinically. Possible atelectasis versus consolidation and pneumonia. Stable distended small bowel loops below the right hemidiaphragm, likely chronic postsurgical changes, radiologist's report CT of the brain: No acute intracranial hemorrhage or midline shift. There is [id number] diffuse age-related cerebral atrophy and moderate to advanced chronic small vessel ischemic changes EKG showed v emergency room he was started on aspirin 324 mg. Rate is paced rhythm at 60 Covid test: Pending 02/28/2021 Patient mentation is a stable, no more slurred speech, neurology signed off. Most likely patient has metabolic encephalopathy secondary to infectious process which could be urinary tract infection as well as his kidney disease and cardiac disease. Patient with elevated creatinine 2.8-2.9, baseline 1.9-2.1. Also there is evidence of acute diastolic CHF and he is on IV Lasix 40 mg twice a day, lowered today to 40 mg daily because of hypernatremia. Patient also was started on D5W History of the covered with Eliquis, Ertapanem for history of ESBL Klebsiella. Infectious disease consult. Urine culture is pending Blood pressure was low normal and his norvasc was held Tests including hemoglobin A1c, B12, folate, TSH or unremarkable. Call the test is negative. Throatcalcitonin is mildly elevated at 0.17. BNP is elevated 9180 03/01/2021 Patient is more confused today, family at bedside and they think is also more confused. Probable because of his ongoing infection and hypernatremia. And also because of other medical issues. Neurology of the case. Hemodynamically stable. Sodium today improved 145. Creatinine slightly worsened to 3.0. Blood pressure is stable 108/45. Left arm PICC line catheter was removed and tip sent for culture He remains on aertapanem , Eliquis, Lasix 40 mg IV daily and D5W at 50 mL per hour Objective - Vital Signs Vital signs: Vital Signs Temp 97.6 F 03/01/21 07:00 Pulse 56 L 03/01/21 14:48 Resp 18 03/01/21 14:48 BP 108/45 03/01/21 14:48 Pulse Ox 92 L 03/01/21 14:48 Intake & Output 02/28/21 03/01/21 03/01/21 18:59 06:59 18:59 Intake Total 210 150 200 Output Total 500 400 Balance -290 -250 200 Intake: Intake, IV Titration 200 Amount Dextrose 5% in Water 1, 200 000 ml @ 50 mls/hr IV . Q20H [facility] Rx#:[id number] Oral 210 150 Output: Urine 300 200 Stool 200 200 Other: Voiding Method Indwelling Catheter Indwelling Catheter # Voids 0 0 - Exam GENERAL: The patient is alert and oriented x3, not in any acute distress. Well developed, well nourished. HEENT: Pupils are round and equally reacting to light. EOMI. No scleral icterus. No conjunctival pallor. Normocephalic, atraumatic. No pharyngeal erythema. No thyromegaly. CARDIOVASCULAR: S1 and S2 present. No murmurs, rubs, or gallops. PULMONARY: Chest is clear to auscultation, no wheezing or crackles. ABDOMEN: Soft, nontender, nondistended, normoactive bowel sounds. No palpable organomegaly. Simpson catheter is in place MUSCULOSKELETAL: No joint swelling or deformity. EXTREMITIES: No cyanosis, clubbing, or pedal edema. Left upper extremity PICC line NEUROLOGICAL: Gross neurological examination did not reveal any focal deficits. SKIN: No rashes. no petechiae. - Labs CBC & Chem 7: 03/01/21 06:51 03/01/21 06:51 Labs: Abnormal Lab Results - Last 24 Hours (Table) 03/01/21 03/01/21 Range/Units 06:51 06:51 RBC 3.86 L (4.40-5.60) X 10*6/uL Hgb 9.1 L (13.0-17.0) g/dL Hct 32.4 L (39.6-50.0) % MCH 23.6 L (27.0-32.0) pg MCHC 28.1 L (32.0-37.0) g/dL RDW 26.5 H (11.5-14.5) % Plt Count 543 H (140-440) X 10*3/uL Plt Count Comment INCREASED A Absolute Nucleated RBC 0.05 H (0.00-0.00) X 10*3/uL Eosinophils # 0.95 H (0.04-0.35) X 10*3/uL NRBC/100 WBC Diff 0.8 H (0.0-0.0) /100 WBCS BUN 59.5 H (9.0-27.0) mg/dL Creatinine 3.0 H (0.6-1.5) mg/dL Est GFR (CKD-EPI)AfAm 21.6 L (60.0-200.0) Est GFR (CKD-EPI)NonAf 18.6 L (60.0-200.0) Glucose 135 H (70-110) mg/dL Calcium 7.8 L (8.7-10.3) mg/dL Assessment and Plan Assessment: Altered mental status, likely metabolic encephalopathy rule out intracranial lesions Slurred speech suspicious for acute stroke versus TIA, or secondary to above Acute kidney injury, most likely on the top of chronic kidney disease stage III . Most likely cardiorenal syndrome plus hypertensive nephropathy and history of urinary retention recent urinary retention status post Simpson catheter, 3 days prior to admission Acute on chronic diastolic CHF Persistent left upper extremity PICC line, rule out infection Hypertension Hyperlipidemia Chronic hypoxic respiratory failure History of diastolic CHF, no acute exacerbation History of aspiration pneumonia History of ESBL Klebsiella urinary tract infection Chronic bilateral leg dermatitis Plan: This is a pleasant 80 years old male who presents with slurred speech and AMS. Follow-up urine culture, keep the patient on ertapanem, infectious disease team consulted. Removal of PICC line and sent for culture Neurology consult Change oral Lasix to 40 mg daily with D5W Labs and medication were reviewed.. Continue same treatment. Continue with symptomatic treatment. Resume home medication. Monitor lytes and vitals. DVT and GI prophylaxis. Further recommendations depends on the clinical course of the patient DVT prophylaxis: Eliquis GI Prophylaxis: Pepcid PT/OT: Pending. Speech evaluation Prognosis is guarded
[2021-03-01] MEDS: ERTAPENEM 1 GM in SODIUM CHLORIDE 0.9% 50 ML IVPB SCH (19:49)
[2021-03-01] MEDS: ATORVASTATIN 10 MG TAB PO SCH (19:49)
[2021-03-01] MEDS: FAMOTIDINE 20 MG/2 ML VIAL IV SCH (19:49)
--- NOTE | 2021-03-01 21:58 | PN ---
PROGRESS NOTE DATE OF SERVICE: 03/01/2021 REASON FOR FOLLOWUP: Urinary tract infection. INTERVAL HISTORY: The patient is afebrile. The patient is currently breathing comfortably. Denies any chest pain or shortness of breath. Did have a cough, not bringing up any sputum. No abdominal pain or diarrhea. PHYSICAL EXAMINATION: Blood pressure 147/72 with a pulse of 64, temperature 97.6. He is 91% on 4 L nasal cannula. General description is an elderly male lying in bed in no distress. Respiratory system: Unlabored breathing, decreased breath sounds at the base. No wheeze. Heart S1, S2. Regular rate and rhythm. Abdomen soft, no tenderness. LABS: Hemoglobin is 9.1, white count 6.36, creatinine is 3.0. Urine culture is currently pending. DIAGNOSTIC IMPRESSION AND PLAN: Patient admitted to hospital with weakness, hypothermia concerning for a symptomatic urinary tract infection and the patient did have positive UA. Recent culture positive has been Klebsiella. Patient is covered with Invanz. Antibiotic will be adjusted on the basis of repeat cultures. Continue with supportive care. MMODL / IJN: [id number] /
[2021-03-02] MEDS: FUROSEMIDE 10 MG/ML 4 ML VIAL IV SCH (08:29)
[2021-03-02] MEDS: TAMSULOSIN 0.4 MG CAP.ER.24H PO SCH (08:29)
[2021-03-02] MEDS: APIXABAN 2.5 MG TABLET PO SCH ×2 (08:29→22:02)
[2021-03-02] MEDS: carvediloL 12.5 MG TAB PO SCH (08:29)
[2021-03-02] MEDS: SODIUM BICARBONATE TAB 650 MG TAB PO SCH ×2 (08:30→22:02)
[2021-03-02 09:09] LABS: African American GFR (CKD) 19.1 (60.0-200.0); Albumin 2.9 g/dL (3.8-4.9); Albumin/Globulin Ratio 1.04 (1.60-3.17); Anion Gap 14.2 mmol/L (10.00-18.00); BUN/Creat Ratio 19.76 Ratio (12.00-20.00); Bilirubin, Conjugated 0.28 mg/dL (0.20-0.40); Bilirubin,Unconjugated 0.32 mg/dL (0.20-1.00); Blood Urea Nitrogen 65.2 mg/dL (9.0-27.0); Calcium 7.5 mg/dL (8.7-10.3); Carbon Dioxide 21.8 mmol/L (20.0-27.5); Globulin 2.8 g/dL (1.6-3.3); Magnesium 1.9 mg/dL (1.5-2.4); Non-African American GFR(CKD) 16.5 (60.0-200.0); Potassium 5.1 mmol/L (3.5-5.5); Total Bilirubin 0.6 mg/dL (0.30-1.20); Total Protein 5.7 g/dL (6.2-8.2)
--- NOTE | 2021-03-02 11:25 | XR ---
EXAMINATION TYPE: XR chest 1V portable DATE OF EXAM: 03/02/2021 CLINICAL HISTORY: Difficulty breathing possible aspiration. TECHNIQUE: Single AP portable upright view of the chest is obtained. COMPARISON: Chest x-ray from [address] chest February 14, 2021 FINDINGS: Osseous structures remain demineralized. Persistent mild cardiomegaly with single lead pac emaker. Persistent left greater than right bibasilar opacities. IMPRESSION: Cardiomegaly with left greater than right bibasilar acute infiltrate and/or atelectasis r emains present with probable small left pleural effusion. No significant change from most recent stud ies.
[2021-03-02 11:40] LABS: HCT 29.9 % (39.6-50.0); HGB 8.5 g/dL (13.0-17.0); MCH 23.7 pg (27.0-32.0); MCHC 28.4 g/dL (32.0-37.0); MCV 83.5 fL (80.0-97.0); Mean Platelet Volume 10.7 fL (9.5-12.2); Platelet Count 477 X 10*3/uL (140-440); RBC 3.58 X 10*6/uL (4.40-5.60); RDW 26.2 % (11.5-14.5); WBC 4.95 X 10*3/uL (4.50-10.00)
[2021-03-02 11:41] LABS: Basophils # (M) 0.15 X 10*3/uL (0.00-0.10); Crenated RBC 2+; Eosinophils # (M) 0.79 X 10*3/uL (0.04-0.35); Lymphocytes # (M) 0.05 X 10*3/uL (0.90-5.00); Metamyelocytes % 1 % (0-0); Monocytes # (M) 0.05 X 10*3/uL (0.20-1.00); Neutrophils # (M) 3.86 X 10*3/uL (2.00-8.90); Neutrophils % (M) 78 %; Schistocytes 1+
[2021-03-02] MEDS: SODIUM CHLORIDE 0.9% 1,000 ML IV SCH (15:02)
[2021-03-02] MEDS: DEXTROSE 5% IN WATER 1,000 ML IV SCH (15:02)
--- NOTE | 2021-03-02 16:51 | P.PN ---
Subjective Progress Note Date: 03/02/21 Follow-up for acute kidney injury. Objective - Vital Signs Vital signs: Vital Signs Temp 97.6 F 03/01/21 07:00 Pulse 56 L 03/02/21 15:00 Resp 22 03/02/21 15:00 BP 84/52 03/02/21 15:00 Pulse Ox 94 L 03/02/21 15:00 Intake & Output 03/01/21 03/02/21 03/02/21 18:59 06:59 18:59 Intake Total 200 Output Total 550 200 150 Balance -350 -200 -150 Intake: Intake, IV Titration 200 Amount Dextrose 5% in Water 1, 200 000 ml @ 50 mls/hr IV . Q20H [facility] Rx#:[id number] Output: Urine 550 200 150 Other: Voiding Method Indwelling Catheter # Voids 0 # Bowel Movements 1 - Exam Refer to primary team exam, currently in [facility]- isolation - Labs CBC & Chem 7: 03/02/21 06:05 03/02/21 06:05 Labs: Abnormal Lab Results - Last 24 Hours (Table) 03/02/21 03/02/21 Range/Units 06:05 06:05 RBC 3.58 L (4.40-5.60) X 10*6/uL Hgb 8.5 L (13.0-17.0) g/dL Hct 29.9 L (39.6-50.0) % MCH 23.7 L (27.0-32.0) pg MCHC 28.4 L (32.0-37.0) g/dL RDW 26.2 H (11.5-14.5) % Plt Count 477 H (140-440) X 10*3/uL Plt Count Comment INCREASED A Absolute Nucleated RBC 0.05 H (0.00-0.00) X 10*3/uL Metamyelocytes % 1 H (0-0) % Lymphocytes # (Manual) 0.05 L (0.90-5.00) X 10*3/uL Monocytes # (Manual) 0.05 L (0.20-1.00) X 10*3/uL Eosinophils # (Manual) 0.79 H (0.04-0.35) X 10*3/uL Basophils # (Manual) 0.15 H (0.00-0.10) X 10*3/uL NRBC/100 WBC Diff 1.0 H (0.0-0.0) /100 WBCS Sodium 146 H (135-145) mmol/L Chloride 110 H (96-109) mmol/L BUN 65.2 H (9.0-27.0) mg/dL Creatinine 3.3 H (0.6-1.5) mg/dL Est GFR (CKD-EPI)AfAm 19.1 L (60.0-200.0) Est GFR (CKD-EPI)NonAf 16.5 L (60.0-200.0) Calcium 7.5 L (8.7-10.3) mg/dL Alkaline Phosphatase 247 H (41-126) U/L Total Protein 5.7 L (6.2-8.2) g/dL Albumin 2.9 L (3.8-4.9) g/dL Albumin/Globulin Ratio 1.04 L (1.60-3.17) g/dL Microbiology - Last 24 Hours (Table) 03/01/21 16:15 Catheter Tip Culture - Preliminary Catheter Tip Assessment and Plan Assessment: #1 acute kidney injury secondary to hemodynamic ATN/cardiorenal syndrome. #2 altered mental status #3 diastolic CHF #4 hypertension #5 metabolic acidosis #6 hyperntremia Plan: #1 renal function slightly worse today, suspect secondary to hypotensive episodes.. Continue with Lasix 40 mg IV daily. #2 strict ins and outs. #3 stop carvedilol, instead add metoprolol 12.5 mg twice a day with hypotensive episodes. #4 add midodrine for hemodynamic support #5 labs in the morning
[2021-03-02] MEDS: MIDODRINE 5 MG TAB PO SCH (17:56)
--- NOTE | 2021-03-02 20:18 | P.PN ---
Subjective This is a pleasant 80 years old male with past medical history of hypertension, diastolic heart failure, recently admitted to this facility for CHF and aspiration pneumonia status post intubation. He had ESBL Klebsiella pneumonia and urinary tract infection, BPH, GERD, hyperlipidemia, status post permanent pacemaker placement Information were obtained from the patient and daughter at bedside. After recent hospitalization earlier this month patient sent to [facility] for rehab, he was started on 4 L/m of oxygen per daughter also left upper extremity PICC line for his ESBL urinary tract infection he finished his antibiotics 3 days ago while they kept line in his left upper extremity to elevate check his urine analysis as he had urinary retention 3 days ago and Simpson catheter placed Yesterday patient was confused and some slurred speech but a daughter and staff, for example he would call his sister and complaining she hurts him although she hasn't seen him for the last 3-4 years feeling at his daughter which is unusual for him and trying to reach for the roof light faring it will fall upon his head This morning he was more copious saline was sent to the hospital. Currently patient looks calm, he knows his daughter, he could tell the year and the name of the president and his answers are appropriate. However he states he feels funny and did not himself. However he denies any specific symptoms he denies headache, no weakness or numbness in extremities. No blurred vision. No slurred speech. No abdominal pain. No nausea vomiting. No diarrhea. No chest pain or dyspnea. Occasional cough He has chronic leg dermatitis Vitas looks stable. Patient is afebrile. He has no leukocytosis and hemoglobin 10.2. Platelets is 479. INR is 1.6. Creatinine is 2.8, recently earlier this month was 1.9 Rest of the BMP is unremarkable. Chest x-ray: No acute process. COPD with interstitial changes. Correlate for possible mild pulmonary vascular congestion. Call the pneumonia can't be excluded clinically. Possible atelectasis versus consolidation and pneumonia. Stable distended small bowel loops below the right hemidiaphragm, likely chronic postsurgical changes, radiologist's report CT of the brain: No acute intracranial hemorrhage or midline shift. There is [id number] diffuse age-related cerebral atrophy and moderate to advanced chronic small vessel ischemic changes EKG showed v emergency room he was started on aspirin 324 mg. Rate is paced rhythm at 60 Covid test: Pending 02/28/2021 Patient mentation is a stable, no more slurred speech, neurology signed off. Most likely patient has metabolic encephalopathy secondary to infectious process which could be urinary tract infection as well as his kidney disease and cardiac disease. Patient with elevated creatinine 2.8-2.9, baseline 1.9-2.1. Also there is evidence of acute diastolic CHF and he is on IV Lasix 40 mg twice a day, lowered today to 40 mg daily because of hypernatremia. Patient also was started on D5W History of the covered with Eliquis, Ertapanem for history of ESBL Klebsiella. Infectious disease consult. Urine culture is pending Blood pressure was low normal and his norvasc was held Tests including hemoglobin A1c, B12, folate, TSH or unremarkable. Call the test is negative. Throatcalcitonin is mildly elevated at 0.17. BNP is elevated 9180 03/01/2021 Patient is more confused today, family at bedside and they think is also more confused. Probable because of his ongoing infection and hypernatremia. And also because of other medical issues. Neurology of the case. Hemodynamically stable. Sodium today improved 145. Creatinine slightly worsened to 3.0. Blood pressure is stable 108/45. Left arm PICC line catheter was removed and tip sent for culture He remains on aertapanem , Eliquis, Lasix 40 mg IV daily and D5W at 50 mL per hour 03/02/2021 Patient is morning also with more tired confused than usual with somewhat breathing. 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 Repeat chest x-ray showed cardiomegaly with left greater than right bibasilar acute infiltrate and/or atelectasis remains present with probable small left pleural effusion. No significant change from most recent studies. Catheter tip culture is still pending Currently he is on Invanz however urine culture is growing fungal looks mari. Infectious disease team on the case. And incentive spirometry As per staff family are discussing his plan of care, long-term care and possible CODE STATUS Objective - Vital Signs Vital signs: Vital Signs Temp 97.6 F 03/01/21 07:00 Pulse 56 L 03/02/21 15:00 Resp 22 03/02/21 15:00 BP 84/52 03/02/21 15:00 Pulse Ox 94 L 03/02/21 15:00 Intake & Output 03/02/21 03/02/21 03/03/21 06:59 18:59 06:59 Output Total 200 150 Balance -200 -150 Output: Urine 200 150 Other: Voiding Method Indwelling Catheter - Exam GENERAL: The patient is alert and oriented x3, not in any acute distress. Well developed, well nourished. HEENT: Pupils are round and equally reacting to light. EOMI. No scleral icterus. No conjunctival pallor. Normocephalic, atraumatic. No pharyngeal erythema. No thyromegaly. CARDIOVASCULAR: S1 and S2 present. No murmurs, rubs, or gallops. PULMONARY: Chest is clear to auscultation, no wheezing or crackles. ABDOMEN: Soft, nontender, nondistended, normoactive bowel sounds. No palpable organomegaly. Simpson catheter is in place MUSCULOSKELETAL: No joint swelling or deformity. EXTREMITIES: No cyanosis, clubbing, or pedal edema. Left upper extremity PICC line NEUROLOGICAL: Gross neurological examination did not reveal any focal deficits. SKIN: No rashes. no petechiae. - Labs CBC & Chem 7: 03/02/21 06:05 03/02/21 06:05 Labs: Abnormal Lab Results - Last 24 Hours (Table) 03/02/21 03/02/21 Range/Units 06:05 06:05 RBC 3.58 L (4.40-5.60) X 10*6/uL Hgb 8.5 L (13.0-17.0) g/dL Hct 29.9 L (39.6-50.0) % MCH 23.7 L (27.0-32.0) pg MCHC 28.4 L (32.0-37.0) g/dL RDW 26.2 H (11.5-14.5) % Plt Count 477 H (140-440) X 10*3/uL Plt Count Comment INCREASED A Absolute Nucleated RBC 0.05 H (0.00-0.00) X 10*3/uL Metamyelocytes % 1 H (0-0) % Lymphocytes # (Manual) 0.05 L (0.90-5.00) X 10*3/uL Monocytes # (Manual) 0.05 L (0.20-1.00) X 10*3/uL Eosinophils # (Manual) 0.79 H (0.04-0.35) X 10*3/uL Basophils # (Manual) 0.15 H (0.00-0.10) X 10*3/uL NRBC/100 WBC Diff 1.0 H (0.0-0.0) /100 WBCS Sodium 146 H (135-145) mmol/L Chloride 110 H (96-109) mmol/L BUN 65.2 H (9.0-27.0) mg/dL Creatinine 3.3 H (0.6-1.5) mg/dL Est GFR (CKD-EPI)AfAm 19.1 L (60.0-200.0) Est GFR (CKD-EPI)NonAf 16.5 L (60.0-200.0) Calcium 7.5 L (8.7-10.3) mg/dL Alkaline Phosphatase 247 H (41-126) U/L Total Protein 5.7 L (6.2-8.2) g/dL Albumin 2.9 L (3.8-4.9) g/dL Albumin/Globulin Ratio 1.04 L (1.60-3.17) g/dL Microbiology - Last 24 Hours (Table) 02/27/21 13:51 Urine Culture - Final Urine,Voided Mari sp,not albicans/galbr 03/01/21 16:15 Catheter Tip Culture - Preliminary Catheter Tip Assessment and Plan Assessment: Altered mental status, likely metabolic encephalopathy Slurred speech , mostly related to above rather than TIA Acute kidney injury, most likely on the top of chronic kidney disease stage III . Most likely cardiorenal syndrome plus hypertensive nephropathy and history of urinary retention recent urinary retention status post Simpson catheter, 3 days prior to admission Acute on chronic diastolic CHF Hypernatremia Persistent left upper extremity PICC line, follow-up tip for culture and sensitivity Hypertension Hyperlipidemia Chronic hypoxic respiratory failure History of diastolic CHF, no acute exacerbation History of aspiration pneumonia History of ESBL Klebsiella urinary tract infection Chronic bilateral leg dermatitis Plan: This is a pleasant 80 years old male who presents with slurred speech and AMS. keep the patient on ertapanem, adjust antibiotic per infectious disease team consulted. follow-up tip of removed PICC line Continue with IV Lasix once daily for CHF. Continue with D5W hypernatremia Discontinue Coreg and start metoprolol 12.5 and midodrine 10 mg TID , monitor blood pressure continue same treatment. Continue with symptomatic treatment. Resume home medication. Monitor lytes and vitals. DVT and GI prophylaxis. Further recommendations depends on the clinical course of the patient DVT prophylaxis: Eliquis GI Prophylaxis: Pepcid PT/OT: Pending. Speech evaluation Prognosis is guarded
[2021-03-02] MEDS ORDERED: METOPROLOL TARTRATE 12.5 MG TAB PO SCH (21:00)
[2021-03-02] MEDS: ERTAPENEM 1 GM in SODIUM CHLORIDE 0.9% 50 ML IVPB SCH (21:18)
[2021-03-02 21:26] LABS: Glucose,Whole Blood 86 mg/dL (75-99)
[2021-03-02] MEDS: ATORVASTATIN 10 MG TAB PO SCH (22:02)
[2021-03-02] MEDS: FAMOTIDINE 20 MG/2 ML VIAL IV SCH (22:16)
[2021-03-02] MEDS ORDERED: FLUCONAZOLE 100 MG TAB PO ONE (22:27)
[2021-03-03 07:28] VITALS: RESP 16
[2021-03-03] MEDS: MIDODRINE 5 MG TAB PO SCH ×2 (07:37→11:29)
[2021-03-03] MEDS: TAMSULOSIN 0.4 MG CAP.ER.24H PO SCH (07:37)
[2021-03-03] MEDS: SODIUM BICARBONATE TAB 650 MG TAB PO SCH (07:37)
[2021-03-03 08:19] LABS: African American GFR (CKD) 17 (>60 ml/min/1.73 sqM); Anion Gap 10 mmol/L; Blood Urea Nitrogen 77 mg/dL (9-20); Calcium 6.9 mg/dL (8.4-10.2); Carbon Dioxide 22 mmol/L (22-30); Chloride 110 mmol/L (98-107); Glucose 86 mg/dL (74-99); Non-African American GFR(CKD) 15 (>60 ml/min/1.73 sqM); Potassium 5.2 mmol/L (3.5-5.1); Sodium 142 mmol/L (137-145)
[2021-03-03 08:47] VITALS: BP 100/58; PULSE 57
[2021-03-03] MEDS ORDERED: FLUCONAZOLE 100 MG TAB PO SCH (09:00)
[2021-03-03] MEDS: FUROSEMIDE 10 MG/ML 4 ML VIAL IV SCH (09:08)
--- NOTE | 2021-03-03 09:19 | PN ---
PROGRESS NOTE DATE OF SERVICE: 03/02/2021 REASON FOR FOLLOWUP: Urinary tract infection. INTERVAL HISTORY: Patient is afebrile. The patient is currently breathing comfortably. The patient remains to be slightly lethargic and not eating per the family at the bedside. No vomiting or diarrhea has been reported. PHYSICAL EXAMINATION: Blood pressure is 87/49 with a pulse of 85, temperature 97.6, sating 94% on 4 L nasal cannula. General description is an elderly male lying in bed in no distress. Respiratory system: Unlabored breathing, decreased breath sounds on the base. No wheeze. Heart S1, S2. Regular rate and rhythm. Abdomen soft, no tenderness. LABS: Hemoglobin is 8.5, white count 4.95, creatinine 3.3. DIAGNOSTIC IMPRESSION AND PLAN: Patient admitted to the hospital with weakness, hypothermia concerning for urinary tract infection with recent urine positive for ESBL for which the patient completed antibiotic therapy. Now urine is showing Mari. Antibiotic will be adjusted to Diflucan. Overall prognosis remains to be guarded. Continue supportive care. MMODL / IJN: [id number] /
[2021-03-03] MEDS ORDERED: MORPHINE SULFATE 2 MG/ML SYRINGE IVP PRN (10:31)
--- NOTE | 2021-03-03 22:43 | P.DS ---
Providers Date of admission: 03/01/21 15:57 Attending physician: Chip Bolaños MD Consults: 02/27/21 13:38 Consult Physician Routine Consulting Provider: Giovany Montoya Consult Reason/Comments: slurred speech, confusion Do you want consulting provider notified?: Yes 02/27/21 19:14 Consult Physician Urgent Consulting Provider: Deb Barrientos Consult Reason/Comments: recent esbl uti, urinalysis positive Do you want consulting provider notified?: Yes 02/27/21 19:20 Consult Physician Urgent Consulting Provider: Jake Todd Consult Reason/Comments: ARF, UTI Do you want consulting provider notified?: Yes 03/03/21 06:53 Consult Physician Urgent Consulting Provider: Jc Diaz Consult Reason/Comments: possible GI bledd Do you want consulting provider notified?: Yes Primary care physician: Zackary Fisher [facility] Course: Diagnoses: Altered mental status, likely metabolic encephalopathy Slurred speech , mostly related to above rather than TIA Possible acute GI bleed with blood loss anemia Acute kidney injury, most likely on the top of chronic kidney disease stage III . Most likely cardiorenal syndrome plus hypertensive nephropathy and history of urinary retention recent urinary retention status post Simpson catheter, 3 days prior to admission Acute on chronic diastolic CHF Hypernatremia Persistent left upper extremity PICC line, follow-up tip for culture and sensitivity Hypertension Hyperlipidemia Chronic hypoxic respiratory failure History of diastolic CHF, no acute exacerbation History of aspiration pneumonia History of ESBL Klebsiella urinary tract infection Chronic bilateral leg dermatitis Hospital course: This is a pleasant 80 years old male with past medical history of hypertension, diastolic heart failure, recently admitted to this facility for CHF and a spiration pneumonia status post intubation. He had ESBL Klebsiella pneumonia and urinary tract infection, BPH, GERD, hyperlipidemia, status post permanent pacemaker placement Information were obtained from the patient and daughter at bedside. After recent hospitalization earlier this month patient sent to [facility] for rehab, he was started on 4 L/m of oxygen per daughter also left upper extremity PICC line for his ESBL urinary tract infection he finished his antibiotics 3 days ago while they kept line in his left upper extremity to elevate check his urine analysis as he had urinary retention 3 days ago and Simpson catheter placed. Initially patient was treated with ertapenem for suspected bacterial urinary tract infection however urine culture came back positive for fungus and antifungal treatment was started by ID team also he was on diuretic for diastolic CHF but he developed hypernatremia and D5W was provided, health program analyst was on the case. Neurologist also evaluated the patient. A-team was called early childhood associate teacher for unresponsiveness, hypotension and worsening hypoxia. Blood pressure in the morning was 70s over 40s. There was evidence of occult blood in the stool with drop in hemoglobin to 8.5. Also he has worsening kidney function 3.5. Blood pressure medication were stopped and blood transfusion was ordered with plan to transfer him to the ICU However family contacted and stated they don't want blood transfusion or further management and they requested comfort care and hospice management which looks appropriate at this point. I discussed the case with the family and daughter myself and they want comfort care. Hospitalist consult was called upon per family request and patient was accepted under hospice care Patient is DO NOT RESUSCITATE Prognosis is extremely poor physical exam Gen: patient is a confused, respiratory distress on 15 L/m of oxygen. Extremely weak CVS: S1-S2, RRR, no murmur -Lungs: B/L CTA, no wheezing. No labored breathing with decreased breath sounds at the patient bilaterally Abdomen: soft, no distention, no tenderness, positive bowel sounds Extremity: no leg edema or induration Time spent more than 35 minutes Patient Condition at Discharge: Fair Plan - Discharge Summary Discharge Rx Participant: Yes New Discharge Prescriptions: No Action Sodium Bicarbonate Tab 650 mg PO QID@,,, Tamsulosin HCl [Flomax] 0.4 mg PO DAILY Carvedilol [Coreg] 12.5 mg PO BID Atorvastatin Calcium [Lipitor] 40 mg PO HS@1999 amLODIPine [Norvasc] 10 mg PO DAILY Ipratropium-Albuterol Nebulize [Duoneb 0.5 mg-3 mg/3 ml Soln] 3 ml INHALATION RT-QID ml Apixaban [Eliquis] 2.5 mg PO BID tablet Furosemide [Lasix] 40 mg PO DAILY tab Omeprazole 20 mg PO DAILY Prostat 30 ml PO HS Multivitamins, Thera [Multivitamin (formulary)] 1 tab PO DAILY Ipratropium-Albuterol Nebulize [Duoneb 0.5 mg-3 mg/3 ml Soln] 3 ml INHALATION RT-Q2H PRN ml PRN Reason: Shortness Of Breath Or Wheezing Discharge Medication List Atorvastatin Calcium [Lipitor] 40 mg PO HS@199902/06/21 [History] Carvedilol [Coreg] 12.5 mg PO BID 02/06/21 [History] Multivitamins, Thera [Multivitamin (formulary)] 1 tab PO DAILY 02/06/21 [History] Sodium Bicarbonate Tab 650 mg PO QID@05,11,17,23 02/06/21 [History] Tamsulosin HCl [Flomax] 0.4 mg PO DAILY 02/06/21 [History] amLODIPine [Norvasc] 10 mg PO DAILY 02/06/21 [History] Apixaban [Eliquis] 2.5 mg PO BID tablet 02/17/21 [Rx] Furosemide [Lasix] 40 mg PO DAILY tab 02/17/21 [Rx] Ipratropium-Albuterol Nebulize [Duoneb 0.5 mg-3 mg/3 ml Soln] 3 ml INHALATION RT-Q2H PRN ml 02/17/21 [Rx] Ipratropium-Albuterol Nebulize [Duoneb 0.5 mg-3 mg/3 ml Soln] 3 ml INHALATION RT-QID ml 02/17/21 [Rx] Omeprazole 20 mg PO DAILY 02/27/21 [History] Prostat 30 ml PO HS 02/27/21 [History] Follow up Appointment(s)/Referral(s): Zackary Fisher MD [Primary Care Provider] - 1-2 days
== END 2021-03-03 12:05 | disposition hospice, inpatient (51) | DRG 727 ==
LOC: EC 11:04 → 6NMEDSUR 13:39 → OBSVTOIN 03-01 15:57
PROVIDERS: ADMIT Internal Medicine; ATTEND Internal Medicine
PROC: 02PYX3Z Removal of Infusion Device from Great Vessel, External Approach (ICD-10-PCS; principal; 2021-03-02)
DX: B37.49 Other urogenital candidiasis (principal); G93.41 Metabolic encephalopathy; I50.33 Acute on chronic diastolic (congestive) heart failure; N17.0 Acute kidney failure with tubular necrosis; J18.9 Pneumonia, unspecified organism; E87.0 Hyperosmolality and hypernatremia; E87.2 Acidosis; I13.0 Hypertensive heart and chronic kidney disease with heart failure and stage 1 through stage 4 chronic kidney disease, or unspecified chronic kidney disease; J96.11 Chronic respiratory failure with hypoxia; K92.1 Melena; J44.0 Chronic obstructive pulmonary disease with (acute) lower respiratory infection; J98.11 Atelectasis; Z16.12 Extended spectrum beta lactamase (ESBL) resistance; R71.0 Precipitous drop in hematocrit; E87.5 Hyperkalemia; I95.9 Hypotension, unspecified; Z20.822 Contact with and (suspected) exposure to COVID-19; Z51.5 Encounter for palliative care; Z66 Do not resuscitate; E78.5 Hyperlipidemia, unspecified; N18.30 Chronic kidney disease, stage 3 unspecified; R33.8 Other retention of urine; L89.312 Pressure ulcer of right buttock, stage 2; B96.1 Klebsiella pneumoniae [K. pneumoniae] as the cause of diseases classified elsewhere; L89.152 Pressure ulcer of sacral region, stage 2; T68.XXXA Hypothermia, initial encounter; K21.9 Gastro-esophageal reflux disease without esophagitis; L89.322 Pressure ulcer of left buttock, stage 2; L89.512 Pressure ulcer of right ankle, stage 2; R47.81 Slurred speech; I07.1 Rheumatic tricuspid insufficiency; L30.9 Dermatitis, unspecified; G31.9 Degenerative disease of nervous system, unspecified; R53.1 Weakness; N40.0 Benign prostatic hyperplasia without lower urinary tract symptoms; Z79.01 Long term (current) use of anticoagulants; Z79.899 Other long term (current) drug therapy; Z86.19 Personal history of other infectious and parasitic diseases; Z86.73 Personal history of transient ischemic attack (TIA), and cerebral infarction without residual deficits; Z87.01 Personal history of pneumonia (recurrent); Z87.440 Personal history of urinary (tract) infections; Z87.891 Personal history of nicotine dependence; Z95.0 Presence of cardiac pacemaker; Z88.8 Allergy status to other drugs, medicaments and biological substances; Z87.19 Personal history of other diseases of the digestive system
CPT/HCPCS: 36415; 70450; 71045; 80048; 80053; 80061; 80076; 81001; 82140; 82272; 82607; 82746; 83036; 83605; 83735; 83880; 84145; 84295; 84443; 85025; 85610; 85730; 87070; 87086; 87635; 93005; 93880; 99285

== ENCOUNTER 2021-03-03 11:57 | Inpatient (IN) | payer MEDICAID ==
[2021-03-03] MEDS ORDERED: ATROPINE OPHTH SOLN 1% 5ML BTL SUBLINGUAL PRN (11:58)
[2021-03-03] MEDS ORDERED: MORPHINE SULFATE 2 MG/ML SYRINGE IV PRN (11:58)
[2021-03-03] MEDS ORDERED: ONDANSETRON 4 MG/2 ML VIAL IVP PRN (11:58)
[2021-03-03] MEDS ORDERED: HALOPERIDOL LACTATE 5 MG/ML 1 ML VIAL IM PRN (11:58)
[2021-03-03] MEDS ORDERED: GLYCOPYRROLATE 0.2 MG/ML 2 ML VIAL IVP PRN (11:58)
[2021-03-03] MEDS ORDERED: LORazepam 2 MG/ML INJ IV PRN (11:58)
[2021-03-03] MEDS ORDERED: ACETAMINOPHEN SUPPOSITORY 650 MG SUPP RECTAL PRN (11:58)
[2021-03-03] MEDS ORDERED: MORPHINE SULFATE (100 MG/2 ML) 100 MG in SODIUM CHLORIDE 0.9% 100 ML IV SCH (12:00)
[2021-03-03] MEDS ORDERED: HYOSCYAMINE ORAL DROPS 1.875 MG/15 ML BOTTLE PO PRN (12:01)
[2021-03-03 12:20] VITALS: BMI 23.8
[2021-03-03] MEDS ORDERED: SCOPOLAMINE 1.5MG/72HR PATCH TRANSDERM SCH (13:00)
[2021-03-03 15:21] VITALS: RESP 16
--- NOTE | 2021-03-04 06:40 | P.HPIM ---
History of Present Illness please consider this note as combined H&P and discharge summary Diagnoses: Altered mental status, likely metabolic encephalopathy Slurred speech , mostly related to above rather than TIA Possible acute GI bleed with blood loss anemia Acute kidney injury, most likely on the top of chronic kidney disease stage III . Most likely cardiorenal syndrome plus hypertensive nephropathy and history of urinary retention recent urinary retention status post Simpson catheter, 3 days prior to admission Acute on chronic diastolic CHF Hypernatremia Persistent left upper extremity PICC line, follow-up tip for culture and sensitivity Hypertension Hyperlipidemia Chronic hypoxic respiratory failure History of diastolic CHF, no acute exacerbation History of aspiration pneumonia History of ESBL Klebsiella urinary tract infection Chronic bilateral leg dermatitis Hospital course: This is a pleasant 80 years old male with past medical history of hypertension, diastolic heart failure, recently admitted to this facility for CHF and aspiration pneumonia status post intubation. He had ESBL Klebsiella pneumonia and urinary tract infection, BPH, GERD, hyperlipidemia, status post permanent pacemaker placement Information were obtained from the patient and daughter at bedside. After recent hospitalization earlier this month patient sent [facility], he was started on 4 L/m of oxygen per daughter also left upper extremity PICC line for his ESBL urinary tract infection he finished his antibiotics 3 days ago while they kept line in his left upper extremity to elevate check his urine analysis as he had urinary retention 3 days ago and Simpson catheter placed. Initially patient was treated with ertapenem for suspected bacterial urinary tract infection however urine culture came back positive for fungus and antifungal treatment was started by ID team also he was on diuretic for diastolic CHF but he developed hypernatremia and D5W was provided, magnet valve assembler was on the case. Neurologist also evaluated the patient. A-team was called ob tech for unresponsiveness, hypotension and worsening hypoxia. Blood pressure in the morning was 70s over 40s. There was evidence of occult blood in the stool with drop in hemoglobin to 8.5. Also he has worsening kidney function 3.5. Blood pressure medication were stopped and blood transfusion was ordered with plan to transfer him to the ICU However family contacted and stated they don't want blood transfusion or further management and they requested comfort care and hospice management which looks appropriate at this point. I discussed the case with the family and daughter myself and they want comfort care. Hospitalist consult was called upon per family request and patient was accepted under hospice care pt ob tech , please refer to RN note for more details Past Medical History Past Medical History: Heart Failure, Hypertension Additional Past Medical History / Comment(s): hiatal hernia. hyperkalemia. maculuar degernation. TIA. 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 Pacemaker placed 08/15/2020 by Eleuterio Babcock ([phone]) Past Anesthesia/Blood Transfusion Reactions: No Reported Reaction Type of Cardiac Device: Permanent Pacemaker Device Placement Date:: 08/15/20 Smoking Status: Former smoker Past Alcohol Use History: Rare - Past Family History Daughter(s) Family Medical History: Diabetes Mellitus, Hypertension Additional Family Medical History / Comment(s): macular degeneration Medications and Allergies Home Medications Medication Instructions Recorded Confirmed Type Atorvastatin Calcium [Lipitor] 40 mg PO HS@199902/06/21 03/03/21 History Carvedilol [Coreg] 12.5 mg PO BID 02/06/21 03/03/21 History Multivitamins, Thera [Multivitamin 1 tab PO DAILY 02/06/21 03/03/21 History (formulary)] Sodium Bicarbonate Tab 650 mg PO QID@05,11,,02/06/21 03/03/21 History Tamsulosin HCl [Flomax] 0.4 mg PO DAILY 02/06/21 03/03/21 History amLODIPine [Norvasc] 10 mg PO DAILY 02/06/21 03/03/21 History Apixaban [Eliquis] 2.5 mg PO BID tablet 02/17/21 03/03/21 Rx Furosemide [Lasix] 40 mg PO DAILY tab 02/17/21 03/03/21 Rx Ipratropium-Albuterol Nebulize 3 ml INHALATION RT-Q2H PRN ml 02/17/21 03/03/21 Rx [Duoneb 0.5 mg-3 mg/3 ml Soln] Ipratropium-Albuterol Nebulize 3 ml INHALATION RT-QID ml 02/17/21 03/03/21 Rx [Duoneb 0.5 mg-3 mg/3 ml Soln] Omeprazole 20 mg PO DAILY 02/27/21 03/03/21 History Prostat 30 ml PO HS 02/27/21 03/03/21 History Allergies Allergy/AdvReac Type Severity Reaction Status Date / Time lisinopril AdvReac Unknown Verified 02/27/21 11:51 Physical Exam Vitals: Vital Signs Resp 03/03/21 14:00 16 Intake and Output 03/03/21 03/03/21 03/04/21 14:59 22:59 06:59 Intake Total 1.904 Balance 1.904 Intake: Intake, IV Titration 1.904 Amount Morphine Sulfate (100 mg/ 1.904 2 ml) 100 mg In Sodium Chloride 0.9% 100 ml @ 1 MG/HR 1.02 mls/hr IV . Q24H [facility] Rx#:[id number] Other: Voiding Method Indwelling Catheter Indwelling Catheter # Voids 1 # Bowel Movements 0 Weight 79.9 kg
== END 2021-03-04 00:11 | disposition expired | DRG 951 ==
LOC: 6NMEDSUR 12:07
PROVIDERS: ADMIT Internal Medicine; ATTEND Internal Medicine
DX: Z51.5 Encounter for palliative care (principal); J15.0 Pneumonia due to Klebsiella pneumoniae; G93.41 Metabolic encephalopathy; I50.33 Acute on chronic diastolic (congestive) heart failure; I13.0 Hypertensive heart and chronic kidney disease with heart failure and stage 1 through stage 4 chronic kidney disease, or unspecified chronic kidney disease; E87.0 Hyperosmolality and hypernatremia; J96.11 Chronic respiratory failure with hypoxia; N39.0 Urinary tract infection, site not specified; K92.2 Gastrointestinal hemorrhage, unspecified; Z66 Do not resuscitate; E78.5 Hyperlipidemia, unspecified; K21.9 Gastro-esophageal reflux disease without esophagitis; L30.9 Dermatitis, unspecified; N18.30 Chronic kidney disease, stage 3 unspecified; N40.0 Benign prostatic hyperplasia without lower urinary tract symptoms; Z79.01 Long term (current) use of anticoagulants; Z79.899 Other long term (current) drug therapy; Z82.49 Family history of ischemic heart disease and other diseases of the circulatory system; Z83.3 Family history of diabetes mellitus; Z86.19 Personal history of other infectious and parasitic diseases; Z86.73 Personal history of transient ischemic attack (TIA), and cerebral infarction without residual deficits; Z87.01 Personal history of pneumonia (recurrent); Z87.891 Personal history of nicotine dependence; Z95.0 Presence of cardiac pacemaker; Z90.89 Acquired absence of other organs; D50.0 Iron deficiency anemia secondary to blood loss (chronic); Z88.8 Allergy status to other drugs, medicaments and biological substances; Z90.49 Acquired absence of other specified parts of digestive tract